=== PATIENT | male | born 1960 | race Caucasian/White ===

== ENCOUNTER → 2016-11-30 | Outpatient (CLI) | payer BC, OTHER ==
[~2016-11-30] MED LIST: ALTACE; AML5T; AMLO10TA2 PO; AMLO1TAB15; CLONIDINE; D50KC PO; DIPH1TAB PO; DIPH1TAB25 PO; FURO-124 PO; HUMALOG; HYDR-2997 PO; HYDR-757 PO; INSU100C SQ; INSU100I14 SQ; INSU100I5 SQ; KCL10CCR; LANTUS; LASIX; LORA10TA7 PO; LOSA100T28 PO; LOSA25TA15 PO; METO50TA2 PO; PGLT30T; SITA100T; bistolic
--- OUTSIDE RECORDS SUMMARY | 2016-11-30 11:24 | XMS REPORT | Continuity of Care Document ---
Author Author [facility] Organization [facility] Address Unknown Phone Unavailable Care Team Providers Care Aircraft Detail Draftsperson Name Role Phone Romie Baker PCP [phone] Source Comments Some departments are not documenting in the electronic medical record. If you do not see the information that you expected, contact Release of Information in the Health Information Management department at [phone] for further assistance in locating additional records.[facility] Active Allergies and Adverse Reactions Allergen Noted Date Severity Reactions Comments Augmentin 07/22/2016 Low UNKNOWN Current Medications Prescription Sig. Disp. Refills Start End Date Status Date amLODIPine (NORVASC) 10 Take 10 mg by mouth Active mg tablet daily. losartan(+) (COZAAR) 100 Take 100 mg by mouth Active mg tablet daily. diphenoxylate/atropine Take 1 Tab by mouth four Active (LOMOTIL) 2.5/0.025 mg times daily as needed for tablet Diarrhea. hydrochlorothiazide Take 50 mg by mouth every Active (HYDRODIURIL) 50 mg morning. tablet furosemide (LASIX) 40 mg Take 40 mg by mouth every Active tablet morning. insulin detemir(+) Inject under the skin. Active (LEVEMIR) 100 unit/mL soln metoprolol XL (TOPROL XL) Take 50 mg by mouth Active 50 mg extended release daily. tablet insulin aspart (NOVOLOG Inject 5 Units under the Active FLEXPEN) 100 unit/mL skin three times daily injection PEN with meals. Active Problems Not on file Social History Tobacco Use Types Packs/Day Years Used Date Never Assessed Plan of Care Health Maintenance Due Date Last Done Comments Hepatitis C Screening 1959 Physical (Comprehensive) 1966 Exam Pertussis Vaccine 1970 Tetanus Vaccine 1976 Colorectal Cancer 2009 Screening Influenza Vaccine 07/28/2016 Results from Last 3 Months Not on file
[2016-11-30 11:38] LABS: MEAN PLATELET VOLUME 11.2 FL (7.4-10.4); RED BLOOD COUNT 3.23 10^6/uL (4.35-5.85); RED CELL DISTRIBUTION WIDTH 12.8 % (10.0-14.5); WHITE BLOOD COUNT 7.6 10^3/uL (4.3-11.0)
[2016-11-30 11:56] LABS: CALCIUM 9.2 MG/DL (8.5-10.1); CREATININE SERUM 4.45 MG/DL (0.60-1.30); PHOSPHORUS 5.8 MG/DL (2.3-4.7); POTASSIUM 3.5 MMOL/L (3.6-5.0)
[2016-12-01 07:59] LABS: CALCIUM PARA THYROID HORMONE 9.2 mg/dL (8.5-10.5)
== END ==
LOC: LAB 11:18
PROVIDERS: ATTEND Internal Medicine Nephrology
DX: I12.9 Hypertensive chronic kidney disease with stage 1 through stage 4 chronic kidney disease, or unspecified chronic kidney disease (principal); N18.4 Chronic kidney disease, stage 4 (severe); E11.22 Type 2 diabetes mellitus with diabetic chronic kidney disease; E11.21 Type 2 diabetes mellitus with diabetic nephropathy; D64.9 Anemia, unspecified; N25.0 Renal osteodystrophy; R60.9 Edema, unspecified; N20.0 Calculus of kidney; E55.9 Vitamin D deficiency, unspecified
CPT/HCPCS: 36415; 80069; 82306; 83970; 85027

== ENCOUNTER 2016-12-22 11:33 | Emergency (ER) | payer BC ==
[~2016-12-22] VITALS: Ht 175.3 cm; Wt 99.8 kg
--- OUTSIDE RECORDS SUMMARY | 2016-12-22 11:39 | XMS REPORT | Continuity of Care Document ---
Author Author [facility] Organization [facility] Address Unknown Phone Unavailable Care Team Providers Care Loss Control Consultant Name Role Phone Romie Baker PCP [phone] Source Comments Some departments are not documenting in the electronic medical record. If you do not see the information that you expected, contact Release of Information in the Health Information Management department at [phone] for further assistance in locating additional records.[facility] Active Allergies and Adverse Reactions [...]
[2016-12-22 12:12] LABS: BASOPHILS % (AUTO) 1 % (0-10); EOSINOPHILS # (AUTO) 0.2 10^3/uL (0.0-0.3); EOSINOPHILS % (AUTO) 3 % (0-10); LYMPHOCYTES # (AUTO) 1.1 X 10^3 (1.0-4.0); LYMPHOCYTES % (AUTO) 17 % (12-44); MEAN CORPUSCULAR HEMOGLOBIN 31 PG (25-34); MEAN CORPUSCULAR HGB CONC 32 G/DL (32-36); MEAN CORPUSCULAR VOLUME 96 FL (80-99); MEAN PLATELET VOLUME 9.6 FL (7.4-10.4); MONOCYTES # (AUTO) 0.7 X 10^3 (0.0-1.0); MONOCYTES % (AUTO) 11 % (0-12); NEUTROPHILS # (AUTO) 4.6 X 10^3 (1.8-7.8); NEUTROPHILS % (AUTO) 68 % (42-75); PLATELET COUNT 133 10^3/uL (130-400); RED BLOOD COUNT 3.04 10^6/uL (4.35-5.85); RED CELL DISTRIBUTION WIDTH 14.3 % (10.0-14.5); WHITE BLOOD COUNT 6.7 10^3/uL (4.3-11.0)
[2016-12-22 12:21] LABS: INR 1.1 (0.8-1.4); PROTHROMBIN TIME PATIENT 13.4 SEC (12.2-14.7)
--- NOTE | 2016-12-22 12:26 | Diagnostic Imaging Report ---
Clinical indication: Episodes of confusion since last night, had an episode today for approximately 3-1/2 hours. Exam: Portable chest x-ray upright view. Comparisons: X-ray of the right ribs dated 12/25/2007. Findings: There is cardiomegaly with minimal pulmonary vascular congestion which has progressed. There is minimal left basilar atelectasis. Otherwise, the lungs are clear. There is no pleural effusion or pneumothorax. There is interval placement of vascular access catheter seen overlying the right chest with tip in the distal superior vena cava. The bones showed no significant abnormality, as visualized. Impression: 1: There is interval progression of cardiomegaly with minimal pulmonary vascular congestion. 2: Minimal left basilar atelectasis. 3. Interval placement of vascular access catheter overlying the right chest. Dictated by: Dictated on workstation # [id number]
[2016-12-22 12:29] LABS: ALBUMIN 3.8 G/DL (3.2-4.5); BILIRUBIN,TOTAL 0.8 MG/DL (0.1-1.0); CALCIUM 8.8 MG/DL (8.5-10.1); CREATININE SERUM 1.74 MG/DL (0.60-1.30); POTASSIUM 2.7 MMOL/L (3.6-5.0); TOTAL PROTEIN 7.1 G/DL (6.4-8.2)
--- NOTE | 2016-12-22 13:04 | Diagnostic Imaging Report ---
INDICATION: Altered mental status and recent left eye surgery. TECHNIQUE: Noncontrast brain CT is performed. FINDINGS: There are mild diffuse atrophic changes. There are no extra-axial fluid collections. No intracranial hemorrhage. No intracranial mass or mass effect. No midline shift. There are mild low-density changes in the deep white matter compatible with chronic ischemic change. There is no acute intracranial process. Calvarial windows show no bony abnormalities. There is air in the left globe presumably postsurgical in nature. There is some mucosal thickening of left maxillary sinus. IMPRESSION: Mild atrophy and chronic changes in deep white matter. No acute intracranial abnormality. Postoperative changes in left globe. Dictated by: Dictated on workstation # [id number]
--- NOTE | 2016-12-22 13:25 | ED Neurological Problem ---
General Chief Complaint: Neuro-Stroke Like Symptoms Stated Complaint: CONFUSION Nursing Triage Note: PT TO ROOM 4 STATES IN HAVING PERIODS OF CONFUSION SINCE LAST PM. PT CONFUSED AT TIMES. STATES WAS SCARED AT HOME NEEDED TO GET HELP. PT HAD DIALYSIS TODAY FOR APPROX 3.5HOURS, PT HAD RECENT EYE SURG FOR L EYE RETINAL BLEEDING. Nursing Sepsis Screen: No Definite Risk Source: patient Exam Limitations: no limitations History of Present Illness Time seen by provider: 13:23 Initial Comments To ER with reports of intermittent confusion. He states this began with unusual dreams during his sleep last night. States that he does not normally dream and these were very unusual for him. This morning he also felt a bit confused and didn't know where he was at at certain times but this was not constant. He went to dialysis which he receives on Monday and Monday and felt somewhat better afterwards. He then went to his daughter's house and became again confused and anxious and didn't know where he was at and requested that she call someone for help. He was then brought to the emergency room. At this time, he states he feels back to normal other than being generally weak. He denies any focal or unilateral weakness. agrees with this. He was treated on Monday of this week for a left retinal hemorrhage by an chief service dispatcher in [place]. Timing/Duration: 24 hours, waxing and waning Severity: moderate Allergies and Home Medications Allergies Coded Allergies: NKANo Known Allergies (Verified Allergy, Unknown, 12/28/05) Home Medications Amlodipine Besylate 10 Mg Tablet 10 MG PO DAILY (Reported) Diphenoxylate HCl/Atropine 1 Each Tablet 1 TAB PO QID PRN PRN DIARRHEA (Reported ) Ergocalciferol (Vitamin D2) 50,000 Unit Capsule 50,000 UNIT PO MONTHLY (Reported ) PATIENT JUST FINISHED ONCE WEEKLY DOSING FOR 4 WEEKS ON MONDAY OF THIS WEEK; NOW WILL BE TAKING ONCE MONTHLY FOR 6 MONTHS. Furosemide 40 Mg Tablet 40 MG PO BID (Reported) Hydrocodone/Acetaminophen 1 Each Tablet #30 1 EACH PO Q4H PRN PRN PAIN Prescribed by: PRECIOUS YOUNG on 08/11/16 1040 Insulin Aspart 300 Units/3 Ml Solution 15 UNITS SQ TIDAC (Reported) Insulin Determir 100 Unit/1 Ml Insuln.pen 15 UNITS SQ HS (Reported) Losartan Potassium 100 Mg Tablet 100 MG PO DAILY (Reported) Metoprolol Tartrate 50 Mg Tablet 50 MG PO BID (Reported) Constitutional: see HPI Eyes: See HPI Other (shield over left eye) Ears, Nose, Mouth, Throat: no symptoms reported Respiratory: no symptoms reported Cardiovascular: no symptoms reported Genitourinary: no symptoms reported Musculoskeletal: no symptoms reported Skin: no symptoms reported Psychiatric/Neurological: No Symptoms Reported Past Mszpowf-Pivvya-Ocijkr Hx Patient Social History Alcohol Use: Denies Use Recreational Drug Use: No Smoking Status: Never a Smoker Recent Foreign Travel: No Contact w/Someone Who Travel: No Recent Infectious Disease Expo: No Recent Hopitalizations: Yes (EYE SURG) Physical Abuse Screen: No Sexual Abuse: No Immunizations Up To Date Tetanus Booster (TDap): Less than 5yrs Date of Pneumonia Vaccine: March 27, 2016 Seasonal Allergies Seasonal Allergies: Yes Surgeries HX Surgeries: Yes (BACK--L5-S1, FINGER FX/REPAIR; EXPLORATORY LAPAROTOMY) Surgeries: Abdominal, Orthopedic Respiratory Hx Respiratory Disorders: No Cardiovascular Hx Cardiac Disorders: Yes Cardiac Disorders: Chronic Edema/Swelling, High Cholesterol, Hypertension Neurological Hx Neurological Disorders: No Reproductive System Hx Reproductive Disorders: No Genitourinary Hx Genitourinary Disorders: Yes (STAGE 4 RENAL FAILURE--NO DIALYSIS, X 3 KIDNEY STONES) Genitourinary Disorders: Kidney Stones, Renal Failure Gastrointestinal Hx Gastrointestinal Disorders: Yes Gastrointestinal Disorders: Crohns Disease Musculoskeletal Hx Musculoskeletal Disorders: Yes Musculoskeletal Disorders: Arthritis, Back Injury, Chronic Back Pain, Fractures Endocrine Hx Endocrine Disorders: Yes Endocrine Disorders: Diabetes, Insulin dep HEENT HX ENT Disorders: Yes (CATARACTS REMOVED) HEENT Disorders: Tinnitis Cancer Hx Cancer: Yes (BASAL CELL) Cancer: Skin Psychosocial Hx Psychiatric Problems: No Integumentary HX Skin/Integumentary Disorder: Yes (SKIN CANCER) Blood Transfusions Hx Blood Disorders: No Physical Exam Vital Signs Vital Sign - Last 12Hours 12/22/16 11:33 Temp 98.5 Pulse 67 Resp 41 B/P 164/74 Pulse Ox 84 O2 Delivery Room Air Capillary Refill : Less Than 3 Seconds General Appearance: WD/WN no apparent distress HEENT: PERRL/EOMI normal ENT inspection Neck: non-tender full range of motion Respiratory: no respiratory distress no accessory muscle use Cardiovascular: regular rate, rhythm other (he denies chest pain or shortness of breath) Gastrointestinal: normal bowel sounds non tender soft Neurologic/Psychiatric: alert normal mood/affect oriented x 3 other (Child Care Development Specialist are equal, moves both lower extremities. Vision cannot be tested at his left eye is poor to begin with and covered with a shield. Facial movement is symmetrical and speech is clear and appropriate) Crainal Nerves: normal hearing normal speech Skin: normal color warm/dry Progress/Results/Core Measures Results/Orders Lab Results Laboratory Tests Test 12/22/16 11:55 12/22/16 12:04 Range/Units Alanine Aminotransferase (ALT/SGPT) 29 0-55 U/L Albumin 3.8 3.2-4.5 G/DL Alkaline Phosphatase 129 40-136 U/L Anion Gap 8 5-14 MMOL/L Aspartate Amino Transf (AST/SGOT) 21 5-34 U/L BUN/Creatinine Ratio 7 Basophils # (Auto) 0.0 0.0-0.1 10^3/uL Basophils (%) (Auto) 1 0-10 % Blood Urea Nitrogen 12 7-18 MG/DL Calcium Level 8.8 8.5-10.1 MG/DL Carbon Dioxide Level 35 H 21-32 MMOL/L Chloride Level 95 L 98-107 MMOL/L Creatinine 1.74 H 0.60-1.30 MG/DL Eosinophils # (Auto) 0.2 0.0-0.3 10^3/uL Eosinophils (%) (Auto) 3 0-10 % Estimat Glomerular Filtration Rate 41 Glucose Level 137 H 70-105 MG/DL Hematocrit 29 L 40-54 % Hemoglobin 9.4 L 13.3-17.7 G/DL INR Comment 1.1 0.8-1.4 Lymphocytes # (Auto) 1.1 1.0-4.0 X 10^3 Lymphocytes (%) (Auto) 17 12-44 % Mean Corpuscular Hemoglobin 31 25-34 PG Mean Corpuscular Hemoglobin Concent 32 32-36 G/DL Mean Corpuscular Volume 96 80-99 FL Mean Platelet Volume 9.6 7.4-10.4 FL Monocytes # (Auto) 0.7 0.0-1.0 X 10^3 Monocytes (%) (Auto) 11 0-12 % Neutrophils # (Auto) 4.6 1.8-7.8 X 10^3 Neutrophils (%) (Auto) 68 42-75 % Platelet Count 133 130-400 10^3/uL Potassium Level 2.7 L 3.6-5.0 MMOL/L Prothrombin Time 13.4 12.2-14.7 SEC Red Blood Count 3.04 L 4.35-5.85 10^6/uL Red Cell Distribution Width 14.3 10.0-14.5 % Serum Alcohol < 10 <10 MG/DL Sodium Level 138 135-145 MMOL/L Total Bilirubin 0.8 0.1-1.0 MG/DL Total Protein 7.1 6.4-8.2 G/DL White Blood Count 6.7 4.3-11.0 10^3/uL Glucometer 157 H 70-110 MG/DL My Orders Orders-IRA BRUCE APRN Cbc With Automated Diff (12/22/16 11:57) Ct Head Wo (12/22/16 11:57) Comprehensive Metabolic Panel (12/22/16 11:57) Protime With Inr (12/22/16 11:57) Chest 1 View, Ap/Pa Only (12/22/16 11:57) Ua Culture If Indicated (12/22/16 11:57) Drug Screen Stat (Urine) (12/22/16 12:09) Alcohol (12/22/16 12:10) Potassium Chloride (Tablet) (Klor Con Ta (12/22/16 13:30) Medications Given in ED Current Medications Medications Dose Ordered Sig/Uday Route Start Time Stop Time Status Last Admin Dose Admin Potassium Chloride 40 meq ONCE ONCE PO 12/22/16 13:30 12/22/16 13:31 DC 12/22/16 14:08 40 MEQ Vital Signs/I&O Vital Sign - Last 12Hours 12/22/16 11:33 Temp 98.5 Pulse 67 Resp 41 B/P 164/74 Pulse Ox 84 O2 Delivery Room Air Blood Pressure Mean: 104 Departure Communication Progress Notes I discussed the case with Dr. Precious Young. She agrees to have the patient scheduled for follow-up appointment tomorrow at the clinic. Impression Impression: Primary Impression: General weakness Additional Impression: Symptomatic hypokalemia Disposition: 01 HOME, SELF-CARE Condition: Stable Departure-Patient Inst. Decision time for Depature: 14:23 Referrals: [facility] (PCP/Family) Primary Care Physician Patient Instructions: Hypokalemia (DC) Add. Discharge Instructions: 1. Return to ER for any concerns 2. Follow-up with his doctor next week 3. All discharge instructions reviewed with patient and/or family. Voiced understanding. IRA BRUCE APRN Dec 22, 2016 13:25
[2016-12-22] MEDS ORDERED: KCL 10 MEQ TAB (MICRO K) PO ONE (13:30)
[2016-12-22 14:27] VITALS: BP 145/74
== END 2016-12-22 14:33 | disposition home or self-care (01) ==
LOC: EDUNIT# 11:33 → ER 11:36
DX: R53.1 Weakness (principal); E87.6 Hypokalemia; E11.9 Type 2 diabetes mellitus without complications; I12.0 Hypertensive chronic kidney disease with stage 5 chronic kidney disease or end stage renal disease; N18.6 End stage renal disease; Z99.2 Dependence on renal dialysis; Z79.4 Long term (current) use of insulin; Z79.899 Other long term (current) drug therapy
CPT/HCPCS: 36415; 70450; 71010; 80053; 80320; 82962; 85025; 85610

== ENCOUNTER → 2017-05-01 | Outpatient (CLI) | payer BC, MEDICARE ==
[2017-05-01 09:49] LABS: CHOLESTEROL 201 MG/DL (< 200); DIRECT LDL 92 MG/DL (1-129); TRIGLYCERIDES 359 MG/DL (<150); VLDL CHOLESTEROL 72 MG/DL (5-40)
== END ==
LOC: LAB 09:16
PROVIDERS: ATTEND Internal Medicine Cardiovascular Disease
DX: Z01.818 Encounter for other preprocedural examination (principal); I12.0 Hypertensive chronic kidney disease with stage 5 chronic kidney disease or end stage renal disease; N18.6 End stage renal disease; E11.69 Type 2 diabetes mellitus with other specified complication; Z79.4 Long term (current) use of insulin; Z99.2 Dependence on renal dialysis
CPT/HCPCS: 36415; 80061

== ENCOUNTER 2017-08-24 08:24 | Day surgery (SDC) | payer BC, MEDICARE ==
[~2017-08-24] VITALS: Ht 175.3 cm; Wt 103.4 kg
[~2017-08-24 08:24] MED LIST changes: -ATOR40TA70 PO; -CALC667C10 PO; -INSU100I29 SQ; -METO-333 PO; -SERT25TA5 PO; -SODI325T PO
--- OUTSIDE RECORDS SUMMARY | 2017-08-24 08:28 | XMS REPORT ---
Author INGRID Christopher Organization [employer] Address Unknown Phone Unavailable Care Team Providers Care Manager Linux Name Role Phone INGRID CHOUDHARY CP Unavailable Allergies No Known Allergies Problems Problem Type Condition Code Onset Dates Condition Status Problem Edema 782.3 Active Problem Other and unspecified noninfectious gastroenteritis and colitis 558.9 Active Problem Diabetes mellitus without mention of complication, type II or unspecified type, not stated as uncontrolled 250.00 Active Assessment Renal insufficiency N28.9 Active Assessment Orthostatic hypotension I95.1 Active Problem Diabetes type 2, uncontrolled E11.65 Active Problem Diabetes E11.9 Active Problem Hypertension I10 Active Problem Need for prophylactic vaccination and inoculation against pertussis alone V03.6 Active Problem Diabetes with neurological manifestations, type II or unspecified type , not stated as uncontrolled 250.60 Active Problem HTN (hypertension) 401.9 Active Problem Renal failure N19 Active Medications Medication Code System Code Instructions Start Date End Date Status Dosage Blood Pressure Monitor [facility] [address] - DX: N28.9, I95.1 June 06, 2016 monitor BP as directed by nephrology Results No Known Results Summary Purpose [employer] Submission
--- OUTSIDE RECORDS SUMMARY | 2017-08-24 08:28 | XMS REPORT | Clinical Summary ---
Author Author [facility] Organization [facility] Address Unknown Phone Unavailable Care Team Providers Care Log Yard Derrick Operator Name Role Phone PCP Unavailable Source Comments Some departments are not documenting in the electronic medical record. If you do not see the information that you expected, contact Release of Information in the Health Information Management department at [phone] for further assistance in locating additional records.[facility] Allergies Active Allergy Reactions Severity Noted Date Comments Amoxicillin-Pot UNKNOWN Low 07/22/2016 Clavulanate Current Medications Prescription Sig. Disp. Refills Start [...] Types Packs/Day Years Used Date Never Assessed Sex Assigned at Date Recorded Not on file Last Filed Vital Signs Not on file Plan of Treatment Health Maintenance Due Date Last Done Comments HEPATITIS C SCREENING 1960 PHYSICAL (COMPREHENSIVE) 1966 EXAM PERTUSSIS VACCINE 1970 TETANUS VACCINE 1976 COLORECTAL CANCER 2009 SCREENING INFLUENZA VACCINE 08/27/2017 Results Not on filefrom Last 3 Months
--- OUTSIDE RECORDS SUMMARY | 2017-08-24 08:28 | XMS REPORT ---
Author Author AILEEN KNIGHT Organization [facility] Address [address] [place] [address] Care Team Providers Care Escort Patients Name Role Phone SUKUMAR KNIGHTICE Unavailable PROBLEMS Type Condition ICD9-CM Code RAX02-FG Code Onset Dates Condition Status SNOMED Code Problem Diabetes type 2, uncontrolled E11.65 Active 917341503 Problem Chronic kidney disease, stage 4 (severe) N18.4 Active 509399440 Problem Hypertension I10 Active 96457108 Problem 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, unspecified nursing home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 status E11.42 Active 506966534 Problem Encounter for dental examination Z01.20 Active 518111819 Problem Type 2 diabetes mellitus with diabetic chronic kidney disease E11.22 Active 56877110 Problem Type 2 diabetes mellitus with hyperglycemia E11.65 Active 285642702608857 Problem Constipation, unspecified constipation type K59.00 Active 13152339 Problem 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.4 Active 592604229 Problem Need for prophylactic vaccination and inoculation against pertussis alone V03.6 Active 17651705 Problem Edema 782.3 Active 40816879 Problem Diabetes with neurological manifestations, type II or unspecified type , not stated as uncontrolled 250.60 Active 553820093 Problem Renal failure N19 Active 97754593 Problem Other and unspecified noninfectious gastroenteritis and colitis 558.9 Active 85554926 Problem HTN (hypertension) 401.9 Active 25332186 Problem Diabetes mellitus without mention of complication, type II or unspecified type, not stated as uncontrolled 250.00 Active 854022202 Problem Diabetes E11.9 Active 04811725 ALLERGIES Substance Reaction Event Type Date Status Doxycycline Unknown Drug Allergy Dec, Active Clindamycin HCl hives Drug Allergy Dec, Active Amoxicillin extreme diarrhea Drug Allergy Dec, Active SOCIAL HISTORY Never Assessed PLAN OF CARE Activity Details Follow Up prn Reason: VITAL SIGNS Height 69 in 2017-01-06 Weight 217.8 lbs 2017-01-06 Temperature 97.6 degrees Fahrenheit 2017-01-06 Heart Rate 76 bpm 2017-01-06 Respiratory Rate 20 2017-01-06 BMI 32.16 kg/m2 2017-01-06 Blood pressure systolic 130 mmHg 2017-01-06 Blood pressure diastolic 88 mmHg 2017-01-06 MEDICATIONS Medication Instructions Dosage Frequency Start Date End Date Duration Status Cozaar 100 MG Orally Once a day 1 tablet 24h Oct, 30 Active Levemir Flexpen 100 unit/mL (3 mL) 15 Units by Subcutaneous route 1 time per day at bedtime Active Blood Pressure Monitor - monitor BP as directed by nephrology May, Active Lomotil 2.5-0.025 MG 1 tablet as needed 6h Dec, Active Amlodipine Besylate 10 mg Orally Once a day 1 tablet 24h Dec, 30 day(s) Active Metoprolol Tartrate 100 MG Orally Twice a day as directed 12h 30 Active Lasix 40 mg Orally twice a day 1 tablet 12h Active Hydrochlorothiazide 25 MG Orally Once a day 2 tablets 24h Active RESULTS No Results PROCEDURES No Known procedures IMMUNIZATIONS No Known Immunizations MEDICAL (GENERAL) HISTORY Type Description Date Medical History type II diabetes Medical History hyperlipidemia Medical History hypertension Medical History renal failure Surgical History l4/l5 surgery Surgical History left shoulder reconstruction Surgical History right rotator cuff x2 Surgical History exploratory laprascopy Surgical History orthopaedic surgery left ring finger; 5 pins placed Surgical History laser eye surgery x2 on right eye, x1 left eye (prepping for cataract removal) Surgical History Left eye cataract surgery 12/08/2015 Surgical History Right eye cataract surgery 02/02/16 Hospitalization History surgeries Hospitalization History left greater trochanter fracture 08/10/16
--- OUTSIDE RECORDS SUMMARY | 2017-08-24 08:28 | XMS REPORT ---
Author LAURY Michaels [facility] [employer] Address Unknown Phone Unavailable Care Team Providers Care Operations Tech Name Role Phone LAURY KILPATRICK Unavailable Allergies No Known Allergies Problems Problem Type Condition Code Onset Dates Condition Status Problem Diabetes mellitus without mention of complication, type II or unspecified type, not stated as uncontrolled 250.00 Active Problem Edema 782.3 Active Problem Diabetes type 2, uncontrolled E11.65 Active Problem Diabetes E11.9 Active Problem Hypertension I10 Active Problem Diabetes with neurological manifestations, type II or unspecified type , not stated as uncontrolled 250.60 Active Problem Other and unspecified noninfectious gastroenteritis and colitis 558.9 Active Problem HTN (hypertension) 401.9 Active Problem Need for prophylactic vaccination and inoculation against pertussis alone V03.6 Active Medications No Known Medications Results No Known Results Summary Purpose [employer] Submission
--- OUTSIDE RECORDS SUMMARY | 2017-08-24 08:28 | XMS REPORT ---
Author INGRID Christopher Organization [employer] Address Unknown Phone Unavailable Care Team Providers Care Rail Washer Name Role Phone INGRID CHOUDHARY CP Unavailable Allergies No Known Allergies Problems Problem Type Condition Code Onset Dates Condition Status Problem Need for prophylactic vaccination and inoculation against pertussis alone V03.6 Active Problem HTN (hypertension) 401.9 Active Problem Renal failure N19 Active Problem Type 2 diabetes mellitus with hyperglycemia E11.65 Active Problem Chronic kidney disease, stage 4 (severe) N18.4 Active Problem Type 2 diabetes mellitus with diabetic chronic kidney disease E11.22 Active Problem Diabetes type 2, uncontrolled E11.65 Active Problem Diabetes E11.9 Active Problem vermin exterminator current use of insulin Z79.4 Active Problem Hypertension I10 Active Problem Edema 782.3 Active Problem Diabetes mellitus without mention of complication, type II or unspecified type, not stated as uncontrolled 250.00 Active Problem Other and unspecified noninfectious gastroenteritis and colitis 558.9 Active Assessment Displaced fracture of greater trochanter of left femur, initial encounter for closed fracture S72.112A Active Problem Diabetes with neurological manifestations, type II or unspecified type , not stated as uncontrolled 250.60 Active Medications No Known Medications Results No Known Results Summary Purpose [employer] Submission
--- OUTSIDE RECORDS SUMMARY | 2017-08-24 08:28 | XMS REPORT ---
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 Z79.4 Active 833916887 Problem Chronic kidney disease, stage 4 (severe) N18.4 Active 214376371 Problem Hypertension I10 Active 88768108 Problem Type 2 diabetes mellitus with diabetic chronic kidney disease E11.22 Active 17898611 Problem Type 2 diabetes mellitus with hyperglycemia E11.65 Active 670697887853214 Problem Other and unspecified noninfectious gastroenteritis and colitis 558.9 Active 46442551 Problem Diabetes mellitus without mention of complication, type II or unspecified type, not stated as uncontrolled 250.00 Active 470270606 Problem Need for prophylactic vaccination and inoculation against pertussis alone V03.6 Active 33581973 Problem Diabetes with neurological manifestations, type II or unspecified type , not stated as uncontrolled 250.60 Active 837008459 Problem Edema 782.3 Active 53638404 Problem Renal failure N19 Active 21761129 ALLERGIES Substance Reaction Event Type Date Status Doxycycline Unknown Drug Allergy Nov, Active Clindamycin HCl hives Drug Allergy Nov, Active Amoxicillin extreme diarrhea Drug Allergy Nov, Active SOCIAL HISTORY No smoking Hx information available PLAN OF CARE Activity Details Follow Up 4 Weeks Reason:depression VITAL SIGNS Height 69 in 2016-12-01 Weight 233 lbs 2016-12-01 Heart Rate 54 bpm 2016-12-01 Respiratory Rate 16 2016-12-01 BMI 34.40 kg/m2 2016-12-01 Blood pressure systolic 140 mmHg 2016-12-01 Blood pressure diastolic 80 mmHg 2016-12-01 MEDICATIONS Medication Instructions Dosage Frequency Start Date End Date Duration Status Amlodipine Besylate 10 mg Orally Once a day 1 tablet 24h Dec, 30 day(s) Active Zoloft 25 MG Orally Once a day 1 tablet 24h Nov, 30 day(s) Active Levemir Flexpen 100 unit/mL (3 mL) 15 Units by Subcutaneous route 1 time per day at bedtime Active Cozaar 100 MG Orally Once a day 1 tablet 24h Oct, 30 Active Lasix 40 mg Orally twice a day 1 tablet 12h Active Metoprolol Tartrate 100 MG Orally Twice a day as directed 12h 30 Active Lomotil 2.5-0.025 MG 1 tablet as needed 6h Dec, Active Blood Pressure Monitor - monitor BP as directed by nephrology May, Active RESULTS No Results PROCEDURES Procedure Date Ordered Related Diagnosis Body Site Office Visit, Est Pt., Level 3 Dec 01, 2016 IMMUNIZATIONS No Known Immunizations
--- OUTSIDE RECORDS SUMMARY | 2017-08-24 08:28 | XMS REPORT ---
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 Active Problem Hypertension I10 Active Assessment Chronic kidney disease, stage 4 (severe) N18.4 Active Problem Edema 782.3 Active Problem Diabetes mellitus without mention of complication, type II or unspecified type, not stated as uncontrolled 250.00 Active Assessment Type 2 diabetes mellitus with diabetic chronic kidney disease E11.22 Active Problem Other and unspecified noninfectious gastroenteritis and colitis 558.9 Active Assessment Renal failure N19 Active Problem Diabetes with neurological manifestations, type II or unspecified type , not stated as uncontrolled 250.60 Active Medications Medication Code System Code Instructions Start Date End Date Status Dosage Blood Pressure Monitor [facility] [address] - DX: N28.9, I95.1 June 06, 2016 monitor BP as directed by nephrology Metoprolol Tartrate [facility] [address]-57 100 MG Orally Twice a day as directed Lasix [facility] [address]-90 40 mg Orally twice a day 1 tablet Cozaar [facility] [address]-85 100 MG Orally Once a day Nov 16, 2015 1 tablet Lomotil [facility] [address]-42 2.5-0.025 MG Four times a day Jan 22, 2015 1 tablet as needed Levemir Flexpen [facility] [address]-17 100 unit/mL (3 mL) PT NEEDS APPT FOR FURTHER REFILLS 15 Units by Subcutaneous route 1 time per day at bedtime Amlodipine Besylate [facility] [address]-34 10 mg Orally Once a day Jan 25, 2016 1 tablet Procedures Procedure Coding System Code Date Office Visit, Est Pt., Level 3 CPT-4 80212 Oct 24, 2016 Vital Signs Date/Time: Oct 24, 2016 Cardiac Monitoring Heart Rate 68 bpm Weight 243.8 lbs Height 69 in BMI 36.00 Index Blood Pressure Diastolic 90 mmHg Blood Pressure Systolic 148 mmHg Results No Known Results Summary Purpose eClinicalWorks Submission
--- OUTSIDE RECORDS SUMMARY | 2017-08-24 08:28 | XMS REPORT ---
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.4 Active 819951499 Problem Chronic kidney disease, stage 4 (severe) N18.4 Active 764999826 Problem Hypertension I10 Active 37210565 Problem Type 2 diabetes mellitus with diabetic chronic kidney disease E11.22 Active 40264229 Problem Type 2 diabetes mellitus with hyperglycemia E11.65 Active 011358545842043 Problem Other and unspecified noninfectious gastroenteritis and colitis 558.9 Active 51014839 Problem Diabetes mellitus without mention of complication, type II or unspecified type, not stated as uncontrolled 250.00 Active 927630359 Problem Need for prophylactic vaccination and inoculation against pertussis alone V03.6 Active 14358960 Problem Diabetes with neurological manifestations, type II or unspecified type , not stated as uncontrolled 250.60 Active 760816227 Problem Edema 782.3 Active 10808717 Problem Renal failure N19 Active 73635795 ALLERGIES Unknown Allergies SOCIAL HISTORY No smoking Hx information available PLAN OF CARE VITAL SIGNS MEDICATIONS Unknown Medications RESULTS No Results PROCEDURES No Known procedures IMMUNIZATIONS No Known Immunizations
--- OUTSIDE RECORDS SUMMARY | 2017-08-24 08:29 | XMS REPORT ---
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 E11.42 Active 660703627 Problem Constipation, unspecified constipation type K59.00 Active 78874254 Problem Type 2 diabetes mellitus with hyperglycemia E11.65 Active 446957640246519 Problem Chronic kidney disease, stage 4 (severe) N18.4 Active 718515410 Problem [facility] current use of insulin Z79.4 Active 192235800 Problem Type 2 diabetes mellitus with diabetic chronic kidney disease E11.22 Active 11231367 Problem Need for prophylactic vaccination and inoculation against pertussis alone V03.6 Active 77181359 Problem Diabetes mellitus without mention of complication, type II or unspecified type, not stated as uncontrolled 250.00 Active 526722393 Problem Diabetes with neurological manifestations, type II or unspecified type , not stated as uncontrolled 250.60 Active 443152530 Problem Edema 782.3 Active 66683047 Problem Renal failure N19 Active 71544029 Problem Other and unspecified noninfectious gastroenteritis and colitis 558.9 Active 48163864 Problem HTN (hypertension) 401.9 Active 81472290 ALLERGIES No Information SOCIAL HISTORY Never Assessed PLAN OF CARE VITAL SIGNS MEDICATIONS Medication Instructions Dosage Frequency Start Date End Date Duration Status Klor-Con 10 10 MEQ Orally Twice a day 1 tablet with food 12h 13 Dec, 2016 March, 30 day(s) Active RESULTS No Results PROCEDURES No Known [...]
--- OUTSIDE RECORDS SUMMARY | 2017-08-24 08:29 | XMS REPORT ---
Author INGRID Christopher [facility] eClinicalWorks Address Unknown Phone Unavailable Care Team Providers Care Dial Buffer Name Role Phone INGRID CHOUDHARY CP Unavailable Allergies, Adverse Reactions, Alerts Substance Reaction Event Type N.K.D.A. Info Not Available Non Drug Allergy Problems Problem Type Condition Code Onset Dates Condition Status Assessment Diabetes E11.9 Active Problem HTN (hypertension) 401.9 Active Problem Need for prophylactic vaccination and inoculation against pertussis alone V03.6 Active Problem Diabetes E11.9 Active Problem Diabetes mellitus without mention of complication, type II or unspecified type, not stated as uncontrolled 250.00 Active Problem Edema 782.3 Active Problem Diabetes with neurological manifestations, type II or unspecified type , not stated as uncontrolled 250.60 Active Problem Other and unspecified noninfectious gastroenteritis and colitis 558.9 Active Medications Medication Code System Code Instructions Start Date End Date Status Dosage Lipitor [facility] [address]-45 40 MG Once a day Jan 22, 2015 1 tablet NovoLog Flexpen [facility] [address]-61 100 UNIT/ML Subcutaneous 3 times a day with meals Jan 22, 2015 inject 25 units Potassium Chloride ER [facility] [address]-76 10 MEQ Orally Once a day June 15, 2015 Dec 12, 2015 1 capsule Bystolic [facility] [address]-45 20 MG Orally Once a day June 04, 2012 1 tablet Levemir Flexpen [facility] [address]-21 100 unit/mL (3 mL) PT NEEDS APPT FOR FURTHER REFILLS Jan 22, 2015 40 Units by Subcutaneous route 1 time per day at bedtime Hydrochlorothiazide [facility] [address]-91 25 MG Orally Once a day 1 tablet Lomotil [facility] [address]-29 2.5-0.025 MG Jan 22, 2015 2 tablet by Oral route 4 times per day PRN prn diarrhea, please make an appt [place] [facility] [address]-76 5-325 MG Orally every 6 hrs Nov 11, 2015 1 tablet as needed Furosemide [facility] [address]-09 20 MG Orally Once a day 1 tablet Procedures Procedure Coding System Code Date MICROALBUMIN, SEMIQUANT CPT-4 09369 Nov 11, 2015 ASSAY OF URINE CREATININE CPT-4 53341 Nov 11, 2015 GLYCATED HEMOGLOBIN TEST CPT-4 25696 Nov 11, 2015 Office Visit, Est Pt., Level 3 CPT-4 81412 Nov 11, 2015 MICROALBUMIN, QUANTITATIVE CPT-4 36786 Nov 11, 2015 Vital Signs Date/Time: Nov 11, 2015 Temperature 97.1 F Weight 247.4 lbs Height 69 in BMI 36.53 Index Blood Pressure Diastolic 112 mmHg Blood Pressure Systolic 150 mmHg Cardiac Monitoring Heart Rate 64 bpm Results Name Result Date Reference Range Unit Abnormality Flag A1C (IN HOUSE) ----A1C IN HOUSE >14 20151111 4.30 - 5.6 % ----Previous A1c 13.8 20151111 ----Lot # [id number] [id number] ----Exp date 20151111 MICROALBUMIN, URINE (IN HOUSE) ----CRE 100mg/dl 20151111 ----ALB 150mg/l 20151111 ----Control + 20151111 ----Control + 20151111 ----A:C (IN HOUSE) >300mg/g 20151111 ----Clarity clear 20151111 ----[place] 20151111 ----Lot # [id number] 20151111 ----Exp date 20151111 ----MICROALBUMIN High Abnormal 20151111 Summary Purpose eClinicalWorks Submission
--- OUTSIDE RECORDS SUMMARY | 2017-08-24 08:29 | XMS REPORT ---
Author LORI Cohen [facility] eClinicalWorks Address Unknown Phone Unavailable Care Team Providers Care Hospice Social Worker Name Role Phone LORI PEDRO CP Unavailable Allergies No Known Allergies Problems Problem Type Condition Code Onset Dates Condition Status Problem Edema 782.3 Active Problem Other and unspecified noninfectious gastroenteritis and colitis 558.9 Active Problem Diabetes mellitus without mention of complication, type II or unspecified type, not stated as uncontrolled 250.00 Active Assessment Left rotator cuff tear M75.102 Active Problem Diabetes type 2, uncontrolled E11.65 Active Problem Diabetes E11.9 Active Problem Hypertension I10 Active Problem Need for prophylactic vaccination and inoculation against pertussis alone V03.6 Active Problem Diabetes with neurological manifestations, type II or unspecified type , not stated as uncontrolled 250.60 Active Problem HTN (hypertension) 401.9 Active Problem Renal failure N19 Active Medications No Known Medications Procedures Procedure Coding System Code Date THERAPEUTIC EXERCISES CPT-4 12912 April 20, 2016 Results No Known Results Summary Purpose eClinicalWorks Submission
--- OUTSIDE RECORDS SUMMARY | 2017-08-24 08:29 | XMS REPORT ---
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 685691735 Problem Chronic kidney disease, stage 4 (severe) N18.4 Active 203703108 Problem Hypertension I10 Active 31793706 Problem Type 2 diabetes mellitus with diabetic chronic kidney disease E11.22 Active 89987671 Problem Type 2 diabetes mellitus with hyperglycemia E11.65 Active 921005280611914 Problem Other and unspecified noninfectious gastroenteritis and colitis 558.9 Active 13338190 Problem Diabetes mellitus without mention of complication, type II or unspecified type, not stated as uncontrolled 250.00 Active 140260400 Problem Need for prophylactic vaccination and inoculation against pertussis alone V03.6 Active 43781278 Problem Diabetes with neurological manifestations, type II or unspecified type , not stated as uncontrolled 250.60 Active 682667543 Problem Edema 782.3 Active 04333064 Problem Renal failure N19 Active 46235995 ALLERGIES Unknown Allergies SOCIAL HISTORY No smoking Hx information available PLAN OF CARE VITAL SIGNS MEDICATIONS Unknown Medications RESULTS No Results PROCEDURES No Known procedures IMMUNIZATIONS No Known Immunizations
--- OUTSIDE RECORDS SUMMARY | 2017-08-24 08:29 | XMS REPORT ---
Author LORI Cohen [facility] eClinicalWorks Address Unknown Phone Unavailable Care Team Providers Care Wood Scrap Handler Name Role Phone LORI PEDRO Unavailable Allergies No Known Allergies Problems Problem [...] Coding System Code Date THERAPEUTIC EXERCISES CPT-4 70263 March 23, 2016 PT EVALUATION CPT-4 01575 March 23, 2016 Results No Known Results Summary Purpose [employer] Submission
--- OUTSIDE RECORDS SUMMARY | 2017-08-24 08:29 | XMS REPORT ---
Author INGRID Christopher [facility] eClinicalWorks Address Unknown Phone Unavailable Care Team Providers Care Florist Manager Name Role Phone INGRID CHOUDHARY CP Unavailable Allergies, Adverse Reactions, Alerts Substance Reaction Event Type N.K.D.A. Info Not Available Non Drug Allergy Problems Problem Type Condition Code Onset Dates Condition Status Assessment Diabetes type 2, controlled E11.9 Active Problem Diabetes mellitus without mention [...] inoculation against pertussis alone V03.6 Active Medications Medication Code System Code Instructions Start Date End Date Status Dosage NovoLog Flexpen [facility] 43154341893 100 UNIT/ML INJECT 26 UNITS SUBCUTANEOUSLY THREE TIMES PER DAY DIRECTED Cozaar [facility] [address]-68 100 MG Orally Once a day Nov 16, 2015 1 tablet Metoprolol Tartrate [facility] [address]-91 50 mg Orally Twice a day February 08, 2016 [address] [facility] [address]-60 25 MG Orally Once a day 2 tablets Clindamycin HCl [facility] [address]-22 300 MG Orally every 8 hrs March 21, 2016 March 28, 2016 1 capsule Amlodipine Besylate [facility] [address]-85 10 mg Orally Once a day Jan 25, 2016 1 tablet Levemir Flexpen [facility] 93782963233 100 unit/mL (3 mL) PT NEEDS APPT FOR FURTHER REFILLS 40 Units by Subcutaneous route 1 time per day at bedtime Lomotil [facility] [address]-74 2.5-0.025 MG Four times a day Jan 22, 2015 1 tablet as needed Procedures Procedure Coding System Code Date Office Visit, Est Pt., Level 3 CPT-4 98131 March 28, 2016 Vital Signs Date/Time: March 28, 2016 Temperature 98.1 F Weight 247 lbs Height 69 in BMI 36.47 Index Blood Pressure Diastolic 86 mmHg Blood Pressure Systolic 146 mmHg Cardiac Monitoring Heart Rate 68 bpm Results No Known Results Summary Purpose eClinicalWorks Submission
--- OUTSIDE RECORDS SUMMARY | 2017-08-24 08:29 | XMS REPORT ---
Author INGRID Christopher [facility] eClinicalWorks Address Unknown Phone Unavailable Care Team Providers Care Cabinet Installer Name Role Phone INGRID CHOUDHARY CP Unavailable Allergies, Adverse Reactions, Alerts Substance Reaction Event Type N.K.D.A. Info Not Available Non Drug Allergy Problems Problem Type Condition Code Onset Dates Condition Status Assessment Renal insufficiency N28.9 Active Problem Edema 782.3 Active Assessment Diabetes type 2, uncontrolled E11.65 Active Assessment Localized edema R60.0 Active Problem Diabetes E11.9 Active Problem HTN (hypertension) 401.9 Active Problem Diabetes type 2, uncontrolled E11.65 Active Problem Other and unspecified noninfectious gastroenteritis and colitis 558.9 Active Problem Diabetes mellitus without mention of complication, type II or unspecified type, not stated as uncontrolled 250.00 Active Problem Need for prophylactic vaccination and inoculation against pertussis alone V03.6 Active Problem Diabetes with neurological manifestations, type II or unspecified type , not stated as uncontrolled 250.60 Active Medications Medication Code System Code Instructions Start Date End Date Status Dosage Levemir Flexpen [facility] 0 100 unit/mL (3 mL) PT NEEDS APPT FOR FURTHER REFILLS Jan 22, 2015 25 Units by Subcutaneous route 1 time per day at bedtime Furosemide [facility] 76511815257 20 MG Orally Once a day 1 tablet NovoLog Flexpen [facility] [address]-64 100 UNIT/ML Subcutaneous 3 times a day with meals Jan 22, 2015 abvitd94- 25 units Bystolic [facility] [address]-86 20 MG Orally Once a day June 04, 2012 1 tablet [place] [facility] [address]-07 5-325 MG Orally every 6 hrs Nov 11, 2015 1 tablet as needed Cozaar [facility] [address]-52 50 MG Orally Once a day Nov 16, 2015 1 tablet Lomotil [facility] [address]-16 2.5-0.025 MG Jan 22, 2015 2 tablet by Oral route 4 times per day PRN prn diarrhea, please make an appt Procedures Procedure Coding System Code Date COMPLETE CBC W/AUTO DIFF WBC CPT-4 86867 Dec 16, 2015 BASIC METABOLIC PANEL CPT-4 13438 Dec 16, 2015 Office Visit, Est Pt., Level 3 CPT-4 94550 Dec 16, 2015 VENIPUNCT, ROUTINE* CPT-4 79712 Dec 16, 2015 Vital Signs Date/Time: Dec 16, 2015 Temperature 98.8 F Weight 257.5 lbs Height 69 in BMI 38.02 Index Blood Pressure Diastolic 98 mmHg Blood Pressure Systolic 140 mmHg Cardiac Monitoring Heart Rate 68 bpm Results Name Result Date Reference Range Unit Abnormality Flag ROUTINE VENIPUNCTURE Summary Purpose eClinicalWorks Submission
--- OUTSIDE RECORDS SUMMARY | 2017-08-24 08:29 | XMS REPORT ---
Author Author INGRID CHOUDHARY [facility] Address [address] [place] [address] Care Team Providers Care Aircraft Landing Gear Inspector Name Role Phone FUNMI INGRID Unavailable PROBLEMS Type Condition ICD9-CM Code SEQ28-JS Code Onset Dates Condition Status SNOMED Code Problem Diabetes E11.9 Active 55638741 Problem Hypertension I10 Active 21527645 Problem Diabetes type 2, uncontrolled E11.65 Active 671342667 Problem 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, unspecified retirement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 status E11.42 Active 786625289 Problem Constipation, unspecified constipation type K59.00 Active 73963292 Problem Type 2 diabetes mellitus with hyperglycemia E11.65 Active 499141068450336 Problem Chronic kidney disease, stage 4 (severe) N18.4 Active 762030843 Problem [facility] current use of insulin Z79.4 Active 826691287 Problem Type 2 diabetes mellitus with diabetic chronic kidney disease E11.22 Active 62981860 Problem Need for prophylactic vaccination and inoculation against pertussis alone V03.6 Active 35523957 Problem Diabetes mellitus without mention of complication, type II or unspecified type, not stated as uncontrolled 250.00 Active 734783001 Problem Diabetes with neurological manifestations, type II or unspecified type , not stated as uncontrolled 250.60 Active 398440238 Problem Edema 782.3 Active 38392066 Problem Renal failure N19 Active 92036187 Problem Other and unspecified noninfectious gastroenteritis and colitis 558.9 Active 07014913 Problem HTN (hypertension) 401.9 Active 24910683 ALLERGIES No Information SOCIAL HISTORY Never Assessed PLAN OF CARE VITAL SIGNS MEDICATIONS Unknown [...]
--- OUTSIDE RECORDS SUMMARY | 2017-08-24 08:29 | XMS REPORT ---
Author INGRID Christopher Organization eClinicalWorks Address Unknown Phone Unavailable Care Team Providers Care Sponge Packer Name Role Phone INGRID CHOUDHARY CP Unavailable Allergies No Known Allergies Problems Problem Type Condition Code Onset Dates Condition Status Assessment Renal insufficiency N28.9 Active Problem Edema 782.3 Active Assessment Benign essential hypertension I10 Active Problem Diabetes E11.9 Active Problem HTN [...] Instructions Start Date End Date Status Dosage Lindazaar [facility] [address]-47 100 MG Orally Once a day Nov 16, 2015 1 tablet Results No Known Results Summary Purpose eClinicalWorks Submission
--- OUTSIDE RECORDS SUMMARY | 2017-08-24 08:29 | XMS REPORT ---
Author LAURY Michaels [facility] eClinicalWorks Address Unknown Phone Unavailable Care Team Providers Care Small Engine Mechanic Name Role Phone LAURY KILPATRICK Unavailable Allergies No Known Allergies Problems Problem Type Condition Code Onset Dates Condition Status Assessment Left rotator cuff tear M75.102 Active Problem Diabetes mellitus without mention of [...] alone V03.6 Active Medications No Known Medications Procedures Procedure Coding System Code Date X-RAY EXAM OF SHOULDER CPT-4 06615 March 03, 2016 Office Visit, Est Pt., Level 3 CPT-4 80857 March 03, 2016 Vital Signs Date/Time: March 03, 2016 Blood Pressure Diastolic 85 mmHg Blood Pressure Systolic 132 mmHg Height 69 in Results Name Result Date Reference Range Unit Abnormality Flag Xray : Shoulder, Left 2 view (IN HOUSE) Summary Purpose eClinicalWorks Submission
--- OUTSIDE RECORDS SUMMARY | 2017-08-24 08:29 | XMS REPORT ---
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 746773762 Problem Hypertension I10 Active 94260787 Problem Type 2 diabetes mellitus with hyperglycemia E11.65 Active 977203543445052 Problem Chronic kidney disease, stage 4 (severe) N18.4 Active 440538619 Problem Other and unspecified noninfectious gastroenteritis and colitis 558.9 Active 73064781 Problem Diabetes with neurological manifestations, type II or unspecified type , not stated as uncontrolled 250.60 Active 003550544 Problem Edema 782.3 Active 62224719 Problem Need for prophylactic vaccination and inoculation against pertussis alone V03.6 Active 49720083 Problem Diabetes mellitus without mention of complication, type II or unspecified type, not stated as uncontrolled 250.00 Active 545758954 Problem Renal failure N19 Active 71597792 ALLERGIES Substance Reaction Event Type Date Status Doxycycline Unknown Drug Allergy Oct, Active Clindamycin HCl hives Drug Allergy Oct, Active Amoxicillin Unknown Drug Allergy Oct, Active SOCIAL HISTORY No smoking Hx information available PLAN OF CARE VITAL SIGNS Height 69 in 2016-11-23 Weight 231 lbs 2016-11-23 Temperature 97.8 degrees Fahrenheit 2016-11-23 Heart Rate 58 bpm 2016-11-23 Respiratory Rate 16 2016-11-23 BMI 34.11 kg/m2 2016-11-23 Blood pressure systolic 116 mmHg 2016-11-23 Blood pressure diastolic 58 mmHg 2016-11-23 MEDICATIONS Medication Instructions Dosage Frequency Start Date End Date Duration Status Levemir Flexpen 100 unit/mL (3 mL) 15 Units by Subcutaneous route 1 time per day at bedtime Active Lomotil 2.5-0.025 MG 1 tablet as needed 6h Dec, Active Amoxicillin 500 MG Orally 3 times a day 1 capsule 8h Oct, Nov, 10 day(s) Active Metoprolol Tartrate 100 MG Orally Twice a day as directed 12h 30 Active Blood Pressure Monitor - monitor BP as directed by nephrology May, Active Amlodipine Besylate 10 mg Orally Once a day 1 tablet 24h Dec, 30 day(s) Active Cozaar 100 MG Orally Once a day 1 tablet 24h Oct, 30 Active Lasix 40 mg Orally twice a day 1 tablet 12h Active RESULTS No Results PROCEDURES Procedure Date Ordered Related Diagnosis Body Site Office Visit, Est Pt., Level 3 Nov 23, 2016 IMMUNIZATIONS No Known Immunizations
--- OUTSIDE RECORDS SUMMARY | 2017-08-24 08:29 | XMS REPORT ---
Author INGRID Christopher Organization [employer] Address Unknown Phone Unavailable Care Team Providers Care Beveling And Edging Machine Operator Name Role Phone INGRID CHOUDHARY CP Unavailable Allergies No Known Allergies Problems Problem Type Condition Code Onset Dates Condition Status Problem Need for prophylactic vaccination and inoculation against pertussis alone V03.6 Active Problem Diabetes with neurological manifestations, type II or unspecified type , not stated as uncontrolled 250.60 Active Problem HTN (hypertension) 401.9 Active Problem Edema 782.3 Active Problem Other and unspecified noninfectious gastroenteritis and colitis 558.9 Active Problem Diabetes mellitus without mention of complication, type II or unspecified type, not stated as uncontrolled 250.00 Active Medications Medication Code System Code Instructions Start Date End Date Status Dosage Levemir Flexpen [facility] [address]-52 100 unit/mL (3 mL) PT NEEDS APPT FOR FURTHER REFILLS Jan 22, 2015 40 Units by Subcutaneous route 1 time per day at bedtime Results No Known Results Summary Purpose [employer]ClinicalWorks Submission
--- OUTSIDE RECORDS SUMMARY | 2017-08-24 08:29 | XMS REPORT ---
Author LAURY Michaels [facility] [employer] Address Unknown Phone Unavailable Care Team Providers Care Costume Director Name Role Phone LAURY KILPATRICK Unavailable Allergies [...]
--- OUTSIDE RECORDS SUMMARY | 2017-08-24 08:30 | XMS REPORT ---
Author YAZ Mederos Organization [employer] Address Unknown Phone Unavailable Care Team Providers Care Market President Name Role Phone YAZ DACOSTA CP Unavailable Allergies, Adverse Reactions, Alerts Substance Reaction Event Type N.K.D.A. Info Not Available Non Drug Allergy Problems Problem Type Condition Code Onset Dates Condition Status Assessment Diabetes type 2, uncontrolled E11.65 Active Problem Diabetes mellitus without mention of [...] and inoculation against pertussis alone V03.6 Active Assessment Cellulitis L03.90 Active Assessment Edema 782.3 Active Assessment Hypertension I10 Active Medications Medication Code System Code Instructions Start Date End Date Status Dosage Clindamycin HCl [facility] [address]-24 300 MG Orally every 8 hrs March 21, 2016 March 28, 2016 1 capsule Lomotil [facility] [address]-96 2.5-0.025 MG Four times a day Jan 22, 2015 1 tablet as needed Levemir Flexpen [facility] 12464195779 100 unit/mL (3 mL) PT NEEDS APPT FOR FURTHER REFILLS 40 Units by Subcutaneous route 1 time per day at bedtime Cozaar [facility] [address]-02 100 MG Orally Once a day Nov 16, 2015 1 tablet Metoprolol Tartrate [facility] [address]-44 50 mg Orally Twice a day February 08, 2016 as directed Hydrochlorothiazide [facility] [address]-26 25 MG Orally Once a day 2 tablets NovoLog Flexpen [facility] 35793189969 100 UNIT/ML INJECT 26 UNITS SUBCUTANEOUSLY THREE TIMES PER DAY DIRECTED Amlodipine Besylate [facility] [address]-90 10 MG Orally Once a day Jan 25, 2016 1 tablet Procedures Procedure Coding System Code Date Office Visit, Est Pt., Level 3 CPT-4 32930 March 21, 2016 GLYCATED HEMOGLOBIN TEST CPT-4 95797 March 21, 2016 Vital Signs Date/Time: March 21, 2016 Temperature 97.5 F Weight 247.6 lbs Height 69 in BMI 36.56 Index Blood Pressure Diastolic 86 mmHg Blood Pressure Systolic 138 mmHg Cardiac Monitoring Heart Rate 64 bpm Results Name Result Date Reference Range Unit Abnormality Flag A1C (IN HOUSE) ----A1C IN HOUSE 7.6 [id number] 4.3 - 5.6 % ----Previous A1c >14 [id number] ----Lot [id number] ----Exp date [id number] Summary Purpose [employer]ClinicalWorks Submission
--- OUTSIDE RECORDS SUMMARY | 2017-08-24 08:30 | XMS REPORT ---
Author RICK Barber [facility] e[employer] Address Unknown Phone Unavailable Care Team Providers Care Office Support Associate Name Role Phone RICK DELA CRUZ Unavailable Allergies, Adverse Reactions, Alerts Substance Reaction Event Type N.K.D.A. Info Not Available Non Drug Allergy Problems Problem Type Condition Code Onset Dates Condition Status Assessment Benign essential hypertension I10 Active Problem Edema 782.3 Active Assessment Acute laryngopharyngitis J06.0 Active Assessment Strep pharyngitis J02.0 Active Problem Diabetes E11.9 Active Problem HTN [...] Date End Date Status Dosage Levemir Flexpen [facility] 19359208621 100 unit/mL (3 mL) PT NEEDS APPT FOR FURTHER REFILLS 40 Units by Subcutaneous route 1 time per day at bedtime Cozaar [facility] [address]-02 50 MG Orally Once a day Nov 16, 2015 1 tablet NovoLog Flexpen [facility] [address]-07 100 UNIT/ML Subcutaneous 3 times a day with meals Jan 22, 2015 [id number]- 25 units Lomotil [facility] [address]-70 2.5-0.025 MG Jan 22, 2015 2 tablet by Oral route 4 times per day PRN prn diarrhea, please make an appt Lisinopril [facility] [address]-58 20 MG Orally Once a day Dec 25, 2015 1 tablet Furosemide [facility] 95610805085 20 MG Orally Once a day 1 tablet Augmentin [facility] [address]-83 500-125 MG Orally every 12 hrs Dec 25, 2015 Jan 04, 2016 1 tablet Procedures Procedure Coding System Code Date MEASURE BLOOD OXYGEN LEVEL CPT-4 52447 Dec 25, 2015 STREP A ASSAY W/OPTIC CPT-4 27883 Dec 25, 2015 Office Visit, Est Pt., Level 3 CPT-4 99598 Dec 25, 2015 Vital Signs Date/Time: Dec 25, 2015 Temperature 97.6 F Weight 253.2 lbs Height 69 in Oximetry 98 % Blood Pressure Diastolic 112 mmHg Blood Pressure Systolic 156 mmHg Cardiac Monitoring Heart Rate 76 bpm BMI 37.39 Index Results Name Result Date Reference Range Unit Abnormality Flag STREP A (IN HOUSE) ----STREP A Positive [id number] ----Control + [id number] ----Lot # [id number] ----Exp date 06/19/201720151225 Summary Purpose eClinicalWorks Submission
--- OUTSIDE RECORDS SUMMARY | 2017-08-24 08:30 | XMS REPORT ---
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.4 Active 530578358 Problem Chronic kidney disease, stage 4 (severe) N18.4 Active 730545042 Problem Hypertension I10 Active 75840262 Problem Type 2 diabetes mellitus with diabetic chronic kidney disease E11.22 Active 25503860 Problem Type 2 diabetes mellitus with hyperglycemia E11.65 Active 168700695984594 Problem Other and unspecified noninfectious gastroenteritis and colitis 558.9 Active 86591563 Problem Diabetes mellitus without mention of complication, type II or unspecified type, not stated as uncontrolled 250.00 Active 176881723 Problem Need for prophylactic vaccination and inoculation against pertussis alone V03.6 Active 53352467 Problem Diabetes with neurological manifestations, type II or unspecified type , not stated as uncontrolled 250.60 Active 802543150 Problem Edema 782.3 Active 22824058 Problem Renal failure N19 Active 52522958 ALLERGIES Unknown Allergies SOCIAL HISTORY No smoking Hx information available PLAN OF CARE VITAL SIGNS MEDICATIONS Unknown Medications RESULTS No Results PROCEDURES No Known procedures IMMUNIZATIONS No Known Immunizations
--- OUTSIDE RECORDS SUMMARY | 2017-08-24 08:30 | XMS REPORT ---
Author Author INGRID CHOUDHARY [facility] Address [address] [place] [address] Care Team Providers Care Bariatric Program Coordinator Name Role Phone INGRID CHOUDHARY Unavailable PROBLEMS Type Condition ICD9-CM Code GKV24-VA Code Onset Dates Condition Status SNOMED Code Problem Diabetes mellitus without mention of complication, type II or unspecified type, not stated as uncontrolled 250.00 Active 146214948 Problem Diabetes with neurological manifestations, type II or unspecified type , not stated as uncontrolled 250.60 Active 235721294 Problem Other and unspecified noninfectious gastroenteritis and colitis 558.9 Active 46885234 Assessment Uncontrolled type 2 diabetes mellitus without complication, without long-term current use of insulin E11.65 Jul, Active 841665637 Assessment Hip fracture, left, closed, with routine healing, subsequent encounter S72.002D Jul, Active 304695904 Problem Edema 782.3 Active 01621462 Problem Hypertension I10 Active 18458390 Problem Diabetes type 2, uncontrolled E11.65 Active 700993381 Problem Renal failure N19 Active 99735055 Problem Need for prophylactic vaccination and inoculation against pertussis alone V03.6 Active Problem Diabetes E11.9 Active 20013942 Problem HTN (hypertension) 401.9 Active 02202772 ALLERGIES Substance Reaction Event Type Date Status Clindamycin HCl hives Drug Allergy Jul, Active SOCIAL HISTORY No smoking Hx information available PLAN OF CARE VITAL SIGNS Height 69 in 2016-08-22 Weight 230.6 lbs 2016-08-22 Heart Rate 60 bpm 2016-08-22 Respiratory Rate 18 2016-08-22 BMI 34.05 kg/m2 2016-08-22 Blood pressure systolic 126 mmHg 2016-08-22 Blood pressure diastolic 85 mmHg 2016-08-22 MEDICATIONS Medication Instructions Dosage Frequency Start Date End Date Duration Status Lasix 40 mg Orally twice a day 1 tablet 12h Active Metoprolol Tartrate 100 MG Orally Twice a day as directed 12h 30 Active Lomotil 2.5-0.025 MG 1 tablet as needed 6h 26 Dec, 2014 Active Blood Pressure Monitor - monitor BP as directed by nephrology May, Active Hydrocodone-Acetaminophen 5-325 MG Orally every 4 hrs 1 tablet as needed 4h Active NovoLog Flexpen 100 UNIT/ML INJECT 15 UNITS SUBCUTANEOUSLY THREE TIMES PER DAY DIRECTED Active Levemir Flexpen 100 unit/mL (3 mL) 15 Units by Subcutaneous route 1 time per day at bedtime Active Cozaar 100 MG Orally Once a day 1 tablet 24h Oct, 30 day(s) Active Amlodipine Besylate 10 mg Orally Once a day 1 tablet 24h Dec, 30 day(s) Active RESULTS No Results PROCEDURES Procedure Date Ordered Related Diagnosis Body Site Office Visit, Est Pt., Level 3 Aug 22, 2016 IMMUNIZATIONS No Known Immunizations
--- OUTSIDE RECORDS SUMMARY | 2017-08-24 08:30 | XMS REPORT ---
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.4 Active 370068884 Problem Chronic kidney disease, stage 4 (severe) N18.4 Active 888062402 Problem Hypertension I10 Active 36486457 Problem Type 2 diabetes mellitus with diabetic chronic kidney disease E11.22 Active 67256000 Problem Type 2 diabetes mellitus with hyperglycemia E11.65 Active 462333469460422 Problem Other and unspecified noninfectious gastroenteritis and colitis 558.9 Active 70170542 Problem Diabetes mellitus without mention of complication, type II or unspecified type, not stated as uncontrolled 250.00 Active 029485379 Problem Need for prophylactic vaccination and inoculation against pertussis alone V03.6 Active 74696164 Problem Diabetes with neurological manifestations, type II or unspecified type , not stated as uncontrolled 250.60 Active 493127733 Problem Edema 782.3 Active 21446281 Problem Renal failure N19 Active 25735311 ALLERGIES Unknown Allergies SOCIAL HISTORY No smoking Hx information available PLAN OF CARE VITAL SIGNS MEDICATIONS Unknown Medications RESULTS No Results PROCEDURES No Known procedures IMMUNIZATIONS No Known Immunizations
--- OUTSIDE RECORDS SUMMARY | 2017-08-24 08:30 | XMS REPORT ---
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
--- OUTSIDE RECORDS SUMMARY | 2017-08-24 08:30 | XMS REPORT ---
Author INGRID Christopher Organization [employer] Address Unknown Phone Unavailable Care Team Providers Care Car Filler Name Role Phone INGRID CHOUDHARY CP Unavailable Allergies No Known Allergies Problems Problem Type Condition Code Onset Dates Condition Status Problem Edema 782.3 Active Problem Other and unspecified noninfectious gastroenteritis and colitis 558.9 Active Problem Diabetes mellitus without mention of complication, type II or unspecified type, not stated as uncontrolled 250.00 Active Problem Diabetes type 2, uncontrolled E11.65 Active Problem Diabetes E11.9 Active Problem Hypertension I10 Active Problem Need for prophylactic vaccination and inoculation against pertussis alone V03.6 Active Problem Diabetes with neurological manifestations, type II or unspecified type , not stated as uncontrolled 250.60 Active Problem HTN (hypertension) 401.9 Active Problem Renal failure N19 Active Medications No Known Medications Results No Known Results Summary Purpose [employer]ClinicalWorks Submission
--- OUTSIDE RECORDS SUMMARY | 2017-08-24 08:30 | XMS REPORT ---
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 Active Assessment Chronic kidney disease, stage 4 (severe) N18.4 Active Problem Edema 782.3 Active Problem Diabetes mellitus without mention of complication, type II or unspecified type, not stated as uncontrolled 250.00 Active Assessment Diabetes E11.9 Active Problem Other and unspecified noninfectious gastroenteritis and colitis 558.9 Active Assessment Renal failure N19 Active Problem Diabetes with neurological manifestations, type II or unspecified type , not stated as uncontrolled 250.60 Active Medications Medication Code System Code Instructions Start Date End Date Status Dosage Cozaar [facility] [address]-13 100 MG Orally Once a day Nov 16, 2015 1 tablet Amlodipine Besylate [facility] [address]-94 10 mg Orally Once a day Jan 25, 2016 1 tablet NovoLog Flexpen [facility] [address]-09 100 UNIT/ML INJECT 15 UNITS SUBCUTANEOUSLY THREE TIMES PER DAY DIRECTED Blood Pressure Monitor [facility] [address] - DX: N28.9, I95.1 June 06, 2016 monitor BP as directed by nephrology Lasix [facility] [address]-59 40 mg Orally twice a day 1 tablet Metoprolol Tartrate [facility] [address]-50 100 MG Orally Twice a day as directed Lomotil [facility] [address]-71 2.5-0.025 MG Four times a day Jan 22, 2015 1 tablet as needed Levemir Flexpen [facility] [address]-90 100 unit/mL (3 mL) PT NEEDS APPT FOR FURTHER REFILLS 15 Units by Subcutaneous route 1 time per day at bedtime Procedures Procedure Coding System Code Date Office Visit, Est Pt., Level 3 CPT-4 57588 Sep 22, 2016 GLYCATED HEMOGLOBIN TEST CPT-4 99883 Sep 22, 2016 Vital Signs Date/Time: Sep 22, 2016 Cardiac Monitoring Heart Rate 64 bpm Weight 230 lbs Height 69 in BMI 33.96 Index Blood Pressure Diastolic 104 mmHg Blood Pressure Systolic 174 mmHg Results Name Result Date Reference Range Unit Abnormality Flag A1C (IN HOUSE) ----A1C IN HOUSE 6.8 [id number] 4.3 - 5.6 % ----Previous A1c 7.6 [id number] ----Lot [id number] ----Exp date [id number] Summary Purpose eClinicalWorks Submission
--- OUTSIDE RECORDS SUMMARY | 2017-08-24 08:30 | XMS REPORT ---
Author INGRID Christopher Organization [employer] Address Unknown Phone Unavailable Care Team Providers Care Knitting Supervisor Name Role Phone INGRID CHOUDHARY CP [...] Date End Date Status Dosage NovoLog Flexpen [facility] [address]-96 100 UNIT/ML Subcutaneous 3 times a day with meals Jan 22, 2015 inject 26 units Results No Known Results Summary Purpose eClinicalWorks Submission
--- OUTSIDE RECORDS SUMMARY | 2017-08-24 08:30 | XMS REPORT ---
Author INGRID Christopher Organization [employer] Address Unknown Phone Unavailable Care Team Providers Care Overedge Sewer Name Role Phone INGRID CHOUDHARY CP Unavailable Allergies No Known Allergies Problems Problem Type Condition Code Onset Dates Condition Status Problem HTN (hypertension) 401.9 Active Problem Need [...] Instructions Start Date End Date Status Dosage [facility] [address]-78 25 MG Orally Once a day Nov 16, 2015 1 tablet Results No Known Results Summary Purpose eClinicalWorks Submission
--- OUTSIDE RECORDS SUMMARY | 2017-08-24 08:30 | XMS REPORT ---
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 515749813 Problem Chronic kidney disease, stage 4 (severe) N18.4 Active 914969028 Problem Hypertension I10 Active 41252114 Problem Type 2 diabetes mellitus with diabetic chronic kidney disease E11.22 Active 83990862 Problem Type 2 diabetes mellitus with hyperglycemia E11.65 Active 180153337913916 Problem Other and unspecified noninfectious gastroenteritis and colitis 558.9 Active 84140974 Problem Diabetes mellitus without mention of complication, type II or unspecified type, not stated as uncontrolled 250.00 Active 428005539 Problem Need for prophylactic vaccination and inoculation against pertussis alone V03.6 Active 94025133 Problem Diabetes with neurological manifestations, type II or unspecified type , not stated as uncontrolled 250.60 Active 893421959 Problem Edema 782.3 Active 73871980 Problem Renal failure N19 Active 63108981 ALLERGIES Unknown Allergies SOCIAL HISTORY No smoking Hx information available PLAN OF CARE VITAL SIGNS MEDICATIONS Unknown Medications RESULTS Name Result Date Reference Range [facility] 2017-01-02 Glucose, Serum 134 65-99 BUN 38 6-24 Creatinine, Serum 3.69 0.76-1.27 eGFR If NonAfricn Am 17 >59 eGFR If Africn Am 20 >59 BUN/Creatinine Ratio 10 9-20 Sodium, Serum 144 134-144 Potassium, Serum 2.9 3.5-5.2 Chloride, Serum 93 96-106 Carbon Dioxide, Total 27 18-29 Calcium, Serum 9.2 8.7-10.2 PROCEDURES Procedure Date Ordered Related Diagnosis Body Site BASIC METABOLIC PANEL Jan 02, 2017 VENIPUNCT, ROUTINE* Jan 02, 2017 IMMUNIZATIONS No Known Immunizations
--- OUTSIDE RECORDS SUMMARY | 2017-08-24 08:30 | XMS REPORT ---
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.4 Active 883667145 Problem Chronic kidney disease, stage 4 (severe) N18.4 Active 377153138 Problem Hypertension I10 Active 56991365 Problem Type 2 diabetes mellitus with diabetic chronic kidney disease E11.22 Active 23756919 Problem Type 2 diabetes mellitus with hyperglycemia E11.65 Active 973306549327886 Problem Other and unspecified noninfectious gastroenteritis and colitis 558.9 Active 14675403 Problem Diabetes mellitus without mention of complication, type II or unspecified type, not stated as uncontrolled 250.00 Active 615402529 Problem Need for prophylactic vaccination and inoculation against pertussis alone V03.6 Active 21286994 Problem Diabetes with neurological manifestations, type II or unspecified type , not stated as uncontrolled 250.60 Active Problem Edema 782.3 Active 50851566 Problem Renal failure N19 Active 34317532 ALLERGIES Substance Reaction Event Type Date Status Doxycycline Unknown Drug Allergy Nov, Active Clindamycin HCl hives Drug Allergy Nov, Active Amoxicillin extreme diarrhea Drug Allergy Nov, Active SOCIAL HISTORY No smoking Hx information available PLAN OF CARE VITAL SIGNS Height 69 in 2016-12-23 Weight 223 lbs 2016-12-23 Heart Rate 66 bpm 2016-12-23 Respiratory Rate 16 2016-12-23 BMI 32.93 kg/m2 2016-12-23 Blood pressure systolic 110 mmHg 2016-12-23 Blood pressure diastolic 60 mmHg 2016-12-23 MEDICATIONS Unknown Medications RESULTS No Results PROCEDURES Procedure Date Ordered Related Diagnosis Body Site Office Visit, Est Pt., Level 3 Dec 23, 2016 IMMUNIZATIONS No Known Immunizations
--- OUTSIDE RECORDS SUMMARY | 2017-08-24 08:31 | XMS REPORT ---
Author Author INGRID CHOUDHARY [facility] Address [address] [place] [address] Care Team Providers Care Telephone Information Supervisor Name Role Phone FUNMI INGRID Unavailable PROBLEMS Type Condition ICD9-CM Code [id number] Code Onset Dates Condition Status SNOMED Code Problem Diabetes E11.9 Active 22774054 Problem Hypertension I10 Active 47721748 Problem Diabetes type 2, uncontrolled E11.65 Active 886191896 Problem 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, unspecified long-term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 status E11.42 Active 472498048 Problem Constipation, unspecified constipation type K59.00 Active 28868024 Problem Type 2 diabetes mellitus with hyperglycemia E11.65 Active 880766031811773 Problem Chronic kidney disease, stage 4 (severe) N18.4 Active 255108576 Problem 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 Z79.4 Active 335263190 Problem Type 2 diabetes mellitus with diabetic chronic kidney disease E11.22 Active 06124728 Problem Need for prophylactic vaccination and inoculation against pertussis alone V03.6 Active 89881226 Problem Diabetes mellitus without mention of complication, type II or unspecified type, not stated as uncontrolled 250.00 Active 811570406 Problem Diabetes with neurological manifestations, type II or unspecified type , not stated as uncontrolled 250.60 Active 643843838 Problem Edema 782.3 Active 04852330 Problem Renal failure N19 Active 63254671 Problem Other and unspecified noninfectious gastroenteritis and colitis 558.9 Active 08645630 Problem HTN (hypertension) 401.9 Active 63284509 ALLERGIES No Information SOCIAL HISTORY Never Assessed [...]
--- OUTSIDE RECORDS SUMMARY | 2017-08-24 08:31 | XMS REPORT ---
Author RAQUEL Severino Organization [employer] Address Unknown Phone Unavailable Care Team Providers Care Biometric Screener Name Role Phone RAQUEL BERMUDEZ CP Unavailable Allergies, Adverse Reactions, Alerts Substance Reaction Event Type Clindamycin HCl hives Drug Allergy Problems Problem Type Condition Code Onset Dates Condition Status Problem Edema 782.3 Active Problem Other and unspecified noninfectious gastroenteritis and colitis 558.9 Active Problem Diabetes mellitus without mention of complication, type II or unspecified type, not stated as uncontrolled 250.00 Active Assessment Bronchitis J40 Active Problem Diabetes type 2, uncontrolled E11.65 [...] Date End Date Status Dosage Levemir Flexpen [facility] [address]-81 100 unit/mL (3 mL) PT NEEDS APPT FOR FURTHER REFILLS 15 Units by Subcutaneous route 1 time per day at bedtime Cozaar [facility] [address]-11 100 MG Orally Once a day Nov 16, 2015 1 tablet Lasix [facility] [address]-84 40 mg Orally twice a day 1 tablet Metoprolol Tartrate [facility] [address]-77 100 MG Orally Twice a day as directed Lomotil [facility] [address]-18 2.5-0.025 MG Four times a day Jan 22, 2015 1 tablet as needed Amlodipine Besylate [facility] [address]-59 10 mg Orally Once a day Jan 25, 2016 1 tablet Blood Pressure Monitor [facility] [address] - DX: N28.9, I95.1 June 06, 2016 monitor BP as directed by nephrology NovoLog Flexpen [facility] [address]-73 100 UNIT/ML INJECT 15 UNITS SUBCUTANEOUSLY THREE TIMES PER DAY DIRECTED Doxycycline Monohydrate [facility] [address]-96 100 MG Orally every 12 hrs AugSep 23, 2016 1 tablet Procedures Procedure Coding System Code Date MEASURE BLOOD OXYGEN LEVEL CPT-4 37168 Sep 13, 2016 Office Visit, Est Pt., Level 3 CPT-4 68447 Sep 13, 2016 Vital Signs Date/Time: Sep 13, 2016 Cardiac Monitoring Heart Rate 52 bpm Weight 233.0 lbs Height 69 in BMI 34.40 Index Oximetry 100 % Blood Pressure Diastolic 84 mmHg Blood Pressure Systolic 160 mmHg Results No Known Results Summary Purpose [employer] Submission
--- OUTSIDE RECORDS SUMMARY | 2017-08-24 08:31 | XMS REPORT ---
Author INGRID Christopher Organization [employer] Address Unknown Phone Unavailable Care Team Providers Care Net Wpf Developer Name Role Phone INGRID CHOUDHARY CP [...] Instructions Start Date End Date Status Dosage Amoxicillin [facility] [address]-15 500 MG Orally 3 times a day Sep 15, 2016 Sep 25, 2016 1 capsule Results No Known Results Summary Purpose [employer] Submission
[2017-08-24 08:40] VITALS: BP 137/85
[2017-08-24] MEDS ORDERED: LACTATED RINGERS 1,000 ML IV PRN (09:15)
[2017-08-24] MEDS ORDERED: CALC667C10 PO (09:23)
[2017-08-24] MEDS ORDERED: SERT25TA5 PO (09:23)
[2017-08-24] MEDS ORDERED: SODI325T PO (09:23)
--- NOTE | 2017-08-24 09:42 | Progress Note-Pre Operative ---
Pre-Operative Progress Note H&P Reviewed The H&P was reviewed, patient examined and no changes noted. Date Seen by Provider: Aug 24, 2017 Time Seen by Provider: 09:42 Date H&P Reviewed: Aug 24, 2017 Time H&P Reviewed: 09:42 Pre-Operative Diagnosis: screening colonoscopy, renal failure REANNA QUINTANILLA DO Aug 24, 2017 09:42
[2017-08-24] MEDS ORDERED: inSUlin ASPART (NovoLOG) 1 UNIT/0.01 ML (CHARGE PER UNIT) SC NR (09:54)
[2017-08-24] MEDS ORDERED: MIDAZOLAM 2 MG/2 ML (VERSED) VIAL ONE (10:09)
[2017-08-24] MEDS ORDERED: proPOfol 200 MG/20 ML (DIPRIVAN) VIAL IV ONE (10:09)
--- NOTE | 2017-08-24 10:40 | Progress Note-Post Operative ---
Post-Operative Progess Note Surgeon (s)/Bobbin Inspector (s) Surgeon REANNA QUINTANILLA DO Bobbin Inspector: na Pre-Operative Diagnosis screening colonoscopy, renal failure Post-Operative Diagnosis normal colon Procedure & Operative Findings Date of Procedure 08/24/17 Procedure Performed/Findings colonoscopy Anesthesia Type per [facility] Estimated Blood Loss Estimated blood loss (mL): none Specimens/Packing Specimens Removed na REANNA QUINTANILLA DO Aug 24, 2017 10:40
--- NOTE | 2017-08-24 10:47 | Discharge Inst-Simple/Standard ---
Discharge Inst-Standard Patient Instructions/Follow Up Plan of Care/Instructions/FU: follow up as needed. repeat colonoscopy 10 years if no family history of colon cancer, if family history colon cancer 5 years. any problems before that be re-evaluated at that time. Activity as Tolerated: Yes Discharge Diet: Regular Diet REANNA QUINTANILLA DO Aug 24, 2017 10:47
[2017-08-24 11:00] VITALS: BP 120/71
[2017-08-24 11:25] VITALS: BP 132/74
[2017-08-24 11:30] VITALS: BP 132/74
--- NOTE | 2017-08-24 12:44 | OPERATIVE REPORT ---
DATE OF SERVICE: 08/24/2017 PREOPERATIVE DIAGNOSIS: Screening colonoscopy, renal failure. POSTOPERATIVE DIAGNOSIS: Normal colon. PROCEDURE: Colonoscopy. ANESTHESIA: Per MDA. ESTIMATED BLOOD LOSS: None. COMPLICATIONS: None. INDICATIONS: The patient is a 57-year-old male with renal failure, awaiting transplant. He is needing screening colonoscopy, understands risks and benefits of procedure and wished to proceed with procedure. Consent was signed and on the chart. DESCRIPTION OF PROCEDURE: The patient was taken to the endoscopy suite, placed in left lateral recumbent position. Timeout was performed. Digital rectal exam was performed and there were no palpable polyps, masses or ulcerations. Scope was inserted in the rectum and advanced all the way to the cecum with minimal difficulty. Prep was adequate. Scope was then slowly retracted. There were no polyps, mass or ulcerations within the cecum, ascending, transverse, descending and sigmoid colon. Once in the rectum, scope was also retroflexed noting no other pathology. Scope was then slowly returned to its normal position, slowly withdrawn until completely removed. The patient tolerated procedure well without any complications. RECOMMENDATIONS: The patient will need repeat colonoscopy in 10 years unless family history of colon cancer which would then be 5 years or if he personal history of polyps in 5 years. If he has any problems prior to that, he should be reevaluated at that time. Job ID: [id number] DocumentID: [id number] Dictated Date: 08/24/2017 10:49:43 Global Chief Creative Officer Date: 08/24/2017 12:43:37 Dictated By: REANNA QUINTANILLA DO
== END 2017-08-24 11:30 | disposition home or self-care (01) ==
LOC: ENDO 08:24
PROVIDERS: ATTEND Surgery
DX: Z12.11 Encounter for screening for malignant neoplasm of colon (principal); I12.0 Hypertensive chronic kidney disease with stage 5 chronic kidney disease or end stage renal disease; E11.22 Type 2 diabetes mellitus with diabetic chronic kidney disease; N18.6 End stage renal disease; Z99.2 Dependence on renal dialysis; E66.9 Obesity, unspecified; Z68.33 Body mass index [BMI] 33.0-33.9, adult

== ENCOUNTER → 2017-08-24 | Outpatient (CLI) | payer BC, MEDICARE ==
[~2017-08-24] MED LIST changes: +ATOR40TA70 PO; +CALC667C10 PO; -D50KC PO; +ERGO50006 PO; +INSU100I29 SQ; +METO-333 PO; +SERT25TA5 PO; +SODI325T PO
== END ==
LOC: PREOP 05:29
PROVIDERS: ATTEND Surgery
DX: Z01.818 Encounter for other preprocedural examination (principal); Z12.11 Encounter for screening for malignant neoplasm of colon

== ENCOUNTER 2017-10-18 13:25 | Outpatient (CLI) | payer BC, MEDICARE ==
[~2017-10-18] VITALS: Ht 175.3 cm; Wt 105.7 kg
[~2017-10-18 13:25] MED LIST changes: +CALC667C10 PO; +SERT25TA5 PO; +SODI325T PO
[2017-10-18 13:33] VITALS: BP 140/89
[2017-10-18] MEDS ORDERED: INSU100I29 SQ (13:41)
[2017-10-18] MEDS ORDERED: METO-333 PO (13:41)
[2017-10-18] MEDS ORDERED: ATOR40TA70 PO (14:13)
== END 2017-10-18 13:50 | disposition home or self-care (01) ==
LOC: PREOP 13:25
PROVIDERS: ATTEND Orthopaedic Surgery
DX: Z01.818 Encounter for other preprocedural examination (principal); M75.102 Unspecified rotator cuff tear or rupture of left shoulder, not specified as traumatic; S43.402A Unspecified sprain of left shoulder joint, initial encounter; X58.XXXA Exposure to other specified factors, initial encounter; Y99.8 Other external cause status
CPT/HCPCS: 87081

== ENCOUNTER 2017-10-25 11:10 | Day surgery (SDC) | payer BC, MEDICARE ==
--- NOTE | 2017-10-23 06:19 | HISTORY AND PHYSICAL ---
DATE OF SERVICE: ADMISSION HISTORY AND PHYSICAL DATE OF ADMISSION: 10/11/2017. LAST-FOUR SOCIAL SECURITY: 4681 REASON FOR ADMISSION: This will be for outpatient surgery on 10/11/2017 for left shoulder arthroscopy and possible rotator cuff repair. HISTORY OF PRESENT ILLNESS: The patient is a 57-year-old right hand dominant gentleman with progressively worsening left shoulder pain. He underwent a capsular reconstruction when he was in college in the late 1970s. He underwent an MRI a year ago, which revealed a near full thickness supraspinatus tear with significant labral pathology and a loose body. He reports progressive pain and activity limitations because of the shoulder. Due to functional impairment and failure to improve with conservative measures, the patient elected to proceed with surgical intervention. REVIEW OF SYSTEMS: No chest pain, no shortness of breath, no dysuria. PRIMARY CARE PROVIDER: Dr. Hwang at [facility]. MEDICATIONS: Cozaar, Levemir, Lomotil, calcium, potassium. ALLERGIES: CLINDAMYCIN, AMOXICILLIN, DOXYCYCLINE. SOCIAL HISTORY: The patient denies alcohol or tobacco use. PHYSICAL EXAMINATION: GENERAL: The patient is well developed, well nourished, in no acute distress. HEENT: Normocephalic, atraumatic. Pupils are equal, round, reactive to light. Oropharynx is clear. NECK: Supple, no lymphadenopathy. LUNGS: Clear to auscultation bilaterally. HEART: Regular rate and rhythm. ABDOMEN: Soft, nontender, nondistended. EXTREMITIES: The left shoulder demonstrates a positive Neer's and positive Jett sign. He is tender in his bicipital groove. He has pain with Sutherlin's maneuver. He has weakness with abduction and external rotation. IMPRESSION: Left shoulder SLAP tear and rotator cuff tear. PLAN: Left shoulder arthroscopy with biceps tenotomy, possible rotator cuff repair, possible loose body removal. The risks, benefits, options, ramifications and recovery were discussed at length with the patient. He understands and wishes to proceed. Job ID: [id number] DocumentID: [id number] Dictated Date: 10/02/2017 14:21:03 Cna Hha Date: 10/02/2017 15:30:41 Dictated By: HÉCTOR COY MD
[~2017-10-25] VITALS: Ht 175.3 cm; Wt 105.7 kg
[~2017-10-25 11:10] MED LIST changes: +ATOR40TA70 PO; +INSU100I29 SQ; +METO-333 PO
[2017-10-25 11:15] VITALS: BP 136/87
--- OUTSIDE RECORDS SUMMARY | 2017-10-25 11:16 | XMS REPORT | Clinical Summary ---
Author Author [facility] Organization [facility] Address Unknown Phone Unavailable Care Team Providers Care Inseminator Name Role Phone PCP Unavailable Source Comments Some departments are not documenting in the electronic medical record. If you do not see the information that you expected, contact Release of Information in the Health Information Management department at [phone] for further assistance in locating additional records.[facility] Allergies Active Allergy Reactions Severity Noted [...] 1976 COLORECTAL CANCER 2009 SCREENING INFLUENZA VACCINE 06/27/2017 Results Not on filefrom Last 3 Months
[2017-10-25] MEDS ORDERED: BUPIVACAINE 0.25% 30 ML (SENSORCAINE) VIAL ONE (11:23)
[2017-10-25] MEDS ORDERED: fentaNYL INJECTION 100 MCG/2 ML AMP ONE (11:24)
[2017-10-25] MEDS ORDERED: proPOfol 200 MG/20 ML (DIPRIVAN) VIAL IV ONE (11:24)
[2017-10-25] MEDS ORDERED: ROPIVACAINE 5MG/ML 30ML VIAL ONE (11:24)
[2017-10-25] MEDS ORDERED: LIDOCAINE PF 2% 5 ML (XYLOCAINE) VIAL ONE (11:24)
[2017-10-25] MEDS ORDERED: SEVOFLURANE (ULTANE) 15 ML INHAL SOLN ONE ×3 (11:24→12:23)
[2017-10-25] MEDS ORDERED: ONDANSETRON 4 MG/2 ML (SDV) Z0FRAN ONE (11:24)
[2017-10-25] MEDS ORDERED: MIDAZOLAM 2 MG/2 ML (VERSED) VIAL ONE (11:25)
[2017-10-25] MEDS ORDERED: oxyCODONE/APAP 5/325MG (PERCOCET 5) TABLET PO PRN (11:30)
[2017-10-25] MEDS ORDERED: LACTATED RINGERS 1,000 ML IV PRN (11:33)
[2017-10-25] MEDS ORDERED: ceFAZolin 1 GM/NS 50 ML IVPB IV ONE ×2 (11:45)
[2017-10-25] MEDS ORDERED: ATRACURIUM 50 MG/5 ML (TRACRIUM) IV ONE ×2 (12:40→14:13)
[2017-10-25] MEDS ORDERED: ROCURONIUM 50 MG/5 ML (ZEMURON) VIAL IV ONE (12:59)
[2017-10-25] MEDS ORDERED: NEOSTIGMINE (BLOXIVERZ ) 1 MG/1ML 10 ML VIAL ONE (13:21)
[2017-10-25] MEDS ORDERED: GLYCOPYRROLATE 0.2 MG/ML (ROBINUL) 2 ML VIAL ONE (13:21)
--- NOTE | 2017-10-25 13:33 | Progress Note-Pre Operative ---
Pre-Operative Progress Note H&P Reviewed The H&P was reviewed, patient examined and no changes noted. Date Seen by Provider: Oct 25, 2017 Time Seen by Provider: 13:00 Date H&P Reviewed: Oct 25, 2017 Time H&P Reviewed: 13:00 Pre-Operative Diagnosis: left shoulder SLAP and labral tears HÉCTOR COY MD Oct 25, 2017 13:33
--- NOTE | 2017-10-25 13:36 | Progress Note-Post Operative ---
Post-Operative Progess Note Surgeon (s)/Director Of Claims (s) Surgeon HÉCTOR COY MD Director Of Claims: Nick Khan Pre-Operative Diagnosis left shoulder SLAP and labral tears Post-Operative Diagnosis left shoulder SLAP and labral tears and chondromalacia of the glenoid Procedure & Operative Findings Date of Procedure 10/25/17 Procedure Performed/Findings left shoulder arthroscopic biceps tenotomy, labral debridement and chondroplasty of the glenoid Anesthesia Type GETA plus interscalene block Estimated Blood Loss Estimated blood loss (mL): minimal Specimens/Packing Specimens Removed none Packing: none HÉCTOR COY MD Oct 25, 2017 13:36
[2017-10-25] MEDS ORDERED: HYDROmorphone (DILAUDID) 2 MG/ML VIAL IVP PRN (13:45)
[2017-10-25] MEDS ORDERED: ONDANSETRON 4 MG/2 ML (SDV) Z0FRAN IVP PRN (13:45)
[2017-10-25 14:40] VITALS: BP 141/96
[2017-10-25 14:45] VITALS: BP 141/96
[2017-10-25 15:10] VITALS: BP 166/93
[2017-10-25 15:40] VITALS: BP 169/95
--- NOTE | 2017-10-25 23:16 | OPERATIVE REPORT ---
DATE OF SERVICE: 10/25/2017 PREOPERATIVE DIAGNOSES: 1. Left shoulder SLAP tear. 2. Left shoulder labral tear. POSTOPERATIVE DIAGNOSES: 1. Left shoulder SLAP tear. 2. Left shoulder labral tear. 3. Left shoulder chondromalacia of the glenoid. PROCEDURES: 1. Left shoulder arthroscopic biceps tenotomy. 2. Left shoulder arthroscopic labral debridement. 3. Left shoulder chondroplasty of the glenoid. SURGEON: Daniel Coy M.D. NETWORK OPERATIONS PROJECT MANAGER: TANVIR Wallace, who assisted throughout the procedure and closed the incisions. ANESTHESIA: General endotracheal plus interscalene nerve block by William Ordonez CRNA. ESTIMATED BLOOD LOSS: Minimal. DRAINS: None. COMPLICATIONS: None. POSTOPERATIVE PLAN: Progressive range of motion as symptoms allow. The patient was transported to the recovery room, awake and in stable condition. STATEMENT OF MEDICAL NECESSITY: The patient is a 57-year-old right hand dominant gentleman, who underwent an open stabilization procedure of his left shoulder when he was in college. He has had increasing left shoulder pain, popping and snapping and MRI revealed a type 2 SLAP tear as well as labral tearing and due to functional impairment and failure to improve with conservative measures, the patient elected to proceed with surgical intervention. Examination under anesthesia revealed forward elevation of 160 degrees, external rotation of 80 degrees and internal rotation of 70 degrees. Arthroscopic findings demonstrated a type 2 SLAP tear with degenerative tearing of the anterior and posterior labrum, but no capsule or labral detachment. The rotator cuff demonstrated undersurface fraying with no full-thickness tearing noted. The humeral head demonstrated diffuse grade II chondral loss with no unstable chondral flaps. The glenoid demonstrated grade III chondral flaps inferiorly in a 20 x 20 area and superiorly in a 10 x 10 area. DESCRIPTION OF PROCEDURE: After risks and benefits of procedure were discussed and questions were answered, informed consent was signed and placed on the chart. The operative site was confirmed in the preoperative holding area initialed by the surgeon. The patient was then transferred to the operating room and after adequate levels of regional and general endotracheal anesthetic were obtained, a timeout was called to confirm the operative site. Examination under anesthesia was performed with the above findings noted. The left shoulder and upper extremity were then prepped and draped in the usual sterile fashion. The shoulder joint was injected with 20 mL of fluid and a standard posterior portal was placed under direct visualization, anterior portal was created in the interval between his biceps, subscapularis and glenoid. The biceps anchor was released and the stump was debrided with the shaver. The unstable chondral flaps on the glenoid were debrided with a shaver back to a stable edge. The glenoid labrum was debrided anteriorly and posteriorly with the shaver back to a stable edge. The shoulder joint was copiously irrigated. The portal sites were closed with 4-0 nylon in a simple interrupted fashion. The incisions were infiltrated with plain Marcaine and a soft dressing was applied and a sling and the patient was transferred to the recovery room awake and stable condition. Job ID: [id number] DocumentID: [id number] Dictated Date: 10/25/2017 13:35:40 Process Control Engineer Date: 10/25/2017 23:15:37 Dictated By: DANIEL COY MD
== END 2017-10-25 16:05 | disposition home or self-care (01) ==
LOC: SDC 11:10
PROVIDERS: ATTEND Orthopaedic Surgery
DX: S43.432A Superior glenoid labrum lesion of left shoulder, initial encounter (principal); M94.212 Chondromalacia, left shoulder; Z88.1 Allergy status to other antibiotic agents; Z79.899 Other long term (current) drug therapy; E11.40 Type 2 diabetes mellitus with diabetic neuropathy, unspecified; E78.5 Hyperlipidemia, unspecified; I10 Essential (primary) hypertension; Z79.4 Long term (current) use of insulin; Z99.2 Dependence on renal dialysis
CPT/HCPCS: 82962

== ENCOUNTER 2017-12-05 14:28 | Outpatient (RCR) | payer BC, MEDICARE ==
[~2017-12-05 14:28] MED LIST changes: +METO50TA15 PO; -METO50TA2 PO
== END 2017-12-19 16:18 | disposition home or self-care (01) ==
PROVIDERS: ATTEND Orthopaedic Surgery
DX: M75.112 Incomplete rotator cuff tear or rupture of left shoulder, not specified as traumatic (principal)

== ENCOUNTER 2018-06-16 18:24 | Emergency (ER) | payer BC, MEDICARE ==
[~2018-06-16] VITALS: Ht 175.3 cm; Wt 103.6 kg
--- NOTE | 2018-06-16 19:21 | Diagnostic Imaging Report ---
INDICATION: Followup wrist injury. COMPARISON: None. EXAMINATION: Three views of the left wrist was obtained. FINDINGS: Impacted nondisplaced fracture of the distal radius. There is intra-articular involvement. There is a nondisplaced fracture of the ulnar styloid. IMPRESSION: Distal radial ulnar fractures. ' Dictated by: Dictated on workstation # [id number]
--- NOTE | 2018-06-16 19:23 | Diagnostic Imaging Report ---
INDICATION: Fall, left forearm pain COMPARISON: None FINDINGS: Two views of the left forearm demonstrate distal radial and ulnar fractures. The elbow is intact. The remainder of the radius and ulna are normal. IMPRESSION: Distal radial and ulnar fractures. Dictated by: Dictated on workstation # [id number]
--- NOTE | 2018-06-16 19:25 | Diagnostic Imaging Report ---
INDICATION: Left shoulder injury and pain. COMPARISON: None. FINDINGS: Compared to views left elbow demonstrate no fracture dislocation. There is no joint effusion. No foreign body. IMPRESSION: Negative left elbow. Dictated by: Dictated on workstation # [id number]
--- NOTE | 2018-06-16 19:35 | ED Upper Extremity ---
General Chief Complaint: Upper Extremity Stated Complaint: FALL/ L WRIST INJURY Nursing Triage Note: PT PRESENTS TO ER WITH COMPLAINT OF LEFT WRIST PAIN AFTER FALLING. PT STATES HE TRIPPED EARLIER TODAY AND LANDED ON LEFT WRIST. STATES IT FEELS HIS WRIST IS GETTING TIGHTER. PT HAS FISTULA IS LEFT ARM Nursing Sepsis Screen: No Definite Risk Source: patient, spouse Exam Limitations: other (PT IS SOMEWHAT LIMITED HISTORIAN/POOR MEMORY) History of Present Illness Date Seen by Provider: Jun 16, 2018 Time Seen by Provider: 18:52 Initial Comments PT ARRIVES VIA POV WITH C/O LEFT ARM INJURY STATES HE TRIPPED WHEN HIS TOE GOT CAUGHT ON A RUG AND FELL, LANDING ON HIS LEFT ARM--LANDED BETWEEN COUCH AND COFFEE TABLE OCCURRED AT HOME AROUND NOON TODAY DID NOT HIT HEAD AND NO LOSS OF CONSCIOUSNESS NO NECK OR BACK PAIN NO HIP OR LEG PAIN NO CHEST PAIN OR SHORTNESS OF BREATH C/O PAIN FROM LEFT ELBOW TO LEFT WRIST, ALONG WITH SWELLING NO PARESTHESIAS OR MOTOR DEFICITS PT HAS ESRD ON DIALYSIS [id number] PT HAS AN OLD, NON-FUNCTIONING AV FISTULA / DIALYSIS GRAFT ON LEFT FOREARM, AND A NEWER/FUNCTIONING AV FISTULA/DIALYSIS GRAFT ON LEFT UPPER ARM PT HAS HAD LEFT SHOULDER SURGERY IN THE PAST NO PRIOR INJURY TO LEFT ELBOW, FOREARM, WRIST OR HAND. . PCP: SAVI-ARAMIS, GANESH CHOUDHARY ORTHOPEDIC SURGEON: DR. COY Allergies and Home Medications Allergies Coded Allergies: NKANo Known Allergies (Verified Allergy, Unknown, 12/28/05) Home Medications Atorvastatin Calcium 40 Mg Tablet, 40 MG PO HS, (Reported) Calcium Acetate 667 Mg Capsule, 667 MG PO TID, (Reported) Diphenoxylate HCl/Atropine 1 Each Tablet, 1 TAB PO QID PRN for DIARRHEA, ( Reported) Hydrocodone Bit/Acetaminophen 1 Ea Tablet, 1 EA PO Q4H Prescribed by: KARIME JARRETT on 06/16/180 Insulin Aspart 300 Units/3 Ml Solution, 15 UNITS SQ TIDAC, (Reported) Insulin Detemir 100 Unit/1 Ml Insuln.pen, 40 UNIT SQ HS, (Reported) Losartan Potassium 100 Mg Tablet, 100 MG PO DAILY, (Reported) Metoprolol Tartrate 25 Mg Tablet, 25 MG PO BID, (Reported) Sodium Bicarbonate 325 Mg Tablet, 10 GR PO BID, (Reported) Patient Home Medication List Home Medication List Reviewed: Yes Constitutional: no symptoms reported EENTM: no symptoms reported Respiratory: no symptoms reported Cardiovascular: no symptoms reported Gastrointestinal: no symptoms reported Genitourinary: see HPI Musculoskeletal: see HPI, other (WALKS WITH CANE) Skin: no symptoms reported Psychiatric/Neurological: 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) Past Gvwsdzz-Lpidui-Taeyep Hx Patient Social History Alcohol Use: Denies Use Recreational Drug Use: No Smoking Status: Never a Smoker Recent Foreign Travel: No Contact w/Someone Who Travel: No Recent Infectious Disease Expo: No Recent Hopitalizations: No Immunizations Up To Date Tetanus Booster (TDap): Less than 5yrs PED Vaccines UTD: No Date of Pneumonia Vaccine: March 27, 2016 Date of Influenza Vaccine: Aug 28, 2017 Seasonal Allergies Seasonal Allergies: Yes Past Medical History Surgeries: Yes (BACK--L5-S1, FINGER FX/REPAIR; EXPLORATORY LAPAROTOMY, LEFT SHOULDER; LEFT FOREARM AND LEFT UPPER ARM AV FISTULA/DIALYSIS GRAFT) Abdominal, Dialysis, Orthopedic, Vascular Surgery Respiratory: No Currently Using CPAP: No Currently Using BIPAP: No Cardiac: Yes Chronic Edema/Swelling, High Cholesterol, Hypertension Neurological: No Reproductive Disorders: No Sexually Transmitted Disease: No HIV/AIDS: No Genitourinary: Yes Kidney Stones, Renal Failure Gastrointestinal: Yes Crohns Disease Musculoskeletal: Yes Arthritis, Back Injury, Chronic Back Pain, Fractures Endocrine: Yes Diabetes, Insulin dep HEENT: Yes Tinnitis Cancer: Yes (BASAL CELL) Skin Did You Recieve Any Treatments: Yes What Type of Treatment Did You: Surgical Intervention Psychosocial: No Integumentary: No Blood Disorders: No Physical Exam Vital Signs Capillary Refill : Less Than 3 Seconds Height, Weight, BMI Height: 5'9.00" Weight: 228lbs. 8.0oz. [id number]; 34.4 BMI Method:Stated General Appearance: WD/WN, no apparent distress Cardiovascular: regular rate, rhythm, no murmur Respiratory: normal breath sounds Back: normal inspection, no CVA tenderness, no vertebral tenderness Shoulder: normal inspection, non-tender Elbow/Forearm: Left, bone tenderness, limited ROM, pain, soft tissue tenderness , swelling Wrist: Yes bone tenderness, Yes limited ROM, Yes pain, Yes soft tissue tenderness, Yes swelling Hand: normal inspection, Left Neurologic/Tendon: normal sensation, normal motor functions, normal tendon functions, other (TO LEFT ARM/HAND--MOTOR/SENSORY/VASCULAR INTACT) Neurologic/Psychiatric: director of land II-XII nml as tested, no motor/sensory deficits, alert, normal mood/affect, oriented x 3 Skin: normal color, warm/dry Procedures/Interventions Splinting and Joint Reduction : Arm Sling: [place] Splint Application: Short Arm Progress/Results/Core Measures Results/Orders My Orders Vital Signs/I&O Blood Pressure Mean: 108 Diagnostic Imaging Comments XRAYS--COMMINUTED/IMPACTED FRACTURE OF LEFT DISTAL RADIUS WITH INTRA-ARTICULAR INVOLVEMENT, FX OF ULNAR STYLOID, PER RADIOLOGIST REPORT AT 1929 Reviewed: Reviewed by Me Departure Communication (Admissions) 1929--SPOKE WITH DR. COY, RECOMMENDS VOLAR SHORT ARM SPLINT, AND HE WILL SEE PT IN OFFICE NEXT WEEK. Impression Primary Impression: Closed fracture of left distal radius and ulna Disposition: HOME, SELF-CARE Condition: Stable Departure-Patient Inst. Referrals: INGRID CHOUDHARY (PCP) Primary Care Physician HÉCTOR COY MD Patient Instructions: How to Use a Shoulder Sling, SPLINT CARE, Wrist Fracture (DC) Add. Discharge Instructions: WEAR SPLINT AT ALL TIMES, USE SLING NEEDED FOR COMFORT ADJUST JUANA WRAP NEEDED FOR COMFORT WIGGLE FINGERS FREQUENTLY ICE TO AREA AT 20 MINUTE INTERVALS FOLLOW UP WITH DR. COY NEXT WEEK. CALL ON MONDAY FOR APPOINTMENT All discharge instructions reviewed with patient and/or family. Voiced understanding. Scripts Hydrocodone Bit/Acetaminophen (LORTAB 7.5 MG TABLET) 1 Ea Tablet 1 EA PO Q4H for Pain, #20 TAB Prov: KARIME JARRETT DO 06/16/18 KARIME JARRETT DO Jun 16, 2018 19:35
[2018-06-16] MEDS ORDERED: HYDR-34 PO (19:40)
--- OUTSIDE RECORDS SUMMARY | 2018-06-16 19:40 | XMS REPORT ---
Author Author INGRID CHOUDHARY Organization [facility] Address [address] [place] [address] Care Team Providers Care Physician Vice President Name Role Phone INGRID CHOUDHARY Unavailable PROBLEMS Type Condition ICD9-CM Code SWF33-YD Code Onset Dates Condition Status SNOMED Code Problem Diabetes type 2, uncontrolled E11.65 Active 069386993 Problem Chronic kidney disease, stage 4 (severe) N18.4 Active 591727502 Problem Hypertension I10 Active 32184892 Problem Controlled type 2 diabetes mellitus without complication, without long -term current use of insulin E11.9 Active 647881089 Problem 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, unspecified vermin exterminator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 status E11.42 Active 168171632 Problem Type 2 diabetes mellitus with diabetic chronic kidney disease E11.22 Active 50374354 Problem Type 2 diabetes mellitus with hyperglycemia E11.65 Active 493719652778487 Problem Constipation, unspecified constipation type K59.00 Active 30400923 Problem 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.4 Active 382363493 Problem Need for prophylactic vaccination and inoculation against pertussis alone V03.6 Active 22321755 Problem Edema 782.3 Active 200959163 Problem Diabetes with neurological manifestations, type II or unspecified type , not stated as uncontrolled 250.60 Active 838500455 Problem Renal failure N19 Active 24931523 Problem Other and unspecified noninfectious gastroenteritis and colitis 558.9 Active 21155883 Problem HTN (hypertension) 401.9 Active 50734616 Problem Diabetes mellitus without mention of complication, type II or unspecified type, not stated as uncontrolled 250.00 Active 446538942 Problem Diabetes E11.9 Active 50778193 ALLERGIES No Information ENCOUNTERS Encounter Location Date Diagnosis [facility] [address] [facility] [id number] [address] Jan, [facility] [address] [facility] [id number] [address] Nov, Controlled type 2 diabetes mellitus without complication, without long-term current use of insulin E11.9 [facility] [id number] [place] [address] [id number] Nov, [facility] [id number] [place] [address] 66436- 5311 Oct, [facility] [id number] [place] [address] 34454- 1343 Oct, [facility] [id number] [place] [address] 09791- 4778 Oct, [facility] [id number] [place] [address] 61929- 0162 Oct, [facility] [id number] [place] [address] 92019- 4459 Oct, [facility] [id number] [place] [address] 02847- 7761 Sep, [facility] [id number] [place] [address] 60088 -6628 Aug, Acute bronchitis, unspecified organism J20.9 [facility] [id number] [place] [address] 28302- 7568 Aug, [facility] [id number] [place] [address] 31724 -7788 Aug, Diarrhea of infectious origin A09 [facility] [id number] [place] [address] 23146- 0118 Aug, [facility] [id number] [place] [address] 21940- 7647 Jul, 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, unspecified snf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 status E11.42 [facility] [id number] [place] [address] [id number] Jul, Encounter for dental examination Z01.20 [facility] [id number] [place] [address] 82435- 7328 Jul, 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, unspecified vermin exterminator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 status E11.42 [facility] [id number] [place] [address] 725397 -0656 Jun, Acute frontal sinusitis J01.10 [facility] [id number] [place] [address] [id number] Jun, Dental examination Z01.20 [facility] [id number] [place] [address] 24542 2546 May, [facility] [id number] [place] [address] 53664- 5586 May, [facility] [id number] [place] [address] 94521 2546 May, Open wound of toe, initial encounter S91.109A [facility] [id number] [place] [address] [id number] Apr, Dental examination Z01.20 [facility] [id number] [place] [address] 31071- 4106 Apr, Diabetes E11.9 and Stage 4 chronic kidney disease N18.4 [facility] [id number] [place] [address] 703985- 6466 March, [facility] [id number] [place] [address] 401337- 1436 Feb, [facility] [id number] [place] [address] 38854- 2026 Feb, [facility] [id number] [place] [address] 153776- 0546 Feb, [facility] [id number] [place] [address] 186777- 8916 13 Dec, 2016 [facility] [address] [address] [address] Dec, Constipation, unspecified constipation type K59.00 [facility] [id number] [place] [address] 17731- 2722 Dec, [facility] [id number] [place] [address] 19036- 0806 Dec, [facility] [id number] [place] [address] 46319- 4027 Dec, Renal failure N19 and Hypokalemia E87.6 [facility] [id number] [place] [address] 53030- 8079 Nov, Renal failure N19 and Hypokalemia E87.6 [facility] [id number] [place] [address] 89912- 8830 Nov, Chronic kidney disease, stage 4 (severe) N18.4 [facility] [id number] [place] [address] 92150- 8466 Nov, Chronic kidney disease, stage 4 (severe) N18.4 [facility] [id number] [place] [address] 86714- 8217 Nov, [facility] [id number] [place] [address] 68222- 6791 Nov, [facility] [id number] [place] [address] 39859- 2561 Nov, Dysthymia F34.1 [facility] [id number] [place] [address] 69937- 0714 Nov, [facility] [id number] [place] [address] 78300 -9400 Oct, Bronchitis J40 [facility] [id number] [place] [address] 04844- 9814 Oct, Localized edema R60.0 [facility] [id number] [place] [address] 59727- 4950 Sep, Renal failure N19 ; Type 2 diabetes mellitus with diabetic chronic kidney disease E11.22 and Chronic kidney disease, stage 4 (severe) N18.4 [facility] [id number] [place] [address] 76302- 5900 Aug, Renal failure N19 ; Diabetes E11.9 ; Type 2 diabetes mellitus with diabetic chronic kidney disease E11.22 ; Type 2 diabetes mellitus with hyperglycemia E11.65 ; Chronic kidney disease, stage 4 (severe) N18.4 and retirement current use of insulin Z79.4 [facility] [id number] [place] [address] 96055- 9820 Aug, Bronchitis J40 [facility] [id number] [place] [address] 64211- 8169 Aug, [facility] [id number] [place] [address] 83792 -2257 Aug, Bronchitis J40 [facility] [id number] [place] [address] 32345- 8842 Aug, Displaced fracture of greater trochanter of left femur, initial encounter for closed fracture S72.112A [place] [id number] [place] [address] 11643- 4038 Jul, Hip fracture, left, closed, with routine healing, subsequent encounter S72.002D ; Renal failure N19 and Uncontrolled type 2 diabetes mellitus without complication, without long-term current use of insulin E11.65 [facility] [address] [place] [address] 45703- 9143 Jul, [facility] [id number] [place] [address] 75209- 1740 Jul, [facility] [id number] [place] [address] 94981- 5426 Jul, [facility] [id number] [place] [address] 27932- 6354 Jul, [facility] [id number] [place] [address] 43863- 9772 May, [facility] [id number] [place] [address] 41763- 9071 May, Orthostatic hypotension I95.1 and Renal insufficiency N28.9 [facility] [address] [place] [address] 07842- 8550 May, Renal failure N19 [facility] [id number] [place] [address] 81353- 2164 May, [facility] [id number] [place] [address] 66391- 5445 Apr, Renal failure N19 [place] [id number] [place] [address] 56257- 7099 Apr, [place] [id number] [place] [address] 51299- 6232 Apr, [facility] [id number] [place] [address] 65596 -4238 Apr, Orthostatic hypotension I95.1 and 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, unspecified vermin exterminator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 status E11.42 [place] [id number] [place] [address] 08320- 6168 March, Left rotator cuff tear M75.102 [facility] [id number] [place] [address] 27218 -9474 March, Allergic reaction to drug T78.40XA [facility] [address] [place] [address] 37092- 7327 March, Diabetes type 2, controlled E11.9 [facility] [id number] [place] [address] 79907- 5554 Feb, Left rotator cuff tear M75.102 [facility] [id number] [place] [address] 71075- 5235 Feb, Left rotator cuff tear M75.102 [facility] [id number] [place] [address] 33370 -7639 Feb, Diabetes type 2, uncontrolled E11.65 ; Hypertension I10 ; Edema 782.3 and Cellulitis L03.90 [facility] [id number] [place] [address] 16967- 3377 Feb, [facility] [id number] [place] [address] 68055- 2394 Feb, [facility] [address] 55478- 6659 Feb, Left rotator cuff tear M75.102 [facility] [id number] [place] [address] 36071- 0866 Feb, [facility] [id number] [place] [address] 57510- 1140 Feb, Diabetes type 2, uncontrolled E11.65 and Edema R60.9 [facility] [address] 97833- 6776 Jan, Hypertension, essential I10 [facility] [id number] [place] [address] 65585- 8865 Dec, Hypertension I10 [facility] [id number] [place] [address] 74953- 2965 Dec, [facility] [id number] [place] [address] 63239- 4585 Dec, Renal insufficiency N28.9 and Edema R60.9 [facility] [id number] [place] [address] 43655- 1178 Dec, [facility] [id number] [place] [address] 39677- 0741 Dec, [facility] [id number] [place] [address] 24020- 4590 Dec, [facility] [id number] [place] [address] 47941 -5642 Nov, Pedal edema R60.0 and Benign essential hypertension I10 [facility] [address] [address]- 0867 Nov, Benign essential hypertension I10 and Renal insufficiency N28.9 [facility] [address] [address] -8619 Nov, Acute laryngopharyngitis J06.0 ; Benign essential hypertension I10 and Strep pharyngitis J02.0 [facility] [address] [place] [address] 68847- 1158 Nov, Diabetes type 2, uncontrolled E11.65 ; Renal insufficiency N28.9 and Localized edema R60.0 [facility] [id number] [place] [address] 00601- 3637 Oct, [facility] [id number] [place] [address] 65718- 0409 Oct, Diabetes E11.9 [facility] [id number] [place] [address] 88561- 6453 Sep, [facility] [id number] [place] [address] 63922- 0171 May, [facility] [id number] [place] [address] 66291- 3642 May, Diabetes with neurological manifestations, type II or unspecified type, not stated as uncontrolled 250.60 [facility] [address] [address]- 0984 May, [facility] [address] [place] [address] 36848- 7087 May, [facility] [id number] [place] [address] 05999- 9421 May, Diabetes with neurological manifestations, type II or unspecified type, not stated as uncontrolled 250.60 and HTN (hypertension) 401.9 [facility] [id number] [place] [address] 44969- 1484 Apr, [facility] [place] [facility] [address] [id number] [place] [address]- 3361 Feb, [facility] [place] [facility] [address] [id number] [place] [address]- 0648 Feb, [facility] [place] [facility] [address] [id number] [place] [address]- 0340 Jan, [facility] [place] [facility] [address] [id number] [place] [address]- 1471 Jan, [facility] [place] [facility] [address] [id number] [place] [address]- 0706 Dec, [facility] [place] [facility] [address] [id number] [place] [address]- 8556 Dec, [facility] [place] [facility] [address] [id number] [place] [address]- 8385 Dec, [facility] [place] [facility] [address] [id number] [place] [address]- 9123 Nov, [facility] [place] [facility] [address] [id number] [place] [address]- 1160 Nov, [facility] [place] [facility] [address] [id number] [place] [address]- 1752 Sep, [facility] [place] [facility] [address] [id number] [place] [address]- 2625 Sep, [facility] [place] [facility] [address] [id number] [address]- 5122 Jul, [facility] [place] [facility] [address] [id number] [place] [address]- 3118 Jul, [facility] [place] [facility] [address] [id number] [place] [address]- 6791 16 Jul, 2014 [facility] [place] [facility] [address] [id number] [place] [address]- 4817 16 Jul, 2014 [facility] [place] [facility] [address] [id number] [place] [address]- 1186 Jun, [facility] [place] [facility] [address] [id number] [place] [address]- 5556 Jun, [facility] [place] [facility] [address] [id number] [place] [address]- 8674 May, [facility] [place] [facility] [address] [id number] [place] [address]- 1672 May, [facility] [place] [facility] [address] [id number] [place] [address]- 6139 May, [facility] [place] [facility] [address] [id number] [place] [address]- 8267 May, [facility] [place] [facility] [address] [id number] [place] [address]- 8065 Apr, [facility] [place] [facility] [address] [id number] [place] [address]- 8429 Apr, [facility] [place] [facility] [address] [id number] [place] [address]- 5788 Apr, [facility] [place] [facility] [address] [id number] [place] [address]- 0683 Apr, [facility] [place] [facility] [address] [id number] [place] [address]- 7566 March, [facility] [place] [facility] [address] [id number] [place] [address]- 5214 March, [facility] [place] [facility] [address] [id number] [place] [address]- 1432 Feb, [facility] [place] [facility] [address] [id number] [place] [address]- 6109 Feb, [facility] [place] [facility] [address] [id number] [place] [address]- 4295 Feb, [facility] [place] [facility] [address] [id number] [place] [address]- 9157 Feb, [facility] [address] [id number] [place] [address]- 6350 Jan, [facility] [place] [facility] [address] [id number] [place] [address]- 1066 Jan, [facility] [place] [facility] [address] [id number] [place] [address]- 3590 Nov, [facility] [place] [facility] [address] [id number] [place] [address]- 0882 Nov, [facility] [place] [facility] [address] [id number] [place] [address]- 1428 Oct, [facility] [place] [facility] [address] [id number] [place] 9622 Oct, [facility] [place] [facility] [address] [id number] [place] [address]- 4057 Oct, [facility] [place] [facility] [address] [id number] [place] 7603 Oct, [facility] [place] [facility] [address] [id number] [place] 6[address] Oct, [facility] [place] [facility] [address] [id number] [place] [address] Oct, [facility] [place] [facility] [address] [id number] [place] [address] Oct, [facility] [place] [facility] [address] [id number] [place] [address] Oct, [facility] [place] [facility] [address] [id number] [place] [address]19 Sep, [facility] [place] [facility] [address] [id number] [place] [address] Sep, [facility] [place] [facility] [address] [id number] [place] [address] Aug, [facility] [place] [facility] [address] [id number] [place] [address]- [address] 17 Aug, 2012 [facility] [place] [facility] [address] [id number] [place] [address]- 8195 17 Aug, 2012 [facility] [place] [facility] [address] [id number] [place] [address]- [address]99 17 Aug, 2012 [facility] [place] [facility] [address] [id number] [place] [address]- 1362 16 Aug, 2012 [facility] [place] [facility] [address] [id number] [place] [address]- 3330 11 Aug, 2012 [facility] [place] [facility] [address] [id number] [place] [address]- 5861 11 Aug, 2013 [facility] [place] [facility] [address] [id number] [place] [address]- 1355 10 Aug, 2013 [facility] [place] [facility] [address] [id number] [place] [address]- [address]87 Aug, [facility] [place] [facility] [address] [id number] [place] [address]- [address]881 Aug, [facility] [place] [facility] [address] [facility] [id number] [place] [address]- [address] Aug, [facility] [place] [facility] [address] [id number] [place] [address]- 5660 24 Jul, 2013 [facility] [place] [facility] [address] [id number] [place] [address]- 7397 Jun, [facility] [place] [facility] [address] [id number] [place] [address]- [address] Jun, [facility] [place] [facility] [address] [id number] [place] [address]- 1157 May, [facility] [place] [facility] [address] [id number] [place] [address]- 2599 May, [facility] [place] [facility] [address] [facility] [id number] [place] [address]- 3891 Apr, [facility] [place] [facility] [address] [id number] [place] [address] 6099 March, [facility] [address] [id number] [place] [address]- 42[address] Feb, [facility] [place] [facility] [address] [id number] [place] [address]- 3386 Jan, [facility] [place] [facility] [address] [id number] [place] [address]- [address]326 Dec, [facility] [place] [facility] [address] [id number] [place] [address]- [address]358 Dec, [facility] [place] [facility] [address] [id number] [place] [address]- [address]296 Dec, [facility] [address] [id number] [place] [address]- [address]60 Nov, [facility] [address] [id number] [place] [address]- 0991 Nov, [facility] [place] [facility] [address] [id number] [place] [address]- [address] Nov, [facility] [place] [facility] [address] [id number] [place] [address] Oct, [facility] [place] [facility] [address] [id number] [place] [address]- [address]444 Oct, [facility] [place] [facility] [address] [id number] [place] [address]- 5815 Oct, [facility] [place] [facility] [address] [id number] [place] [address]- 94[address] Oct, [facility] [place] [facility] [address] [id number] [place] [address]- [address] Sep, [facility] [place] [facility] [address] [id number] [place] [address]- [address] Sep, [facility] [place] [facility] [address] [id number] [place] [address]- [address]676 Sep, [facility] [place] [facility] [address] [id number] [place] [address] 254 Sep, [facility] [place] [facility] [address] [id number] [place] [address] Aug, [facility] [place] [facility] [address] [id number] [place] [address] Aug, [facility] [place] [facility] [address] [id number] [place] [address] Aug, [facility] [place] [facility] [address] [id number] [place] [address] Aug, [facility] [place] [facility] [address] [id number] [place] [address] Aug, [facility] [place] [facility] [address] [id number] [place] [address] Aug, [facility] [place] [facility] [address] [id number] [place] [address] Jul, [facility] [place] [facility] [address] [id number] [place] [address] Jun, [facility] [place] [facility] [address] [id number] [place] [address] Jun, [facility] [place] [facility] [address] [id number] [place] [address] Jun, [facility] [place] [facility] [address] [id number] [place] [address] May, [facility] [place] [facility] [address] [id number] [place] [address] May, [facility] [place] [facility] [address] [id number] [place] [address] March, [facility] [place] [facility] [address] [id number] [place] [address] March, [facility] [place] [facility] [address] [id number] [place] [address] March, [facility] [address] [id number] [place] [address] Feb, [facility] [place] [facility] [address] [id number] [place] [address] Feb, [facility] [address] [id number] [place] [address] Feb, [facility] [place] [facility] [address] [id number] [place] [address] Jan, [facility] [address] [id number] [place] [address] Jan, [facility] [place] [facility] [address] [id number] [place] [address] Dec, [facility] [place] [facility] [address] [id number] [place] [address] Dec, [facility] [address] [id number] [place] [address] Dec, [facility] [place] [facility] [address] [id number] [place] [address] Dec, [facility] [address] [id number] [place] [address] Dec, [facility] [place] [facility] [address] [facility] [id number] [place] [address] Dec, [facility] [place] [facility] [address] [id number] [place] [address] Dec, [facility] [place] [facility] [address] [id number] [place] [address] Nov, [facility] [place] [facility] [address] [id number] [place] [address] Nov, [facility] [place] [facility] [address] [id number] [place] [address] Nov, [facility] [address] [facility] [id number] [place] [address] Nov, [facility] [address] [facility] [id number] [place] [address] Nov, [facility] [address] [id number] [address] Nov, [facility] [address] [facility] [id number] [place] [address] Oct, [facility] [address] [facility] [id number] [place] [address] Oct, [facility] [id number] [address] Oct, [facility] [id number] [address] Oct, [facility] [id number] [address] Oct, [facility] [id number] [address] Oct, [facility] [id number] [address] Oct, [facility] [address] [id number] [address] Oct, [facility] [address] [id number] [address] Aug, [facility] [address] [id number] [address] Jan, [facility] [id number] [address] Jan, IMMUNIZATIONS No Known Immunizations SOCIAL HISTORY Never Assessed REASON FOR VISIT PLAN OF CARE VITAL SIGNS MEDICATIONS Medication Instructions Dosage Frequency Start Date End Date Duration Status Viberzi 100 mg Orally Twice a day 1 tablet with food 12h 20 Aug, 2017 Active RESULTS No Results PROCEDURES No Known procedures INSTRUCTIONS MEDICATIONS ADMINISTERED No Known Medications MEDICAL (GENERAL) HISTORY Type Description Date Medical [...] Surgical History Right eye cataract surgery 02/02/16 Surgical History Left forearm fistula 08/2017 Hospitalization History surgeries Hospitalization History left greater trochanter fracture 08/10/16 Hospitalization History fistula 08/2017
--- OUTSIDE RECORDS SUMMARY | 2018-06-16 19:40 | XMS REPORT | Clinical Summary ---
Author Author [facility] Organization [facility] Address Unknown Phone Unavailable Care Team Providers Care Admitted Attorneys Name Role Phone Radha Gómez MA Unavailable Unavailable Dayanara Pacheco MA Unavailable Unavailable Issa Ellison RN 2 Unavailable Andrew Morales Unavailable Unavailable Romie Baker APRN PCP Lucas Boone MD Unavailable Source Comments Some departments are not documenting in the electronic medical record. If you do not see the information that you expected, contact Release of Information in the Health Information Management department at [phone] for further assistance in locating additional records.[facility] Allergies Active Allergy Reactions Severity Noted Date [...] PHYSICAL (COMPREHENSIVE) 1966 EXAM PERTUSSIS VACCINE 1970 HIV SCREENING 1974 TETANUS VACCINE 1976 COLORECTAL CANCER 2009 SCREENING SHINGLES RECOMBINANT 2009 VACCINE (1 of 2) INFLUENZA VACCINE 08/27/2018 Results Not on filefrom Last 3 Months
--- OUTSIDE RECORDS SUMMARY | 2018-06-16 19:41 | XMS REPORT ---
Author Author INGRID CHOUDHARY Organization [facility] Address [address] [place] [address] Care Team Providers Care Ballet Master/Mistress Name Role Phone INGRID CHOUDHARY Unavailable PROBLEMS Type Condition ICD9-CM Code WXL86-CH Code Onset Dates Condition Status SNOMED Code Problem Diabetes type 2, uncontrolled E11.65 Active 061251325 Problem Chronic kidney disease, stage 4 (severe) N18.4 Active 534206106 Problem Hypertension I10 Active 21589101 Problem Controlled type 2 diabetes mellitus without complication, without long -term current use of insulin E11.9 Active 585950201 Problem 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, 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 technician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 E11.42 Active 282142287 Problem Type 2 diabetes mellitus with diabetic chronic kidney disease E11.22 Active 08938787 Problem Type 2 diabetes mellitus with hyperglycemia E11.65 Active 913802352427657 Problem Constipation, unspecified constipation type K59.00 Active 57252197 Problem oysterman current use of insulin Z79.4 Active 287217616 Problem Need for prophylactic vaccination and inoculation against pertussis alone V03.6 Active 66882533 Problem Edema 782.3 Active 914841620 Problem Diabetes with neurological manifestations, type II or unspecified type , not stated as uncontrolled 250.60 Active 302199640 Problem Renal failure N19 Active 06580674 Problem Other and unspecified noninfectious gastroenteritis and colitis 558.9 Active 18571054 Problem HTN (hypertension) 401.9 Active 27080090 Problem Diabetes mellitus without mention of complication, type II or unspecified type, not stated as uncontrolled 250.00 Active 970159367 Problem Diabetes E11.9 Active 08554277 ALLERGIES Substance Reaction Event Type Date Status Doxycycline Unknown Drug Allergy Aug, Active Clindamycin HCl hives Drug Allergy Aug, Active Amoxicillin extreme diarrhea Drug Allergy Aug, Active ENCOUNTERS Encounter Location Date Diagnosis [facility] [address] [facility] [id number] [address] Jan, [facility] [address] [address] Nov, Controlled type 2 diabetes mellitus without complication, without long-term current use of insulin E11.9 [facility] [address] [id number] Nov, [facility] [id number] [place] [address] 03015- 3885 Oct, [facility] [id number] [place] [address] 13006- 8095 Oct, [facility] [id number] [place] [address] 789094- 5758 Oct, [facility] [id number] [place] [address] 072186- 6196 Oct, [facility] [id number] [place] [address] 488789- 9582 Oct, [facility] [id number] [place] [address] 279297- 2023 Sep, [facility] [id number] [place] [address] 89183 -5597 Aug, Acute bronchitis, unspecified organism J20.9 [facility] [address] [place] [address] 07487- 9394 Aug, [facility] [id number] [place] [address] 51570 -2909 Aug, Diarrhea of infectious origin A09 [facility] [address] [address] 20[address] Aug, [facility] [id number] [place] [address] 336256- 4076 Jul, 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, unspecified fdc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 status E11.42 [facility] [address] [id number] Jul, Encounter for dental examination Z01.20 [facility] [address] [address] Jul, 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, 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 technician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 status E11.42 [facility] [address] [address] Jun, Acute frontal sinusitis J01.10 [facility] [id number] [place] [address] [id number] Jun, Dental examination Z01.20 [facility] [id number] [place] [address] 98465 2546 May, [facility] [id number] [place] [address] 53481 2546 May, [facility] [id number] [place] [address] 68016- 6976 May, Open wound of toe, initial encounter S91.109A [facility] [id number] [place] [address] [id number] Apr, Dental examination Z01.20 [facility] [id number] [place] [address] 02368- 2736 Apr, Diabetes E11.9 and Stage 4 chronic kidney disease N18.4 [facility] [address] [place] [address] 23672- 4366 March, [facility] [id number] [place] [address] [id number]- 2146 Feb, [facility] [id number] [place] [address] 11875- 0726 Feb, [facility] [id number] [place] [address] 87737- 9146 Feb, [facility] [address] [address] 3616 Dec, [facility] [id number] [place] [address] 24375 -6696 10 Dec, 2016 Constipation, unspecified constipation type K59.00 [facility] [address] 99714- 9464 10 Dec, 2016 [facility] [address] 02492- 4191 Dec, [facility] [address] 55770- 1057 Dec, Renal failure N19 and Hypokalemia E87.6 [place] [address] 02316- 4550 Nov, Renal failure N19 and Hypokalemia E87.6 [facility] [address] 27805- 6306 Nov, Chronic kidney disease, stage 4 (severe) N18.4 [facility] [id number] [place] [address] 93351- 3793 Nov, Chronic kidney disease, stage 4 (severe) N18.4 [facility] [address] 46795- 7791 Nov, [facility] [id number] [place] [address] 70429- 7817 Nov, [facility] [id number] [place] [address] 95076- 9786 Nov, Dysthymia F34.1 [facility] [id number] [place] [address] 97192- 6580 Nov, [facility] [id number] [place] [address] 18028 -0877 Oct, Bronchitis J40 [facility] [id number] [place] [address] 17977- 7089 Oct, Localized edema R60.0 [facility] [address] [address] 0460 Sep, Renal failure N19 ; Type 2 diabetes mellitus with diabetic chronic kidney disease E11.22 and Chronic kidney disease, stage 4 (severe) N18.4 [facility] [address] [address] 2886 Aug, Renal failure N19 ; Diabetes E11.9 ; Type 2 diabetes mellitus with diabetic chronic kidney disease E11.22 ; Type 2 diabetes mellitus with hyperglycemia E11.65 ; Chronic kidney disease, stage 4 (severe) N18.4 and oysterman current use of insulin Z79.4 [place] [id number] [place] [address] 20092- 2921 Aug, Bronchitis J40 [facility] [id number] [place] [address] 73463- 1919 Aug, [facility] [id number] [place] [address] 01076 -1882 Aug, Bronchitis J40 [facility] [id number] [place] [address] 81378- 4098 05 Aug, 2016 Displaced fracture of greater trochanter of left femur, initial encounter for closed fracture S72.112A [place] [address] [place] [address] 71428- 3118 26 Jul, 2016 Hip fracture, left, closed, with routine healing, subsequent encounter S72.002D ; Renal failure N19 and Uncontrolled type 2 diabetes mellitus without complication, without long-term current use of insulin E11.65 [place] [address] [address] 6720 Jul, [place] [id number] [place] [address] 34314- 9864 16 Jul, 2016 [place] [id number] [place] [address] 69320- 8710 14 Jul, 2016 [place] [id number] [place] [address] 82922- 1798 Jul, [facility] [address] [address]- 9882 May, [facility] [id number] [place] [address] 77408- 4502 May, Orthostatic hypotension I95.1 and Renal insufficiency N28.9 [facility] [id number] [place] [address] 36695- 1110 May, Renal failure N19 [facility] [id number] [place] [address] 00410- 7668 May, [facility] [id number] [place] [address] 74349- 0422 Apr, Renal failure N19 [facility] [id number] [place] [address] 02264- 5578 Apr, [facility] [id number] [place] [address] 18370- 9255 Apr, [facility] [id number] [place] [address] 20514 -0785 Apr, Orthostatic hypotension I95.1 and 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, unspecified fdc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 status E11.42 [place] [address] [place] [address] 12288- 9294 March, Left rotator cuff tear M75.102 [facility] [id number] [place] [address] 67268 -6094 March, Allergic reaction to drug T78.40XA [facility] [id number] [place] [address] 55620- 6241 March, Diabetes type 2, controlled E11.9 [facility] [address] [place] [address] 82033- 2957 Feb, Left rotator cuff tear M75.102 [facility] [id number] [place] [address] 19906- 1743 Feb, Left rotator cuff tear M75.102 [facility] [id number] [place] [address] 15029 -7768 Feb, Diabetes type 2, uncontrolled E11.65 ; Hypertension I10 ; Edema 782.3 and Cellulitis L03.90 [facility] [id number] [place] [address] 36099- 2787 Feb, [facility] [address] 77633- 2325 Feb, [facility] [address] 93887- 8748 Feb, Left rotator cuff tear M75.102 [facility] [address] 63728- 5604 Feb, [facility] [address] 02980- 7590 Feb, Diabetes type 2, uncontrolled E11.65 and Edema R60.9 [facility] [address] 11801- 4936 Jan, Hypertension, essential I10 [facility] [address] 09310- 7865 Dec, Hypertension I10 [facility] [id number] [place] [address] 99227- 8955 Dec, [facility] [id number] [place] [address] 38484- 6990 Dec, Renal insufficiency N28.9 and Edema R60.9 [facility] [address] 75477- 8213 Dec, [facility] [address] 52001- 7504 Dec, [facility] [address] 96506- 3613 Dec, [facility] [address] [address]7249 Nov, Pedal edema R60.0 and Benign essential hypertension I10 [facility] [id number] [place] [address] 81345- 9573 Nov, Benign essential hypertension I10 and Renal insufficiency N28.9 [facility] [id number] [place] [address] 82992 -4085 Nov, Acute laryngopharyngitis J06.0 ; Benign essential hypertension I10 and Strep pharyngitis J02.0 [facility] [id number] [place] [address] 64242- 7306 Nov, Diabetes type 2, uncontrolled E11.65 ; Renal insufficiency N28.9 and Localized edema R60.0 [facility] [id number] [place] [address] 61836- 3419 Oct, [facility] [id number] [place] [address] 84242- 0338 Oct, Diabetes E11.9 [facility] [id number] [place] [address] 05233- 1429 Sep, [facility] [id number] [place] [address] 74482- 8823 May, [facility] [id number] [place] [address] 17059- 1726 May, Diabetes with neurological manifestations, type II or unspecified type, not stated as uncontrolled 250.60 [facility] [id number] [place] [address] 31364- 4890 May, [facility] [id number] [place] [address] 93248- 3341 May, [facility] [id number] [place] [address] 98432- 8960 May, Diabetes with neurological manifestations, type II or unspecified type, not stated as uncontrolled 250.60 and HTN (hypertension) 401.9 [facility] [address] [facility] [id number] [place] [address]- 8382 Apr, [facility] [address] [facility] [id number] [address]- 8175 Feb, [facility] [address] [facility] [id number] [place] [address]- 1141 Feb, [facility] [address] [facility] [id number] [address]- 6948 Jan, [facility] [address] [facility] [id number] [place] [address]- 1412 Jan, [facility] [address] [facility] [id number] [address]- 1508 Dec, [facility] [address] [address]- 5940 Dec, [facility] [address] [place] [address]- 7913 Dec, [facility] [address] [address]- 7523 Nov, [facility] [address] [place] [address]- 1686 Nov, [facility] [address] [address]- 6613 Sep, [facility] [address] [facility] [id number] [place] [address]- 4782 Sep, [facility] [address] [id number] [address]- 0041 Jul, [facility] [address] [facility] [id number] [place] [address]- 3563 Jul, [facility] [address] [id number] [address]- 1930 Jul, [facility] [place] [facility] [address] [id number] [place] [address]- 3711 Jul, [facility] [place] [facility] [address] [id number] [place] [address]- 6606 Jun, [facility] [place] [facility] [address] [id number] [place] [address]- 3895 Jun, [facility] [place] [facility] [address] [id number] [place] [address]- 9661 May, [facility] [place] [facility] [address] [id number] [place] [address]- 0085 May, [facility] [place] [facility] [address] [id number] [place] [address]- 5220 May, [facility] [place] [facility] [address] [id number] [place] [address]- 2427 May, [facility] [place] [facility] [address] [id number] [place] [address]- 3659 Apr, [facility] [place] [facility] [address] [id number] [place] [address]- 3809 Apr, [facility] [place] [facility] [address] [id number] [place] [address]- 3048 Apr, [facility] [place] [facility] [address] [id number] [place] 3330 Apr, [facility] [place] [facility] [address] [id number] [place] [address]- 3273 March, [facility] [place] [facility] [address] [id number] [place] [address]- 6551 March, [facility] [place] [facility] [address] [id number] [place] [address]- 1473 Feb, [facility] [place] [facility] [address] [id number] [place] [address]- 7176 Feb, [facility] [place] [facility] [address] [id number] [place] [address]- 3149 16 Feb, 2014 [facility] [place] [facility] [address] [id number] [place] [address]- 4652 16 Feb, 2014 [facility] [place] [facility] [address] [id number] [place] [address]- 7896 Jan, [facility] [place] [facility] [address] [id number] [place] [address]- 0595 Jan, [facility] [place] [facility] [address] [id number] [place] [address]- 0883 Nov, [facility] [place] [facility] [address] [id number] [place] [address]- 0866 Nov, [facility] [place] [facility] [address] [id number] [place] [address]- 4265 Oct, [facility] [place] [facility] [address] [id number] [place] [address]- 0462 Oct, [facility] [place] [facility] [address] [id number] [place] [address]- 4845 Oct, [facility] [place] [facility] [address] [id number] [place] [address]- 1560 Oct, [facility] [place] [facility] [address] [id number] [place] [address]- 8146 Oct, [facility] [place] [facility] [address] [id number] [place] [address]- 4328 Oct, [facility] [place] [facility] [address] [id number] [address]- 9048 Oct, [facility] [place] [facility] [address] [id number] [place] [address]- 5540 Oct, [facility] [place] [facility] [address] [id number] [place] [address]- 8718 Sep, [facility] [place] [facility] [address] [id number] [place] [address]- 2546 Sep, [facility] [place] [facility] [address] [id number] [place] [address]- 9791 17 Aug, 2012 [facility] [place] [facility] [address] [id number] [place] [address]- 7539 17 Aug, 2012 [facility] [place] [facility] [address] [id number] [place] [address]- 7801 17 Aug, 2012 [facility] [place] [facility] [address] [id number] [place] [address]- 4407 17 Aug, 2012 [facility] [place] [facility] [address] [id number] [place] [address]- 1121 16 Aug, 2012 [facility] [place] [facility] [address] [id number] [place] [address]- 9931 Aug, 2012 [facility] [place] [facility] [address] [id number] [place] [address]- 5227 11 Aug, 2012 [facility] [place] [facility] [address] [id number] [place] [address]- 5128 10 Aug, 2012 [facility] [place] [facility] [address] [id number] [place] [address]- 1466 Aug, [facility] [place] [facility] [address] [id number] [place] [address]- 4336 Aug, [facility] [place] [facility] [address] [id number] [place] [address]- 3610 08 Aug, 2013 [facility] [place] [facility] [address] [id number] [place] [address] 24 Jul, 2013 [facility] [place] [facility] [address] [id number] [place] [address] Jun, [facility] [place] [facility] [address] [id number] [place] [address] Jun, [facility] [place] [facility] [address] [id number] [place] [address] May, [facility] [place] [facility] [address] [id number] [place] [address] May, [facility] [place] [facility] [address] [id number] [place] [address] Apr, [facility] [address] [id number] [place] [address] March, [facility] [place] [facility] [address] [id number] [place] [address] Feb, [facility] [place] [facility] [address] [id number] [place] [address] Jan, [facility] [address] [id number] [place] [address] Dec, [facility] [place] [facility] [address] [id number] [place] [address] Dec, [facility] [address] [id number] [place] [address] Dec, [facility] [address] [id number] [place] [address] Nov, [facility] [address] [id number] [place] [address] Nov, [facility] [address] [id number] [place] [address] Nov, [facility] [address] [id number] [place] [address] Oct, [facility] [place] [facility] [address] [id number] [address] Oct, [facility] [place] [facility] [address] [id number] [place] [address] Oct, [facility] [place] [facility] [address] [id number] [place] [address] Oct, [facility] [place] [facility] [address] [id number] [place] [address] Sep, [facility] [place] [facility] [address] [id number] [place] [address] Sep, [facility] [place] [facility] [address] [id number] [place] [address] Sep, [facility] [place] [facility] [address] [id number] [place] [address] Sep, [facility] [place] [facility] [address] [id number] [place] [address] Aug, [facility] [place] [facility] [address] [id number] [place] [address] Aug, [facility] [place] [facility] [address] [id number] [place] [address] Aug, [facility] [place] [facility] [address] [id number] [place] [address] Aug, [facility] [place] [facility] [address] [facility] [id number] [place] [address] Aug, [facility] [place] [facility] [address] [id number] [place] [address] Aug, [facility] [place] [facility] [address] [facility] [id number] [place] [address] Jul, [facility] [place] [facility] [address] [facility] [id number] [place] [address] Jun, [facility] [place] [facility] [address] [id number] [place] [address] Jun, [facility] [place] [facility] [address] [id number] [place] [address] Jun, [facility] [place] [facility] [address] [id number] [place] [address] May, [facility] [place] [facility] [address] [facility] [id number] [place] [address] May, [facility] [place] [facility] [address] [facility] [id number] [place] [address] March, [facility] [place] [facility] [address] [id number] [place] [address] March, [facility] [place] [facility] [address] [id number] [place] [address] March, [facility] [place] [facility] [address] [id number] [place] [address] Feb, [facility] [place] [facility] [address] [id number] [place] [address] Feb, [facility] [place] [facility] [address] [id number] [place] [address] Feb, [facility] [place] [facility] [address] [id number] [place] [address] Jan, [facility] [place] [facility] [address] [facility] [id number] [place] [address] Jan, [facility] [place] [facility] [address] [id number] [place] [address] Dec, [facility] [place] [facility] [address] [id number] [place] [address] Dec, [facility] [place] [facility] [address] [id number] [place] [address] Dec, [facility] [place] [facility] [address] [id number] [place] [address] Dec, [facility] [place] [facility] [address] [id number] [address] Dec, [facility] [place] [facility] [address] [facility] [id number] [place] [address] Dec, [facility] [place] [facility] [address] [id number] [place] [address] Dec, [facility] [place] [facility] [address] [facility] [id number] [place] [address] Nov, [facility] [place] [facility] [id number] [address] Nov, [facility] [address] [facility] [id number] [place] [address] Nov, [facility] [address] [facility] [id number] [place] [address] Nov, [facility] [address] [facility] [id number] [place] [address] Nov, [facility] [address] [facility] [id number] [place] [address] Nov, [facility] [address] [facility] [id number] [place] [address] Oct, [facility] [address] [facility] [id number] [place] [address] Oct, [facility] [id number] [address] Oct, [facility] [address] [facility] [id number] [place] [address] Oct, [facility] [address] [facility] [id number] [place] [address] Oct, [facility] [address] [facility] [id number] [place] [address] Oct, [facility] [address] [facility] [id number] [place] [address] Oct, [facility] [address] [facility] [id number] [place] [address] Oct, [facility] [address] [facility] [id number] [place] [address] Aug, [facility] [address] [facility] [id number] [place] [address] Jan, [facility] [address] [facility] [id number] [place] [address] Jan, IMMUNIZATIONS No Known Immunizations SOCIAL HISTORY Never Assessed REASON FOR VISIT nausea/di[facility] SIGNS Height 69 in 2017-09-13 Weight 229.28 lbs 2017-09-13 Temperature 97.5 degrees Fahrenheit 2017-09-13 Heart Rate 76 bpm 2017-09-13 Respiratory Rate 24 2017-09-13 BMI 33.86 kg/m2 2017-09-13 Blood pressure systolic 112 mmHg 2017-09-13 Blood pressure diastolic 70 mmHg 2017-09-13 MEDICATIONS Medication Instructions Dosage Frequency Start Date End Date Duration Status Acidophilus 100 mg Orally 2 times a day 1 capsule 12h Aug, Active Lomotil 2.5-0.025 MG Orally Four times a day 1 tablet as needed 6h Aug, Active Sodium Bicarbonate 10 mg Orally 2 times a day 1 tablet 12h Active Metoprolol Tartrate 25 MG Orally Twice a day 1 tablet with food 12h Aug 30 day(s) Active Blood Pressure Monitor - monitor BP as directed by nephrology May, Active Klor-Con 10 10 MEQ Orally Twice a day 1 tablet with food 12h Active Atorvastatin Calcium 40 mg Orally Once a day 1 tablet 24h May, 30 day(s) Active Lomotil 2.5-0.025 MG 1 tablet as needed 6h Dec, Active Calcium Acetate (Phos Binder) 667 MG Orally Three times a day 2 tablets with meals 8h Active NovoLog Flexpen 100 UNIT/ML Subcutaneous 3 times a day 25 units 8h Aug, Active Levemir Flexpen 100 unit/mL (3 mL) subcutaneously at bedtime 40 units daily Active RESULTS No Results PROCEDURES No Known [...]
--- OUTSIDE RECORDS SUMMARY | 2018-06-16 19:41 | XMS REPORT ---
Author Author INGRID CHOUDHARY Organization [facility] Address [address] [place] [address] Care Team Providers Care Derivatives Trader Name Role Phone INGRID CHOUDHARY Unavailable PROBLEMS Type Condition ICD9-CM Code ORQ34-MV Code Onset Dates Condition Status SNOMED Code Problem Diabetes type 2, uncontrolled E11.65 Active 748510577 Problem Chronic kidney disease, stage 4 (severe) N18.4 Active 233924218 Problem Hypertension I10 Active 25520388 Problem Controlled type 2 diabetes mellitus without complication, without long -term current use of insulin E11.9 Active 887918157 Problem 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, 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 Active 591180325 Problem Type 2 diabetes mellitus with diabetic chronic kidney disease E11.22 Active 35918901 Problem Type 2 diabetes mellitus with hyperglycemia E11.65 Active 378390151966241 Problem Constipation, unspecified constipation type K59.00 Active 81175197 Problem 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 Active 272704589 Problem Need for prophylactic vaccination and inoculation against pertussis alone V03.6 Active 85782999 Problem Edema 782.3 Active 394629540 Problem Diabetes with neurological manifestations, type II or unspecified type , not stated as uncontrolled 250.60 Active 339033537 Problem Renal failure N19 Active 66996362 Problem Other and unspecified noninfectious gastroenteritis and colitis 558.9 Active 18110067 Problem HTN (hypertension) 401.9 Active 94005532 Problem Diabetes mellitus without mention of complication, type II or unspecified type, not stated as uncontrolled 250.00 Active 032538725 Problem Diabetes E11.9 Active 70248844 ALLERGIES No Information ENCOUNTERS Encounter Location Date Diagnosis [facility] [address] [facility] [id number], [place] [address] Jan, [facility] [address] [facility] [id number], [place] [address] Nov, Controlled type 2 diabetes mellitus without complication, without long-term current use of insulin E11.9 [facility] [facility] [id number] [place] [address] [id number] Nov, [facility] [id number] [place] [address] 85023- 5952 Oct, [facility] [place] [id number] [place] [address] 98294- 3325 Oct, [facility] [id number] [place] [address] 75351- 3245 Oct, [facility] [id number] [place] [address] 50629- 7855 Oct, [facility] [id number] [place] [address] 88543- 5677 Oct, [facility] [place] [id number] [place] [address] 74769- 9526 Sep, [facility] [id number] [place] [address] 64788 -4179 Aug, Acute bronchitis, unspecified organism J20.9 [facility] [place] [id number] [place] [address] 04724- 4422 Aug, [facility] [id number] [place] [address] 78634 -9004 Aug, Diarrhea of infectious origin A09 [facility] [place] [id number] [place] [address] 55882- 2816 Aug, [facility] [id number] [place] [address] 65976- 2226 Jul, 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, unspecified fdc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 status E11.42 [facility] [facility] [id number] [place] [address] [id number] Jul, Encounter for dental examination Z01.20 [facility] [place] [id number] [place] [address] 49766- 3848 Jul, 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, 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 [facility] [id number] [place] [address] [id number] -2536 Jun, Acute frontal sinusitis J01.10 [facility] [facility] [id number] [place] [address] [id number] Jun, Dental examination Z01.20 [facility] [id number] [place] [address] 28787 2546 May, [facility] [id number] [place] [address] 66236- 1866 May, [facility] [id number] [place] [address] 26847 2546 May, Open wound of toe, initial encounter S91.109A [facility] [facility] [id number] [place] [address] [id number] Apr, Dental examination Z01.20 [facility] [place] [id number] [place] [address] 74765- 0356 Apr, Diabetes E11.9 and Stage 4 chronic kidney disease N18.4 [facility] [id number] [place] [address] 641806- 4156 March, [facility] [id number] [place] [address] 875997- 3736 Feb, [facility] [place] [id number] [place] [address] 09469- 2646 Feb, [facility] [id number] [place] [address] 315838- 6556 Feb, [facility] [id number] [place] [address] 471947- 0386 13 Dec, 2016 [facility] [address] [address] Dec, Constipation, unspecified constipation type K59.00 [facility] [place] [id number] [place] [address] 00753- 5183 Dec, [facility] [id number] [place] [address] 67105- 5226 Dec, [facility] [id number] [place] [address] 00472- 5176 Dec, Renal failure N19 and Hypokalemia E87.6 [facility] [id number] [place] [address] 08250- 9674 Nov, Renal failure N19 and Hypokalemia E87.6 [facility] [id number] [place] [address] 68537- 8073 Nov, Chronic kidney disease, stage 4 (severe) N18.4 [facility] [id number] [place] [address] 11033- 8814 Nov, Chronic kidney disease, stage 4 (severe) N18.4 [facility] [id number] [place] [address] 04376- 6333 Nov, [facility] [id number] [place] [address] 62102- 4358 Nov, [facility] [id number] [place] [address] 69977- 5234 Nov, Dysthymia F34.1 [facility] [place] [id number] [place] [address] 64629- 8703 Nov, [facility] [id number] [place] [address] 90918 -1044 Oct, Bronchitis J40 [facility] [place] [id number] [place] [address] 32310- 1754 Oct, Localized edema R60.0 [facility] [place] [id number] [place] [address] 51086- 1816 Sep, Renal failure N19 ; Type 2 diabetes mellitus with diabetic chronic kidney disease E11.22 and Chronic kidney disease, stage 4 (severe) N18.4 [facility] [id number] [place] [address] 98016- 6167 Aug, Renal failure N19 ; Diabetes E11.9 ; Type 2 diabetes mellitus with diabetic chronic kidney disease E11.22 ; Type 2 diabetes mellitus with hyperglycemia E11.65 ; Chronic kidney disease, stage 4 (severe) N18.4 and 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 [id number] [place] [address] 78539 -3277 Aug, Bronchitis J40 [facility] [id number] [place] [address] 63523- 8011 Aug, Displaced fracture of greater trochanter of left femur, initial encounter for closed fracture S72.112A [place] [id number] [place] [address] 18092- 9796 Jul, Hip fracture, left, closed, with routine healing, subsequent encounter S72.002D ; Renal failure N19 and Uncontrolled type 2 diabetes mellitus without complication, without long-term current use of insulin E11.65 [facility] [id number] [place] [address] 55299- 1142 Jul, [facility] [id number] [place] [address] 02952- 0265 Jul, [facility] [id number] [place] [address] 03017- 9814 Jul, [facility] [id number] [place] [address] 96784- 0323 Jul, [facility] [id number] [place] [address] 19090- 1757 May, [facility] [id number] [place] [address] 84400- 5702 May, Orthostatic hypotension I95.1 and Renal insufficiency N28.9 [facility] [id number] [place] [address] 71267- 4935 May, Renal failure N19 [facility] [place] [id number] [place] [address] 65173- 0827 May, [facility] [id number] [place] [address] 26821- 5554 Apr, Renal failure N19 [place] [id number] [place] [address] 84662- 8878 Apr, [place] [id number] [place] [address] 30956- 0736 Apr, 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 [place] [id number] [place] [address] 29570- 4216 March, Left rotator cuff tear M75.102 [facility] [id number] [place] [address] 62638 -8275 March, Allergic reaction to drug T78.40XA [facility] [place] [address] [place] [address] 40383- 0454 March, Diabetes type 2, controlled E11.9 [facility] [place] [id number] [place] [address] 85975- 5973 Feb, Left rotator cuff tear M75.102 [facility] [place] [id number] [place] [address] 35734- 0657 Feb, Left rotator cuff tear M75.102 [facility] [id number] [place] [address] 20569 -3547 Feb, Diabetes type 2, uncontrolled E11.65 ; Hypertension I10 ; Edema 782.3 and Cellulitis L03.90 [facility] [place] [id number] [place] [address] 27023- 4216 Feb, [facility] [id number] [place] [address] 56936- 7725 Feb, [facility] [place] [address] 84688- 7371 Feb, Left rotator cuff tear M75.102 [facility] [id number] [place] [address] 42722- 6183 Feb, [facility] [id number] [place] [address] 83430- 8637 Feb, Diabetes type 2, uncontrolled E11.65 and Edema R60.9 [facility] [place] [address] 31413- 1493 Jan, Hypertension, essential I10 [facility] [place] [id number] [place] [address] 98045- 6707 Dec, Hypertension I10 [facility] [place] [id number] [place] [address] 62244- 7607 Dec, [facility] [id number] [place] [address] 57041- 9410 Dec, Renal insufficiency N28.9 and Edema R60.9 [facility] [place] [id number] [place] [address] 71611- 5380 Dec, [facility] [place] [id number] [place] [address] 36000- 1914 Dec, [facility] [place] [id number] [place] [address] 27359- 1653 Dec, [facility] [id number] [place] [address] 44515 -1022 Nov, Pedal edema R60.0 and Benign essential hypertension I10 [facility] [place] [address] [address]- 7043 Nov, Benign essential hypertension I10 and Renal insufficiency N28.9 [facility] [address], [place] [address] -2664 Nov, Acute laryngopharyngitis J06.0 ; Benign essential hypertension I10 and Strep pharyngitis J02.0 [facility] [place] [address] [place] [address] 23715- 6326 Nov, Diabetes type 2, uncontrolled E11.65 ; Renal insufficiency N28.9 and Localized edema R60.0 [facility] [place] [id number] [place] [address] 69344- 7202 Oct, [facility] [place] [id number] [place] [address] 57149- 5250 Oct, Diabetes E11.9 [facility] [place] [id number] [place] [address] 75867- 3800 Sep, [facility] [place] [id number] [place] [address] 53390- 8520 May, [facility] [place] [id number] [place] [address] 32962- 7005 May, Diabetes with neurological manifestations, type II or unspecified type, not stated as uncontrolled 250.60 [facility] [place] [address] [address]- 4618 May, [facility] [place] [address] [place] [address] 03426- 3094 May, [facility] [place] [id number] [place] [address] 20452- 1346 May, Diabetes with neurological manifestations, type II or unspecified type, not stated as uncontrolled 250.60 and HTN (hypertension) 401.9 [facility] [place] [id number] [place] [address] 57356- 6452 Apr, [facility] [place] [facility] [address] [id number] [place] [address]- 3458 Feb, [facility] [place] [facility] [address] [id number] [place] [address]- 1162 Feb, [facility] [place] [facility] [address] [id number] [place] [address]- 5306 Jan, [facility] [place] [facility] [address] [id number] [place] [address]- 1966 Jan, [facility] [place] [facility] [address] [id number] [place] [address]- 9086 Dec, [facility] [place] [facility] [address] [id number] [place] [address]- 8693 Dec, [facility] [place] [facility] [address] [id number] [place] [address]- 3987 Dec, [facility] [place] [facility] [address] [id number] [place] [address]- 4475 Nov, [facility] [place] [facility] [address] [id number] [place] [address]- 2501 Nov, [facility] [place] [facility] [address] [id number] [place] [address]- 4009 Sep, [facility] [place] [facility] [address] [id number] [place] [address]- 8270 Sep, [facility] [place] [facility] [address] [id number], [place] [address]- 0484 Jul, [facility] [place] [facility] [address] [id number] [place] [address]- 1070 Jul, [facility] [place] [facility] [address] [id number] [place] [address]- 5489 16 Jul, 2014 [facility] [place] [facility] [address] [id number] [place] [address]- 8536 16 Jul, 2014 [facility] [place] [facility] [address] [id number] [place] [address]- 1758 Jun, [facility] [place] [facility] [address] [id number] [place] [address]- 8068 Jun, [facility] [place] [facility] [address] [id number] [place] [address]- 7858 May, [facility] [place] [facility] [address] [id number] [place] [address]- 4148 May, [facility] [place] [facility] [address] [id number] [place] [address]- 7264 May, [facility] [place] [facility] [address] [id number] [place] [address]- 2036 May, [facility] [place] [facility] [address] [id number] [place] [address]- 0855 Apr, [facility] [place] [facility] [address] [id number] [place] [address]- 0615 Apr, [facility] [place] [facility] [address] [id number] [place] [address]- 2524 Apr, [facility] [place] [facility] [address] [id number] [place] [address]- 2947 Apr, [facility] [place] [facility] [address] [id number] [place] [address]- 5696 March, [facility] [place] [facility] [address] [id number] [place] [address]- 0411 March, [facility] [place] [facility] [address] [id number] [place] [address]- 9025 Feb, [facility] [place] [facility] [address] [id number] [place] [address]- 4851 Feb, [facility] [place] [facility] [address] [id number] [place] [address]- 2656 Feb, [facility] [place] [facility] [address] [id number] [place] [address]- 6909 Feb, [facility] [address] [id number] [place] [address] Jan, [facility] [place] [facility] [address] [id number] [place] [address] Jan, [facility] [place] [facility] [address] [id number] [place] [address] Nov, [facility] [place] [facility] [address] [id number] [place] [address] Nov, [facility] [place] [facility] [address] [id number] [place] [address] Oct, [facility] [place] [facility] [address] [id number] [place] [address] Oct, [facility] [place] [facility] [address] [id number] [place] [address] Oct, [facility] [place] [facility] [address] [id number] [place] [address] Oct, [facility] [place] [facility] [address] [id number] [place] [address] Oct, [facility] [place] [facility] [address] [id number] [address] [address] Oct, [facility] [place] [facility] [address] [id number], [place] [address] Oct, [facility] [place] [facility] [address] [id number], [place] [address] Oct, [facility] [place] [facility] [address] [id number] [place] [address] Sep, [facility] [place] [facility] [address] [id number] [place] [address] Sep, [facility] [place] [facility] [address] [id number], [place] [address] Aug, [facility] [place] [facility] [address] [id number], [place] [address] 17 Aug, 2012 [facility] [place] [facility] [address] [id number] [place] [address] 17 Aug, 2012 [facility] [place] [facility] [address] [id number] [place] [address]- [address] 17 Aug, 2012 [facility] [place] [facility] [address] [id number] [place] [address] 16 Aug, 2012 [facility] [place] [facility] [address] [id number] [place] [address] 11 Aug, 2012 [facility] [place] [facility] [address] [id number] [place] [address] 11 Aug, 2013 [facility] [place] [facility] [address] [id number] [place] [address] 10 Aug, 2013 [facility] [place] [facility] [address] [id number] [place] [address] Aug, [facility] [place] [facility] [address] [id number] [place] [address] Aug, [facility] [place] [facility] [address] [facility] [id number] [place] [address] Aug, [facility] [place] [facility] [address] [id number] [place] [address] 24 Jul, 2013 [facility] [place] [facility] [address] [id number] [place] [address] Jun, [facility] [place] [facility] [address] [id number], [place] [address] Jun, [facility] [place] [facility] [address] [id number] [place] [address] May, [facility] [place] [facility] [address] [id number] [place] [address] May, [facility] [place] [facility] [address] [facility] [id number] [place] [address] Apr, [facility] [place] [facility] [address] [id number] [place] [address] March, [facility] [address] [id number] [place] [address] Feb, [facility] [place] [facility] [address] [id number] [place] [address] Jan, [facility] [place] [facility] [address] [id number] [place] [address] Dec, [facility] [place] [facility] [address] [id number] [place] [address] Dec, [facility] [place] [facility] [address] [id number] [place] [address] Dec, [facility] [address] [id number] [place] [address] Nov, [facility] [address] [id number] [place] [address] Nov, [facility] [place] [facility] [address] [id number] [place] [address] Nov, [facility] [place] [facility] [address] [id number] [place] [address] Oct, [facility] [place] [facility] [address] [id number] [place] [address] Oct, [facility] [place] [facility] [address] [id number] [place] [address] Oct, [facility] [place] [facility] [address] [id number] [place] [address] Oct, [facility] [place] [facility] [address] [id number] [place] [address] Sep, [facility] [place] [facility] [address] [id number] [place] [address] Sep, [facility] [place] [facility] [address] [id number] [place] [address] Sep, [facility] [place] [facility] [address] [id number] [place] [address] Sep, [facility] [place] [facility] [address] [id number] [place] [address] Aug, [facility] [place] [facility] [address] [id number] [place] [address] Aug, [facility] [place] [facility] [address] [id number] [place] [address] Aug, [facility] [place] [facility] [address] [id number] [place] [address] Aug, [facility] [place] [facility] [address] [id number] [place] [address] Aug, [facility] [place] [facility] [address] [id number] [place] [address] Aug, [facility] [place] [facility] [address] [id number] [place] [address] Jul, [facility] [place] [facility] [address] [id number] [place] [address] Jun, [facility] [place] [facility] [address] [id number] [place] [address] Jun, [facility] [place] [facility] [address] [id number] [place] [address] Jun, [facility] [place] [facility] [address] [id number] [place] [address] May, [facility] [place] [facility] [address] [id number] [place] [address] May, [facility] [place] [facility] [address] [id number] [place] [address] March, [facility] [place] [facility] [address] [id number] [place] [address] March, [facility] [place] [facility] [address] [id number] [place] [address] March, [facility] [address] [id number] [place] [address] Feb, [facility] [place] [facility] [address] [id number] [place] [address] Feb, [facility] [address] [id number] [place] [address] Feb, [facility] [place] [facility] [address] [id number] [place] [address] Jan, [facility] [address] [id number] [place] [address] Jan, [facility] [place] [facility] [address] [id number] [place] [address] Dec, [facility] [place] [facility] [address] [id number] [place] [address] Dec, [facility] [address] [id number] [place] [address] Dec, [facility] [place] [facility] [address] [id number] [place] [address] Dec, [facility] [address] [id number] [place] [address] Dec, [facility] [place] [facility] [address] [facility] [id number] [place] [address] Dec, [facility] [place] [facility] [address] [id number] [place] [address] Dec, [facility] [place] [facility] [address] [id number] [place] [address] Nov, [facility] [place] [facility] [address] [id number] [place] [address] Nov, [facility] [place] [facility] [address] [id number] [place] [address] Nov, [facility] [place] [address] [id number] [address] Nov, [facility] [place] [id number], [place] [address] Nov, [facility] [place] [address] [id number], [place] [address] Nov, [facility] [place] [id number], [place] [address] Oct, [facility] [place] [id number] [address] Oct, [facility] [place] [id number] [address] Oct, [facility] [place] [id number], [place] [address] Oct, [facility] [place] [id number], [place] [address] Oct, [facility] [place] [id number], [place] [address] Oct, [facility] [place] [id number] [address] Oct, [facility] [place] [address] [id number], [place] [address] Oct, [facility] [place] [address] [id number], [place] [address] Aug, [facility] [place] [address] [id number] [address] Jan, [facility] [place] [id number], [place] [address] Jan, IMMUNIZATIONS No Known Immunizations SOCIAL HISTORY Never Assessed REASON FOR VISIT Triage PLAN OF CARE VITAL SIGNS MEDICATIONS Unknown [...]
--- OUTSIDE RECORDS SUMMARY | 2018-06-16 19:42 | XMS REPORT ---
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 Name Role Phone INGRID CHOUDHARY Unavailable PROBLEMS Type Condition ICD9-CM Code TZL54-TE Code Onset Dates Condition Status SNOMED Code Problem Diabetes type 2, uncontrolled E11.65 Active 037631726 Problem Chronic kidney disease, stage 4 (severe) N18.4 Active 436725218 Problem Hypertension I10 Active 72446844 Problem Controlled type 2 diabetes mellitus without complication, without long -term current use of insulin E11.9 Active 356579527 Problem 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, unspecified terminal carman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 status E11.42 Active 089728268 Problem Type 2 diabetes mellitus with diabetic chronic kidney disease E11.22 Active 78073873 Problem Type 2 diabetes mellitus with hyperglycemia E11.65 Active [id number] Problem Constipation, unspecified constipation type K59.00 Active 12343625 Problem terminal carman current use of insulin Z79.4 Active 514224297 Problem Need for prophylactic vaccination and inoculation against pertussis alone V03.6 Active 87656219 Problem Edema 782.3 Active 350918441 Problem Diabetes with neurological manifestations, type II or unspecified type , not stated as uncontrolled 250.60 Active 167391318 Problem Renal failure N19 Active 72472750 Problem Other and unspecified noninfectious gastroenteritis and colitis 558.9 Active 41504572 Problem HTN (hypertension) 401.9 Active 56268390 Problem Diabetes mellitus without mention of complication, type II or unspecified type, not stated as uncontrolled 250.00 Active 322858456 Problem Diabetes E11.9 Active 15172706 ALLERGIES No Information ENCOUNTERS Encounter Location Date Diagnosis [facility] [address] [facility] [id number], [place] [address] Jan, [facility] [address] [facility] [id number], [place] [address] Nov, Controlled type 2 diabetes mellitus without complication, without long-term current use of insulin E11.9 [facility] [address] [place] [address] [id number] Nov, [facility] [id number] [place] [address] 53717- 1749 Oct, [facility] [id number] [place] [address] 96178- 6531 Oct, [facility] [id number] [place] [address] 73013- 1626 Oct, [facility] [id number] [place] [address] 07307- 5241 Oct, [facility] [id number] [place] [address] 59261- 4881 Oct, [facility] [id number] [place] [address] 63445- 5738 Sep, [facility] [id number] [place] [address] 13471 -5855 Aug, Acute bronchitis, unspecified organism J20.9 [facility] [id number] [place] [address] 66693- 7085 Aug, [facility] [id number] [place] [address] 03350 -9287 Aug, Diarrhea of infectious origin A09 [facility] [id number] [place] [address] 64313- 8868 Aug, [facility] [id number] [place] [address] 40103- 0656 Jul, 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, unspecified care home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 status E11.42 [facility] [id number] [place] [address] [id number] Jul, Encounter for dental examination Z01.20 [facility] [id number] [place] [address] 78975- 5521 Jul, 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, unspecified terminal carman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 status E11.42 [facility] [id number] [place] [address] 344917 -2216 Jun, Acute frontal sinusitis J01.10 [facility] [id number] [place] [address] [id number] Jun, Dental examination Z01.20 [facility] [id number] [place] [address] 98275 2546 May, [facility] [id number] [place] [address] 30699- 5676 May, [facility] [id number] [place] [address] 11520 2546 May, Open wound of toe, initial encounter S91.109A [facility] [id number] [place] [address] [id number] Apr, Dental examination Z01.20 [facility] [id number] [place] [address] 80875- 4986 Apr, Diabetes E11.9 and Stage 4 chronic kidney disease N18.4 [facility] [id number] [place] [address] 521103- 5406 March, [facility] [id number] [place] [address] 374103- 5416 Feb, [facility] [id number] [place] [address] 12531- 8566 Feb, [facility] [id number] [place] [address] 344533- 1346 Feb, [facility] [id number] [place] [address] 178729- 5876 13 Dec, 2016 [facility] [address] [address] -1406 Dec, Constipation, unspecified constipation type K59.00 [facility] [id number] [place] [address] 56675- 0884 Dec, [facility] [id number] [place] [address] 15586- 9856 Dec, [facility] [id number] [place] [address] 51876- 7591 Dec, Renal failure N19 and Hypokalemia E87.6 [facility] [id number] [place] [address] 53236- 9500 Nov, Renal failure N19 and Hypokalemia E87.6 [facility] [id number] [place] [address] 12430- 3728 Nov, Chronic kidney disease, stage 4 (severe) N18.4 [facility] [id number] [place] [address] 24280- 4493 Nov, Chronic kidney disease, stage 4 (severe) N18.4 [facility] [id number] [place] [address] 10550- 8386 Nov, [facility] [id number] [place] [address] 39908- 8498 Nov, [facility] [id number] [place] [address] 87191- 4019 Nov, Dysthymia F34.1 [facility] [id number] [place] [address] 50881- 2593 Nov, [facility] [id number] [place] [address] 31674 -4426 Oct, Bronchitis J40 [facility] [id number] [place] [address] 99365- 0063 Oct, Localized edema R60.0 [facility] [id number] [place] [address] 63365- 9251 Sep, Renal failure N19 ; Type 2 diabetes mellitus with diabetic chronic kidney disease E11.22 and Chronic kidney disease, stage 4 (severe) N18.4 [facility] [address] [place] [address] 82499- 0974 Aug, Renal failure N19 ; Diabetes E11.9 ; Type 2 diabetes mellitus with diabetic chronic kidney disease E11.22 ; Type 2 diabetes mellitus with hyperglycemia E11.65 ; Chronic kidney disease, stage 4 (severe) N18.4 and nursing home current use of insulin Z79.4 [facility] [id number] [place] [address] 19925- 4973 Aug, Bronchitis J40 [facility] [id number] [place] [address] 54849- 0188 Aug, [facility] [id number] [place] [address] 16077 -3303 Aug, Bronchitis J40 [facility] [id number] [place] [address] 64768- 8170 Aug, Displaced fracture of greater trochanter of left femur, initial encounter for closed fracture S72.112A [place] [id number] [place] [address] 15812- 0655 Jul, Hip fracture, left, closed, with routine healing, subsequent encounter S72.002D ; Renal failure N19 and Uncontrolled type 2 diabetes mellitus without complication, without long-term current use of insulin E11.65 [facility] [address] [place] [address] 16347- 3341 Jul, [facility] [id number] [place] [address] 36648- 7415 Jul, [facility] [id number] [place] [address] 21648- 1461 Jul, [facility] [id number] [place] [address] 51221- 9912 Jul, [facility] [id number] [place] [address] 54775- 3974 May, [facility] [address] [place] [address] 83457- 4321 May, Orthostatic hypotension I95.1 and Renal insufficiency N28.9 [facility] [address] [place] [address] 55694- 6778 May, Renal failure N19 [facility] [id number] [place] [address] 41283- 0123 May, [facility] [id number] [place] [address] 48502- 3071 Apr, Renal failure N19 [place] [id number] [place] [address] 01712- 0339 Apr, [place] [id number] [place] [address] 37174- 2141 Apr, [facility] [id number] [place] [address] 09933 -6642 Apr, Orthostatic hypotension I95.1 and 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, unspecified terminal carman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 status E11.42 [place] [id number] [place] [address] 56445- 8839 March, Left rotator cuff tear M75.102 [facility] [id number] [place] [address] 35855 -0593 March, Allergic reaction to drug T78.40XA [facility] [address] [place] [address] 22075- 0792 March, Diabetes type 2, controlled E11.9 [facility] [id number] [place] [address] 72483- 2275 Feb, Left rotator cuff tear M75.102 [facility] [id number] [place] [address] 14369- 2130 Feb, Left rotator cuff tear M75.102 [facility] [id number] [place] [address] 72032 -7893 Feb, Diabetes type 2, uncontrolled E11.65 ; Hypertension I10 ; Edema 782.3 and Cellulitis L03.90 [facility] [id number] [place] [address] 34316- 0166 Feb, [facility] [id number] [place] [address] 98098- 4786 Feb, [facility] [address] 14617- 6355 Feb, Left rotator cuff tear M75.102 [facility] [id number] [place] [address] 10519- 6258 Feb, [facility] [id number] [place] [address] 70952- 9221 Feb, Diabetes type 2, uncontrolled E11.65 and Edema R60.9 [facility] [address] 43124- 7852 Jan, Hypertension, essential I10 [facility] [id number] [place] [address] 33797- 1841 Dec, Hypertension I10 [facility] [id number] [place] [address] 66823- 9880 Dec, [facility] [id number] [place] [address] 59025- 3008 Dec, Renal insufficiency N28.9 and Edema R60.9 [facility] [id number] [place] [address] 42524- 4204 Dec, [facility] [id number] [place] [address] 81443- 3216 Dec, [facility] [id number] [place] [address] 52187- 0434 Dec, [facility] [id number] [place] [address] 64919 -1975 Nov, Pedal edema R60.0 and Benign essential hypertension I10 [facility] [address] [address]- 1006 Nov, Benign essential hypertension I10 and Renal insufficiency N28.9 [facility] [address] [address] -6897 Nov, Acute laryngopharyngitis J06.0 ; Benign essential hypertension I10 and Strep pharyngitis J02.0 [facility] [address] [place] [address] 16748- 2546 Nov, Diabetes type 2, uncontrolled E11.65 ; Renal insufficiency N28.9 and Localized edema R60.0 [facility] [id number] [place] [address] 92545- 0058 Oct, [facility] [id number] [place] [address] 30070- 3323 Oct, Diabetes E11.9 [facility] [id number] [place] [address] 79151- 6398 Sep, [facility] [id number] [place] [address] 56957- 8305 May, [facility] [id number] [place] [address] 04163- 7937 May, Diabetes with neurological manifestations, type II or unspecified type, not stated as uncontrolled 250.60 [facility] [address] [address]- 0495 May, [facility] [address] [place] [address] 68200- 1379 May, [facility] [id number] [place] [address] 65927- 6296 May, Diabetes with neurological manifestations, type II or unspecified type, not stated as uncontrolled 250.60 and HTN (hypertension) 401.9 [facility] [id number] [place] [address] 39907- 0773 Apr, [facility] [place] [facility] [address] [id number] [place] [address]- 9969 Feb, [facility] [place] [facility] [address] [id number] [place] [address]- 5806 Feb, [facility] [place] [facility] [address] [id number] [place] [address]- 1488 Jan, [facility] [place] [facility] [address] [id number] [place] [address]- 6323 Jan, [facility] [place] [facility] [address] [id number] [place] [address]- 4722 Dec, [facility] [place] [facility] [address] [id number] [place] [address]- 9315 Dec, [facility] [place] [facility] [address] [id number] [place] [address]- 1709 Dec, [facility] [place] [facility] [address] [id number] [place] [address]- 5314 Nov, [facility] [place] [facility] [address] [id number] [place] [address]- 5864 Nov, [facility] [place] [facility] [address] [id number] [place] [address]- 9366 Sep, [facility] [place] [facility] [address] [id number] [place] [address]- 5693 Sep, [facility] [place] [facility] [address] [id number], [place] [address]- 6971 Jul, [facility] [place] [facility] [address] [id number] [place] [address]- 9159 Jul, [facility] [place] [facility] [address] [id number] [place] [address]- 5633 16 Jul, 2014 [facility] [place] [facility] [address] [id number] [place] [address]- 6725 16 Jul, 2014 [facility] [place] [facility] [address] [id number] [place] [address]- 6814 Jun, [facility] [place] [facility] [address] [id number] [place] [address]- 6578 Jun, [facility] [place] [facility] [address] [id number] [place] [address]- 0412 May, [facility] [place] [facility] [address] [id number] [place] [address]- 7009 May, [facility] [place] [facility] [address] [id number] [place] [address]- 2607 May, [facility] [place] [facility] [address] [id number] [place] [address]- 9350 May, [facility] [place] [facility] [address] [id number] [place] [address]- 3397 Apr, [facility] [place] [facility] [address] [id number] [place] [address]- 1920 Apr, [facility] [place] [facility] [address] [id number] [place] [address]- 7326 Apr, [facility] [place] [facility] [address] [id number] [place] [address]- 3645 Apr, [facility] [place] [facility] [address] [id number] [place] [address]- 1270 March, [facility] [place] [facility] [address] [id number] [place] [address]- 3711 March, [facility] [place] [facility] [address] [id number] [place] [address]- 5346 Feb, [facility] [place] [facility] [address] [id number] [place] [address]- 9277 Feb, [facility] [place] [facility] [address] [id number] [place] [address]- 9594 Feb, [facility] [place] [facility] [address] [id number] [place] [address]- 9383 Feb, [facility] [address] [id number] [place] [address]- 9290 Jan, [facility] [place] [facility] [address] [id number] [place] [address]- 8996 Jan, [facility] [place] [facility] [address] [id number] [place] [address]- 1506 Nov, [facility] [place] [facility] [address] [id number] [place] [address]- 4908 Nov, [facility] [place] [facility] [address] [id number] [place] [address]- 9968 Oct, [facility] [place] [facility] [address] [id number] [place] 8219 Oct, [facility] [place] [facility] [address] [id number] [place] [address]- 9640 Oct, [facility] [place] [facility] [address] [id number] [place] 9715 Oct, [facility] [place] [facility] [address] [id number] [place] 0623 Oct, [facility] [place] [facility] [address] [id number]- 9470 Oct, [facility] [place] [facility] [address] [id number], [place] [address]- 8574 Oct, [facility] [place] [facility] [address] [id number], [place] [address]- 3592 Oct, [facility] [place] [facility] [address] [id number] [place] [address]- 9723 Sep, [facility] [place] [facility] [address] [id number] [place] [address]- 2926 Sep, [facility] [place] [facility] [address] [id number], [place] [address]- 6966 Aug, [facility] [place] [facility] [address] [id number], [place] [address]- 9910 17 Aug, 2012 [facility] [place] [facility] [address] [id number] [place] [address]- 3183 17 Aug, 2012 [facility] [place] [facility] [address] [id number] [place] [address]- 5897 17 Aug, 2012 [facility] [place] [facility] [address] [id number] [place] [address]- 0450 16 Aug, 2012 [facility] [place] [facility] [address] [id number] [place] [address]- 4665 11 Aug, 2012 [facility] [place] [facility] [address] [id number] [place] [address]- 2432 11 Aug, 2013 [facility] [place] [facility] [address] [id number] [place] [address]- 5618 10 Aug, 2013 [facility] [place] [facility] [address] [id number] [place] [address]- 2774 Aug, [facility] [place] [facility] [address] [id number] [place] [address]- 7442 Aug, [facility] [place] [facility] [address] [facility] [id number] [place] [address]- 8794 Aug, [facility] [place] [facility] [address] [id number] [place] [address]- 5270 24 Jul, 2013 [facility] [place] [facility] [address] [id number] [place] [address]- 2896 Jun, [facility] [place] [facility] [address] [id number], [place] [address]- 4051 Jun, [facility] [place] [facility] [address] [id number] [place] [address]- 7413 May, [facility] [place] [facility] [address] [id number] [place] [address]- 4191 May, [facility] [place] [facility] [address] [facility] [id number] [place] [address]- 8375 Apr, [facility] [place] [facility] [address] [id number] [place] [address]- 6322 March, [facility] [address] [id number] [place] [address]- 7031 Feb, [facility] [place] [facility] [address] [id number] [place] [address]- 9986 Jan, [facility] [place] [facility] [address] [id number] [place] [address]- 2596 Dec, [facility] [place] [facility] [address] [id number] [place] [address]- 5667 Dec, [facility] [place] [facility] [address] [id number] [place] [address]- 1156 Dec, [facility] [address] [id number] [place] [address]- 0382 Nov, [facility] [address] [id number] [place] [address]- 1740 Nov, [facility] [place] [facility] [address] [id number] [place] [address]- 4109 Nov, [facility] [place] [facility] [address] [id number] [place] [address] Oct, [facility] [place] [facility] [address] [id number] [place] [address] Oct, [facility] [place] [facility] [address] [id number] [place] [address] Oct, [facility] [place] [facility] [address] [id number] [place] [address] Oct, [facility] [place] [facility] [address] [id number] [place] [address] Sep, [facility] [place] [facility] [address] [id number] [place] [address] Sep, [facility] [place] [facility] [address] [id number] [place] [address] Sep, [facility] [place] [facility] [address] [id number] [place] [address] Sep, [facility] [place] [facility] [address] [id number] [place] [address] Aug, [facility] [place] [facility] [address] [id number] [place] [address] Aug, [facility] [place] [facility] [address] [id number] [place] [address] Aug, [facility] [place] [facility] [address] [id number] [place] [address] Aug, [facility] [place] [facility] [address] [id number] [place] [address] Aug, [facility] [place] [facility] [address] [id number] [place] [address] Aug, [facility] [place] [facility] [address] [id number] [place] [address] Jul, [facility] [place] [facility] [address] [id number] [place] [address] Jun, [facility] [place] [facility] [address] [id number] [place] [address] Jun, [facility] [place] [facility] [address] [id number] [place] [address] Jun, [facility] [place] [facility] [address] [id number] [place] [address] May, [facility] [place] [facility] [address] [id number] [place] [address] May, [facility] [place] [facility] [address] [id number] [place] [address] March, [facility] [place] [facility] [address] [id number] [place] [address] March, [facility] [place] [facility] [address] [id number] [place] [address] March, [facility] [address] [id number] [place] [address] Feb, [facility] [place] [facility] [address] [id number] [place] [address] Feb, [facility] [address] [id number] [place] [address] Feb, [facility] [place] [facility] [address] [id number] [place] [address] Jan, [facility] [address] [id number] [place] [address] Jan, [facility] [place] [facility] [address] [id number] [place] [address] Dec, [facility] [place] [facility] [address] [id number] [place] [address] Dec, [facility] [address] [id number] [place] [address] Dec, [facility] [place] [facility] [address] [id number] [place] [address] Dec, [facility] [address] [id number] [place] [address] Dec, [facility] [place] [facility] [address] [facility] [id number] [place] [address] Dec, [facility] [place] [facility] [address] [id number] [place] [address] Dec, [facility] [place] [facility] [address] [id number] [place] [address] Nov, [facility] [place] [facility] [address] [id number] [place] [address] Nov, [facility] [place] [facility] [address] [id number] [place] [address] Nov, [facility] [address] [id number] [address] Nov, [facility] [id number] [address] Nov, [facility] [address] [id number] [address] Nov, [facility] [id number], [place] [address] Oct, [facility] [id number], [place] [address] Oct, [facility] [id number], [place] [address] Oct, [facility] [id number], [place] [address] Oct, [facility] [id number], [place] [address] Oct, [facility] [id number], [place] [address] Oct, [facility] [id number], [place] [address] Oct, [facility] [address] [id number] [address] Oct, [facility] [address] [id number] [address] Aug, [facility] [address] [id number] [address] Jan, [facility] [id number], [place] [address] Jan, IMMUNIZATIONS No Known Immunizations SOCIAL HISTORY Never Assessed REASON FOR VISIT PLAN OF CARE VITAL SIGNS MEDICATIONS Medication Instructions Dosage Frequency Start Date End Date Duration Status Atorvastatin Calcium 40 mg Orally Once a day 1 tablet 24h May, 30 day(s) Active RESULTS No Results PROCEDURES [...]
--- OUTSIDE RECORDS SUMMARY | 2018-06-16 19:42 | XMS REPORT ---
Author Author INGRID CHOUDHARY Organization [facility] [place] Address [address] [place] [address] Care Team Providers Care Commercial Lines Underwriter Name Role Phone INGRID CHOUDHARY Unavailable PROBLEMS Type Condition ICD9-CM Code RTH95-TB Code Onset Dates Condition Status SNOMED Code Problem Diabetes type 2, uncontrolled E11.65 Active 109019070 Problem Chronic kidney disease, stage 4 (severe) N18.4 Active 826222505 Problem Hypertension I10 Active 83846931 Problem Controlled type 2 diabetes mellitus without complication, without long -term current use of insulin E11.9 Active 626386801 Problem 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, 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.42 Active 285031264 Problem Type 2 diabetes mellitus with diabetic chronic kidney disease E11.22 Active 24740494 Problem Type 2 diabetes mellitus with hyperglycemia E11.65 Active 019734978246232 Problem Constipation, unspecified constipation type K59.00 Active 84065269 Problem 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 Active 788144322 Problem Need for prophylactic vaccination and inoculation against pertussis alone V03.6 Active 73921086 Problem Edema 782.3 Active 383669071 Problem Diabetes with neurological manifestations, type II or unspecified type , not stated as uncontrolled 250.60 Active 418830935 Problem Renal failure N19 Active 50133937 Problem Other and unspecified noninfectious gastroenteritis and colitis 558.9 Active 51283447 Problem HTN (hypertension) 401.9 Active 05595762 Problem Diabetes mellitus without mention of complication, type II or unspecified type, not stated as uncontrolled 250.00 Active 971689775 Problem Diabetes E11.9 Active 08500411 ALLERGIES Substance Reaction Event Type Date Status Doxycycline Unknown Drug Allergy Apr, Active Clindamycin HCl hives Drug Allergy Apr, Active Amoxicillin extreme diarrhea Drug Allergy Apr, Active ENCOUNTERS Encounter Location Date Diagnosis [facility] [place] [address] [facility] [id number] [address] Nov, Controlled type 2 diabetes mellitus without complication, without long-term current use of insulin E11.9 [facility] [id number] [place] [address] [id number] Nov, [facility] [place] [id number] [place] [address] 44128- 0275 Oct, [facility] [place] [id number] [place] [address] 26353- 9511 Oct, [facility] [place] [id number] [place] [address] 83928- 7083 Oct, [facility] [place] [id number] [place] [address] 53922- 0927 Oct, [facility] [place] [id number] [place] [address] 72700- 9644 Oct, [facility] [place] [id number] [place] [address] 70513- 9417 Sep, [facility] [id number] [place] [address] 16139 -7905 Aug, Acute bronchitis, unspecified organism J20.9 [facility] [place] [id number] [place] [address] 31562- 3104 Aug, [facility] [id number] [place] [address] 63682 -9865 Aug, Diarrhea of infectious origin A09 [facility] [place] [id number] [place] [address] 40991- 0573 Aug, [facility] [place] [id number] [place] [address] 01178- 4810 Jul, 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, unspecified care home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 status E11.42 [facility] [address] [place] [address] [id number] Jul, Encounter for dental examination Z01.20 [facility] [place] [id number] [place] [address] 72589- 5386 Jul, 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, unspecified care home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 status E11.42 [facility] [id number] [place] [address] 18497 -6826 Jun, Acute frontal sinusitis J01.10 [facility] [address] [place] [address] [id number] Jun, Dental examination Z01.20 [facility] [place] [id number] [place] [address] 09616 2546 May, [facility] [place] [id number] [place] [address] 35675- 5646 May, [facility] [place] [id number] [place] [address] 47160 2546 May, Open wound of toe, initial encounter S91.109A [facility] [id number] [place] [address] [id number] Apr, Dental examination Z01.20 [facility] [place] [id number] [place] [address] 07704- 9046 Apr, Diabetes E11.9 and Stage 4 chronic kidney disease N18.4 [facility] [place] [id number] [place] [address] 90362- 8226 March, [facility] [place] [address] [place] [address] 51473- 2156 Feb, [facility] [place] [id number] [place] [address] 19447- 3836 Feb, [facility] [place] [id number] [place] [address] 22021- 7486 Feb, [facility] [place] [id number] [place] [address] 874741- 5846 13 Dec, 2016 [facility] [address] [place] [address] 289647 -6956 Dec, Constipation, unspecified constipation type K59.00 [facility] [place] [id number] [place] [address] 11730- 6906 Dec, [facility] [place] [id number] [place] [address] 11139- 9676 Dec, [facility] [place] [id number] [place] [address] 77518- 9802 Dec, Renal failure N19 and Hypokalemia E87.6 [facility] [place] [id number] [place] [address] 27958- 1172 Nov, Renal failure N19 and Hypokalemia E87.6 [facility] [place] [id number] [place] [address] 94583- 9032 Nov, Chronic kidney disease, stage 4 (severe) N18.4 [facility] [place] [id number] [place] [address] 22917- 3324 Nov, Chronic kidney disease, stage 4 (severe) N18.4 [facility] [place] [id number] [place] [address] 03591- 9334 Nov, [facility] [place] [id number] [place] [address] 37771- 8291 Nov, [facility] [place] [id number] [place] [address] 47511- 4292 Nov, Dysthymia F34.1 [facility] [place] [id number] [place] [address] 06298- 1409 Nov, [facility] [id number] [place] [address] 05032 -0425 Oct, Bronchitis J40 [facility] [place] [id number] [place] [address] 81046- 5100 Oct, Localized edema R60.0 [facility] [place] [id number] [place] [address] 40520- 2391 Sep, Renal failure N19 ; Type 2 diabetes mellitus with diabetic chronic kidney disease E11.22 and Chronic kidney disease, stage 4 (severe) N18.4 [facility] [place] [id number] [place] [address] 53109- 2152 Aug, Renal failure N19 ; Diabetes E11.9 ; Type 2 diabetes mellitus with diabetic chronic kidney disease E11.22 ; Type 2 diabetes mellitus with hyperglycemia E11.65 ; Chronic kidney disease, stage 4 (severe) N18.4 and FDC current use of insulin Z79.4 [facility] [place] [id number] [place] [address] 08303- 6168 Aug, Bronchitis J40 [facility] [place] [address] 33491- 0875 Aug, [facility] [id number] [place] [address] 85715 -1757 Aug, Bronchitis J40 [facility] [place] [id number] [place] [address] 31621- 6536 Aug, Displaced fracture of greater trochanter of left femur, initial encounter for closed fracture S72.[address] [place] [id number] [place] [address] 36515- 6554 Jul, Hip fracture, left, closed, with routine healing, subsequent encounter S72.002D ; Renal failure N19 and Uncontrolled type 2 diabetes mellitus without complication, without long-term current use of insulin E11.65 [facility] [place] [id number] [place] [address] 98132- 3313 Jul, [facility] [place] [id number] [place] [address] 33203- 4260 Jul, [facility] [place] [id number] [place] [address] 73760- 6791 Jul, [facility] [place] [id number] [place] [address] 40554- 9372 Jul, [facility] [place] [id number] [place] [address] 35194- 7452 May, [facility] [place] [address] [place] [address] 31984- 3176 May, Orthostatic hypotension I95.1 and Renal insufficiency N28.9 [facility] [place] [address] [address] 7433 May, Renal failure N19 [facility] [place] [id number] [place] [address] 31538- 4548 May, [facility] [place] [id number] [place] [address] 44678- 5770 Apr, Renal failure N19 [facility] [place] [id number] [place] [address] 39222- 6092 Apr, [facility] [place] [id number] [place] [address] 40359- 8157 Apr, [facility] [id number] [place] [address] 01157 -1877 Apr, Orthostatic hypotension I95.1 and 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, unspecified care home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 status E11.42 [facility] [place] [id number] [place] [address] 90025- 7364 March, Left rotator cuff tear M75.102 [facility] [id number] [place] [address] 58221 -9939 March, Allergic reaction to drug T78.40XA [facility] [place] [id number] [place] [address] 77512- 1319 March, Diabetes type 2, controlled E11.9 [facility] [place] [id number] [place] [address] 75036- 9533 Feb, Left rotator cuff tear M75.102 [facility] [place] [address] [place] [address] 57018- 2905 Feb, Left rotator cuff tear M75.102 [facility] [id number] [place] [address] 06776 -9157 Feb, Diabetes type 2, uncontrolled E11.65 ; Hypertension I10 ; Edema 782.3 and Cellulitis L03.90 [facility] [place] [id number] [place] [address] 42336- 7955 Feb, [facility] [place] [address] 87657- 2966 Feb, [facility] [place] [address] 08153- 2771 Feb, Left rotator cuff tear M75.102 [facility] [place] [address] 64609- 5096 Feb, [facility] [place] [id number] [place] [address] 10436- 8784 Feb, Diabetes type 2, uncontrolled E11.65 and Edema R60.9 [facility] [place] [address] 58154- 6761 Jan, Hypertension, essential I10 [facility] [place] [id number] [place] [address] 31357- 7623 Dec, Hypertension I10 [facility] [place] [address] 76707- 7569 Dec, [facility] [place] [id number] [place] [address] 33515- 5545 Dec, Renal insufficiency N28.9 and Edema R60.9 [facility] [place] [id number] [place] [address] 74348- 2635 Dec, [facility] [place] [address] 70331- 2460 Dec, [facility] [place] [id number] [place] [address] 84255- 8454 Dec, [facility] [id number] [place] [address] 77000 -7856 Nov, Pedal edema R60.0 and Benign essential hypertension I10 [facility] [place] [id number] [place] [address] 95446- 0715 Nov, Benign essential hypertension I10 and Renal insufficiency N28.9 [facility] [address] [place] [address] 55469 -8706 Nov, Acute laryngopharyngitis J06.0 ; Benign essential hypertension I10 and Strep pharyngitis J02.0 [facility] [place] [id number] [place] [address] 34393- 4587 Nov, Diabetes type 2, uncontrolled E11.65 ; Renal insufficiency N28.9 and Localized edema R60.0 [facility] [place] [id number] [place] [address] 02189- 9701 Oct, [facility] [place] [id number] [place] [address] 12838- 5467 Oct, Diabetes E11.9 [facility] [place] [id number] [place] [address] 38790- 6906 Sep, [facility] [place] [id number] [place] [address] 58944- 8469 May, [facility] [place] [id number] [place] [address] 17372- 5396 May, Diabetes with neurological manifestations, type II or unspecified type, not stated as uncontrolled 250.60 [facility] [place] [address] [place] [address] 13876- 8066 May, [facility] [place] [id number] [place] [address] 83230- 9962 May, [facility] [place] [id number] [place] [address] 63117- 0491 May, Diabetes with neurological manifestations, type II or unspecified type, not stated as uncontrolled 250.60 and HTN (hypertension) 401.9 [facility] [place] [id number] [place] [address] 02893- 3252 Apr, [facility] [place] [facility] [address] [id number] [place] [address]- 7452 Feb, [facility] [place] [facility] [address] [id number] [place] [address]- 1948 Feb, [facility] [place] [facility] [address] [id number] [place] [address]- 1311 Jan, [facility] [place] [facility] [address] [id number] [place] [address]- 9164 Jan, [facility] [place] [facility] [address] [id number] [place] [address]- 2774 Dec, [facility] [place] [facility] [address] [facility] [id number] [place] [address]- 1665 Dec, [facility] [place] [facility] [address] [facility] [id number] [place] [address]- 3667 Dec, [facility] [place] [facility] [address] [id number] [place] [address]- 4413 Nov, [facility] [place] [facility] [address] [id number] [place] [address]- 0138 Nov, [facility] [place] [facility] [address] [facility] [id number] [place] [address]- 0134 Sep, [facility] [place] [facility] [address] [id number] [place] [address]- 1368 Sep, [facility] [place] [facility] [address] [id number] [address]- 9393 Jul, [facility] [place] [facility] [address] [id number] [place] [address]- 0078 Jul, [facility] [place] [facility] [address] [facility] [id number] [place] [address]- 6072 16 Jul, 2014 [facility] [place] [facility] [address] [id number] [place] [address]- 8297 16 Jul, 2014 [facility] [place] [facility] [address] [id number] [place] [address]- 5577 Jun, [facility] [place] [facility] [address] [id number] [place] [address]002 Jun, [facility] [place] [facility] [address] [id number] [place] [address]- 8851 May, [facility] [place] [facility] [address] [id number] [place] [address]- 7318 May, [facility] [place] [facility] [address] [id number] [place] [address]- 2572 May, [facility] [place] [facility] [address] [id number] [place] [address]- 9557 May, [facility] [place] [facility] [address] [id number] [place] [address]- 5391 Apr, [facility] [place] [facility] [address] [id number] [place] [address]- 8571 Apr, [facility] [place] [facility] [address] [id number] [place] [address]- 3336 Apr, [facility] [place] [facility] [address] [id number] [place] [address]- 3333 Apr, [facility] [place] [facility] [address] [id number] [place] [address]- 4122 March, [facility] [place] [facility] [address] [id number] [place] [address]- 0028 March, [facility] [place] [facility] [address] [id number] [place] [address]- 6524 Feb, [facility] [place] [facility] [address] [id number] [place] [address]- 7144 Feb, [facility] [place] [facility] [address] [id number] [place] [address]- 3105 Feb, [facility] [place] [facility] [address] [id number] [place] [address]- 0534 Feb, [facility] [address] [id number] [place] [address]- 4786 Jan, [facility] [place] [facility] [address] [id number] [place] [address] Jan, [facility] [place] [facility] [address] [id number] [place] [address] Nov, [facility] [place] [facility] [address] [id number] [place] [address] Nov, [facility] [place] [facility] [address] [id number] [place] [address] Oct, [facility] [place] [facility] [address] [id number] [place] [address] Oct, [facility] [place] [facility] [address] [id number] [place] [address] Oct, [facility] [place] [facility] [address] [id number] [place] [address] Oct, [facility] [place] [facility] [address] [id number] [place] [address] Oct, [facility] [place] [facility] [address] [id number] [place] [address] Oct, [facility] [place] [facility] [address] [id number], [place] [address] Oct, [facility] [place] [facility] [address] [id number], [place] [address] Oct, [facility] [place] [facility] [address] [id number] [place] [address] Sep, [facility] [place] [facility] [address] [id number] [place] [address] Sep, [facility] [place] [facility] [address] [id number] [place] [address] Aug, [facility] [place] [facility] [address] [id number] [place] [address] 17 Aug, 2012 [facility] [place] [facility] [address] [id number] [place] [address] 17 Aug, 2012 [facility] [place] [facility] [address] [id number] [place] [address] 17 Aug, 2012 [facility] [place] [facility] [address] [id number] [place] [address] 16 Aug, 2012 [facility] [place] [facility] [address] [id number] [place] [address] 11 Aug, 2012 [facility] [place] [facility] [address] [id number] [place] [address] 11 Aug, 2012 [facility] [place] [facility] [address] [id number] [place] [address] 10 Aug, 2012 [facility] [place] [facility] [address] [id number] [place] [address] 09 Aug, 2012 [facility] [place] [facility] [address] [id number] [place] [address]- [address] 09 Aug, 2013 [facility] [place] [facility] [address] [id number] [place] [address] Aug, [facility] [place] [facility] [address] [id number] [place] [address] 24 Jul, 2013 [facility] [place] [facility] [address] [id number] [place] [address] Jun, [facility] [place] [facility] [address] [id number] [place] [address] Jun, [facility] [place] [facility] [address] [id number] [place] [address] May, [facility] [place] [facility] [address] [id number] [place] [address] May, [facility] [place] [facility] [address] [id number] [place] [address] Apr, [facility] [place] [facility] [address] [id number] [place] [address] March, [facility] [address] [id number] [place] [address] Feb, [facility] [place] [facility] [address] [id number] [place] [address] Jan, [facility] [place] [facility] [address] [id number] [place] [address] Dec, [facility] [address] [id number] [place] [address] Dec, [facility] [address] [id number] [place] [address] Dec, [facility] [address] [id number] [place] [address] Nov, [facility] [address] [id number] [place] [address] Nov, [facility] [address] [id number] [place] [address] Nov, [facility] [address] [id number] [place] [address] Oct, [facility] [address] [id number] [place] [address] Oct, [facility] [place] [facility] [address] [id number], [place] [address] Oct, [facility] [place] [facility] [address] [id number] [place] [address] Oct, [facility] [place] [facility] [address] [id number] [place] [address] Sep, [facility] [place] [facility] [address] [id number], [place] [address] Sep, [facility] [place] [facility] [address] [id number][place] [address] Sep, [facility] [place] [facility] [address] [id number] [place] [address] Sep, [facility] [place] [facility] [address] [id number] [place] [address] Aug, [facility] [place] [facility] [address] [id number] [place] [address] Aug, [facility] [place] [facility] [address] [id number] [place] [address] Aug, [facility] [place] [facility] [address] [id number] [place] [address] Aug, [facility] [place] [facility] [address] [id number] [place] [address] Aug, [facility] [place] [facility] [address] [facility] [id number] [place] [address] Aug, [facility] [place] [facility] [address] [id number] [place] [address] Jul, [facility] [place] [facility] [address] [id number] [place] [address] Jun, [facility] [place] [facility] [address] [facility] [id number] [place] [address] Jun, [facility] [place] [facility] [address] [id number] [place] [address] Jun, [facility] [place] [facility] [address] [id number] [place] [address] May, [facility] [place] [facility] [address] [id number] [place] [address] May, [facility] [place] [facility] [address] [facility] [id number] [place] [address] March, [facility] [place] [facility] [address] [facility] [id number] [place] [address] March, [facility] [place] [facility] [address] [id number] [place] [address] March, [facility] [place] [facility] [address] [id number] [place] [address] Feb, [facility] [place] [facility] [address] [id number] [place] [address] Feb, [facility] [place] [facility] [address] [id number] [place] [address] Feb, [facility] [place] [facility] [address] [id number] [place] [address] Jan, [facility] [place] [facility] [address] [id number] [place] [address] Jan, [facility] [place] [facility] [address] [facility] [id number] [place] [address] Dec, [facility] [place] [facility] [address] [id number] [place] [address] Dec, [facility] [place] [facility] [address] [id number] [place] [address] Dec, [facility] [place] [facility] [address] [id number] [address] Dec, [facility] [place] [facility] [address] [id number] [address] Dec, [facility] [place] [facility] [address] [id number] [place] [address] Dec, [facility] [place] [facility] [address] [id number] [place] [address] Dec, [facility] [place] [facility] [address] [id number] [place] [address] Nov, [facility] [place] [facility] [address] [id number] [place] [address] Nov, [facility] [place] [facility] [address] [id number], [place] [address] Nov, [facility] [place] [address] [address] Nov, [facility] [place] [address], [place] [address] Nov, [facility] [place] [address], [place] [address] Nov, [facility] [place] [address] [address] Oct, [facility] [place] [address] Oct, [facility] [place] [address] [address] Oct, [facility] [place] [address] Oct, [facility] [place] [address], [place] [address] Oct, [facility] [place] [address] [address] Oct, [facility] [place] [id number] [address] [address] Oct, [facility] [place] [address] [id number] [address] Oct, [facility] [place] [address] [id number] [address] Aug, [facility] [place] [id number] [address] Jan, [facility] [place] [id number], [place] [address] Jan, IMMUNIZATIONS No Known Immunizations SOCIAL HISTORY Never Assessed REASON FOR VISIT blood pressure F/U, and med refills- Soo BLAIR PLAN OF CARE VITAL SIGNS Height 69 in 2017-05-01 Weight 232.0 lbs 2017-05-01 Temperature 97.8 degrees Fahrenheit 2017-05-01 Heart Rate 61 bpm 2017-05-01 Respiratory Rate 18 2017-05-01 BMI 34.26 kg/m2 2017-05-01 Blood pressure systolic 152 mmHg 2017-05-01 Blood pressure diastolic 84 mmHg 2017-05-01 MEDICATIONS Medication Instructions Dosage Frequency Start Date End Date Duration Status Blood Pressure Monitor - monitor BP as directed by nephrology May, Active Lomotil 2.5-0.025 MG 1 tablet as needed 6h Dec, Active Klor-Con 10 10 MEQ Orally Twice a day 1 tablet with food 12h Active Levemir Flexpen 100 unit/mL (3 mL) subcutaneously at bedtime 40 units daily 30 days Active Cozaar 100 mg Orally Once a day 1 tablet 24h Oct, 30 days Active Calcium Acetate (Phos Binder) 667 MG Orally Three times a day 2 tablets with meals 8h Active Sodium Bicarbonate 10 mg Orally 2 times a day 1 tablet 12h Active RESULTS No Results PROCEDURES Procedure Date Ordered Result Body Site GLYCATED HEMOGLOBIN TEST May 01, 2017 [facility] VISIT ESTABLISHED PATIENT May 01, 2017 INSTRUCTIONS MEDICATIONS ADMINISTERED No Known Medications MEDICAL [...]
--- OUTSIDE RECORDS SUMMARY | 2018-06-16 19:43 | XMS REPORT ---
Author Author SAMUEL INGRID [facility] Address [address] [place] [address] Care Team Providers Care Chronic Manager Name Role Phone INGRID CHOUDHARY Unavailable PROBLEMS Type Condition ICD9-CM Code ZZP61-EO Code Onset Dates Condition Status SNOMED Code Problem Diabetes type 2, uncontrolled E11.65 Active 463618285 Problem Chronic kidney disease, stage 4 (severe) N18.4 Active 092465107 Problem Hypertension I10 Active 34135186 Problem Controlled type 2 diabetes mellitus without complication, without long -term current use of insulin E11.9 Active 070213935 Problem 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, unspecified roasterman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 status E11.42 Active 903613992 Problem Type 2 diabetes mellitus with diabetic chronic kidney disease E11.22 Active 26084664 Problem Type 2 diabetes mellitus with hyperglycemia E11.65 Active [id number] Problem Constipation, unspecified constipation type K59.00 Active 23073609 Problem 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.4 Active 371790966 Problem Need for prophylactic vaccination and inoculation against pertussis alone V03.6 Active 19855413 Problem Edema 782.3 Active 853051981 Problem Diabetes with neurological manifestations, type II or unspecified type , not stated as uncontrolled 250.60 Active 567856951 Problem Renal failure N19 Active 67366909 Problem Other and unspecified noninfectious gastroenteritis and colitis 558.9 Active 27698146 Problem HTN (hypertension) 401.9 Active 21523990 Problem Diabetes mellitus without mention of complication, type II or unspecified type, not stated as uncontrolled 250.00 Active 653115103 Problem Diabetes E11.9 Active 53503147 ALLERGIES No Information ENCOUNTERS Encounter Location Date Diagnosis [facility] [address] [facility] [id number] [address] Nov, Controlled type 2 diabetes mellitus without complication, without long-term current use of insulin E11.9 [facility] [address] [id number] Nov, [facility] [id number] [place] [address] 68325- 0343 Oct, [facility] [id number] [place] [address] 93714- 0521 Oct, [facility] [id number] [place] [address] 08160- 6333 Oct, [facility] [id number] [place] [address] 67463- 4327 Oct, [facility] [id number] [place] [address] 05852- 7202 Oct, [facility] [id number] [place] [address] 08726- 0172 Sep, [facility] [id number] [place] [address] 38913 -5631 Aug, Acute bronchitis, unspecified organism J20.9 [facility] [id number] [place] [address] 54178- 8179 Aug, [facility] [id number] [place] [address] 95798 -7237 Aug, Diarrhea of infectious origin A09 [facility] [id number] [place] [address] 43937- 8832 Aug, [facility] [id number] [place] [address] 66216- 0410 Jul, 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, unspecified correction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 status E11.42 [facility] [id number] [place] [address] [id number] Jul, Encounter for dental examination Z01.20 [facility] [address] [address] Jul, 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, unspecified correction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 status E11.42 [facility] [address] [address] Jun, Acute frontal sinusitis J01.10 [facility] [id number] [place] [address] [id number] Jun, Dental examination Z01.20 [facility] [id number] [place] [address] 66440- 1156 May, [facility] [id number] [place] [address] 13315- 5546 May, [facility] [id number] [place] [address] 399457- 7247 May, Open wound of toe, initial encounter S91.109A [facility] [id number] [place] [address] [id number] Apr, Dental examination Z01.20 [facility] [id number] [place] [address] 88937- 5036 Apr, Diabetes E11.9 and Stage 4 chronic kidney disease N18.4 [facility] [id number] [place] [address] 71535- 3536 March, [facility] [id number] [place] [address] 36543- 0779 Feb, [facility] [id number] [place] [address] 48441- 9786 Feb, [facility] [id number] [place] [address] 42933- 7106 Feb, [facility] [id number] [place] [address] 01119- 2286 13 Dec, 2016 [facility] [id number] [place] [address] 53264 -3762 10 Dec, 2016 Constipation, unspecified constipation type K59.00 [facility] [id number] [place] [address] 31857- 2881 Dec, [facility] [address] [place] [address] 30928- 6839 Dec, [facility] [id number] [place] [address] 11954- 1071 06 Dec, 2016 Renal failure N19 and Hypokalemia E87.6 [facility] [id number] [place] [address] 09536- 9006 Nov, Renal failure N19 and Hypokalemia E87.6 [facility] [id number] [place] [address] 82986- 5744 Nov, Chronic kidney disease, stage 4 (severe) N18.4 [facility] [id number] [place] [address] 23836- 9115 Nov, Chronic kidney disease, stage 4 (severe) N18.4 [facility] [id number] [place] [address] 53874- 2199 Nov, [facility] [id number] [place] [address] 73619- 6556 Nov, [facility] [id number] [place] [address] 52890- 5561 Nov, Dysthymia F34.1 [facility] [id number] [place] [address] 02945- 9912 Nov, [facility] [id number] [place] [address] 16850 -3712 Oct, Bronchitis J40 [facility] [id number] [place] [address] 03262- 0954 Oct, Localized edema R60.0 [facility] [id number] [place] [address] 91810- 7324 Sep, Renal failure N19 ; Type 2 diabetes mellitus with diabetic chronic kidney disease E11.22 and Chronic kidney disease, stage 4 (severe) N18.4 [facility] [address] [id number] [address] 488[address] Aug, Renal failure N19 ; Diabetes E11.9 ; Type 2 diabetes mellitus with diabetic chronic kidney disease E11.22 ; Type 2 diabetes mellitus with hyperglycemia E11.65 ; Chronic kidney disease, stage 4 (severe) N18.4 and 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.4 [facility] [address] [place] [address] 75450- 7186 Aug, Bronchitis J40 [facility] [id number] [place] [address] 06835- 9037 Aug, [facility] [id number] [place] [address] 62554 -3435 Aug, Bronchitis J40 [facility] [id number] [place] [address] 56022- 8007 Aug, Displaced fracture of greater trochanter of left femur, initial encounter for closed fracture S72.112A [facility] [id number] [place] [address] 69679- 8720 26 Jul, 2016 Hip fracture, left, closed, with routine healing, subsequent encounter S72.002D ; Renal failure N19 and Uncontrolled type 2 diabetes mellitus without complication, without long-term current use of insulin E11.65 [facility] [address] [address] 8697 Jul, [facility] [address] [address]- 8589 Jul, [facility] [address] [place] [address] 92108- 6134 14 Jul, 2016 [facility] [id number] [place] [address] 08789- 4794 Jul, [facility] [address] [address]- 9470 May, [facility] [id number] [place] [address] 22130- 1315 May, Orthostatic hypotension I95.1 and Renal insufficiency N28.9 [facility] [address] [address] 6241 May, Renal failure N19 [facility] [address] [place] [address] 83182- 4367 May, [facility] [id number] [place] [address] 36466- 7113 Apr, Renal failure N19 [facility] [id number] [place] [address] 21283- 6938 Apr, [facility] [id number] [place] [address] 43114- 9860 Apr, [facility] [id number] [place] [address] 12727 -0768 Apr, Orthostatic hypotension I95.1 and 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, unspecified correction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 status E11.42 [facility] [id number] [place] [address] 05389- 0663 March, Left rotator cuff tear M75.102 [facility] [id number] [place] [address] 29246 -8265 March, Allergic reaction to drug T78.40XA [facility] [id number] [place] [address] 21311- 4882 March, Diabetes type 2, controlled E11.9 [facility] [address] [place] [address] 71206- 4824 Feb, Left rotator cuff tear M75.102 [facility] [id number] [place] [address] 53728- 9496 Feb, Left rotator cuff tear M75.102 [facility] [address] [place] [address] 78828 -9641 Feb, Diabetes type 2, uncontrolled E11.65 ; Hypertension I10 ; Edema 782.3 and Cellulitis L03.90 [facility] [id number] [place] [address] 79772- 2287 Feb, [facility] [address] 13192- 3104 Feb, [facility] [id number] [place] [address] 78352- 7472 Feb, Left rotator cuff tear M75.102 [facility] [address] 14365- 3480 07 Feb, 2016 [facility] [address] 75422- 3089 Feb, Diabetes type 2, uncontrolled E11.65 and Edema R60.9 [facility] [address] 96064- 4008 14 Jan, 2016 Hypertension, essential I10 [facility] [address] 49914- 2805 Dec, Hypertension I10 [facility] [address] 84627- 9844 Dec, [facility] [id number] [place] [address] 50851- 5818 Dec, Renal insufficiency N28.9 and Edema R60.9 [facility] [address] 41918- 5020 Dec, [facility] [id number] [place] [address] 32932- 3163 Dec, [facility] [address] 06962- 2999 Dec, [facility] [id number] [place] [address] 91235 -3501 Nov, Pedal edema R60.0 and Benign essential hypertension I10 [facility] [address] 05301- 2982 Nov, Benign essential hypertension I10 and Renal insufficiency N28.9 [facility] [id number] [place] [address] 45243 -2754 Nov, Acute laryngopharyngitis J06.0 ; Benign essential hypertension I10 and Strep pharyngitis J02.0 [facility] [id number] [place] [address] 89392- 8167 Nov, Diabetes type 2, uncontrolled E11.65 ; Renal insufficiency N28.9 and Localized edema R60.0 [facility] [id number] [place] [address] 65585- 5397 Oct, [facility] [id number] [place] [address] 49764- 5243 Oct, Diabetes E11.9 [facility] [id number] [place] [address] 11044- 9158 Sep, [facility] [id number] [place] [address] 42214- 5872 May, [facility] [id number] [place] [address] 12675- 3941 May, Diabetes with neurological manifestations, type II or unspecified type, not stated as uncontrolled 250.60 [facility] [address] [place] [address] 63341- 4502 May, [facility] [id number] [place] [address] 22649- 8092 May, [facility] [address] [place] [address] 93947- 2562 May, Diabetes with neurological manifestations, type II or unspecified type, not stated as uncontrolled 250.60 and HTN (hypertension) 401.9 [facility] [address] [place] [address] 20062- 4082 Apr, [facility] [id number] [place] [address] 60257- 2219 14 Feb, 2015 [facility] [place] [facility] [address] [id number] [place] [address]- 7503 Feb, [facility] [place] [facility] [address] [id number] [place] [address]- 7975 Jan, [facility] [place] [facility] [address] [id number] [place] [address]- 9685 Jan, [facility] [place] [facility] [address] [id number] [place] [address]- 9471 Dec, [facility] [place] [facility] [address] [id number] [place] [address]- 4044 Dec, [facility] [place] [facility] [address] [id number] [place] [address]- 5287 Dec, [facility] [place] [facility] [address] [id number] [place] [address]- 4017 Nov, [facility] [place] [facility] [address] [id number] [place] [address]- 0596 Nov, [facility] [place] [facility] [address] [id number] [place] [address]- 4371 Sep, [facility] [place] [facility] [address] [id number] [place] [address]- 8066 Sep, [facility] [place] [facility] [address] [id number] [place] [address]- 8376 Jul, [facility] [place] [facility] [address] [id number] [place] [address]- 8755 Jul, [facility] [place] [facility] [address] [id number] [place] [address]- 5714 16 Jul, 2014 [facility] [place] [facility] [address] [id number] [place] [address]- 2112 Jul, [facility] [place] [facility] [address] [id number] [place] [address]- 2471 Jun, [facility] [place] [facility] [address] [id number] [place] [address]- 7718 Jun, [facility] [place] [facility] [address] [id number] [place] [address]- 7382 May, [facility] [place] [facility] [address] [id number] [place] [address]- 0247 May, [facility] [place] [facility] [address] [id number] [place] [address]- 2727 May, [facility] [place] [facility] [address] [id number] [place] [address]- 1922 May, [facility] [place] [facility] [address] [id number] [place] [address]- 4750 Apr, [facility] [place] [facility] [address] [id number] [place] [address]- 6229 Apr, [facility] [place] [facility] [address] [id number] [place] [address]- 9554 Apr, [facility] [place] [facility] [address] [id number] [place] [address]- 9455 Apr, [facility] [place] [facility] [address] [id number] [place] [address]- 8780 March, [facility] [place] [facility] [address] [id number] [place] [address]- 2350 March, [facility] [place] [facility] [address] [id number] [place] [address]- 5805 Feb, [facility] [place] [facility] [address] [id number] [place] [address]- 3151 Feb, [facility] [place] [facility] [address] [id number] [place] [address]- 2484 Feb, [facility] [place] [facility] [address] [id number] [place] [address]- 3938 Feb, [facility] [place] [facility] [address] [id number] [place] [address]- 3829 Jan, [facility] [place] [facility] [address] [id number] [place] [address]- 1052 Jan, [facility] [place] [facility] [address] [id number] [place] [address]- 1631 Nov, [facility] [place] [facility] [address] [id number] [place] [address]- 9676 Nov, [facility] [place] [facility] [address] [id number] [place] [address]- 6895 Oct, [facility] [place] [facility] [address] [id number] [place] [address]- 3376 Oct, [facility] [place] [facility] [address] [id number] [place] [address]- 8779 Oct, [facility] [place] [facility] [address] [id number] [place] [address]- 8454 Oct, [facility] [place] [facility] [address] [id number] [place] [address]- 0736 Oct, [facility] [place] [facility] [address] [id number] [place] [address]- 9607 Oct, [facility] [place] [facility] [address] [id number], [place] [address]- 7074 Oct, [facility] [place] [facility] [address] [id number], [place] [address]- 5356 Oct, [facility] [place] [facility] [address] [id number], [place] [address]- 2099 Sep, [facility] [place] [facility] [address] [id number] [place] [address]- 3208 Sep, [facility] [place] [facility] [address] [id number], [place] [address]- 1356 Aug, [facility] [place] [facility] [address] [id number], [place] [address]- 9296 Aug, [facility] [place] [facility] [address] [id number], [place] [address]- 3262 Aug, [facility] [place] [facility] [address] [id number] [place] [address]- 3169 17 Aug, 2013 [facility] [place] [facility] [address] [id number] [place] [address]- 2892 16 Aug, 2013 [facility] [place] [facility] [address] [id number] [place] [address]- 0487 Aug, [facility] [place] [facility] [address] [id number] [place] [address]- 8943 Aug, [facility] [place] [facility] [address] [id number] [place] [address]- 1765 Aug, [facility] [place] [facility] [address] [id number] [place] [address]- 8649 Aug, [facility] [place] [facility] [address] [id number] [place] [address]- 5860 Aug, [facility] [place] [facility] [address] [id number] [place] [address]- 7004 Aug, [facility] [place] [facility] [address] [id number] [place] [address]- 0282 Jul, [facility] [place] [facility] [address] [id number] [place] [address]- 2824 Jun, [facility] [place] [facility] [address] [id number] [place] [address]- 2214 Jun, [facility] [place] [facility] [address] [id number], [place] [address]- 6564 May, [facility] [place] [facility] [address] [id number] [place] [address]- 8768 May, [facility] [place] [facility] [address] [facility] [id number] [place] [address]- 9032 Apr, [facility] [place] [facility] [address] [facility] [id number] [place] [address]- 2100 March, [facility] [place] [facility] [address] [id number] [place] [address]- 0047 Feb, [facility] [address] [id number] [place] [address]- 8629 Jan, [facility] [place] [facility] [address] [id number] [place] [address]- 9126 Dec, [facility] [place] [facility] [address] [id number] [place] [address]- 1136 Dec, [facility] [place] [facility] [address] [id number] [place] [address]- 2661 Dec, [facility] [place] [facility] [address] [id number] [place] [address]- 3671 Nov, [facility] [address] [id number] [place] [address]- 1200 Nov, [facility] [address] [id number] [place] [address]- 8559 Nov, [facility] [address] [id number] [place] [address]- 9624 Oct, [facility] [address] [id number] [place] [address] Oct, [facility] [place] [facility] [address] [id number] [place] [address] Oct, [facility] [place] [facility] [address] [id number] [place] [address] Oct, [facility] [place] [facility] [address] [id number] [place] [address] Sep, [facility] [place] [facility] [address] [id number] [place] [address] Sep, [facility] [place] [facility] [address] [id number] [place] [address] Sep, [facility] [place] [facility] [address] [id number] [place] [address] Sep, [facility] [place] [facility] [address] [id number] [place] [address] Aug, [facility] [place] [facility] [address] [id number] [place] [address] Aug, [facility] [place] [facility] [address] [id number] [place] [address] Aug, [facility] [place] [facility] [address] [id number] [place] [address] Aug, [facility] [place] [facility] [address] [id number] [place] [address] Aug, [facility] [place] [facility] [address] [id number] [place] [address] Aug, [facility] [place] [facility] [address] [id number] [place] [address] Jul, [facility] [place] [facility] [address] [id number] [place] [address] Jun, [facility] [place] [facility] [address] [id number] [place] [address] Jun, [facility] [place] [facility] [address] [id number] [place] [address] Jun, [facility] [place] [facility] [address] [id number] [place] [address] May, [facility] [place] [facility] [address] [id number] [place] [address] May, [facility] [place] [facility] [address] [id number] [place] [address] March, [facility] [place] [facility] [address] [id number] [place] [address] March, [facility] [place] [facility] [address] [id number] [place] [address] March, [facility] [place] [facility] [address] [id number] [place] [address] Feb, [facility] [place] [facility] [address] [id number] [place] [address] Feb, [facility] [place] [facility] [address] [id number] [place] [address] Feb, [facility] [place] [facility] [address] [id number] [place] [address] Jan, [facility] [place] [facility] [address] [id number] [place] [address] Jan, [facility] [place] [facility] [address] [id number] [place] [address] Dec, [facility] [place] [facility] [address] [id number] [place] [address] Dec, [facility] [place] [facility] [address] [id number] [place] [address] Dec, [facility] [place] [facility] [address] [id number] [place] [address] Dec, [facility] [place] [facility] [address] [facility] [id number] [place] [address] Dec, [facility] [place] [facility] [address] [facility] [id number] [place] [address] Dec, [facility] [place] [facility] [address] [facility] [facility] [id number] [place] [address] Dec, [facility] [place] [facility] [address] [id number] [place] [address] Nov, [facility] [place] [facility] [address] [id number] [place] [address] Nov, [facility] [place] [facility] [address] [id number] [place] [address] Nov, [facility] [place] [facility] [address] [id number] [place] [address] Nov, [facility] [address] [id number] [address] Nov, [facility] [id number] [address] Nov, [facility] [address] [id number] [address] Oct, [facility] [address] [facility] [id number] [address] Oct, [facility] [address] [facility] [id number], [place] [address] Oct, [facility] [id number] [address] Oct, [facility] [id number] [address] Oct, [facility] [id number] [address] Oct, [facility] [id number] [address] Oct, [facility] [id number] [address] Oct, [facility] [address] [id number] [address] Aug, [facility] [address] [id number] [address] Jan, [facility] [address] [id number], [place] [address] Jan, IMMUNIZATIONS No Known Immunizations SOCIAL HISTORY Never Assessed REASON FOR VISIT Claim dispute note PLAN OF CARE VITAL SIGNS MEDICATIONS No Known Medications RESULTS No Results PROCEDURES No Known [...]
--- OUTSIDE RECORDS SUMMARY | 2018-06-16 19:44 | XMS REPORT ---
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 Accountant Name Role Phone PAULY POSADA Unavailable Unavailable PROBLEMS Type Condition ICD9-CM Code VWY60-DA Code Onset Dates Condition Status SNOMED Code Problem Diabetes type 2, uncontrolled E11.65 Active 340351293 Problem Chronic kidney disease, stage 4 (severe) N18.4 Active 965576182 Problem Hypertension I10 Active 17788503 Problem Controlled type 2 diabetes mellitus without complication, without long -term current use of insulin E11.9 Active 692703275 Problem 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, 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 E11.42 Active 054239153 Problem Type 2 diabetes mellitus with diabetic chronic kidney disease E11.22 Active 42069195 Problem Type 2 diabetes mellitus with hyperglycemia E11.65 Active [id number] Problem Constipation, unspecified constipation type K59.00 Active 72242598 Problem 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.4 Active 952963477 Problem Need for prophylactic vaccination and inoculation against pertussis alone V03.6 Active 12673739 Problem Edema 782.3 Active 454295284 Problem Diabetes with neurological manifestations, type II or unspecified type , not stated as uncontrolled 250.60 Active 605119609 Problem Renal failure N19 Active 46415140 Problem Other and unspecified noninfectious gastroenteritis and colitis 558.9 Active 30382922 Problem HTN (hypertension) 401.9 Active 43837440 Problem Diabetes mellitus without mention of complication, type II or unspecified type, not stated as uncontrolled 250.00 Active 678400019 Problem Diabetes E11.9 Active 18840055 ALLERGIES Substance Reaction Event Type Date Status Doxycycline Unknown Drug Allergy Apr, Active Clindamycin HCl hives Drug Allergy Apr, Active Amoxicillin extreme diarrhea Drug Allergy Apr, Active ENCOUNTERS Encounter Location Date Diagnosis [facility] [address] [facility] [id number], [place] [address] Jan, [facility] [id number] [place] [address] 36115- 0446 Nov, Controlled type 2 diabetes mellitus without complication, without long-term current use of insulin E11.9 [facility] [id number] [place] [address] [id number] Nov, [facility] [id number] [place] [address] 90588- 9626 Oct, [facility] [id number] [place] [address] 08953- 0297 Oct, [facility] [id number] [place] [address] 84485- 9787 Oct, [facility] [id number] [place] [address] 42175- 1299 Oct, [facility] [id number] [place] [address] 06872- 0211 Oct, [facility] [id number] [place] [address] 29402- 1216 Sep, [facility] [id number] [place] [address] 52301 -1646 Aug, Acute bronchitis, unspecified organism J20.9 [facility] [id number] [place] [address] 13314- 3632 Aug, [facility] [id number] [place] [address] 46788 -6196 Aug, Diarrhea of infectious origin A09 [facility] [id number] [place] [address] 94806- 7791 Aug, [facility] [id number] [place] [address] 95269- 7518 Jul, 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, 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 E11.42 [facility] [id number] [place] [address] [id number] Jul, Encounter for dental examination Z01.20 [facility] [address] [id number] Jul, 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, 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 E11.42 [facility] [address] [address] Jun, Acute frontal sinusitis J01.10 [facility] [address] [id number] Jun, Dental examination Z01.20 [facility] [id number] [place] [address] 55068- 0566 May, [facility] [id number] [place] [address] 40712- 6516 May, [facility] [address] [id number] [address] May, Open wound of toe, initial encounter S91.109A [facility] [address] [id number] Apr, Dental examination Z01.20 [facility] [address] [id number], [place] [address] 8096 Apr, Diabetes E11.9 and Stage 4 chronic kidney disease N18.4 [facility] [address], [place] [address] 8686 March, [facility] [address], [place] [address] 2926 Feb, [facility] [address], [place] [address] 0408 Feb, [facility] [address] 1366 Feb, [facility] [address], [place] [address]- 9612 Dec, [facility] [address] 17048 -7187 10 Dec, 2016 Constipation, unspecified constipation type K59.00 [facility] [address] 30863- 4097 10 Dec, 2016 [facility] [address] 34092- 5882 Dec, [facility] [address] 49179- 5508 Dec, Renal failure N19 and Hypokalemia E87.6 [facility] [address] 85994- 9172 Nov, Renal failure N19 and Hypokalemia E87.6 [facility] [address] 73646- 5991 Nov, Chronic kidney disease, stage 4 (severe) N18.4 [facility] [address] 21404- 8147 Nov, Chronic kidney disease, stage 4 (severe) N18.4 [facility] [address] 35897- 0323 Nov, [facility] [address] 29706- 9176 Nov, [facility] [address] 18296- 4696 Nov, Dysthymia F34.1 [facility] [address] 43263- 4485 Nov, [facility] [address] 03547 -5654 Oct, Bronchitis J40 [facility] [address] 82776- 1398 Oct, Localized edema R60.0 [facility] [address] [place] [address]- 2836 Sep, Renal failure N19 ; Type 2 diabetes mellitus with diabetic chronic kidney disease E11.22 and Chronic kidney disease, stage 4 (severe) N18.4 [facility] [id number] [place] [address] 36832- 9574 Aug, Renal failure N19 ; Diabetes E11.9 ; Type 2 diabetes mellitus with diabetic chronic kidney disease E11.22 ; Type 2 diabetes mellitus with hyperglycemia E11.65 ; Chronic kidney disease, stage 4 (severe) N18.4 and prison current use of insulin Z79.4 [facility] [id number] [place] [address] 95691- 5861 Aug, Bronchitis J40 [facility] [id number] [place] [address] 60911- 9483 Aug, [facility] [id number] [place] [address] 14453 -2691 Aug, Bronchitis J40 [facility] [id number] [place] [address] 97083- 6992 Aug, Displaced fracture of greater trochanter of left femur, initial encounter for closed fracture S72.112A [place] [id number] [place] [address] 77088- 4219 Jul, Hip fracture, left, closed, with routine healing, subsequent encounter S72.002D ; Renal failure N19 and Uncontrolled type 2 diabetes mellitus without complication, without long-term current use of insulin E11.65 [facility] [address] [place] [address] 68566- 9689 Jul, [place] [id number] [place] [address] 61111- 0858 16 Jul, 2016 [place] [id number] [place] [address] 80893- 4387 14 Jul, 2016 [facility] [id number] [place] [address] 19246- 5696 Jul, [place] [address], [place] [address]- 6910 May, [facility] [id number] [place] [address] 64654- 5325 May, Orthostatic hypotension I95.1 and Renal insufficiency N28.9 [facility] [address], [place] [address]- 7915 May, Renal failure N19 [facility] [id number] [place] [address] 80579- 9768 May, [facility] [id number] [place] [address] 56311- 6978 Apr, Renal failure N19 [facility] [id number] [place] [address] 69816- 1013 Apr, [facility] [id number] [place] [address] 82660- 9727 Apr, [facility] [address] [place] [address] 11192 -7834 Apr, Orthostatic hypotension I95.1 and 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, 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 E11.42 [facility] [address] [place] [address] 62273- 7639 March, Left rotator cuff tear M75.102 [facility] [id number] [place] [address] 13121 -8430 March, Allergic reaction to drug T78.40XA [facility] [address] [place] [address] 09049- 0837 March, Diabetes type 2, controlled E11.9 [facility] [address] [place] [address] 94075- 7487 Feb, Left rotator cuff tear M75.102 [facility] [address] [place] [address] 65363- 5814 Feb, Left rotator cuff tear M75.102 [facility] [id number] [place] [address] 12317 -5076 Feb, Diabetes type 2, uncontrolled E11.65 ; Hypertension I10 ; Edema 782.3 and Cellulitis L03.90 [facility] [id number] [place] [address] 15048- 5548 Feb, [facility] [address] 06469- 7057 Feb, [facility] [address] 91093- 0894 Feb, Left rotator cuff tear M75.102 [facility] [address] 82691- 2054 Feb, [facility] [id number] [place] [address] 82605- 9760 Feb, Diabetes type 2, uncontrolled E11.65 and Edema R60.9 [facility] [address] 41091- 9988 Jan, Hypertension, essential I10 [facility] [address] 61880- 2218 Dec, Hypertension I10 [facility] [address] 89804- 5630 Dec, [facility] [address] 68074- 4305 Dec, Renal insufficiency N28.9 and Edema R60.9 [facility] [address] 41344- 7670 Dec, [facility] [address] 26699- 9250 Dec, [facility] [id number] [place] [address] 63275- 1913 Dec, [facility] [address], [place] [address] -9891 Nov, Pedal edema R60.0 and Benign essential hypertension I10 [facility] [id number] [place] [address] 87741- 4375 Nov, Benign essential hypertension I10 and Renal insufficiency N28.9 [facility] [id number] [place] [address] 94948 -9373 Nov, Acute laryngopharyngitis J06.0 ; Benign essential hypertension I10 and Strep pharyngitis J02.0 [facility] [id number] [place] [address] 74346- 0214 Nov, Diabetes type 2, uncontrolled E11.65 ; Renal insufficiency N28.9 and Localized edema R60.0 [facility] [id number] [place] [address] 74465- 1980 Oct, [facility] [id number] [place] [address] 66322- 1924 Oct, Diabetes E11.9 [facility] [id number] [place] [address] 61056- 9382 Sep, [facility] [id number] [place] [address] 67275- 0043 May, [facility] [address] [place] [address] 08571- 6767 May, Diabetes with neurological manifestations, type II or unspecified type, not stated as uncontrolled 250.60 [facility] [address] [place] [address] 27906- 7023 May, [facility] [id number] [place] [address] 06313- 3081 May, [facility] [address] [place] [address] 17664- 8684 May, Diabetes with neurological manifestations, type II or unspecified type, not stated as uncontrolled 250.60 and HTN (hypertension) 401.9 [facility] [place] [facility] [address] [id number] [place] [address]- 3153 16 Apr, 2015 [facility] [place] [facility] [address] [id number] [place] [address]- 8050 14 Feb, 2015 [facility] [place] [facility] [address] [id number] [place] [address]- 0888 Feb, [facility] [place] [facility] [address] [id number] [place] [address]- 7991 Jan, [facility] [place] [facility] [address] [id number] [place] [address]- 7778 Jan, [facility] [place] [facility] [address] [id number] [place] [address]- 1947 Dec, [facility] [place] [facility] [address] [facility] [id number] [place] [address]- 6374 Dec, [facility] [place] [facility] [address] [id number] [place] [address]- 4768 Dec, [facility] [place] [facility] [address] [id number] [place] [address]- 8727 Nov, [facility] [place] [facility] [address] [facility] [id number] [place] [address]- 1029 Nov, [facility] [place] [facility] [address] [id number] [place] [address]- 7002 Sep, [facility] [place] [facility] [address] [id number], [place] [address]- 3396 Sep, [facility] [place] [facility] [address] [id number] [place] [address]- 6196 Jul, [facility] [place] [facility] [address] [id number] [place] [address]- 4887 Jul, [facility] [place] [facility] [address] [facility] [id number] [place] [address]- 1486 16 Jul, 2014 [facility] [place] [facility] [address] [id number] [place] [address]- 8588 Jul, [facility] [place] [facility] [address] [id number] [place] [address]- 8545 Jun, [facility] [place] [facility] [address] [id number] [place] [address]- 7902 Jun, [facility] [place] [facility] [address] [id number] [place] 0313 May, [facility] [place] [facility] [address] [id number] [place] [address]- 0773 May, [facility] [place] [facility] [address] [id number] [place] 4513 May, [facility] [place] [facility] [address] [id number] [place] [address]- 1215 May, [facility] [place] [facility] [address] [id number] [place] [address]- 5311 Apr, [facility] [place] [facility] [address] [id number] [place] [address]- 9612 Apr, [facility] [place] [facility] [address] [id number] [place] [address]- 2862 Apr, [facility] [place] [facility] [address] [id number] [place] [address]- 9127 Apr, [facility] [place] [facility] [address] [id number] [place] [address]- 5063 March, [facility] [place] [facility] [address] [id number] [place] [address]- 9012 March, [facility] [place] [facility] [address] [id number] [place] [address]- 3005 Feb, [facility] [place] [facility] [address] [id number] [place] [address]- 1573 Feb, [facility] [place] [facility] [address] [id number] [place] [address]- 5699 Feb, [facility] [place] [facility] [address] [id number] [place] [address] 2542 Feb, [facility] [address] [id number] [place] [address]- 5083 Jan, [facility] [address] [id number] [place] [address]- 8056 Jan, [facility] [address] [id number] [place] [address]- 7815 Nov, [facility] [address] [id number] [place] [address]- 2752 Nov, [facility] [address] [id number] [place] [address]- 8328 Oct, [facility] [address] [id number] [place] [address]- 9278 Oct, [facility] [address] [id number] [place] [address]- 6338 Oct, [facility] [address] [id number] [place] [address]- 4735 Oct, [facility] [address] [id number] [place] [address]- 5587 Oct, [facility] [address] [id number] [place] [address]- 5570 Oct, [facility] [place] [facility] [address] [id number] [place] [address]- 8256 Oct, [facility] [place] [facility] [address] [id number] [place] [address]- 8574 Oct, [facility] [place] [facility] [address] [id number] [place] [address]- 0776 Sep, [facility] [place] [facility] [address] [id number] [place] [address]- 0085 Sep, [facility] [place] [facility] [address] [id number] [place] [address]- 4017 Aug, 2012 [facility] [place] [facility] [address] [id number] [place] [address]- 3646 Aug, 2012 [facility] [place] [facility] [address] [id number] [place] [address]- 2263 Aug, 2012 [facility] [place] [facility] [address] [id number] [place] [address]- 6242 Aug, 2012 [facility] [place] [facility] [address] [id number] [place] [address]- 5505 16 Aug, 2012 [facility] [place] [facility] [address] [id number] [place] [address]- 6463 Aug, 2012 [facility] [place] [facility] [address] [id number] [place] [address]- 1659 Aug, [facility] [place] [facility] [address] [id number] [place] [address]- 3640 Aug, [facility] [place] [facility] [address] [id number] [place] [address]- 2821 Aug, [facility] [place] [facility] [address] [id number] [place] [address]- 8731 Aug, [facility] [place] [facility] [address] [id number] [place] [address]- 0076 Aug, [facility] [place] [facility] [address] [id number] [place] [address]- 6610 Jul, [facility] [place] [facility] [address] [id number] [place] [address] 2549 Jun, [facility] [place] [facility] [address] [id number] [place] [address] 2549 Jun, [facility] [place] [facility] [address] [id number] [place] [address] 2541 May, [facility] [place] [facility] [address] [id number] [place] [address]- 254 May, [facility] [place] [facility] [address] [id number] [place] [address]- 1246 Apr, [facility] [address] [id number] [place] [address]- 2076 March, [facility] [place] [facility] [address] [id number] [place] [address]- 2546 Feb, [facility] [address] [id number] [place] [address]- 9596 Jan, [facility] [place] [facility] [address] [id number] [place] [address]- 3446 Dec, [facility] [address] [id number] [place] [address]- 0456 Dec, [facility] [address] [id number] [place] [address]- 9986 Dec, [facility] [address] [id number] [place] [address]- 9940 Nov, [facility] [address] [id number] [place] [address]- 6629 Nov, [facility] [address] [id number] [place] [address]- 1246 Nov, [facility] [address] [id number] [place] [address]- 0046 Oct, [facility] [address] [id number] [place] [address]- 9276 Oct, [facility] [address] [id number] [place] [address]- 1716 Oct, [facility] [place] [facility] [address] [id number] [place] [address]- 0896 Oct, [facility] [place] [facility] [address] [id number] [place] [address]- 2546 Sep, [facility] [place] [facility] [address] [id number] [place] [address] 8744 Sep, [facility] [place] [facility] [address] [id number] [place] [address]- 2722 Sep, [facility] [place] [facility] [address] [id number] [place] [address]- 1666 Sep, [facility] [place] [facility] [address] [id number] [place] [address] Aug, [facility] [place] [facility] [address] [id number] [place] [address] Aug, [facility] [place] [facility] [address] [id number] [place] [address] Aug, [facility] [place] [facility] [address] [id number] [place] [address] Aug, [facility] [place] [facility] [address] [id number] [place] [address] Aug, [facility] [place] [facility] [address] [id number] [place] [address] Aug, [facility] [place] [facility] [address] [id number] [place] [address] Jul, [facility] [place] [facility] [address] [id number] [place] [address] Jun, [facility] [place] [facility] [address] [id number] [place] [address] Jun, [facility] [place] [facility] [address] [id number], [place] [address] Jun, [facility] [place] [facility] [address] [id number] [place] [address] May, [facility] [place] [facility] [address] [id number], [place] [address] May, [facility] [place] [facility] [address] [id number] [place] [address] March, [facility] [place] [facility] [address] [id number] [place] [address] March, [facility] [address] [id number] [place] [address] March, [facility] [place] [facility] [address] [id number] [place] [address] Feb, [facility] [place] [facility] [address] [id number] [place] [address] Feb, [facility] [place] [facility] [address] [id number] [place] [address] Feb, [facility] [place] [facility] [address] [id number] [place] [address] Jan, [facility] [place] [facility] [address] [id number] [place] [address] Jan, [facility] [place] [facility] [address] [id number] [place] [address] Dec, [facility] [place] [facility] [address] [id number] [place] [address] Dec, [facility] [place] [facility] [address] [id number] [place] [address] Dec, [facility] [place] [facility] [address] [facility] [id number] [place] [address] Dec, [facility] [place] [facility] [address] [id number] [place] [address]- [address] Dec, [facility] [place] [facility] [address] [id number] [place] [address] Dec, [facility] [place] [facility] [address] [id number] [place] [address] Dec, [facility] [place] [facility] [address] [id number] [place] [address] Nov, [facility] [place] [facility] [address] [id number] [place] [address] Nov, [facility] [address] [facility] [id number], [place] [address] Nov, [facility] [address] [facility] [id number] [place] [address] Nov, [facility] [address] [facility] [id number], [place] [address] Nov, [facility] [address] [facility] [id number], [place] [address] Nov, [facility] [address] [facility] [id number] [place] [address] Oct, [facility] [address] [facility] [id number], [place] [address] Oct, [facility] [address] [facility] [id number], [place] [address] Oct, [facility] [address] [facility] [id number], [place] [address] Oct, [facility] [address] [facility] [id number], [place] [address] Oct, [facility] [address] [facility] [id number], [place] [address] Oct, [facility] [address] [facility] [id number][place] [address] Oct, [facility] [address] [facility] [id number], [place] [address] Oct, [facility] [address] [facility] [id number], [place] [address] Aug, [facility] [address] [facility] [id number][place] [address] Jan, [facility] [address] [facility] [id number][place] [address] Jan, IMMUNIZATIONS No Known Immunizations SOCIAL HISTORY Never Assessed REASON FOR VISIT PROPHY/SHAHRIAR PLAN OF CARE VITAL SIGNS Blood pressure systolic 167 mmHg 2017-05-08 Blood pressure diastolic 92 mmHg 2017-05-08 MEDICATIONS Medication Instructions Dosage Frequency Start Date End Date Duration Status Cozaar 100 mg Orally Once a day 1 tablet 24h Oct, 30 days Active Blood Pressure Monitor - monitor BP as directed by nephrology May, Active Lomotil 2.5-0.025 MG 1 tablet as needed 6h Dec, Active Levemir Flexpen 100 unit/mL (3 mL) subcutaneously at bedtime 40 units daily 30 days Active Sodium Bicarbonate 10 mg Orally 2 times a day 1 tablet 12h Active Calcium Acetate (Phos Binder) 667 MG Orally Three times a day 2 tablets with meals 8h Active Klor-Con 10 10 MEQ Orally Twice a day 1 tablet with food 12h Active RESULTS No Results PROCEDURES Procedure Date Ordered Result Body Site Billing Notes on claim May 08, 2017 INSTRUCTIONS MEDICATIONS ADMINISTERED No Known Medications [...]
[2018-06-16] MEDS ORDERED: RX-HYDROCODONE/APAP 5/325 MG #4 TAB PK PO PRN (19:45)
--- OUTSIDE RECORDS SUMMARY | 2018-06-16 19:45 | XMS REPORT ---
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 Name Role Phone INGRID CHOUDHARY Unavailable PROBLEMS Type Condition ICD9-CM Code UED00-ZO Code Onset Dates Condition Status SNOMED Code Problem Diabetes type 2, uncontrolled E11.65 Active 473156464 Problem Chronic kidney disease, stage 4 (severe) N18.4 Active 037957223 Problem Hypertension I10 Active 92898463 Problem Controlled type 2 diabetes mellitus without complication, without long -term current use of insulin E11.9 Active 699660896 Problem 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, 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 Active 548842135 Problem Type 2 diabetes mellitus with diabetic chronic kidney disease E11.22 Active 09397857 Problem Type 2 diabetes mellitus with hyperglycemia E11.65 Active 364839681011490 Problem Constipation, unspecified constipation type K59.00 Active 56977837 Problem intermediate frame tender current use of insulin Z79.4 Active 787833414 Problem Need for prophylactic vaccination and inoculation against pertussis alone V03.6 Active 76170877 Problem Edema 782.3 Active 406496788 Problem Diabetes with neurological manifestations, type II or unspecified type , not stated as uncontrolled 250.60 Active 448730384 Problem Renal failure N19 Active 84032725 Problem Other and unspecified noninfectious gastroenteritis and colitis 558.9 Active 53612083 Problem HTN (hypertension) 401.9 Active 43531953 Problem Diabetes mellitus without mention of complication, type II or unspecified type, not stated as uncontrolled 250.00 Active 414970741 Problem Diabetes E11.9 Active 90247713 ALLERGIES No Information ENCOUNTERS Encounter Location Date Diagnosis [facility] [address] [facility] [id number], [place] [address] Jan, [facility] [address] [facility] [id number], [place] [address] Nov, Controlled type 2 diabetes mellitus without complication, without long-term current use of insulin E11.9 [facility] [address] [place] [address] [id number] Nov, [facility] [id number] [place] [address] 18436- 8138 Oct, [facility] [id number] [place] [address] 23078- 8573 Oct, [facility] [id number] [place] [address] 29851- 1773 Oct, [facility] [id number] [place] [address] 36435- 6804 Oct, [facility] [id number] [place] [address] 53411- 0963 Oct, [facility] [id number] [place] [address] 77720- 7427 Sep, [facility] [id number] [place] [address] 81471 -1420 Aug, Acute bronchitis, unspecified organism J20.9 [facility] [id number] [place] [address] 12705- 2998 Aug, [facility] [id number] [place] [address] 25342 -9953 Aug, Diarrhea of infectious origin A09 [facility] [id number] [place] [address] 65048- 2261 Aug, [facility] [id number] [place] [address] 70245- 6103 Jul, 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, unspecified mcfp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 status E11.42 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 [id number] [place] [address] [id number] Jun, Dental examination Z01.20 [facility] [id number] [place] [address] 34245 2546 May, [facility] [id number] [place] [address] 35533- 4316 May, [facility] [id number] [place] [address] 87812 2546 May, Open wound of toe, initial encounter S91.109A [facility] [id number] [place] [address] [id number] Apr, Dental examination Z01.20 [facility] [id number] [place] [address] 32360- 1956 Apr, Diabetes E11.9 and Stage 4 chronic kidney disease N18.4 [facility] [id number] [place] [address] 354409- 1396 March, [facility] [id number] [place] [address] 599390- 1476 Feb, [facility] [id number] [place] [address] 97361- 7036 Feb, [facility] [address] [place] [address] 668927- 6536 Feb, [facility] [id number] [place] [address] 569082- 5306 13 Dec, 2016 [facility] [address] [address]236 Dec, Constipation, unspecified constipation type K59.00 [facility] [id number] [place] [address] 27627- 6441 Dec, [facility] [id number] [place] [address] 05751- 5766 Dec, [facility] [id number] [place] [address] 65947- 4173 Dec, Renal failure N19 and Hypokalemia E87.6 [facility] [id number] [place] [address] 96165- 0379 Nov, Renal failure N19 and Hypokalemia E87.6 [facility] [id number] [place] [address] 88446- 7890 Nov, Chronic kidney disease, stage 4 (severe) N18.4 [facility] [id number] [place] [address] 73125- 4499 Nov, Chronic kidney disease, stage 4 (severe) N18.4 [facility] [id number] [place] [address] 90085- 6087 Nov, [facility] [id number] [place] [address] 47933- 6008 Nov, [facility] [id number] [place] [address] 11136- 5379 Nov, Dysthymia F34.1 [facility] [id number] [place] [address] 24778- 2381 Nov, [facility] [address] [place] [address] 81925 -5619 Oct, Bronchitis J40 [facility] [id number] [place] [address] 67615- 0985 Oct, Localized edema R60.0 [facility] [id number] [place] [address] 20206- 6020 Sep, Renal failure N19 ; Type 2 diabetes mellitus with diabetic chronic kidney disease E11.22 and Chronic kidney disease, stage 4 (severe) N18.4 [facility] [address] [place] [address] 91162- 2768 Aug, Renal failure N19 ; Diabetes E11.9 ; Type 2 diabetes mellitus with diabetic chronic kidney disease E11.22 ; Type 2 diabetes mellitus with hyperglycemia E11.65 ; Chronic kidney disease, stage 4 (severe) N18.4 and skilled nursing current use of insulin Z79.4 [facility] [id number] [place] [address] 17936- 7533 Aug, Bronchitis J40 [facility] [id number] [place] [address] 06834- 7069 Aug, [facility] [id number] [place] [address] 59577 -1715 Aug, Bronchitis J40 [facility] [id number] [place] [address] 64949- 3197 Aug, Displaced fracture of greater trochanter of left femur, initial encounter for closed fracture S72.112A [facility] [id number] [place] [address] 20853- 6053 Jul, Hip fracture, left, closed, with routine healing, subsequent encounter S72.002D ; Renal failure N19 and Uncontrolled type 2 diabetes mellitus without complication, without long-term current use of insulin E11.65 [facility] [address] [place] [address] 16199- 4320 Jul, [facility] [id number] [place] [address] 03200- 4411 Jul, [facility] [id number] [place] [address] 03900- 2293 Jul, [facility] [id number] [place] [address] 00716- 3236 Jul, [facility] [id number] [place] [address] 70276- 8637 May, [facility] [address] [place] [address] 03441- 0422 May, Orthostatic hypotension I95.1 and Renal insufficiency N28.9 [facility] [address] [place] [address] 54610- 4441 May, Renal failure N19 [facility] [id number] [place] [address] 91195- 5508 May, [facility] [id number] [place] [address] 68973- 8307 Apr, Renal failure N19 [facility] [id number] [place] [address] 62202- 5008 Apr, [facility] [id number] [place] [address] 05472- 4438 Apr, [facility] [id number] [place] [address] 64514 -5709 Apr, Orthostatic hypotension I95.1 and 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, 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 E11.42 [facility] [id number] [place] [address] 15942- 6941 March, Left rotator cuff tear M75.102 [facility] [id number] [place] [address] 60001 -2690 March, Allergic reaction to drug T78.40XA [facility] [address] [place] [address] 92331- 8250 March, Diabetes type 2, controlled E11.9 [facility] [id number] [place] [address] 59025- 8204 Feb, Left rotator cuff tear M75.102 [facility] [id number] [place] [address] 73690- 4505 Feb, Left rotator cuff tear M75.102 [facility] [id number] [place] [address] 85959 -0703 Feb, Diabetes type 2, uncontrolled E11.65 ; Hypertension I10 ; Edema 782.3 and Cellulitis L03.90 [facility] [id number] [place] [address] 31460- 8843 Feb, [facility] [id number] [place] [address] 66765- 4542 Feb, [facility] [address] 99796- 3966 Feb, Left rotator cuff tear M75.102 [facility] [id number] [place] [address] 03915- 4751 Feb, [facility] [id number] [place] [address] 06397- 0774 Feb, Diabetes type 2, uncontrolled E11.65 and Edema R60.9 [facility] [address] 04990- 4035 Jan, Hypertension, essential I10 [facility] [id number] [place] [address] 31305- 3623 Dec, Hypertension I10 [facility] [id number] [place] [address] 54528- 4927 Dec, [facility] [id number] [place] [address] 99655- 3343 Dec, Renal insufficiency N28.9 and Edema R60.9 [facility] [id number] [place] [address] 72970- 4530 Dec, [facility] [id number] [place] [address] 07204- 1574 Dec, [facility] [id number] [place] [address] 49632- 1020 Dec, [facility] [id number] [place] [address] 77457 -6104 Nov, Pedal edema R60.0 and Benign essential hypertension I10 [facility] [address], [place] [address]- 5923 Nov, Benign essential hypertension I10 and Renal insufficiency N28.9 [facility] [address], [place] [address] -6707 Nov, Acute laryngopharyngitis J06.0 ; Benign essential hypertension I10 and Strep pharyngitis J02.0 [facility] [address] [place] [address] 83068- 8938 Nov, Diabetes type 2, uncontrolled E11.65 ; Renal insufficiency N28.9 and Localized edema R60.0 [facility] [id number] [place] [address] 72931- 5173 Oct, [facility] [id number] [place] [address] 98182- 1037 Oct, Diabetes E11.9 [facility] [id number] [place] [address] 17576- 8128 Sep, [facility] [id number] [place] [address] 41062- 6985 May, [facility] [id number] [place] [address] 26544- 5808 May, Diabetes with neurological manifestations, type II or unspecified type, not stated as uncontrolled 250.60 [facility] [address] [address]- 6057 May, [facility] [address] [place] [address] 42334- 6385 May, [facility] [id number] [place] [address] 08505- 6009 May, Diabetes with neurological manifestations, type II or unspecified type, not stated as uncontrolled 250.60 and HTN (hypertension) 401.9 [facility] [id number] [place] [address] 10438- 9124 Apr, [facility] [place] [facility] [address] [id number] [place] [address]- 5652 Feb, [facility] [place] [facility] [address] [id number] [place] [address]- 3475 Feb, [facility] [place] [facility] [address] [id number] [place] [address]- 5511 Jan, [facility] [place] [facility] [address] [id number] [place] [address]- 9214 Jan, [facility] [place] [facility] [address] [id number] [place] [address]- 4452 Dec, [facility] [place] [facility] [address] [id number] [place] [address]- 4777 Dec, [facility] [place] [facility] [address] [id number] [place] [address]- 3253 Dec, [facility] [place] [facility] [address] [id number] [place] [address]- 6509 Nov, [facility] [place] [facility] [address] [id number] [place] [address]- 5258 Nov, [facility] [place] [facility] [address] [id number] [place] [address]- 9454 Sep, [facility] [place] [facility] [address] [id number] [place] [address]- 6772 Sep, [facility] [place] [facility] [address] [id number], [place] [address]- 6786 Jul, [facility] [place] [facility] [address] [id number] [place] [address]- 6621 Jul, [facility] [place] [facility] [address] [id number] [place] [address]- 4883 16 Jul, 2014 [facility] [place] [facility] [address] [id number] [place] [address]- 5261 16 Jul, 2014 [facility] [place] [facility] [address] [id number] [place] [address]- 4595 Jun, [facility] [place] [facility] [address] [id number] [place] [address]- 1102 Jun, [facility] [place] [facility] [address] [id number] [place] [address]- 0533 May, [facility] [place] [facility] [address] [id number] [place] [address]- 6231 May, [facility] [place] [facility] [address] [id number] [place] [address]- 7214 May, [facility] [place] [facility] [address] [id number] [place] [address]- 8551 May, [facility] [place] [facility] [address] [id number] [place] [address]- 9615 Apr, [facility] [place] [facility] [address] [id number] [place] [address]- 1107 Apr, [facility] [place] [facility] [address] [id number] [place] [address]- 1014 Apr, [facility] [place] [facility] [address] [id number] [place] [address]- 2404 Apr, [facility] [place] [facility] [address] [id number] [place] [address]- 3964 March, [facility] [place] [facility] [address] [id number] [place] [address]- 9431 March, [facility] [place] [facility] [address] [id number] [place] [address]- 1266 Feb, [facility] [place] [facility] [address] [id number] [place] [address]- 7623 Feb, [facility] [place] [facility] [address] [id number] [place] [address]- 8665 Feb, [facility] [place] [facility] [address] [id number] [place] [address]- 6422 Feb, [facility] [address] [id number] [place] [address]- 8286 Jan, [facility] [place] [facility] [address] [id number] [place] [address]- 1616 Jan, [facility] [place] [facility] [address] [id number] [place] [address]- 6007 Nov, [facility] [place] [facility] [address] [id number] [place] [address]- 5965 Nov, [facility] [place] [facility] [address] [id number] [place] [address]- 9136 Oct, [facility] [place] [facility] [address] [id number] [place] 2467 Oct, [facility] [place] [facility] [address] [id number] [place] [address]- 3255 Oct, [facility] [place] [facility] [address] [id number] [place] 0250 Oct, [facility] [place] [facility] [address] [id number] [place] 0784 Oct, [facility] [place] [facility] [address] [id number] 7222 Oct, [facility] [place] [facility] [address] [id number], [place] [address]- 1607 Oct, [facility] [place] [facility] [address] [id number], [place] [address]- 2071 Oct, [facility] [place] [facility] [address] [id number] [place] [address]- 7337 Sep, [facility] [place] [facility] [address] [id number] [place] [address]- 2616 Sep, [facility] [place] [facility] [address] [id number], [place] [address]- 5696 Aug, [facility] [place] [facility] [address] [id number], [place] [address]- 8725 17 Aug, 2012 [facility] [place] [facility] [address] [id number] [place] [address]- 4135 17 Aug, 2012 [facility] [place] [facility] [address] [id number] [place] [address]- 2560 17 Aug, 2012 [facility] [place] [facility] [address] [id number] [place] [address]- 3078 16 Aug, 2012 [facility] [place] [facility] [address] [id number] [place] [address]- 7499 11 Aug, 2012 [facility] [place] [facility] [address] [id number] [place] [address]- 8674 11 Aug, 2013 [facility] [place] [facility] [address] [id number] [place] [address]- 6217 10 Aug, 2013 [facility] [place] [facility] [address] [id number] [place] [address]- 1080 Aug, [facility] [place] [facility] [address] [id number] [place] [address]- 6914 Aug, [facility] [place] [facility] [address] [facility] [id number] [place] [address]- 0655 Aug, [facility] [place] [facility] [address] [id number] [place] [address]- 1196 24 Jul, 2013 [facility] [place] [facility] [address] [id number] [place] [address]- 9127 Jun, [facility] [place] [facility] [address] [id number], [place] [address]- 5936 Jun, [facility] [place] [facility] [address] [id number] [place] [address]- 4485 May, [facility] [place] [facility] [address] [id number] [place] [address]- 4625 May, [facility] [place] [facility] [address] [facility] [id number] [place] [address] Apr, [facility] [place] [facility] [address] [id number] [place] [address] March, [facility] [address] [id number] [place] [address] Feb, [facility] [place] [facility] [address] [id number] [place] [address] Jan, [facility] [place] [facility] [address] [id number] [place] [address] Dec, [facility] [place] [facility] [address] [id number] [place] [address] Dec, [facility] [place] [facility] [address] [id number] [place] [address] Dec, [facility] [address] [id number] [place] [address] Nov, [facility] [address] [id number] [place] [address] Nov, [facility] [place] [facility] [address] [id number] [place] [address] Nov, [facility] [place] [facility] [address] [id number] [place] [address] Oct, [facility] [place] [facility] [address] [id number] [place] [address] Oct, [facility] [place] [facility] [address] [id number] [place] [address] Oct, [facility] [place] [facility] [address] [id number] [place] [address] Oct, [facility] [place] [facility] [address] [id number] [place] [address] Sep, [facility] [place] [facility] [address] [id number] [place] [address] Sep, [facility] [place] [facility] [address] [id number] [place] [address] Sep, [facility] [place] [facility] [address] [id number] [place] [address] Sep, [facility] [place] [facility] [address] [id number] [place] [address] Aug, [facility] [place] [facility] [address] [id number] [place] [address] Aug, [facility] [place] [facility] [address] [id number] [place] [address] Aug, [facility] [place] [facility] [address] [id number] [place] [address] Aug, [facility] [place] [facility] [address] [id number] [place] [address] Aug, [facility] [place] [facility] [address] [id number] [place] [address] Aug, [facility] [place] [facility] [address] [id number] [place] [address] Jul, [facility] [place] [facility] [address] [id number] [place] [address] Jun, [facility] [place] [facility] [address] [id number] [place] [address] Jun, [facility] [place] [facility] [address] [id number] [place] [address] Jun, [facility] [place] [facility] [address] [id number] [place] [address] May, [facility] [place] [facility] [address] [id number] [place] [address] May, [facility] [place] [facility] [address] [id number] [place] [address] March, [facility] [place] [facility] [address] [id number] [place] [address] March, [facility] [place] [facility] [address] [id number] [place] [address] March, [facility] [address] [id number] [place] [address] Feb, [facility] [place] [facility] [address] [id number] [place] [address] Feb, [facility] [address] [id number] [place] [address] Feb, [facility] [place] [facility] [address] [id number] [place] [address] Jan, [facility] [address] [id number] [place] [address] Jan, [facility] [place] [facility] [address] [id number] [place] [address] Dec, [facility] [place] [facility] [address] [id number] [place] [address] Dec, [facility] [address] [id number] [place] [address] Dec, [facility] [place] [facility] [address] [id number] [place] [address] Dec, [facility] [address] [id number] [place] [address] Dec, [facility] [place] [facility] [address] [facility] [id number] [place] [address] Dec, [facility] [place] [facility] [address] [id number] [place] [address] Dec, [facility] [place] [facility] [address] [id number] [place] [address] Nov, [facility] [place] [facility] [address] [id number] [place] [address] Nov, [facility] [place] [facility] [address] [id number] [place] [address] Nov, [facility] [address] [id number] [address] Nov, [facility] [id number], [place] [address] Nov, [facility] [id number], [place] [address] Nov, [facility] [id number], [place] [address] Oct, [facility] [id number] [address] [address] Oct, [facility] [id number] [address] [address] Oct, [facility] [id number] [address] [address] Oct, [facility] [id number], [place] [address] Oct, [facility] [id number], [place] [address] Oct, [facility] [id number], [place] [address] Oct, [facility] [address] [id number], [place] [address] Oct, [facility] [address] [id number], [place] [address] Aug, [facility] [id number] [address] Jan, [facility] [id number] [address] [address] Jan, IMMUNIZATIONS No Known Immunizations SOCIAL HISTORY Never Assessed REASON FOR VISIT Eye Exam PLAN OF CARE VITAL SIGNS MEDICATIONS Unknown [...]
--- OUTSIDE RECORDS SUMMARY | 2018-06-16 19:46 | XMS REPORT ---
Author Author INGRID CHOUDHARY Organization [facility] Address [address] [place] [address] Care Team Providers Care Dental Intern Name Role Phone INGRID CHOUDHARY Unavailable PROBLEMS Type Condition ICD9-CM Code HZS21-EF Code Onset Dates Condition Status SNOMED Code Problem Diabetes type 2, uncontrolled E11.65 Active 296805731 Problem Chronic kidney disease, stage 4 (severe) N18.4 Active 481607784 Problem Hypertension I10 Active 45940566 Problem Controlled type 2 diabetes mellitus without complication, without long -term current use of insulin E11.9 Active 163647011 Problem 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, unspecified assistant terminal manager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 E11.42 Active 894139809 Problem Type 2 diabetes mellitus with diabetic chronic kidney disease E11.22 Active 32598131 Problem Type 2 diabetes mellitus with hyperglycemia E11.65 Active 346038378056081 Problem Constipation, unspecified constipation type K59.00 Active 22849867 Problem exterminator current use of insulin Z79.4 Active 774399310 Problem Need for prophylactic vaccination and inoculation against pertussis alone V03.6 Active 06498009 Problem Edema 782.3 Active 709297999 Problem Diabetes with neurological manifestations, type II or unspecified type , not stated as uncontrolled 250.60 Active 399163573 Problem Renal failure N19 Active 49473179 Problem Other and unspecified noninfectious gastroenteritis and colitis 558.9 Active 20369937 Problem HTN (hypertension) 401.9 Active 41644252 Problem Diabetes mellitus without mention of complication, type II or unspecified type, not stated as uncontrolled 250.00 Active 711486831 Problem Diabetes E11.9 Active 45150095 ALLERGIES No Information ENCOUNTERS Encounter Location Date Diagnosis [facility] [address] [facility] [id number], [place] [address] Jan, [facility] [address] [facility] [id number], [place] [address] Nov, Controlled type 2 diabetes mellitus without complication, without long-term current use of insulin E11.9 [facility] [id number] [place] [address] [id number] Nov, [facility] [id number] [place] [address] 16024- 1294 Oct, [facility] [id number] [place] [address] 91300- 1849 Oct, [facility] [id number] [place] [address] 72151- 2283 Oct, [facility] [id number] [place] [address] 34683- 6948 Oct, [facility] [id number] [place] [address] 79835- 0533 Oct, [facility] [id number] [place] [address] 47682- 8054 Sep, [facility] [id number] [place] [address] 88885 -5369 Aug, Acute bronchitis, unspecified organism J20.9 [facility] [id number] [place] [address] 30945- 9372 Aug, [facility] [id number] [place] [address] 85009 -0589 Aug, Diarrhea of infectious origin A09 [facility] [id number] [place] [address] 55186- 4182 Aug, [facility] [id number] [place] [address] 13588- 0470 Jul, 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, unspecified longterm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 status E11.42 [facility] [id number] [place] [address] [id number] Jul, Encounter for dental examination Z01.20 [facility] [id number] [place] [address] 30795- 3084 Jul, 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, unspecified assistant terminal manager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 status E11.42 [facility] [id number] [place] [address] 815225 -1246 Jun, Acute frontal sinusitis J01.10 [facility] [id number] [place] [address] [id number] Jun, Dental examination Z01.20 [facility] [id number] [place] [address] 21620 2546 May, [facility] [id number] [place] [address] 80361- 9976 May, [facility] [id number] [place] [address] 96092 2546 May, Open wound of toe, initial encounter S91.109A [facility] [id number] [place] [address] [id number] Apr, Dental examination Z01.20 [facility] [id number] [place] [address] 07919- 3596 Apr, Diabetes E11.9 and Stage 4 chronic kidney disease N18.4 [facility] [id number] [place] [address] 481008- 2416 March, [facility] [id number] [place] [address] 651983- 2706 Feb, [facility] [id number] [place] [address] 80660- 5956 Feb, [facility] [id number] [place] [address] 725080- 1866 Feb, [facility] [id number] [place] [address] 412884- 7596 13 Dec, 2016 [facility] [address] -0406 Dec, Constipation, unspecified constipation type K59.00 [facility] [id number] [place] [address] 71400- 1473 Dec, [facility] [id number] [place] [address] 90023- 6436 Dec, [facility] [id number] [place] [address] 21936- 6177 Dec, Renal failure N19 and Hypokalemia E87.6 [facility] [id number] [place] [address] 32366- 8022 Nov, Renal failure N19 and Hypokalemia E87.6 [facility] [id number] [place] [address] 60773- 2646 Nov, Chronic kidney disease, stage 4 (severe) N18.4 [facility] [id number] [place] [address] 59988- 1640 Nov, Chronic kidney disease, stage 4 (severe) N18.4 [facility] [id number] [place] [address] 16653- 1284 Nov, [facility] [id number] [place] [address] 20678- 0366 Nov, [facility] [id number] [place] [address] 43650- 1509 Nov, Dysthymia F34.1 [facility] [id number] [place] [address] 94484- 3267 Nov, [facility] [id number] [place] [address] 26403 -2408 Oct, Bronchitis J40 [facility] [id number] [place] [address] 33750- 8741 Oct, Localized edema R60.0 [facility] [id number] [place] [address] 70053- 1731 Sep, Renal failure N19 ; Type 2 diabetes mellitus with diabetic chronic kidney disease E11.22 and Chronic kidney disease, stage 4 (severe) N18.4 [facility] [address] [place] [address] 04117- 6544 Aug, Renal failure N19 ; Diabetes E11.9 ; Type 2 diabetes mellitus with diabetic chronic kidney disease E11.22 ; Type 2 diabetes mellitus with hyperglycemia E11.65 ; Chronic kidney disease, stage 4 (severe) N18.4 and FPC current use of insulin Z79.4 [facility] [id number] [place] [address] 05421- 1322 Aug, Bronchitis J40 [facility] [id number] [place] [address] 18805- 6367 Aug, [facility] [id number] [place] [address] 50719 -8591 Aug, Bronchitis J40 [facility] [id number] [place] [address] 28233- 0307 Aug, Displaced fracture of greater trochanter of left femur, initial encounter for closed fracture S72.112A [facility] [id number] [place] [address] 07612- 2940 Jul, Hip fracture, left, closed, with routine healing, subsequent encounter S72.002D ; Renal failure N19 and Uncontrolled type 2 diabetes mellitus without complication, without long-term current use of insulin E11.65 [facility] [address] [place] [address] 09350- 4844 Jul, [facility] [id number] [place] [address] 69120- 4429 Jul, [facility] [id number] [place] [address] 63108- 0113 Jul, [facility] [id number] [place] [address] 72933- 9345 Jul, [facility] [id number] [place] [address] 42169- 4008 May, [facility] [address] [place] [address] 64533- 2979 May, Orthostatic hypotension I95.1 and Renal insufficiency N28.9 [facility] [address] [place] [address] 97757- 5392 May, Renal failure N19 [facility] [id number] [place] [address] 69977- 6529 May, [facility] [id number] [place] [address] 65980- 2076 Apr, Renal failure N19 [place] [id number] [place] [address] 87692- 4435 Apr, [facility] [id number] [place] [address] 01913- 3646 Apr, [facility] [id number] [place] [address] 75583 -9913 Apr, Orthostatic hypotension I95.1 and 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, unspecified assistant terminal manager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 status E11.42 [facility] [id number] [place] [address] 80751- 0624 March, Left rotator cuff tear M75.102 [facility] [id number] [place] [address] 75966 -7073 March, Allergic reaction to drug T78.40XA [facility] [address] [place] [address] 81704- 4505 March, Diabetes type 2, controlled E11.9 [facility] [id number] [place] [address] 84179- 4296 Feb, Left rotator cuff tear M75.102 [facility] [id number] [place] [address] 36473- 2342 Feb, Left rotator cuff tear M75.102 [facility] [id number] [place] [address] 20948 -8932 Feb, Diabetes type 2, uncontrolled E11.65 ; Hypertension I10 ; Edema 782.3 and Cellulitis L03.90 [facility] [id number] [place] [address] 92888- 4149 Feb, [facility] [id number] [place] [address] 69324- 3753 Feb, [facility] [address] 13569- 5221 Feb, Left rotator cuff tear M75.102 [facility] [id number] [place] [address] 98114- 3786 Feb, [facility] [id number] [place] [address] 60209- 4061 Feb, Diabetes type 2, uncontrolled E11.65 and Edema R60.9 [facility] [address] 25124- 6869 Jan, Hypertension, essential I10 [facility] [id number] [place] [address] 86536- 2332 Dec, Hypertension I10 [facility] [id number] [place] [address] 28178- 6310 Dec, [facility] [id number] [place] [address] 47733- 1326 Dec, Renal insufficiency N28.9 and Edema R60.9 [facility] [id number] [place] [address] 42927- 8921 Dec, [facility] [id number] [place] [address] 93107- 8218 Dec, [facility] [id number] [place] [address] 67359- 7815 Dec, [facility] [id number] [place] [address] 92383 -6652 Nov, Pedal edema R60.0 and Benign essential hypertension I10 [facility] [address] [address]- 4927 Nov, Benign essential hypertension I10 and Renal insufficiency N28.9 [facility] [address], [place] [address] -7297 Nov, Acute laryngopharyngitis J06.0 ; Benign essential hypertension I10 and Strep pharyngitis J02.0 [facility] [address] [place] [address] 08409- 1539 Nov, Diabetes type 2, uncontrolled E11.65 ; Renal insufficiency N28.9 and Localized edema R60.0 [facility] [id number] [place] [address] 26815- 8329 Oct, [facility] [id number] [place] [address] 24882- 2624 Oct, Diabetes E11.9 [facility] [id number] [place] [address] 09413- 9026 Sep, [facility] [id number] [place] [address] 88313- 6679 May, [facility] [id number] [place] [address] 69854- 9298 May, Diabetes with neurological manifestations, type II or unspecified type, not stated as uncontrolled 250.60 [facility] [address] [address]- 4065 May, [facility] [address] [place] [address] 34904- 6000 May, [facility] [id number] [place] [address] 24793- 1612 May, Diabetes with neurological manifestations, type II or unspecified type, not stated as uncontrolled 250.60 and HTN (hypertension) 401.9 [facility] [id number] [place] [address] 03763- 3945 Apr, [facility] [place] [facility] [address] [id number] [place] [address]- 3834 Feb, [facility] [place] [facility] [address] [id number] [place] [address]- 4129 Feb, [facility] [place] [facility] [address] [id number] [place] [address]- 8268 Jan, [facility] [place] [facility] [address] [id number] [place] [address]- 4987 Jan, [facility] [place] [facility] [address] [id number] [place] [address]- 7973 Dec, [facility] [place] [facility] [address] [id number] [place] [address]- 3614 Dec, [facility] [place] [facility] [address] [id number] [place] [address]- 2762 Dec, [facility] [place] [facility] [address] [id number] [place] [address]- 6236 Nov, [facility] [place] [facility] [address] [id number] [place] [address]- 0574 Nov, [facility] [place] [facility] [address] [id number] [place] [address]- 2784 Sep, [facility] [place] [facility] [address] [id number] [place] [address]- 4331 Sep, [facility] [place] [facility] [address] [id number], [place] [address]- 0929 Jul, [facility] [place] [facility] [address] [id number] [place] [address]- 7163 Jul, [facility] [place] [facility] [address] [id number] [place] [address]- 0761 16 Jul, 2014 [facility] [place] [facility] [address] [id number] [place] [address]- 3347 16 Jul, 2014 [facility] [place] [facility] [address] [id number] [place] [address]- 9039 Jun, [facility] [place] [facility] [address] [id number] [place] [address]- 3269 Jun, [facility] [place] [facility] [address] [id number] [place] [address]- 4023 May, [facility] [place] [facility] [address] [id number] [place] [address]- 4014 May, [facility] [place] [facility] [address] [id number] [place] [address]- 9718 May, [facility] [place] [facility] [address] [id number] [place] [address]- 0622 May, [facility] [place] [facility] [address] [id number] [place] [address]- 5847 Apr, [facility] [place] [facility] [address] [id number] [place] [address]- 4098 Apr, [facility] [place] [facility] [address] [id number] [place] [address]- 0268 Apr, [facility] [place] [facility] [address] [id number] [place] [address]- 9584 Apr, [facility] [place] [facility] [address] [id number] [place] [address]- 1833 March, [facility] [place] [facility] [address] [id number] [place] [address]- 1307 March, [facility] [place] [facility] [address] [id number] [place] [address]- 5152 Feb, [facility] [place] [facility] [address] [id number] [place] [address]- 3354 Feb, [facility] [place] [facility] [address] [id number] [place] [address]- 4382 Feb, [facility] [place] [facility] [address] [id number] [place] [address]- 9429 Feb, [facility] [address] [id number] [place] [address]- 6700 Jan, [facility] [place] [facility] [address] [id number] [place] [address]- 6456 Jan, [facility] [place] [facility] [address] [id number] [place] [address]- 2406 Nov, [facility] [place] [facility] [address] [id number] [place] [address]- 8883 Nov, [facility] [place] [facility] [address] [id number] [place] [address]- 1252 Oct, [facility] [place] [facility] [address] [id number] [place] 4307 Oct, [facility] [place] [facility] [address] [id number] [place] [address]- 9479 Oct, [facility] [place] [facility] [address] [id number] [place] 9569 Oct, [facility] [place] [facility] [address] [id number] [place] 1086 Oct, [facility] [place] [facility] [address] [id number] 8183 Oct, [facility] [place] [facility] [address] [id number], [place] [address]- 4596 Oct, [facility] [place] [facility] [address] [id number], [place] [address]- 3499 Oct, [facility] [place] [facility] [address] [id number] [place] [address]- 1638 Sep, [facility] [place] [facility] [address] [id number] [place] [address]- 6276 Sep, [facility] [place] [facility] [address] [id number], [place] [address]- 2796 Aug, [facility] [place] [facility] [address] [id number], [place] [address]- 0786 17 Aug, 2012 [facility] [place] [facility] [address] [id number] [place] [address]- 8998 17 Aug, 2012 [facility] [place] [facility] [address] [id number] [place] [address]- 6147 17 Aug, 2012 [facility] [place] [facility] [address] [id number] [place] [address]- 5184 16 Aug, 2012 [facility] [place] [facility] [address] [id number] [place] [address]- 9517 11 Aug, 2012 [facility] [place] [facility] [address] [id number] [place] [address]- 2254 11 Aug, 2013 [facility] [place] [facility] [address] [id number] [place] [address]- 2912 10 Aug, 2013 [facility] [place] [facility] [address] [id number] [place] [address]- 9880 Aug, [facility] [place] [facility] [address] [id number] [place] [address]- 4319 Aug, [facility] [place] [facility] [address] [facility] [id number] [place] [address]- 4622 Aug, [facility] [place] [facility] [address] [id number] [place] [address]- 7927 24 Jul, 2013 [facility] [place] [facility] [address] [id number] [place] [address]- 9123 Jun, [facility] [place] [facility] [address] [id number], [place] [address]- 7304 Jun, [facility] [place] [facility] [address] [id number] [place] [address]- 3900 May, [facility] [place] [facility] [address] [id number] [place] [address]- 1596 May, [facility] [place] [facility] [address] [facility] [id number] [place] [address]- 0782 Apr, [facility] [place] [facility] [address] [id number] [place] [address]- 3840 March, [facility] [address] [id number] [place] [address] Feb, [facility] [place] [facility] [address] [id number] [place] [address] Jan, [facility] [place] [facility] [address] [id number] [place] [address] Dec, [facility] [place] [facility] [address] [id number] [place] [address] Dec, [facility] [place] [facility] [address] [id number] [place] [address] Dec, [facility] [address] [id number] [place] [address] Nov, [facility] [address] [id number] [place] [address] Nov, [facility] [place] [facility] [address] [id number] [place] [address] Nov, [facility] [place] [facility] [address] [id number] [place] [address] Oct, [facility] [place] [facility] [address] [id number] [place] [address] Oct, [facility] [place] [facility] [address] [id number] [place] [address] Oct, [facility] [place] [facility] [address] [id number] [place] [address] Oct, [facility] [place] [facility] [address] [id number] [place] [address] Sep, [facility] [place] [facility] [address] [id number] [place] [address] Sep, [facility] [place] [facility] [address] [id number] [place] [address] Sep, [facility] [place] [facility] [address] [id number] [place] [address] Sep, [facility] [place] [facility] [address] [id number] [place] [address] Aug, [facility] [place] [facility] [address] [id number] [place] [address] Aug, [facility] [place] [facility] [address] [id number] [place] [address] Aug, [facility] [place] [facility] [address] [id number] [place] [address] Aug, [facility] [place] [facility] [address] [id number] [place] [address] Aug, [facility] [place] [facility] [address] [id number] [place] [address] Aug, [facility] [place] [facility] [address] [id number] [place] [address] Jul, [facility] [place] [facility] [address] [id number] [place] [address] Jun, [facility] [place] [facility] [address] [id number] [place] [address] Jun, [facility] [place] [facility] [address] [id number] [place] [address] Jun, [facility] [place] [facility] [address] [id number] [place] [address] May, [facility] [place] [facility] [address] [id number] [place] [address] May, [facility] [place] [facility] [address] [id number] [place] [address] March, [facility] [place] [facility] [address] [id number] [place] [address] March, [facility] [place] [facility] [address] [id number] [place] [address] March, [facility] [address] [id number] [place] [address] Feb, [facility] [place] [facility] [address] [id number] [place] [address] Feb, [facility] [address] [id number] [place] [address] Feb, [facility] [place] [facility] [address] [id number] [place] [address] Jan, [facility] [address] [id number] [place] [address] Jan, [facility] [place] [facility] [address] [id number] [place] [address] Dec, [facility] [place] [facility] [address] [id number] [place] [address] Dec, [facility] [address] [id number] [place] [address] Dec, [facility] [place] [facility] [address] [id number] [place] [address] Dec, [facility] [address] [id number] [place] [address] Dec, [facility] [place] [facility] [address] [facility] [id number] [place] [address] Dec, [facility] [place] [facility] [address] [id number] [place] [address] Dec, [facility] [place] [facility] [address] [id number] [place] [address] Nov, [facility] [place] [facility] [address] [id number] [place] [address] Nov, [facility] [place] [facility] [address] [id number] [place] [address] Nov, [facility] [id number] [address] Nov, [facility] [id number], [place] [address] Nov, [facility] [id number], [place] [address] Nov, [facility] [id number], [place] [address] Oct, [facility] [id number] [address] Oct, [facility] [id number] [address] Oct, [facility] [id number] [address] Oct, [facility] [id number], [place] [address] Oct, [facility] [id number], [place] [address] Oct, [facility] [id number], [place] [address] Oct, [facility] [id number], [place] [address] Oct, [facility] [id number], [place] [address] Aug, [facility] [id number] [address] Jan, [facility] [id number] [address] Jan, IMMUNIZATIONS No Known Immunizations SOCIAL HISTORY Never Assessed REASON FOR VISIT eye exam PLAN OF CARE VITAL SIGNS MEDICATIONS Unknown [...]
--- OUTSIDE RECORDS SUMMARY | 2018-06-16 19:46 | XMS REPORT ---
Author Author INGRID CHOUDHARY Organization [facility] Address [address] [place] [address] Care Team Providers Care Branch Service Associate Name Role Phone INGRID CHOUDHARY Unavailable PROBLEMS Type Condition ICD9-CM Code QIP39-KN Code Onset Dates Condition Status SNOMED Code Problem Diabetes type 2, uncontrolled E11.65 Active 120668576 Problem Chronic kidney disease, stage 4 (severe) N18.4 Active 829315239 Problem Hypertension I10 Active 33980324 Problem Controlled type 2 diabetes mellitus without complication, without long -term current use of insulin E11.9 Active 310349157 Problem 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, 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.42 Active 230148020 Problem Type 2 diabetes mellitus with diabetic chronic kidney disease E11.22 Active 81812192 Problem Type 2 diabetes mellitus with hyperglycemia E11.65 Active 285076451177017 Problem Constipation, unspecified constipation type K59.00 Active 30042013 Problem 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 Active 786435502 Problem Need for prophylactic vaccination and inoculation against pertussis alone V03.6 Active 12187094 Problem Edema 782.3 Active 761708001 Problem Diabetes with neurological manifestations, type II or unspecified type , not stated as uncontrolled 250.60 Active 090384953 Problem Renal failure N19 Active 59172115 Problem Other and unspecified noninfectious gastroenteritis and colitis 558.9 Active 88645612 Problem HTN (hypertension) 401.9 Active 57820968 Problem Diabetes mellitus without mention of complication, type II or unspecified type, not stated as uncontrolled 250.00 Active 669366231 Problem Diabetes E11.9 Active 35727493 ALLERGIES Substance Reaction Event Type Date Status Doxycycline Unknown Drug Allergy Jul, Active Clindamycin HCl hives Drug Allergy Jul, Active Amoxicillin extreme diarrhea Drug Allergy Jul, Active ENCOUNTERS Encounter Location Date Diagnosis [facility] [address] [facility] [id number] [address] Jan, [facility] [address] [address] Nov, Controlled type 2 diabetes mellitus without complication, without long-term current use of insulin E11.9 [facility] [address] [id number] Nov, [facility] [id number] [place] [address] 11879- 1443 Oct, [facility] [id number] [place] [address] 87132- 6151 Oct, [facility] [id number] [place] [address] 446991- 0005 Oct, [facility] [id number] [place] [address] [id number]- 4636 Oct, [facility] [id number] [place] [address] 628085- 1607 Oct, [facility] [id number] [place] [address] 806389- 5569 Sep, [facility] [id number] [place] [address] 25979 -9036 Aug, Acute bronchitis, unspecified organism J20.9 [facility] [id number] [place] [address] 06702- 6377 Aug, [facility] [id number] [place] [address] 47708 -9467 Aug, Diarrhea of infectious origin A09 [facility] [address] [address] 2[address] Aug, [facility] [id number] [place] [address] 676508- 0486 Jul, 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, unspecified intermediate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 status E11.42 [facility] [address] [id number] Jul, Encounter for dental examination Z01.20 [facility] [address] [address] Jul, 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, 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 E11.42 [facility] [address] [address] Jun, Acute frontal sinusitis J01.10 [facility] [id number] [place] [address] [id number] Jun, Dental examination Z01.20 [facility] [id number] [place] [address] 96655 2546 May, [facility] [id number] [place] [address] 86744 2546 May, [facility] [id number] [place] [address] 42565- 9006 May, Open wound of toe, initial encounter S91.109A [facility] [id number] [place] [address] [id number] Apr, Dental examination Z01.20 [facility] [id number] [place] [address] 99382- 1076 Apr, Diabetes E11.9 and Stage 4 chronic kidney disease N18.4 [facility] [id number] [place] [address] 33776- 1046 March, [facility] [id number] [place] [address] [id number] 6856 Feb, [facility] [id number] [place] [address] 57478- 3886 Feb, [facility] [id number] [place] [address] 72843- 4706 Feb, [facility] [address] [address] 4636 Dec, [facility] [id number] [place] [address] 22309 -1598 10 Dec, 2016 Constipation, unspecified constipation type K59.00 [facility] [address] 23005- 6677 10 Dec, 2016 [facility] [address] 16643- 0344 Dec, [facility] [address] 93540- 8839 Dec, Renal failure N19 and Hypokalemia E87.6 [place] [address] 82718- 1811 Nov, Renal failure N19 and Hypokalemia E87.6 [facility] [address] 90177- 8145 Nov, Chronic kidney disease, stage 4 (severe) N18.4 [facility] [id number] [place] [address] 70343- 9240 Nov, Chronic kidney disease, stage 4 (severe) N18.4 [facility] [address] 10574- 1067 Nov, [facility] [id number] [place] [address] 36093- 3287 Nov, [facility] [id number] [place] [address] 14991- 6214 Nov, Dysthymia F34.1 [facility] [id number] [place] [address] 53493- 5268 Nov, [facility] [id number] [place] [address] 51150 -6334 Oct, Bronchitis J40 [facility] [id number] [place] [address] 72989- 4310 Oct, Localized edema R60.0 [facility] [address] [address] 2705 Sep, Renal failure N19 ; Type 2 diabetes mellitus with diabetic chronic kidney disease E11.22 and Chronic kidney disease, stage 4 (severe) N18.4 [facility] [address] [address] 4712 Aug, Renal failure N19 ; Diabetes E11.9 ; Type 2 diabetes mellitus with diabetic chronic kidney disease E11.22 ; Type 2 diabetes mellitus with hyperglycemia E11.65 ; Chronic kidney disease, stage 4 (severe) N18.4 and 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 [place] [id number] [place] [address] 84401- 8553 Aug, Bronchitis J40 [facility] [id number] [place] [address] 35813- 9868 Aug, [facility] [id number] [place] [address] 00740 -0332 Aug, Bronchitis J40 [facility] [id number] [place] [address] 66063- 2401 05 Aug, 2016 Displaced fracture of greater trochanter of left femur, initial encounter for closed fracture S72.112A [place] [address] [place] [address] 57561- 1670 26 Jul, 2016 Hip fracture, left, closed, with routine healing, subsequent encounter S72.002D ; Renal failure N19 and Uncontrolled type 2 diabetes mellitus without complication, without long-term current use of insulin E11.65 [place] [address] [address] 98[address] Jul, [place] [id number] [place] [address] 63349- 7755 16 Jul, 2016 [place] [address] [place] [address] 41730- 0959 14 Jul, 2016 [place] [id number] [place] [address] 36094- 1361 Jul, [facility] [address] [address]- 9278 May, [facility] [id number] [place] [address] 05033- 7683 May, Orthostatic hypotension I95.1 and Renal insufficiency N28.9 [facility] [id number] [place] [address] 63630- 3249 May, Renal failure N19 [facility] [id number] [place] [address] 66760- 9534 May, [facility] [id number] [place] [address] 19033- 1350 Apr, Renal failure N19 [facility] [id number] [place] [address] 25444- 9206 Apr, [facility] [id number] [place] [address] 91993- 2951 Apr, [facility] [id number] [place] [address] 72633 -1836 Apr, Orthostatic hypotension I95.1 and 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, unspecified intermediate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 status E11.42 [place] [address] [place] [address] 84128- 2978 March, Left rotator cuff tear M75.102 [facility] [id number] [place] [address] 47615 -2370 March, Allergic reaction to drug T78.40XA [facility] [id number] [place] [address] 75761- 2093 March, Diabetes type 2, controlled E11.9 [facility] [address] [place] [address] 71998- 5313 Feb, Left rotator cuff tear M75.102 [facility] [id number] [place] [address] 27439- 7998 Feb, Left rotator cuff tear M75.102 [facility] [id number] [place] [address] 70695 -4077 Feb, Diabetes type 2, uncontrolled E11.65 ; Hypertension I10 ; Edema 782.3 and Cellulitis L03.90 [facility] [id number] [place] [address] 41263- 0519 Feb, [facility] [address] 04378- 0552 Feb, [facility] [address] 82603- 5055 Feb, Left rotator cuff tear M75.102 [facility] [address] 65676- 0355 Feb, [facility] [address] 45225- 7553 Feb, Diabetes type 2, uncontrolled E11.65 and Edema R60.9 [facility] [address] 47526- 0204 Jan, Hypertension, essential I10 [facility] [address] 15384- 5013 Dec, Hypertension I10 [facility] [id number] [place] [address] 64042- 6928 Dec, [facility] [id number] [place] [address] 21623- 7649 Dec, Renal insufficiency N28.9 and Edema R60.9 [facility] [address] 24559- 0983 Dec, [facility] [address] 02923- 3324 Dec, [facility] [address] 55150- 1082 Dec, [facility] [address] [address] Nov, Pedal edema R60.0 and Benign essential hypertension I10 [facility] [id number] [place] [address] 84040- 7680 Nov, Benign essential hypertension I10 and Renal insufficiency N28.9 [facility] [id number] [place] [address] 17525 -1508 Nov, Acute laryngopharyngitis J06.0 ; Benign essential hypertension I10 and Strep pharyngitis J02.0 [facility] [id number] [place] [address] 08489- 3630 Nov, Diabetes type 2, uncontrolled E11.65 ; Renal insufficiency N28.9 and Localized edema R60.0 [facility] [id number] [place] [address] 83269- 9104 Oct, [facility] [id number] [place] [address] 24198- 1979 Oct, Diabetes E11.9 [facility] [id number] [place] [address] 17044- 5933 Sep, [facility] [id number] [place] [address] 75143- 0421 May, [facility] [id number] [place] [address] 51387- 4739 May, Diabetes with neurological manifestations, type II or unspecified type, not stated as uncontrolled 250.60 [facility] [id number] [place] [address] 00307- 1696 May, [facility] [id number] [place] [address] 09743- 6598 May, [facility] [id number] [place] [address] 55274- 2985 May, Diabetes with neurological manifestations, type II or unspecified type, not stated as uncontrolled 250.60 and HTN (hypertension) 401.9 [facility] [address] [facility] [id number] [place] [address]- 7384 Apr, [facility] [address] [facility] [id number] [address]- 9607 Feb, [facility] [address] [facility] [id number] [place] [address]- 5934 Feb, [facility] [address] [facility] [id number] [address]- 0264 Jan, [facility] [address] [facility] [id number] [place] [address]- 6290 Jan, [facility] [address] [facility] [id number] [address]- 7801 Dec, [facility] [address] [address]- 6026 Dec, [facility] [address] [place] [address]- 8414 Dec, [facility] [address] [address]- 8674 Nov, [facility] [address] [place] [address]- 9415 Nov, [facility] [address] [address]- 8768 Sep, [facility] [address] [facility] [id number] [address]- 0787 Sep, [facility] [id number] [address]- 2669 Jul, [facility] [address] [facility] [id number] [place] [address]- 9435 Jul, [facility] [id number] [address]- 3384 Jul, [facility] [place] [facility] [address] [id number] [place] [address]- 5769 Jul, [facility] [place] [facility] [address] [id number] [place] [address]- 2659 Jun, [facility] [place] [facility] [address] [id number] [place] [address]- 8208 Jun, [facility] [place] [facility] [address] [id number] [place] [address]- 8820 May, [facility] [place] [facility] [address] [id number] [place] [address]- 1530 May, [facility] [place] [facility] [address] [id number] [place] [address]- 4880 May, [facility] [place] [facility] [address] [id number] [place] [address]- 9739 May, [facility] [place] [facility] [address] [id number] [place] [address]- 0432 Apr, [facility] [place] [facility] [address] [id number] [place] [address]- 2846 Apr, [facility] [place] [facility] [address] [id number] [place] [address]- 8113 Apr, [facility] [place] [facility] [address] [id number] [place] 4482 Apr, [facility] [place] [facility] [address] [id number] [place] [address]- 1730 March, [facility] [place] [facility] [address] [id number] [place] [address]- 2518 March, [facility] [place] [facility] [address] [id number] [place] [address]- 8768 Feb, [facility] [place] [facility] [address] [id number] [place] [address]- 0983 Feb, [facility] [place] [facility] [address] [id number] [place] [address]- 0890 16 Feb, 2014 [facility] [place] [facility] [address] [id number] [place] [address]- 1533 16 Feb, 2014 [facility] [place] [facility] [address] [id number] [place] [address]- 6420 Jan, [facility] [place] [facility] [address] [id number] [place] [address]- 6852 Jan, [facility] [place] [facility] [address] [id number] [place] [address]- 4747 Nov, [facility] [place] [facility] [address] [id number] [place] [address]- 9845 Nov, [facility] [place] [facility] [address] [id number] [place] [address]- 4093 Oct, [facility] [place] [facility] [address] [id number] [place] [address]- 8708 Oct, [facility] [place] [facility] [address] [id number] [place] [address]- 4248 Oct, [facility] [place] [facility] [address] [id number] [place] [address]- 4216 Oct, [facility] [place] [facility] [address] [id number] [place] [address]- 2680 Oct, [facility] [place] [facility] [address] [id number] [place] [address]- 1376 Oct, [facility] [place] [facility] [address] [id number] [address]- 9993 Oct, [facility] [place] [facility] [address] [id number] [place] [address]- 1509 Oct, [facility] [place] [facility] [address] [id number] [place] [address]- 9497 Sep, [facility] [place] [facility] [address] [id number] [place] [address]- 2546 Sep, [facility] [place] [facility] [address] [id number] [place] [address]- 8975 17 Aug, 2012 [facility] [place] [facility] [address] [id number] [place] [address]- 8068 17 Aug, 2012 [facility] [place] [facility] [address] [id number] [place] [address]- 1280 17 Aug, 2012 [facility] [place] [facility] [address] [id number] [place] [address]- 3344 17 Aug, 2012 [facility] [place] [facility] [address] [id number] [place] [address]- 4257 16 Aug, 2012 [facility] [place] [facility] [address] [id number] [place] [address]- 8013 Aug, 2012 [facility] [place] [facility] [address] [id number] [place] [address]- 3534 11 Aug, 2012 [facility] [place] [facility] [address] [id number] [place] [address]- 3399 10 Aug, 2012 [facility] [place] [facility] [address] [id number] [place] [address]- 0646 Aug, [facility] [place] [facility] [address] [id number] [place] [address]- 6714 Aug, [facility] [place] [facility] [address] [id number] [place] [address]- 2336 08 Aug, 2013 [facility] [place] [facility] [address] [id number] [place] [address]- 7879 24 Jul, 2013 [facility] [place] [facility] [address] [id number] [place] [address]- 2542 Jun, [facility] [place] [facility] [address] [id number] [place] [address]- 2743 Jun, [facility] [place] [facility] [address] [id number] [place] [address]- 2542 May, [facility] [place] [facility] [address] [id number] [place] [address]- 5954 May, [facility] [place] [facility] [address] [id number] [place] [address]- 0638 Apr, [facility] [address] [id number] [place] [address]- 1507 March, [facility] [place] [facility] [address] [id number] [place] [address]- 2599 Feb, [facility] [place] [facility] [address] [id number] [place] [address]- 3558 Jan, [facility] [address] [id number] [place] [address]- 5799 Dec, [facility] [place] [facility] [address] [id number] [place] [address]- 5726 Dec, [facility] [address] [id number] [place] [address]- 7197 Dec, [facility] [address] [id number] [place] [address]- 5686 Nov, [facility] [address] [id number] [place] [address]- 9214 Nov, [facility] [address] [id number] [place] [address]- 5183 Nov, [facility] [address] [id number] [place] [address]- 9095 Oct, [facility] [place] [facility] [address] [id number] [address]- 5377 Oct, [facility] [place] [facility] [address] [id number] [place] [address]- 0648 Oct, [facility] [place] [facility] [address] [id number] [place] [address]- 6202 Oct, [facility] [place] [facility] [address] [id number] [place] [address]- 1661 Sep, [facility] [place] [facility] [address] [id number] [place] [address]- 8286 Sep, [facility] [place] [facility] [address] [id number] [place] [address]- 6567 Sep, [facility] [place] [facility] [address] [id number] [place] [address]- 1316 Sep, [facility] [place] [facility] [address] [id number] [place] [address] Aug, [facility] [place] [facility] [address] [id number] [place] [address] Aug, [facility] [place] [facility] [address] [id number] [place] [address] Aug, [facility] [place] [facility] [address] [id number] [place] [address] Aug, [facility] [place] [facility] [address] [facility] [id number] [place] [address] Aug, [facility] [place] [facility] [address] [id number] [place] [address] Aug, [facility] [place] [facility] [address] [facility] [id number] [place] [address] Jul, [facility] [place] [facility] [address] [facility] [id number] [place] [address] Jun, [facility] [place] [facility] [address] [id number] [place] [address] Jun, [facility] [place] [facility] [address] [id number] [place] [address] Jun, [facility] [place] [facility] [address] [id number] [place] [address] May, [facility] [place] [facility] [address] [facility] [id number] [place] [address] May, [facility] [place] [facility] [address] [facility] [id number] [place] [address] March, [facility] [place] [facility] [address] [id number] [place] [address] March, [facility] [place] [facility] [address] [id number] [place] [address] March, [facility] [place] [facility] [address] [id number] [place] [address] Feb, [facility] [place] [facility] [address] [id number] [place] [address] Feb, [facility] [place] [facility] [address] [id number] [place] [address] Feb, [facility] [place] [facility] [address] [id number] [place] [address] Jan, [facility] [place] [facility] [address] [facility] [id number] [place] [address] Jan, [facility] [place] [facility] [address] [id number] [place] [address] Dec, [facility] [place] [facility] [address] [id number] [place] [address] Dec, [facility] [place] [facility] [id number] [place] [address] Dec, [facility] [place] [facility] [address] [id number] [place] [address] Dec, [facility] [place] [facility] [address] [id number] [address] Dec, [facility] [place] [facility] [address] [facility] [id number] [place] [address] Dec, [facility] [place] [facility] [address] [id number] [place] [address] Dec, [facility] [place] [facility] [address] [facility] [id number] [place] [address] Nov, [facility] [facility] [id number] [address] Nov, [facility] [address] [facility] [id number] [address] Nov, [facility] [address] [facility] [id number] [address] Nov, [facility] [address] [facility] [id number] [address] Nov, [facility] [address] [facility] [id number] [address] Nov, [facility] [address] [facility] [id number] [place] [address] Oct, [facility] [address] [facility] [id number] [address] Oct, [facility] [id number] [address] Oct, [facility] [address] [facility] [id number] [address] Oct, [facility] [address] [facility] [id number] [address] Oct, [facility] [address] [facility] [id number] [address] Oct, [facility] [address] [facility] [id number] [address] Oct, [facility] [address] [facility] [id number] [address] Oct, [facility] [address] [facility] [id number] [address] Aug, [facility] [address] [facility] [id number] [address] Jan, [facility] [address] [facility] [id number] [place] [address] Jan, IMMUNIZATIONS No Known Immunizations SOCIAL HISTORY Never Assessed REASON FOR VISIT medication refill PLAN OF CARE VITAL SIGNS MEDICATIONS Medication Instructions Dosage Frequency Start Date End Date Duration Status Levemir Flexpen 100 unit/mL (3 mL) subcutaneously at bedtime 40 units daily 30 days Active RESULTS No Results PROCEDURES No Known [...]
--- OUTSIDE RECORDS SUMMARY | 2018-06-16 19:48 | XMS REPORT ---
Author Author INGRID CHOUDHARY Organization [facility] Address [address] [place] [address] Care Team Providers Care Drug Counselor Name Role Phone INGRID CHOUDHARY Unavailable PROBLEMS Type Condition ICD9-CM Code VYB40-GS Code Onset Dates Condition Status SNOMED Code Problem Diabetes type 2, uncontrolled E11.65 Active 446602861 Problem Chronic kidney disease, stage 4 (severe) N18.4 Active 347271640 Problem Hypertension I10 Active 91017894 Problem Controlled type 2 diabetes mellitus without complication, without long -term current use of insulin E11.9 Active 390355082 Problem 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, 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 Active 879679856 Problem Type 2 diabetes mellitus with diabetic chronic kidney disease E11.22 Active 23273338 Problem Type 2 diabetes mellitus with hyperglycemia E11.65 Active [id number] Problem Constipation, unspecified constipation type K59.00 Active 22602521 Problem long term current use of insulin Z79.4 Active 932193591 Problem Need for prophylactic vaccination and inoculation against pertussis alone V03.6 Active 10479040 Problem Edema 782.3 Active 979590155 Problem Diabetes with neurological manifestations, type II or unspecified type , not stated as uncontrolled 250.60 Active 546066927 Problem Renal failure N19 Active 06113682 Problem Other and unspecified noninfectious gastroenteritis and colitis 558.9 Active 47846500 Problem HTN (hypertension) 401.9 Active 16036156 Problem Diabetes mellitus without mention of complication, type II or unspecified type, not stated as uncontrolled 250.00 Active 006200181 Problem Diabetes E11.9 Active 44768100 ALLERGIES No Information ENCOUNTERS Encounter Location Date Diagnosis [facility] [address] [facility] [id number] [address] Jan, [facility] [address] [facility] [id number], [place] [address] Nov, Controlled type 2 diabetes mellitus without complication, without long-term current use of insulin E11.9 [facility] [id number] [place] [address] [id number] Nov, [facility] [id number] [place] [address] 14743- 3813 Oct, [facility] [id number] [place] [address] 91161- 3303 Oct, [facility] [id number] [place] [address] 38000- 0530 Oct, [facility] [id number] [place] [address] 15552- 6525 Oct, [facility] [id number] [place] [address] 49904- 6226 Oct, [facility] [id number] [place] [address] 24611- 4315 Sep, [facility] [id number] [place] [address] 40891 -1601 Aug, Acute bronchitis, unspecified organism J20.9 [facility] [id number] [place] [address] 73824- 0258 Aug, [facility] [id number] [place] [address] 33869 -9694 Aug, Diarrhea of infectious origin A09 [facility] [id number] [place] [address] 23318- 0024 Aug, [facility] [id number] [place] [address] 10937- 2292 Jul, 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, unspecified alf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 status E11.42 [facility] [id number] [place] [address] [id number] Jul, Encounter for dental examination Z01.20 [facility] [id number] [place] [address] 78776- 8859 Jul, 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, 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 [facility] [id number] [place] [address] 236230 -5696 Jun, Acute frontal sinusitis J01.10 [facility] [id number] [place] [address] [id number] Jun, Dental examination Z01.20 [facility] [id number] [place] [address] 98587 2546 May, [facility] [id number] [place] [address] 40383- 8156 May, [facility] [id number] [place] [address] 30882 2546 May, Open wound of toe, initial encounter S91.109A [facility] [id number] [place] [address] [id number] Apr, Dental examination Z01.20 [facility] [id number] [place] [address] 45520- 4496 Apr, Diabetes E11.9 and Stage 4 chronic kidney disease N18.4 [facility] [id number] [place] [address] 617082- 9096 March, [facility] [id number] [place] [address] 008294- 8816 Feb, [facility] [id number] [place] [address] 70611- 0996 Feb, [facility] [id number] [place] [address] 349861- 5316 Feb, [facility] [id number] [place] [address] 687773- 7326 13 Dec, 2016 [facility] [address] [address] Dec, Constipation, unspecified constipation type K59.00 [facility] [id number] [place] [address] 70809- 6437 Dec, [facility] [id number] [place] [address] 61158- 8676 Dec, [facility] [id number] [place] [address] 92318- 7041 Dec, Renal failure N19 and Hypokalemia E87.6 [facility] [id number] [place] [address] 03536- 7158 Nov, Renal failure N19 and Hypokalemia E87.6 [facility] [id number] [place] [address] 73753- 0692 Nov, Chronic kidney disease, stage 4 (severe) N18.4 [facility] [id number] [place] [address] 08512- 7694 Nov, Chronic kidney disease, stage 4 (severe) N18.4 [facility] [id number] [place] [address] 63339- 3370 Nov, [facility] [id number] [place] [address] 15629- 2661 Nov, [facility] [id number] [place] [address] 93018- 1578 Nov, Dysthymia F34.1 [facility] [id number] [place] [address] 19377- 0560 Nov, [facility] [address] [place] [address] 53209 -3485 Oct, Bronchitis J40 [facility] [id number] [place] [address] 59698- 9689 Oct, Localized edema R60.0 [facility] [id number] [place] [address] 38303- 6901 Sep, Renal failure N19 ; Type 2 diabetes mellitus with diabetic chronic kidney disease E11.22 and Chronic kidney disease, stage 4 (severe) N18.4 [facility] [address] [place] [address] 73701- 3330 Aug, Renal failure N19 ; Diabetes E11.9 ; Type 2 diabetes mellitus with diabetic chronic kidney disease E11.22 ; Type 2 diabetes mellitus with hyperglycemia E11.65 ; Chronic kidney disease, stage 4 (severe) N18.4 and 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 Z79.4 [facility] [id number] [place] [address] 15966- 3309 Aug, Bronchitis J40 [facility] [id number] [place] [address] 04892- 5215 Aug, [facility] [id number] [place] [address] 05761 -0941 Aug, Bronchitis J40 [facility] [id number] [place] [address] 05390- 5967 Aug, Displaced fracture of greater trochanter of left femur, initial encounter for closed fracture S72.112A [place] [id number] [place] [address] 63356- 5565 Jul, Hip fracture, left, closed, with routine healing, subsequent encounter S72.002D ; Renal failure N19 and Uncontrolled type 2 diabetes mellitus without complication, without long-term current use of insulin E11.65 [facility] [address] [place] [address] 23792- 2146 Jul, [facility] [id number] [place] [address] 42325- 0259 Jul, [facility] [id number] [place] [address] 71913- 2710 Jul, [facility] [id number] [place] [address] 68699- 7706 Jul, [facility] [id number] [place] [address] 72060- 6331 May, [facility] [address] [place] [address] 07461- 0323 May, Orthostatic hypotension I95.1 and Renal insufficiency N28.9 [facility] [address] [place] [address] 27369- 7014 May, Renal failure N19 [facility] [id number] [place] [address] 71685- 5276 May, [facility] [id number] [place] [address] 70504- 5097 Apr, Renal failure N19 [place] [id number] [place] [address] 37790- 7174 Apr, [place] [id number] [place] [address] 75898- 8647 Apr, [facility] [id number] [place] [address] 15326 -1723 Apr, Orthostatic hypotension I95.1 and 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, 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 [place] [id number] [place] [address] 03110- 7188 March, Left rotator cuff tear M75.102 [facility] [id number] [place] [address] 57508 -7607 March, Allergic reaction to drug T78.40XA [facility] [address] [place] [address] 98389- 4514 March, Diabetes type 2, controlled E11.9 [facility] [id number] [place] [address] 87496- 3612 Feb, Left rotator cuff tear M75.102 [facility] [id number] [place] [address] 53301- 5999 Feb, Left rotator cuff tear M75.102 [facility] [id number] [place] [address] 78704 -9762 Feb, Diabetes type 2, uncontrolled E11.65 ; Hypertension I10 ; Edema 782.3 and Cellulitis L03.90 [facility] [id number] [place] [address] 50119- 3274 Feb, [facility] [id number] [place] [address] 87797- 9043 Feb, [facility] [address] 92361- 6362 Feb, Left rotator cuff tear M75.102 [facility] [id number] [place] [address] 81182- 5925 Feb, [facility] [id number] [place] [address] 30163- 3786 Feb, Diabetes type 2, uncontrolled E11.65 and Edema R60.9 [facility] [address] 63230- 4217 Jan, Hypertension, essential I10 [facility] [id number] [place] [address] 56656- 1793 Dec, Hypertension I10 [facility] [id number] [place] [address] 47548- 0412 Dec, [facility] [id number] [place] [address] 08208- 4743 Dec, Renal insufficiency N28.9 and Edema R60.9 [facility] [id number] [place] [address] 57449- 0296 Dec, [facility] [id number] [place] [address] 03763- 2727 Dec, [facility] [id number] [place] [address] 49784- 9983 Dec, [facility] [id number] [place] [address] 96775 -9386 Nov, Pedal edema R60.0 and Benign essential hypertension I10 [facility] [address] [address]- 6399 Nov, Benign essential hypertension I10 and Renal insufficiency N28.9 [facility] [address] [address] -1151 Nov, Acute laryngopharyngitis J06.0 ; Benign essential hypertension I10 and Strep pharyngitis J02.0 [facility] [address] [place] [address] 64523- 4150 Nov, Diabetes type 2, uncontrolled E11.65 ; Renal insufficiency N28.9 and Localized edema R60.0 [facility] [id number] [place] [address] 41325- 7039 Oct, [facility] [id number] [place] [address] 65318- 2680 Oct, Diabetes E11.9 [facility] [id number] [place] [address] 40380- 0591 Sep, [facility] [id number] [place] [address] 31970- 2165 May, [facility] [id number] [place] [address] 47977- 2049 May, Diabetes with neurological manifestations, type II or unspecified type, not stated as uncontrolled 250.60 [facility] [address] [address]- 2784 May, [facility] [address] [place] [address] 93812- 4416 May, [facility] [id number] [place] [address] 35326- 8956 May, Diabetes with neurological manifestations, type II or unspecified type, not stated as uncontrolled 250.60 and HTN (hypertension) 401.9 [facility] [id number] [place] [address] 00551- 4664 Apr, [facility] [place] [facility] [address] [id number] [place] [address]- 2297 Feb, [facility] [place] [facility] [address] [id number] [place] [address]- 8104 Feb, [facility] [place] [facility] [address] [id number] [place] [address]- 5586 Jan, [facility] [place] [facility] [address] [id number] [place] [address]- 0951 Jan, [facility] [place] [facility] [address] [id number] [place] [address]- 2386 Dec, [facility] [place] [facility] [address] [id number] [place] [address]- 1656 Dec, [facility] [place] [facility] [address] [id number] [place] [address]- 3288 Dec, [facility] [place] [facility] [address] [id number] [place] [address]- 5907 Nov, [facility] [place] [facility] [address] [id number] [place] [address]- 0000 Nov, [facility] [place] [facility] [address] [id number] [place] [address]- 2633 Sep, [facility] [place] [facility] [address] [id number] [place] [address]- 7501 Sep, [facility] [place] [facility] [address] [id number], [place] [address]- 8073 Jul, [facility] [place] [facility] [address] [id number] [place] [address]- 5220 Jul, [facility] [place] [facility] [address] [id number] [place] [address]- 6035 16 Jul, 2014 [facility] [place] [facility] [address] [id number] [place] [address]- 5985 16 Jul, 2014 [facility] [place] [facility] [address] [id number] [place] [address]- 7393 Jun, [facility] [place] [facility] [address] [id number] [place] [address]- 7660 Jun, [facility] [place] [facility] [address] [id number] [place] [address]- 8349 May, [facility] [place] [facility] [address] [id number] [place] [address]- 9595 May, [facility] [place] [facility] [address] [id number] [place] [address]- 9649 May, [facility] [place] [facility] [address] [id number] [place] [address]- 2385 May, [facility] [place] [facility] [address] [id number] [place] [address]- 0314 Apr, [facility] [place] [facility] [address] [id number] [place] [address]- 5935 Apr, [facility] [place] [facility] [address] [id number] [place] [address]- 5781 Apr, [facility] [place] [facility] [address] [id number] [place] [address]- 0981 Apr, [facility] [place] [facility] [address] [id number] [place] [address]- 6947 March, [facility] [place] [facility] [address] [id number] [place] [address]- 6270 March, [facility] [place] [facility] [address] [id number] [place] [address]- 1619 Feb, [facility] [place] [facility] [address] [id number] [place] [address]- 1239 Feb, [facility] [place] [facility] [address] [id number] [place] [address]- 6455 Feb, [facility] [place] [facility] [address] [id number] [place] [address]- 8751 Feb, [facility] [address] [id number] [place] [address]- 3155 Jan, [facility] [place] [facility] [address] [id number] [place] [address]- 8566 Jan, [facility] [place] [facility] [address] [id number] [place] [address]- 6192 Nov, [facility] [place] [facility] [address] [id number] [place] [address]- 9617 Nov, [facility] [place] [facility] [address] [id number] [place] [address]- 4824 Oct, [facility] [place] [facility] [address] [id number] [place] 7861 Oct, [facility] [place] [facility] [address] [id number] [place] [address]- 7433 Oct, [facility] [place] [facility] [address] [id number] [place] 9721 Oct, [facility] [place] [facility] [address] [id number] [place] 7826 Oct, [facility] [place] [facility] [address] [id number] 0810 Oct, [facility] [place] [facility] [address] [id number], [place] [address]- 1283 Oct, [facility] [place] [facility] [address] [id number], [place] [address]- 8111 Oct, [facility] [place] [facility] [address] [id number] [place] [address]- 7426 Sep, [facility] [place] [facility] [address] [id number] [place] [address]- 9996 Sep, [facility] [place] [facility] [address] [id number], [place] [address]- 7496 Aug, [facility] [place] [facility] [address] [id number], [place] [address]- 1589 17 Aug, 2012 [facility] [place] [facility] [address] [id number] [place] [address]- 6778 17 Aug, 2012 [facility] [place] [facility] [address] [id number] [place] [address]- 7006 17 Aug, 2012 [facility] [place] [facility] [address] [id number] [place] [address]- 0689 16 Aug, 2012 [facility] [place] [facility] [address] [id number] [place] [address]- 2883 11 Aug, 2012 [facility] [place] [facility] [address] [id number] [place] [address]- 3151 11 Aug, 2013 [facility] [place] [facility] [address] [id number] [place] [address]- 7229 10 Aug, 2013 [facility] [place] [facility] [address] [id number] [place] [address]- 1413 Aug, [facility] [place] [facility] [address] [id number] [place] [address]- 8987 Aug, [facility] [place] [facility] [address] [facility] [id number] [place] [address]- 8327 Aug, [facility] [place] [facility] [address] [id number] [place] [address]- 2167 24 Jul, 2013 [facility] [place] [facility] [address] [id number] [place] [address]- 8548 Jun, [facility] [place] [facility] [address] [id number], [place] [address]- 9598 Jun, [facility] [place] [facility] [address] [id number] [place] [address]- 1073 May, [facility] [place] [facility] [address] [id number] [place] [address]- 0716 May, [facility] [place] [facility] [address] [facility] [id number] [place] [address]- 5573 Apr, [facility] [place] [facility] [address] [id number] [place] [address]- 2968 March, [facility] [address] [id number] [place] [address] Feb, [facility] [place] [facility] [address] [id number] [place] [address] Jan, [facility] [place] [facility] [address] [id number] [place] [address] Dec, [facility] [place] [facility] [address] [id number] [place] [address] Dec, [facility] [place] [facility] [address] [id number] [place] [address] Dec, [facility] [address] [id number] [place] [address] Nov, [facility] [address] [id number] [place] [address] Nov, [facility] [place] [facility] [address] [id number] [place] [address] Nov, [facility] [place] [facility] [address] [id number] [place] [address] Oct, [facility] [place] [facility] [address] [id number] [place] [address] Oct, [facility] [place] [facility] [address] [id number] [place] [address] Oct, [facility] [place] [facility] [address] [id number] [place] [address] Oct, [facility] [place] [facility] [address] [id number] [place] [address] Sep, [facility] [place] [facility] [address] [id number] [place] [address] Sep, [facility] [place] [facility] [address] [id number] [place] [address] Sep, [facility] [place] [facility] [address] [id number] [place] [address] Sep, [facility] [place] [facility] [address] [id number] [place] [address] Aug, [facility] [place] [facility] [address] [id number] [place] [address] Aug, [facility] [place] [facility] [address] [id number] [place] [address] Aug, [facility] [place] [facility] [address] [id number] [place] [address] Aug, [facility] [place] [facility] [address] [id number] [place] [address] Aug, [facility] [place] [facility] [address] [id number] [place] [address] Aug, [facility] [place] [facility] [address] [id number] [place] [address] Jul, [facility] [place] [facility] [address] [id number] [place] [address] Jun, [facility] [place] [facility] [address] [id number] [place] [address] Jun, [facility] [place] [facility] [address] [id number] [place] [address] Jun, [facility] [place] [facility] [address] [id number] [place] [address] May, [facility] [place] [facility] [address] [id number] [place] [address] May, [facility] [place] [facility] [address] [id number] [place] [address] March, [facility] [place] [facility] [address] [id number] [place] [address] March, [facility] [place] [facility] [address] [id number] [place] [address] March, [facility] [address] [id number] [place] [address] Feb, [facility] [place] [facility] [address] [id number] [place] [address] Feb, [facility] [address] [id number] [place] [address] Feb, [facility] [place] [facility] [address] [id number] [place] [address] Jan, [facility] [address] [id number] [place] [address] Jan, [facility] [place] [facility] [address] [id number] [place] [address] Dec, [facility] [place] [facility] [address] [id number] [place] [address] Dec, [facility] [address] [id number] [place] [address] Dec, [facility] [place] [facility] [id number] [place] [address] Dec, [facility] [address] [id number] [place] [address] Dec, [facility] [place] [facility] [address] [facility] [place] [id number] [place] [address] Dec, [facility] [place] [facility] [address] [id number] [place] [address] Dec, [facility] [place] [facility] [address] [id number] [place] [address] Nov, [facility] [place] [facility] [address] [id number] [place] [address] Nov, [facility] [place] [facility] [address] [id number] [place] [address] Nov, [facility] [id number] [address] Nov, [facility] [id number] [address] Nov, [facility] [id number] [address] Nov, [facility] [id number] [address] Oct, [facility] [id number] [address] Oct, [facility] [id number] [place] [address] Oct, [facility] [id number] [place] [address] Oct, [facility] [id number] [address] Oct, [facility] [id number] [place] [address] Oct, [facility] [id number] [place] [address] Oct, [facility] [id number] [place] [address] Oct, [facility] [id number] [place] [address] Aug, [facility] [id number] [address] Jan, [facility] [id number] [address] Jan, IMMUNIZATIONS No Known Immunizations SOCIAL HISTORY Never Assessed REASON FOR VISIT Phone call 06/12/2017 PLAN OF CARE VITAL SIGNS MEDICATIONS Unknown [...]
--- OUTSIDE RECORDS SUMMARY | 2018-06-16 19:49 | XMS REPORT ---
Author Author INGRID CHOUDHARY Organization [facility] Address [address] [place] [address] Care Team Providers Care Head Rose Grower Name Role Phone INGRID CHOUDHARY Unavailable PROBLEMS Type Condition ICD9-CM Code LAR04-HH Code Onset Dates Condition Status SNOMED Code Problem Diabetes type 2, uncontrolled E11.65 Active 879071041 Problem Chronic kidney disease, stage 4 (severe) N18.4 Active 639082516 Problem Hypertension I10 Active 66603043 Problem Controlled type 2 diabetes mellitus without complication, without long -term current use of insulin E11.9 Active 712347022 Problem 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, unspecified superintendent terminal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 status E11.42 Active 247777940 Problem Type 2 diabetes mellitus with diabetic chronic kidney disease E11.22 Active 98752137 Problem Type 2 diabetes mellitus with hyperglycemia E11.65 Active 324802640951105 Problem Constipation, unspecified constipation type K59.00 Active 88165778 Problem superintendent terminal current use of insulin Z79.4 Active 912634803 Problem Need for prophylactic vaccination and inoculation against pertussis alone V03.6 Active 39331526 Problem Edema 782.3 Active 639173510 Problem Diabetes with neurological manifestations, type II or unspecified type , not stated as uncontrolled 250.60 Active 331350768 Problem Renal failure N19 Active 98397537 Problem Other and unspecified noninfectious gastroenteritis and colitis 558.9 Active 31331280 Problem HTN (hypertension) 401.9 Active 31599290 Problem Diabetes mellitus without mention of complication, type II or unspecified type, not stated as uncontrolled 250.00 Active 098416123 Problem Diabetes E11.9 Active 71632273 ALLERGIES No Information ENCOUNTERS Encounter Location Date Diagnosis [facility] [address] [facility] [id number] [address] Jan, [facility] [address] [facility] [id number] [address] Nov, Controlled type 2 diabetes mellitus without complication, without long-term current use of insulin E11.9 [facility] [id number] [place] [address] [id number] Nov, [facility] [id number] [place] [address] 17697- 8118 Oct, [facility] [id number] [place] [address] 91179- 8840 Oct, [facility] [id number] [place] [address] 42339- 4353 Oct, [facility] [id number] [place] [address] 59361- 8676 Oct, [facility] [id number] [place] [address] 86312- 4809 Oct, [facility] [id number] [place] [address] 91209- 9943 Sep, [facility] [id number] [place] [address] 54556 -4144 Aug, Acute bronchitis, unspecified organism J20.9 [facility] [id number] [place] [address] 37068- 6277 Aug, [facility] [id number] [place] [address] 40299 -8101 Aug, Diarrhea of infectious origin A09 [facility] [id number] [place] [address] 93412- 6921 Aug, [facility] [id number] [place] [address] 47564- 9472 Jul, 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, unspecified half-way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 status E11.42 [facility] [id number] [place] [address] [phone] Jul, Encounter for dental examination Z01.20 [facility] [id number] [place] [address] 53058- 6959 Jul, 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, unspecified superintendent terminal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 status E11.42 [facility] [id number] [place] [address] [id number] -2556 Jun, Acute frontal sinusitis J01.10 [facility] [id number] [place] [address] [id number] Jun, Dental examination Z01.20 [facility] [id number] [place] [address] 87372 2546 May, [facility] [id number] [place] [address] 52255- 5276 May, [facility] [id number] [place] [address] 94477 2546 May, Open wound of toe, initial encounter S91.109A [facility] [id number] [place] [address] [id number] Apr, Dental examination Z01.20 [facility] [id number] [place] [address] 01432- 3266 Apr, Diabetes E11.9 and Stage 4 chronic kidney disease N18.4 [facility] [id number] [place] [address] 435819- 0686 March, [facility] [id number] [place] [address] 105483- 5266 Feb, [facility] [id number] [place] [address] 20477- 2696 Feb, [facility] [id number] [place] [address] 086188- 6466 Feb, [facility] [id number] [place] [address] 261946- 7056 13 Dec, 2016 [facility] [address] Dec, Constipation, unspecified constipation type K59.00 [facility] [id number] [place] [address] 61948- 6469 Dec, [facility] [id number] [place] [address] 03498- 1786 Dec, [facility] [id number] [place] [address] 40593- 4519 Dec, Renal failure N19 and Hypokalemia E87.6 [facility] [id number] [place] [address] 01224- 6243 Nov, Renal failure N19 and Hypokalemia E87.6 [facility] [id number] [place] [address] 30825- 8841 Nov, Chronic kidney disease, stage 4 (severe) N18.4 [facility] [id number] [place] [address] 81180- 2870 Nov, Chronic kidney disease, stage 4 (severe) N18.4 [facility] [id number] [place] [address] 26188- 3611 Nov, [facility] [id number] [place] [address] 72433- 5553 Nov, [facility] [id number] [place] [address] 97756- 8859 Nov, Dysthymia F34.1 [facility] [id number] [place] [address] 88198- 8575 Nov, [facility] [id number] [place] [address] 35635 -1526 Oct, Bronchitis J40 [facility] [id number] [place] [address] 17742- 3007 Oct, Localized edema R60.0 [facility] [id number] [place] [address] 24080- 5473 Sep, Renal failure N19 ; Type 2 diabetes mellitus with diabetic chronic kidney disease E11.22 and Chronic kidney disease, stage 4 (severe) N18.4 [facility] [id number] [place] [address] 02357- 3532 Aug, Renal failure N19 ; Diabetes E11.9 ; Type 2 diabetes mellitus with diabetic chronic kidney disease E11.22 ; Type 2 diabetes mellitus with hyperglycemia E11.65 ; Chronic kidney disease, stage 4 (severe) N18.4 and correction current use of insulin Z79.4 [facility] [id number] [place] [address] 96928- 0249 Aug, Bronchitis J40 [facility] [id number] [place] [address] 75452- 1310 Aug, [facility] [id number] [place] [address] 89340 -7197 Aug, Bronchitis J40 [facility] [id number] [place] [address] 07436- 5484 Aug, Displaced fracture of greater trochanter of left femur, initial encounter for closed fracture S72.112A [facility] [id number] [place] [address] 03375- 0620 Jul, Hip fracture, left, closed, with routine healing, subsequent encounter S72.002D ; Renal failure N19 and Uncontrolled type 2 diabetes mellitus without complication, without long-term current use of insulin E11.65 [facility] [address] [place] [address] 00626- 7193 Jul, [facility] [id number] [place] [address] 38721- 8956 Jul, [facility] [id number] [place] [address] 72879- 7504 Jul, [facility] [id number] [place] [address] 97839- 0169 Jul, [facility] [id number] [place] [address] 40664- 4810 May, [facility] [id number] [place] [address] 44770- 3538 May, Orthostatic hypotension I95.1 and Renal insufficiency N28.9 [facility] [id number] [place] [address] 32733- 3002 May, Renal failure N19 [facility] [id number] [place] [address] 99035- 7742 May, [facility] [id number] [place] [address] 91547- 8849 Apr, Renal failure N19 [place] [facility] [id number] [place] [address] 21459- 1911 Apr, [facility] [id number] [place] [address] 70245- 6082 Apr, [facility] [id number] [place] [address] 31647 -3050 Apr, Orthostatic hypotension I95.1 and 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, unspecified superintendent terminal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 status E11.42 [facility] [id number] [place] [address] 70964- 5290 March, Left rotator cuff tear M75.102 [facility] [id number] [place] [address] 06653 -8839 March, Allergic reaction to drug T78.40XA [facility] [address] [place] [address] 54387- 0618 March, Diabetes type 2, controlled E11.9 [facility] [id number] [place] [address] 10426- 0747 Feb, Left rotator cuff tear M75.102 [facility] [id number] [place] [address] 09292- 2903 Feb, Left rotator cuff tear M75.102 [facility] [id number] [place] [address] 25587 -9571 Feb, Diabetes type 2, uncontrolled E11.65 ; Hypertension I10 ; Edema 782.3 and Cellulitis L03.90 [facility] [id number] [place] [address] 77617- 2914 Feb, [facility] [id number] [place] [address] 16649- 0857 Feb, [facility] [address] 42727- 2088 Feb, Left rotator cuff tear M75.102 [facility] [id number] [place] [address] 97722- 6339 Feb, [facility] [id number] [place] [address] 56505- 7366 Feb, Diabetes type 2, uncontrolled E11.65 and Edema R60.9 [facility] [address] 57814- 4656 Jan, Hypertension, essential I10 [facility] [id number] [place] [address] 15520- 9583 Dec, Hypertension I10 [facility] [id number] [place] [address] 03375- 5873 Dec, [facility] [id number] [place] [address] 80873- 9485 Dec, Renal insufficiency N28.9 and Edema R60.9 [facility] [id number] [place] [address] 15287- 9894 Dec, [facility] [id number] [place] [address] 69356- 7642 Dec, [facility] [id number] [place] [address] 06398- 2074 Dec, [facility] [id number] [place] [address] 00900 -0117 Nov, Pedal edema R60.0 and Benign essential hypertension I10 [facility] [address] [address]- 5008 Nov, Benign essential hypertension I10 and Renal insufficiency N28.9 [facility] [address] [address] -5683 Nov, Acute laryngopharyngitis J06.0 ; Benign essential hypertension I10 and Strep pharyngitis J02.0 [facility] [address] [place] [address] 53764- 8517 Nov, Diabetes type 2, uncontrolled E11.65 ; Renal insufficiency N28.9 and Localized edema R60.0 [facility] [id number] [place] [address] 87098- 2777 Oct, [facility] [id number] [place] [address] 56722- 5084 Oct, Diabetes E11.9 [facility] [id number] [place] [address] 78512- 5957 Sep, [facility] [id number] [place] [address] 51013- 0953 May, [facility] [id number] [place] [address] 04652- 8931 May, Diabetes with neurological manifestations, type II or unspecified type, not stated as uncontrolled 250.60 [facility] [address] [address]- 4695 May, [facility] [address] [place] [address] 80138- 2304 May, [facility] [id number] [place] [address] 63580- 7380 May, Diabetes with neurological manifestations, type II or unspecified type, not stated as uncontrolled 250.60 and HTN (hypertension) 401.9 [facility] [id number] [place] [address] 25009- 9228 Apr, [facility] [place] [facility] [address] [id number] [place] [address]- 9584 Feb, [facility] [place] [facility] [address] [id number] [place] [address]- 1455 Feb, [facility] [place] [facility] [address] [id number] [place] [address]- 4989 Jan, [facility] [place] [facility] [address] [id number] [place] [address]- 3325 Jan, [facility] [place] [facility] [address] [id number] [place] [address]- 5043 Dec, [facility] [place] [facility] [address] [id number] [place] [address]- 6609 Dec, [facility] [place] [facility] [address] [id number] [place] [address]- 6010 Dec, [facility] [place] [facility] [address] [id number] [place] [address]- 0487 Nov, [facility] [place] [facility] [address] [id number] [place] [address]- 9703 Nov, [facility] [place] [facility] [address] [id number] [place] [address]- 9097 Sep, [facility] [place] [facility] [address] [id number] [place] [address]- 6577 Sep, [facility] [place] [facility] [address] [id number] [address]- 5721 Jul, [facility] [place] [facility] [address] [id number] [place] [address]- 3278 Jul, [facility] [place] [facility] [address] [id number] [place] [address]- 8188 16 Jul, 2014 [facility] [place] [facility] [address] [id number] [place] [address]- 1705 16 Jul, 2014 [facility] [place] [facility] [address] [id number] [place] [address]- 8104 Jun, [facility] [place] [facility] [address] [id number] [place] [address]- 0545 Jun, [facility] [place] [facility] [address] [id number] [place] [address]- 0718 May, [facility] [place] [facility] [address] [id number] [place] [address]- 6662 May, [facility] [place] [facility] [address] [id number] [place] [address]- 2439 May, [facility] [place] [facility] [address] [id number] [place] [address]- 0948 May, [facility] [place] [facility] [address] [id number] [place] [address]- 5208 Apr, [facility] [place] [facility] [address] [id number] [place] [address]- 9330 Apr, [facility] [place] [facility] [address] [id number] [place] [address]- 6912 Apr, [facility] [place] [facility] [address] [id number] [place] [address]- 9902 Apr, [facility] [place] [facility] [address] [id number] [place] [address]- 2988 March, [facility] [place] [facility] [address] [id number] [place] [address]- 7823 March, [facility] [place] [facility] [address] [id number] [place] [address]- 1980 Feb, [facility] [place] [facility] [address] [id number] [place] [address]- 7412 Feb, [facility] [place] [facility] [address] [id number] [place] [address]- 3495 Feb, [facility] [place] [facility] [address] [id number] [place] [address]- 1042 Feb, [facility] [place] [facility] [address] [id number] [place] [address]- 9383 Jan, [facility] [place] [facility] [address] [id number] [place] [address]- 8886 Jan, [facility] [place] [facility] [address] [id number] [place] [address]- 1644 Nov, [facility] [place] [facility] [address] [id number] [place] [address]- 3970 Nov, [facility] [place] [facility] [address] [id number] [place] [address]- 6828 Oct, [facility] [place] [facility] [address] [id number] [place] 0850 Oct, [facility] [place] [facility] [address] [id number] [place] [address]- 1168 Oct, [facility] [place] [facility] [address] [id number] [place] 3410 Oct, [facility] [place] [facility] [address] [id number] [place] 3883 Oct, [facility] [place] [facility] [address] [id number] 6369 Oct, [facility] [place] [facility] [address] [id number] [place] [address]- 4106 Oct, [facility] [place] [facility] [address] [id number] [place] [address]- 8832 Oct, [facility] [place] [facility] [address] [id number] [place] [address]- 8913 Sep, [facility] [place] [facility] [address] [id number] [place] [address]- 3256 Sep, [facility] [place] [facility] [address] [id number] [address]- 7066 Aug, [facility] [place] [facility] [address] [id number] [place] [address]- 6106 17 Aug, 2012 [facility] [place] [facility] [address] [id number] [place] [address]- 4375 17 Aug, 2012 [facility] [place] [facility] [address] [id number] [place] [address]- 9196 17 Aug, 2012 [facility] [place] [facility] [address] [id number] [place] [address]- 6230 16 Aug, 2012 [facility] [place] [facility] [address] [id number] [place] [address]- 5579 11 Aug, 2012 [facility] [place] [facility] [address] [id number] [place] [address]- 5210 11 Aug, 2013 [facility] [place] [facility] [address] [id number] [place] [address]- 7436 10 Aug, 2013 [facility] [place] [facility] [address] [id number] [place] [address]- 7187 Aug, [facility] [place] [facility] [address] [id number] [place] [address]- 8654 Aug, [facility] [place] [facility] [address] [facility] [id number] [place] [address]- 2018 Aug, [facility] [place] [facility] [address] [id number] [place] [address]- 5900 24 Jul, 2013 [facility] [place] [facility] [address] [id number] [place] [address]- 6968 Jun, [facility] [place] [facility] [address] [id number] [place] [address]- 8725 Jun, [facility] [place] [facility] [address] [id number] [place] [address]- 0832 May, [facility] [place] [facility] [address] [id number] [place] [address]- 6773 May, [facility] [place] [facility] [address] [facility] [id number] [place] [address]- 9424 Apr, [facility] [place] [facility] [address] [id number] [place] [address]- 1763 March, [facility] [place] [facility] [address] [id number] [place] [address]- 4690 Feb, [facility] [place] [facility] [address] [id number] [place] [address]- 2686 Jan, [facility] [place] [facility] [address] [id number] [place] [address]- 8446 Dec, [facility] [place] [facility] [address] [id number] [place] [address]- 2071 Dec, [facility] [place] [facility] [address] [id number] [place] [address]- 8186 Dec, [facility] [place] [facility] [address] [id number] [place] [address]- 5401 Nov, [facility] [place] [facility] [address] [id number] [place] [address]- 2527 Nov, [facility] [place] [facility] [address] [id number] [place] [address]- 0992 Nov, [facility] [place] [facility] [address] [id number] [place] [address] Oct, [facility] [place] [facility] [address] [id number] [place] [address] Oct, [facility] [place] [facility] [address] [id number] [place] [address] Oct, [facility] [place] [facility] [address] [id number] [place] [address] Oct, [facility] [place] [facility] [address] [id number] [place] [address] Sep, [facility] [place] [facility] [address] [id number] [place] [address] Sep, [facility] [place] [facility] [address] [id number] [place] [address] Sep, [facility] [place] [facility] [address] [id number] [place] [address] Sep, [facility] [place] [facility] [address] [id number] [place] [address] Aug, [facility] [place] [facility] [address] [id number] [place] [address] Aug, [facility] [place] [facility] [address] [id number] [place] [address] Aug, [facility] [place] [facility] [address] [id number] [place] [address] Aug, [facility] [place] [facility] [address] [id number] [place] [address] Aug, [facility] [place] [facility] [address] [id number] [place] [address] Aug, [facility] [place] [facility] [address] [id number] [place] [address] Jul, [facility] [place] [facility] [address] [id number] [place] [address] Jun, [facility] [place] [facility] [address] [id number] [place] [address] Jun, [facility] [place] [facility] [address] [id number] [place] [address] Jun, [facility] [place] [facility] [address] [id number] [place] [address] May, [facility] [place] [facility] [address] [id number] [place] [address] May, [facility] [place] [facility] [address] [id number] [place] [address] March, [facility] [place] [facility] [address] [id number] [place] [address] March, [facility] [place] [facility] [address] [id number] [place] [address] March, [facility] [address] [id number] [place] [address] Feb, [facility] [place] [facility] [address] [id number] [place] [address] Feb, [facility] [place] [facility] [address] [id number] [place] [address] Feb, [facility] [place] [facility] [address] [id number] [place] [address] Jan, [facility] [place] [facility] [address] [id number] [place] [address] Jan, [facility] [place] [facility] [address] [id number] [place] [address] Dec, [facility] [place] [facility] [address] [id number] [place] [address] Dec, [facility] [address] [id number] [place] [address] Dec, [facility] [place] [facility] [address] [id number] [address] Dec, [facility] [address] [id number] [place] [address] Dec, [facility] [facility] [place] [facility] [address] [facility] [id number] [place] [address] Dec, [facility] [place] [facility] [address] [id number] [place] [address] Dec, [facility] [place] [facility] [address] [id number] [place] [address] Nov, [facility] [place] [facility] [address] [id number] [place] [address] Nov, [facility] [place] [facility] [address] [id number] [place] [address] Nov, [facility] [id number] [address] Nov, [facility] [id number] [address] Nov, [facility] [id number] [address] Nov, [facility] [id number] [address] Oct, [facility] [id number] [address] Oct, [facility] [id number] [address] Oct, [facility] [id number] [address] Oct, [facility] [id number] [address] Oct, [facility] [id number] [address] Oct, [facility] [id number] [address] Oct, [facility] [id number] [address] Oct, [facility] [address] [id number] [address] Aug, [facility] [id number] [address] Jan, [facility] [id number] [address] Jan, IMMUNIZATIONS No Known Immunizations SOCIAL HISTORY Never Assessed REASON FOR VISIT requesting a call back PLAN OF CARE VITAL SIGNS MEDICATIONS Unknown [...]
--- OUTSIDE RECORDS SUMMARY | 2018-06-16 19:49 | XMS REPORT ---
Author Author INGRID CHOUDHARY Organization [facility] Address [address] [place] [address] Care Team Providers Care Central Office Equipment Engineer Name Role Phone INGRID CHOUDHARY Unavailable PROBLEMS Type Condition ICD9-CM Code [id number] Code Onset Dates Condition Status SNOMED Code Problem Diabetes type 2, uncontrolled E11.65 Active 725538607 Problem Chronic kidney disease, stage 4 (severe) N18.4 Active 166895568 Problem Hypertension I10 Active 86386487 Problem Controlled type 2 diabetes mellitus without complication, without long -term current use of insulin E11.9 Active 097102571 Problem 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, unspecified terminologist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 status E11.42 Active 482785548 Problem Type 2 diabetes mellitus with diabetic chronic kidney disease E11.22 Active 73354421 Problem Type 2 diabetes mellitus with hyperglycemia E11.65 Active 083891444198853 Problem Constipation, unspecified constipation type K59.00 Active 23442975 Problem 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.4 Active 798978359 Problem Need for prophylactic vaccination and inoculation against pertussis alone V03.6 Active 34419857 Problem Edema 782.3 Active 045963680 Problem Diabetes with neurological manifestations, type II or unspecified type , not stated as uncontrolled 250.60 Active 693398166 Problem Renal failure N19 Active 04649194 Problem Other and unspecified noninfectious gastroenteritis and colitis 558.9 Active 83713041 Problem HTN (hypertension) 401.9 Active 84296180 Problem Diabetes mellitus without mention of complication, type II or unspecified type, not stated as uncontrolled 250.00 Active 337824359 Problem Diabetes E11.9 Active 41301688 ALLERGIES No Information ENCOUNTERS Encounter Location Date Diagnosis [facility] [address] [facility] [id number], [place] [address] Jan, [facility] [address] [facility] [id number], [place] [address] Nov, Controlled type 2 diabetes mellitus without complication, without long-term current use of insulin E11.9 [facility] [id number] [place] [address] [id number] Nov, [facility] [id number] [place] [address] 41969- 5378 Oct, [facility] [id number] [place] [address] 41304- 8774 Oct, [facility] [id number] [place] [address] 97129- 4387 Oct, [facility] [id number] [place] [address] 92041- 6292 Oct, [facility] [id number] [place] [address] 56429- 5821 Oct, [facility] [id number] [place] [address] 19384- 0871 Sep, [facility] [id number] [place] [address] 64321 -9046 Aug, Acute bronchitis, unspecified organism J20.9 [facility] [id number] [place] [address] 61752- 4477 Aug, [facility] [id number] [place] [address] 30455 -3600 Aug, Diarrhea of infectious origin A09 [facility] [id number] [place] [address] 26469- 3592 Aug, [facility] [id number] [place] [address] 87954- 0285 Jul, 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, unspecified group home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 status E11.42 [facility] [id number] [place] [address] [id number] Jul, Encounter for dental examination Z01.20 [facility] [id number] [place] [address] 26629- 0557 Jul, 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, unspecified terminologist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 status E11.42 [facility] [id number] [place] [address] 699425 -7926 Jun, Acute frontal sinusitis J01.10 [facility] [id number] [place] [address] [id number] Jun, Dental examination Z01.20 [facility] [id number] [place] [address] 52868 2546 May, [facility] [id number] [place] [address] 37069- 2686 May, [facility] [id number] [place] [address] 06228 2546 May, Open wound of toe, initial encounter S91.109A [facility] [id number] [place] [address] [id number] Apr, Dental examination Z01.20 [facility] [id number] [place] [address] 89171- 9046 Apr, Diabetes E11.9 and Stage 4 chronic kidney disease N18.4 [facility] [id number] [place] [address] 177118- 1596 March, [facility] [id number] [place] [address] 409786- 2716 Feb, [facility] [id number] [place] [address] 03038- 5036 Feb, [facility] [id number] [place] [address] 237041- 6346 Feb, [facility] [id number] [place] [address] 920741- 6876 13 Dec, 2016 [facility] [address] [address] -[address] Dec, Constipation, unspecified constipation type K59.00 [facility] [id number] [place] [address] 68075- 7423 Dec, [facility] [id number] [place] [address] 59241- 4736 Dec, [facility] [id number] [place] [address] 20235- 6018 Dec, Renal failure N19 and Hypokalemia E87.6 [facility] [id number] [place] [address] 31521- 1496 Nov, Renal failure N19 and Hypokalemia E87.6 [facility] [id number] [place] [address] 59915- 1727 Nov, Chronic kidney disease, stage 4 (severe) N18.4 [facility] [id number] [place] [address] 43844- 0519 Nov, Chronic kidney disease, stage 4 (severe) N18.4 [facility] [id number] [place] [address] 96911- 9369 Nov, [facility] [id number] [place] [address] 61205- 4051 Nov, [facility] [id number] [place] [address] 85078- 5644 Nov, Dysthymia F34.1 [facility] [id number] [place] [address] 23209- 2267 Nov, [facility] [id number] [place] [address] 43208 -0539 Oct, Bronchitis J40 [facility] [id number] [place] [address] 81744- 5931 Oct, Localized edema R60.0 [facility] [id number] [place] [address] 99152- 4815 Sep, Renal failure N19 ; Type 2 diabetes mellitus with diabetic chronic kidney disease E11.22 and Chronic kidney disease, stage 4 (severe) N18.4 [facility] [address] [place] [address] 75494- 6737 Aug, Renal failure N19 ; Diabetes E11.9 ; Type 2 diabetes mellitus with diabetic chronic kidney disease E11.22 ; Type 2 diabetes mellitus with hyperglycemia E11.65 ; Chronic kidney disease, stage 4 (severe) N18.4 and nursing home current use of insulin Z79.4 [facility] [id number] [place] [address] 53390- 0715 Aug, Bronchitis J40 [facility] [id number] [place] [address] 32997- 7813 Aug, [facility] [id number] [place] [address] 63099 -0848 Aug, Bronchitis J40 [facility] [id number] [place] [address] 37851- 4916 Aug, Displaced fracture of greater trochanter of left femur, initial encounter for closed fracture S72.112A [facility] [id number] [place] [address] 51416- 7500 Jul, Hip fracture, left, closed, with routine healing, subsequent encounter S72.002D ; Renal failure N19 and Uncontrolled type 2 diabetes mellitus without complication, without long-term current use of insulin E11.65 [facility] [address] [place] [address] 88254- 4922 Jul, [facility] [id number] [place] [address] 22667- 9968 Jul, [facility] [id number] [place] [address] 57730- 2177 Jul, [facility] [id number] [place] [address] 36353- 9208 Jul, [facility] [id number] [place] [address] 11979- 4070 May, [facility] [address] [place] [address] 73347- 0261 May, Orthostatic hypotension I95.1 and Renal insufficiency N28.9 [facility] [address] [place] [address] 55330- 3993 May, Renal failure N19 [facility] [id number] [place] [address] 51412- 5276 May, [facility] [id number] [place] [address] 63098- 9596 Apr, Renal failure N19 [place] [facility] [id number] [place] [address] 24806- 0445 Apr, [facility] [id number] [place] [address] 79913- 0140 Apr, [facility] [id number] [place] [address] 32228 -5955 Apr, Orthostatic hypotension I95.1 and 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, unspecified terminologist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 status E11.42 [facility] [id number] [place] [address] 48003- 9819 March, Left rotator cuff tear M75.102 [facility] [id number] [place] [address] 28665 -9206 March, Allergic reaction to drug T78.40XA [facility] [address] [place] [address] 71643- 8224 March, Diabetes type 2, controlled E11.9 [facility] [id number] [place] [address] 39392- 3943 Feb, Left rotator cuff tear M75.102 [facility] [id number] [place] [address] 58410- 0788 Feb, Left rotator cuff tear M75.102 [facility] [id number] [place] [address] 52982 -8572 Feb, Diabetes type 2, uncontrolled E11.65 ; Hypertension I10 ; Edema 782.3 and Cellulitis L03.90 [facility] [id number] [place] [address] 08750- 1793 Feb, [facility] [id number] [place] [address] 89763- 9213 Feb, [facility] [address] 35394- 8272 Feb, Left rotator cuff tear M75.102 [facility] [id number] [place] [address] 13018- 9955 Feb, [facility] [id number] [place] [address] 33911- 3196 Feb, Diabetes type 2, uncontrolled E11.65 and Edema R60.9 [facility] [address] 34298- 4710 Jan, Hypertension, essential I10 [facility] [id number] [place] [address] 01139- 8101 Dec, Hypertension I10 [facility] [id number] [place] [address] 25014- 5698 Dec, [facility] [id number] [place] [address] 86176- 6130 Dec, Renal insufficiency N28.9 and Edema R60.9 [facility] [id number] [place] [address] 80079- 7074 Dec, [facility] [id number] [place] [address] 55701- 1210 Dec, [facility] [id number] [place] [address] 84553- 2822 Dec, [facility] [id number] [place] [address] 78083 -9192 Nov, Pedal edema R60.0 and Benign essential hypertension I10 [facility] [address], [place] [address]- 3623 Nov, Benign essential hypertension I10 and Renal insufficiency N28.9 [facility] [address], [place] [address] -7937 Nov, Acute laryngopharyngitis J06.0 ; Benign essential hypertension I10 and Strep pharyngitis J02.0 [facility] [address] [place] [address] 49967- 5198 Nov, Diabetes type 2, uncontrolled E11.65 ; Renal insufficiency N28.9 and Localized edema R60.0 [facility] [id number] [place] [address] 84279- 6450 Oct, [facility] [id number] [place] [address] 84987- 9197 Oct, Diabetes E11.9 [facility] [id number] [place] [address] 92915- 0357 Sep, [facility] [id number] [place] [address] 44147- 1030 May, [facility] [id number] [place] [address] 75119- 0968 May, Diabetes with neurological manifestations, type II or unspecified type, not stated as uncontrolled 250.60 [facility] [address], [place] [address]- 0534 May, [facility] [address] [place] [address] 95159- 3505 May, [facility] [id number] [place] [address] 62350- 2570 May, Diabetes with neurological manifestations, type II or unspecified type, not stated as uncontrolled 250.60 and HTN (hypertension) 401.9 [facility] [id number] [place] [address] 79243- 7303 Apr, [facility] [place] [facility] [address] [id number] [place] [address]- 7442 Feb, [facility] [place] [facility] [address] [id number] [place] [address]- 8407 Feb, [facility] [place] [facility] [address] [id number] [place] [address]- 7183 Jan, [facility] [place] [facility] [address] [id number] [place] [address]- 3194 Jan, [facility] [place] [facility] [address] [id number] [place] [address]- 8105 Dec, [facility] [place] [facility] [address] [id number] [place] [address]- 9407 Dec, [facility] [place] [facility] [address] [id number] [place] [address]- 5179 Dec, [facility] [place] [facility] [address] [id number] [place] [address]- 0577 Nov, [facility] [place] [facility] [address] [id number] [place] [address]- 6207 Nov, [facility] [place] [facility] [address] [id number] [place] [address]- 3722 Sep, [facility] [place] [facility] [address] [id number] [place] [address]- 9537 Sep, [facility] [place] [facility] [address] [id number], [place] [address]- 6132 Jul, [facility] [place] [facility] [address] [id number] [place] [address]- 5309 Jul, [facility] [place] [facility] [address] [id number] [place] [address]- 4481 16 Jul, 2014 [facility] [place] [facility] [address] [id number] [place] [address]- 5458 16 Jul, 2014 [facility] [place] [facility] [address] [id number] [place] [address]- 1538 Jun, [facility] [place] [facility] [address] [id number] [place] [address]- 5375 Jun, [facility] [place] [facility] [address] [id number] [place] [address]- 5583 May, [facility] [place] [facility] [address] [id number] [place] [address]- 8443 May, [facility] [place] [facility] [address] [id number] [place] [address]- 5328 May, [facility] [place] [facility] [address] [id number] [place] [address]- 8346 May, [facility] [place] [facility] [address] [id number] [place] [address]- 9209 Apr, [facility] [place] [facility] [address] [id number] [place] [address]- 2453 Apr, [facility] [place] [facility] [address] [id number] [place] [address]- 7308 Apr, [facility] [place] [facility] [address] [id number] [place] [address]- 0206 Apr, [facility] [place] [facility] [address] [id number] [place] [address]- 6266 March, [facility] [place] [facility] [address] [id number] [place] [address]- 0128 March, [facility] [place] [facility] [address] [id number] [place] [address]- 1465 Feb, [facility] [place] [facility] [address] [id number] [place] [address]- 4936 Feb, [facility] [place] [facility] [address] [id number] [place] [address]- 0736 Feb, [facility] [place] [facility] [address] [id number] [place] [address]- 1130 Feb, [facility] [address] [id number] [place] [address]- 9273 Jan, [facility] [place] [facility] [address] [id number] [place] [address]- 8516 Jan, [facility] [place] [facility] [address] [id number] [place] [address]- 8700 Nov, [facility] [place] [facility] [address] [id number] [place] [address]- 4710 Nov, [facility] [place] [facility] [address] [id number] [place] [address]- 7194 Oct, [facility] [place] [facility] [address] [id number] [place] 2364 Oct, [facility] [place] [facility] [address] [id number] [place] [address]- 7377 Oct, [facility] [place] [facility] [address] [id number] [place] 5595 Oct, [facility] [place] [facility] [address] [id number] [place] 6179 Oct, [facility] [place] [facility] [address] [id number] 7067 Oct, [facility] [place] [facility] [address] [id number], [place] [address]- 4923 Oct, [facility] [place] [facility] [address] [id number], [place] [address]- 8125 Oct, [facility] [place] [facility] [address] [id number] [place] [address]- 5746 Sep, [facility] [place] [facility] [address] [id number] [place] [address]- 7796 Sep, [facility] [place] [facility] [address] [id number], [place] [address]- 8206 Aug, [facility] [place] [facility] [address] [id number], [place] [address]- 9242 17 Aug, 2012 [facility] [place] [facility] [address] [id number] [place] [address]- 0014 17 Aug, 2012 [facility] [place] [facility] [address] [id number] [place] [address]- 4980 17 Aug, 2012 [facility] [place] [facility] [address] [id number] [place] [address]- 7539 16 Aug, 2012 [facility] [place] [facility] [address] [id number] [place] [address]- 4198 11 Aug, 2012 [facility] [place] [facility] [address] [id number] [place] [address]- 2552 11 Aug, 2013 [facility] [place] [facility] [address] [id number] [place] [address]- 4840 10 Aug, 2013 [facility] [place] [facility] [address] [id number] [place] [address]- 2203 Aug, [facility] [place] [facility] [address] [id number] [place] [address]- 2477 Aug, [facility] [place] [facility] [address] [facility] [id number] [place] [address]- 9769 Aug, [facility] [place] [facility] [address] [id number] [place] [address]- 1366 24 Jul, 2013 [facility] [place] [facility] [address] [id number] [place] [address]- 8481 Jun, [facility] [place] [facility] [address] [id number], [place] [address]- 3562 Jun, [facility] [place] [facility] [address] [id number] [place] [address] May, [facility] [place] [facility] [address] [id number] [place] [address] May, [facility] [place] [facility] [address] [facility] [id number] [place] [address] Apr, [facility] [place] [facility] [address] [id number] [place] [address] March, [facility] [address] [id number] [place] [address] Feb, [facility] [place] [facility] [address] [id number] [place] [address] Jan, [facility] [place] [facility] [address] [id number] [place] [address] Dec, [facility] [place] [facility] [address] [id number] [place] [address] Dec, [facility] [place] [facility] [address] [id number] [place] [address] Dec, [facility] [address] [id number] [place] [address] Nov, [facility] [address] [id number] [place] [address] Nov, [facility] [place] [facility] [address] [id number] [place] [address] Nov, [facility] [place] [facility] [address] [id number] [place] [address] Oct, [facility] [place] [facility] [address] [id number] [place] [address] Oct, [facility] [place] [facility] [address] [id number] [place] [address] Oct, [facility] [place] [facility] [address] [id number] [place] [address] Oct, [facility] [place] [facility] [address] [id number] [place] [address] Sep, [facility] [place] [facility] [address] [id number] [place] [address] Sep, [facility] [place] [facility] [address] [id number] [place] [address]- [address] Sep, [facility] [place] [facility] [address] [id number] [place] [address] Sep, [facility] [place] [facility] [address] [id number] [place] [address]- [address] Aug, [facility] [place] [facility] [address] [id number] [place] [address] Aug, [facility] [place] [facility] [address] [id number] [place] [address]- [address] Aug, [facility] [place] [facility] [address] [id number] [place] [address]- [address] Aug, [facility] [place] [facility] [address] [id number] [place] [address] Aug, [facility] [place] [facility] [address] [id number] [place] [address]- [address] Aug, [facility] [place] [facility] [address] [id number] [place] [address]- [address] Jul, [facility] [place] [facility] [address] [id number] [place] [address]- [address] Jun, [facility] [place] [facility] [address] [id number] [place] [address]- [address] Jun, [facility] [place] [facility] [address] [id number] [place] [address]- [address] Jun, [facility] [place] [facility] [address] [id number] [place] [address] May, [facility] [place] [facility] [address] [id number] [place] [address] May, [facility] [place] [facility] [address] [id number] [place] [address] March, [facility] [place] [facility] [address] [id number] [place] [address]- [address] March, [facility] [place] [facility] [address] [id number] [place] [address] March, [facility] [address] [id number] [place] [address] Feb, [facility] [place] [facility] [address] [id number] [place] [address] Feb, [facility] [address] [id number] [place] [address] Feb, [facility] [place] [facility] [address] [id number] [place] [address] Jan, [facility] [address] [id number] [place] [address]- [address] Jan, [facility] [place] [facility] [address] [id number] [place] [address] Dec, [facility] [place] [facility] [address] [id number] [place] [address]- [address] Dec, [facility] [address] [id number] [place] [address] Dec, [facility] [place] [facility] [address] [id number] [place] [address] Dec, [facility] [address] [id number] [place] [address] Dec, [facility] [place] [facility] [address] [facility] [id number] [place] [address] Dec, [facility] [place] [facility] [address] [id number] [place] [address] Dec, [facility] [place] [facility] [address] [id number] [place] [address] Nov, [facility] [place] [facility] [address] [id number] [place] [address] Nov, [facility] [place] [facility] [address] [id number] [place] [address] Nov, [facility] [address] [id number] [address] Nov, [facility] [address] [facility] [id number], [place] [address] Nov, [facility] [id number] [address] Nov, [facility] [id number], [place] [address] Oct, [facility] [address] [facility] [id number], [place] [address] Oct, [facility] [id number], [place] [address] Oct, [facility] [id number], [place] [address] Oct, [facility] [id number], [place] [address] Oct, [facility] [id number] [address] Oct, [facility] [id number] [address] Oct, [facility] [id number], [place] [address] Oct, [facility] [address] [id number] [id number] Aug, [facility] [id number], [place] [address] Jan, [facility] [id number], [place] [address] Jan, IMMUNIZATIONS No Known Immunizations SOCIAL HISTORY Never Assessed REASON FOR VISIT Medication question PLAN OF CARE VITAL SIGNS MEDICATIONS Medication Instructions Dosage Frequency Start Date End Date Duration Status Glucocard Expression Monitor w/Device DX- E11.9 3 times a day test 3 times per day 8h Oct, Active Glucocard Expression Test - DX- E11.9 3 times a day test 3 times per day 8h Oct, Active RESULTS No Results PROCEDURES No Known [...]
--- OUTSIDE RECORDS SUMMARY | 2018-06-16 19:50 | XMS REPORT ---
Author Author INGRID CHOUDHARY Organization [facility] Address [address] [place] [address] Care Team Providers Care Guest History Clerk Name Role Phone INGRID CHOUDHARY Unavailable PROBLEMS Type Condition ICD9-CM Code PUM22-DA Code Onset Dates Condition Status SNOMED Code Problem Diabetes type 2, uncontrolled E11.65 Active 061772137 Problem Chronic kidney disease, stage 4 (severe) N18.4 Active 787580252 Problem Hypertension I10 Active 30973218 Problem Controlled type 2 diabetes mellitus without complication, without long -term current use of insulin E11.9 Active 916107778 Problem 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, unspecified intermediate card tender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 status E11.42 Active 899972839 Problem Type 2 diabetes mellitus with diabetic chronic kidney disease E11.22 Active 17054815 Problem Type 2 diabetes mellitus with hyperglycemia E11.65 Active 708110184296221 Problem Constipation, unspecified constipation type K59.00 Active 30858369 Problem 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.4 Active 289440396 Problem Need for prophylactic vaccination and inoculation against pertussis alone V03.6 Active 95511580 Problem Edema 782.3 Active 779116728 Problem Diabetes with neurological manifestations, type II or unspecified type , not stated as uncontrolled 250.60 Active 964649432 Problem Renal failure N19 Active 03302366 Problem Other and unspecified noninfectious gastroenteritis and colitis 558.9 Active 66177410 Problem HTN (hypertension) 401.9 Active 04329510 Problem Diabetes mellitus without mention of complication, type II or unspecified type, not stated as uncontrolled 250.00 Active 988562674 Problem Diabetes E11.9 Active 40137867 ALLERGIES No Information ENCOUNTERS Encounter Location Date Diagnosis [facility] [address] [facility] [id number], [place] [address] Jan, [facility] [address] [facility] [id number], [place] [address] Nov, Controlled type 2 diabetes mellitus without complication, without long-term current use of insulin E11.9 [facility] [id number] [place] [address] [id number] Nov, [facility] [id number] [place] [address] 80734- 7403 Oct, [facility] [id number] [place] [address] 32685- 7367 Oct, [facility] [id number] [place] [address] 04868- 9784 Oct, [facility] [id number] [place] [address] 85976- 5902 Oct, [facility] [id number] [place] [address] 67828- 0768 Oct, [facility] [id number] [place] [address] 22087- 5219 Sep, [facility] [id number] [place] [address] 91045 -8543 Aug, Acute bronchitis, unspecified organism J20.9 [facility] [id number] [place] [address] 25748- 1285 Aug, [facility] [id number] [place] [address] 91734 -4511 Aug, Diarrhea of infectious origin A09 [facility] [id number] [place] [address] 15287- 9170 Aug, [facility] [id number] [place] [address] 48404- 7112 Jul, 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, unspecified penitentiary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 status E11.42 [facility] [id number] [place] [address] [id number] Jul, Encounter for dental examination Z01.20 [facility] [id number] [place] [address] 05168- 7521 Jul, 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, unspecified intermediate card tender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 status E11.42 [facility] [id number] [place] [address] 920394 -8686 Jun, Acute frontal sinusitis J01.10 [facility] [id number] [place] [address] [id number] Jun, Dental examination Z01.20 [facility] [id number] [place] [address] 87976 2546 May, [facility] [id number] [place] [address] 37999- 6716 May, [facility] [id number] [place] [address] 10160 2546 May, Open wound of toe, initial encounter S91.109A [facility] [id number] [place] [address] [id number] Apr, Dental examination Z01.20 [facility] [id number] [place] [address] 40063- 3686 Apr, Diabetes E11.9 and Stage 4 chronic kidney disease N18.4 [facility] [id number] [place] [address] 180716- 2476 March, [facility] [id number] [place] [address] 987048- 5566 Feb, [facility] [id number] [place] [address] 35400- 5296 Feb, [facility] [id number] [place] [address] 162974- 2996 Feb, [facility] [id number] [place] [address] 707522- 7176 13 Dec, 2016 [facility] [address] [address] -[address] Dec, Constipation, unspecified constipation type K59.00 [facility] [id number] [place] [address] 55590- 8895 Dec, [facility] [id number] [place] [address] 97237- 3096 Dec, [facility] [id number] [place] [address] 50610- 8558 Dec, Renal failure N19 and Hypokalemia E87.6 [facility] [id number] [place] [address] 73251- 4240 Nov, Renal failure N19 and Hypokalemia E87.6 [facility] [id number] [place] [address] 72563- 0764 Nov, Chronic kidney disease, stage 4 (severe) N18.4 [facility] [id number] [place] [address] 92808- 7965 Nov, Chronic kidney disease, stage 4 (severe) N18.4 [facility] [id number] [place] [address] 76741- 5143 Nov, [facility] [id number] [place] [address] 55034- 7142 Nov, [facility] [id number] [place] [address] 51290- 8697 Nov, Dysthymia F34.1 [facility] [id number] [place] [address] 96441- 2774 Nov, [facility] [id number] [place] [address] 62609 -8221 Oct, Bronchitis J40 [facility] [id number] [place] [address] 64088- 9269 Oct, Localized edema R60.0 [facility] [id number] [place] [address] 83452- 6254 Sep, Renal failure N19 ; Type 2 diabetes mellitus with diabetic chronic kidney disease E11.22 and Chronic kidney disease, stage 4 (severe) N18.4 [facility] [address] [place] [address] 90123- 3691 Aug, Renal failure N19 ; Diabetes E11.9 ; Type 2 diabetes mellitus with diabetic chronic kidney disease E11.22 ; Type 2 diabetes mellitus with hyperglycemia E11.65 ; Chronic kidney disease, stage 4 (severe) N18.4 and skilled nursing current use of insulin Z79.4 [facility] [id number] [place] [address] 88908- 7904 Aug, Bronchitis J40 [facility] [id number] [place] [address] 87757- 7735 Aug, [facility] [id number] [place] [address] 31952 -9245 Aug, Bronchitis J40 [facility] [id number] [place] [address] 88429- 9402 Aug, Displaced fracture of greater trochanter of left femur, initial encounter for closed fracture S72.112A [facility] [id number] [place] [address] 90398- 5748 Jul, Hip fracture, left, closed, with routine healing, subsequent encounter S72.002D ; Renal failure N19 and Uncontrolled type 2 diabetes mellitus without complication, without long-term current use of insulin E11.65 [facility] [address] [place] [address] 84827- 9200 Jul, [facility] [id number] [place] [address] 13136- 0692 Jul, [facility] [id number] [place] [address] 49086- 2699 Jul, [facility] [id number] [place] [address] 50562- 6164 Jul, [facility] [id number] [place] [address] 81452- 8079 May, [facility] [address] [place] [address] 31036- 2552 May, Orthostatic hypotension I95.1 and Renal insufficiency N28.9 [facility] [address] [place] [address] 18983- 6422 May, Renal failure N19 [facility] [id number] [place] [address] 26389- 0865 May, [facility] [id number] [place] [address] 88169- 2571 Apr, Renal failure N19 [facility] [id number] [place] [address] 10922- 0036 Apr, [facility] [id number] [place] [address] 63313- 6512 Apr, [facility] [id number] [place] [address] 08578 -1788 Apr, Orthostatic hypotension I95.1 and 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, unspecified intermediate card tender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 status E11.42 [facility] [id number] [place] [address] 35188- 4230 March, Left rotator cuff tear M75.102 [facility] [id number] [place] [address] 79740 -6770 March, Allergic reaction to drug T78.40XA [facility] [address] [place] [address] 31435- 1214 March, Diabetes type 2, controlled E11.9 [facility] [id number] [place] [address] 48837- 6503 Feb, Left rotator cuff tear M75.102 [facility] [id number] [place] [address] 56680- 7802 Feb, Left rotator cuff tear M75.102 [facility] [id number] [place] [address] 91669 -8324 Feb, Diabetes type 2, uncontrolled E11.65 ; Hypertension I10 ; Edema 782.3 and Cellulitis L03.90 [facility] [id number] [place] [address] 48991- 8116 Feb, [facility] [id number] [place] [address] 65149- 2211 Feb, [facility] [address] 35391- 8434 Feb, Left rotator cuff tear M75.102 [facility] [id number] [place] [address] 43181- 3700 Feb, [facility] [id number] [place] [address] 37628- 8727 Feb, Diabetes type 2, uncontrolled E11.65 and Edema R60.9 [facility] [address] 48585- 9599 Jan, Hypertension, essential I10 [facility] [id number] [place] [address] 37812- 0703 Dec, Hypertension I10 [facility] [id number] [place] [address] 67558- 1365 Dec, [facility] [id number] [place] [address] 51347- 0906 Dec, Renal insufficiency N28.9 and Edema R60.9 [facility] [id number] [place] [address] 34072- 7395 Dec, [facility] [id number] [place] [address] 34333- 6645 Dec, [facility] [id number] [place] [address] 15382- 7977 Dec, [facility] [id number] [place] [address] 54160 -2068 Nov, Pedal edema R60.0 and Benign essential hypertension I10 [facility] [address], [place] [address]- 8758 Nov, Benign essential hypertension I10 and Renal insufficiency N28.9 [facility] [address], [place] [address] -3271 Nov, Acute laryngopharyngitis J06.0 ; Benign essential hypertension I10 and Strep pharyngitis J02.0 [facility] [address] [place] [address] 23639- 9631 Nov, Diabetes type 2, uncontrolled E11.65 ; Renal insufficiency N28.9 and Localized edema R60.0 [facility] [id number] [place] [address] 93911- 6654 Oct, [facility] [id number] [place] [address] 98138- 5018 Oct, Diabetes E11.9 [facility] [id number] [place] [address] 72505- 2309 Sep, [facility] [id number] [place] [address] 48379- 3322 May, [facility] [id number] [place] [address] 41505- 6272 May, Diabetes with neurological manifestations, type II or unspecified type, not stated as uncontrolled 250.60 [facility] [address] [address]- 0108 May, [facility] [address] [place] [address] 83358- 2910 May, [facility] [id number] [place] [address] 88662- 9993 May, Diabetes with neurological manifestations, type II or unspecified type, not stated as uncontrolled 250.60 and HTN (hypertension) 401.9 [facility] [id number] [place] [address] 34188- 2344 Apr, [facility] [place] [facility] [address] [id number] [place] [address]- 3187 Feb, [facility] [place] [facility] [address] [id number] [place] [address]- 8714 Feb, [facility] [place] [facility] [address] [id number] [place] [address]- 3679 Jan, [facility] [place] [facility] [address] [id number] [place] [address]- 2756 Jan, [facility] [place] [facility] [address] [id number] [place] [address]- 1920 Dec, [facility] [place] [facility] [address] [id number] [place] [address]- 2685 Dec, [facility] [place] [facility] [address] [id number] [place] [address]- 9925 Dec, [facility] [place] [facility] [address] [id number] [place] [address]- 4656 Nov, [facility] [place] [facility] [address] [id number] [place] [address]- 0790 Nov, [facility] [place] [facility] [address] [id number] [place] [address]- 0466 Sep, [facility] [place] [facility] [address] [id number] [place] [address]- 5622 Sep, [facility] [place] [facility] [address] [id number], [place] [address]- 3508 Jul, [facility] [place] [facility] [address] [id number] [place] [address]- 9665 Jul, [facility] [place] [facility] [address] [id number] [place] [address]- 0528 16 Jul, 2014 [facility] [place] [facility] [address] [id number] [place] [address]- 1814 16 Jul, 2014 [facility] [place] [facility] [address] [id number] [place] [address]- 4702 Jun, [facility] [place] [facility] [address] [id number] [place] [address]- 4493 Jun, [facility] [place] [facility] [address] [id number] [place] [address]- 9595 May, [facility] [place] [facility] [address] [id number] [place] [address]- 8841 May, [facility] [place] [facility] [address] [id number] [place] [address]- 2559 May, [facility] [place] [facility] [address] [id number] [place] [address]- 8809 May, [facility] [place] [facility] [address] [id number] [place] [address]- 1435 Apr, [facility] [place] [facility] [address] [id number] [place] [address]- 6615 Apr, [facility] [place] [facility] [address] [id number] [place] [address]- 9478 Apr, [facility] [place] [facility] [address] [id number] [place] [address]- 1250 Apr, [facility] [place] [facility] [address] [id number] [place] [address]- 7934 March, [facility] [place] [facility] [address] [id number] [place] [address]- 4101 March, [facility] [place] [facility] [address] [id number] [place] [address]- 5691 Feb, [facility] [place] [facility] [address] [id number] [place] [address]- 4574 Feb, [facility] [place] [facility] [address] [id number] [place] [address]- 9962 Feb, [facility] [place] [facility] [address] [id number] [place] [address]- 5669 Feb, [facility] [address] [id number] [place] [address]- 1767 Jan, [facility] [place] [facility] [address] [id number] [place] [address]- 7946 Jan, [facility] [place] [facility] [address] [id number] [place] [address]- 2586 Nov, [facility] [place] [facility] [address] [id number] [place] [address]- 0064 Nov, [facility] [place] [facility] [address] [id number] [place] [address]- 3463 Oct, [facility] [place] [facility] [address] [id number] [place] 9722 Oct, [facility] [place] [facility] [address] [id number] [place] [address]- 1240 Oct, [facility] [place] [facility] [address] [id number] [place] 5879 Oct, [facility] [place] [facility] [address] [id number] [place] 9614 Oct, [facility] [place] [facility] [address] [id number] 1572 Oct, [facility] [place] [facility] [address] [id number], [place] [address]- 2261 Oct, [facility] [place] [facility] [address] [id number], [place] [address]- 5182 Oct, [facility] [place] [facility] [address] [id number] [place] [address]- 6946 Sep, [facility] [place] [facility] [address] [id number] [place] [address]- 6776 Sep, [facility] [place] [facility] [address] [id number], [place] [address]- 9956 Aug, [facility] [place] [facility] [address] [id number], [place] [address]- 4631 17 Aug, 2012 [facility] [place] [facility] [address] [id number] [place] [address]- 7089 17 Aug, 2012 [facility] [place] [facility] [address] [id number] [place] [address]- 0638 17 Aug, 2012 [facility] [place] [facility] [address] [id number] [place] [address]- 6940 16 Aug, 2012 [facility] [place] [facility] [address] [id number] [place] [address]- 0127 11 Aug, 2012 [facility] [place] [facility] [address] [id number] [place] [address]- 8511 11 Aug, 2013 [facility] [place] [facility] [address] [id number] [place] [address]- 4795 10 Aug, 2013 [facility] [place] [facility] [address] [id number] [place] [address]- 4525 Aug, [facility] [place] [facility] [address] [id number] [place] [address]- 4015 Aug, [facility] [place] [facility] [address] [facility] [id number] [place] [address]- 3489 Aug, [facility] [place] [facility] [address] [id number] [place] [address]- 4829 24 Jul, 2013 [facility] [place] [facility] [address] [id number] [place] [address]- 6653 Jun, [facility] [place] [facility] [address] [id number], [place] [address]- 3036 Jun, [facility] [place] [facility] [address] [id number] [place] [address]- 6391 May, [facility] [place] [facility] [address] [id number] [place] [address]- 1315 May, [facility] [place] [facility] [address] [facility] [id number] [place] [address]- 7669 Apr, [facility] [place] [facility] [address] [id number] [place] [address]- 7184 March, [facility] [address] [id number] [place] [address]- 5115 Feb, [facility] [place] [facility] [address] [id number] [place] [address]- 2696 Jan, [facility] [place] [facility] [address] [id number] [place] [address]- 9776 Dec, [facility] [place] [facility] [address] [id number] [place] [address] Dec, [facility] [place] [facility] [address] [id number] [place] [address] Dec, [facility] [address] [id number] [place] [address] Nov, [facility] [address] [id number] [place] [address] Nov, [facility] [place] [facility] [address] [id number] [place] [address] Nov, [facility] [place] [facility] [address] [id number] [place] [address] Oct, [facility] [place] [facility] [address] [id number] [place] [address] Oct, [facility] [place] [facility] [address] [id number] [place] [address] Oct, [facility] [place] [facility] [address] [id number] [place] [address] Oct, [facility] [place] [facility] [address] [id number] [place] [address] Sep, [facility] [place] [facility] [address] [id number] [place] [address] Sep, [facility] [place] [facility] [address] [id number] [place] [address] Sep, [facility] [place] [facility] [address] [id number] [place] [address] Sep, [facility] [place] [facility] [address] [id number] [place] [address] Aug, [facility] [place] [facility] [address] [id number] [place] [address] Aug, [facility] [place] [facility] [address] [id number] [place] [address] Aug, [facility] [place] [facility] [address] [id number] [place] [address] Aug, [facility] [place] [facility] [address] [id number] [place] [address] Aug, [facility] [place] [facility] [address] [id number] [place] [address] Aug, [facility] [place] [facility] [address] [id number] [place] [address] Jul, [facility] [place] [facility] [address] [id number] [place] [address] Jun, [facility] [place] [facility] [address] [id number] [place] [address] Jun, [facility] [place] [facility] [address] [id number] [place] [address] Jun, [facility] [place] [facility] [address] [id number] [place] [address] May, [facility] [place] [facility] [address] [id number] [place] [address] May, [facility] [place] [facility] [address] [id number] [place] [address] March, [facility] [place] [facility] [address] [id number] [place] [address] March, [facility] [place] [facility] [address] [id number] [place] [address] March, [facility] [address] [id number] [place] [address] Feb, [facility] [place] [facility] [address] [id number] [place] [address] Feb, [facility] [address] [id number] [place] [address] Feb, [facility] [place] [facility] [address] [id number] [place] [address] Jan, [facility] [address] [id number] [place] [address] Jan, [facility] [place] [facility] [address] [id number] [place] [address] Dec, [facility] [place] [facility] [address] [id number] [place] [address] Dec, [facility] [address] [id number] [place] [address] Dec, [facility] [place] [facility] [address] [id number] [address] Dec, [facility] [address] [id number] [place] [address] Dec, [facility] [place] [facility] [address] [facility] [id number] [place] [address] Dec, [facility] [place] [facility] [address] [id number] [place] [address] Dec, [facility] [place] [facility] [address] [id number] [place] [address] Nov, [facility] [place] [facility] [address] [id number] [place] [address] Nov, [facility] [place] [facility] [address] [id number] [place] [address] Nov, [facility] [id number] [address] Nov, [facility] [id number], [place] [address] Nov, [facility] [id number], [place] [address] Nov, [facility] [id number], [place] [address] Oct, [facility] [id number] [address] Oct, [facility] [id number] [place] [address] Oct, [facility] [id number] [address] Oct, [facility] [id number], [place] [address] Oct, [facility] [id number], [place] [address] Oct, [facility] [id number] [address] Oct, [facility] [id number], [place] [address] Oct, [facility] [id number], [place] [address] Aug, [facility] [id number] [address] Jan, [facility] [id number] [address] Jan, IMMUNIZATIONS No Known Immunizations SOCIAL HISTORY Never Assessed REASON FOR VISIT Medication refill request PLAN OF CARE VITAL SIGNS MEDICATIONS Unknown [...]
--- OUTSIDE RECORDS SUMMARY | 2018-06-16 19:52 | XMS REPORT ---
Author Author INGRID CHOUDHARY Organization [facility] Address [address] [place] [address] Care Team Providers Care Review Rn Name Role Phone INGRID CHOUDHARY Unavailable PROBLEMS Type Condition ICD9-CM Code [id number] Code Onset Dates Condition Status SNOMED Code Problem Diabetes type 2, uncontrolled E11.65 Active 752431941 Problem Chronic kidney disease, stage 4 (severe) N18.4 Active 442462201 Problem Hypertension I10 Active 66140542 Problem Controlled type 2 diabetes mellitus without complication, without long -term current use of insulin E11.9 Active 746157863 Problem 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, unspecified supervisor intermediates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 status E11.42 Active 644788364 Problem Type 2 diabetes mellitus with diabetic chronic kidney disease E11.22 Active 42713460 Problem Type 2 diabetes mellitus with hyperglycemia E11.65 Active 281554115589273 Problem Constipation, unspecified constipation type K59.00 Active 93936127 Problem intermediate frame tender current use of insulin Z79.4 Active 471448179 Problem Need for prophylactic vaccination and inoculation against pertussis alone V03.6 Active 80190371 Problem Edema 782.3 Active 987960382 Problem Diabetes with neurological manifestations, type II or unspecified type , not stated as uncontrolled 250.60 Active 959359795 Problem Renal failure N19 Active 85027544 Problem Other and unspecified noninfectious gastroenteritis and colitis 558.9 Active 11262588 Problem HTN (hypertension) 401.9 Active 93466400 Problem Diabetes mellitus without mention of complication, type II or unspecified type, not stated as uncontrolled 250.00 Active 724385680 Problem Diabetes E11.9 Active 05154465 ALLERGIES No Information ENCOUNTERS Encounter Location Date Diagnosis [facility] [address] [facility] [id number] [address] Jan, [facility] [address] [facility] [id number], [place] [address] Nov, Controlled type 2 diabetes mellitus without complication, without long-term current use of insulin E11.9 [facility] [address] [place] [address] [id number] Nov, [facility] [id number] [place] [address] 73753- 0244 Oct, [facility] [id number] [place] [address] 05209- 6098 Oct, [facility] [id number] [place] [address] 27208- 7137 Oct, [facility] [id number] [place] [address] 77330- 2433 Oct, [facility] [id number] [place] [address] 11426- 5089 Oct, [facility] [id number] [place] [address] 55399- 3552 Sep, [facility] [id number] [place] [address] 31655 -0036 Aug, Acute bronchitis, unspecified organism J20.9 [facility] [id number] [place] [address] 34906- 2855 Aug, [facility] [id number] [place] [address] 85092 -2859 Aug, Diarrhea of infectious origin A09 [facility] [id number] [place] [address] 12414- 9700 Aug, [facility] [id number] [place] [address] 69021- 8987 Jul, 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, unspecified fci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 status E11.42 [facility] [id number] [place] [address] [id number] Jul, Encounter for dental examination Z01.20 [facility] [id number] [place] [address] 53539- 6953 Jul, 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, unspecified supervisor intermediates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 status E11.42 [facility] [address] [place] [address] 370327 -1296 Jun, Acute frontal sinusitis J01.10 [facility] [id number] [place] [address] [id number] Jun, Dental examination Z01.20 [facility] [id number] [place] [address] 30880 2546 May, [facility] [id number] [place] [address] 49456- 1486 May, [facility] [id number] [place] [address] 96965 2546 May, Open wound of toe, initial encounter S91.109A [facility] [id number] [place] [address] [id number] Apr, Dental examination Z01.20 [facility] [id number] [place] [address] 56892- 0166 Apr, Diabetes E11.9 and Stage 4 chronic kidney disease N18.4 [facility] [id number] [place] [address] [id number]- 6926 March, [facility] [id number] [place] [address] 973722- 6136 Feb, [facility] [id number] [place] [address] 97406- 1296 Feb, [facility] [address] [place] [address] 395755- 8516 Feb, [facility] [id number] [place] [address] 318456- 7196 13 Dec, 2016 [facility] [address] [address] [address] Dec, Constipation, unspecified constipation type K59.00 [facility] [id number] [place] [address] 82963- 9259 Dec, [facility] [id number] [place] [address] 41479- 3276 Dec, [facility] [id number] [place] [address] 15939- 6997 Dec, Renal failure N19 and Hypokalemia E87.6 [facility] [id number] [place] [address] 85690- 6039 Nov, Renal failure N19 and Hypokalemia E87.6 [facility] [id number] [place] [address] 96881- 2320 Nov, Chronic kidney disease, stage 4 (severe) N18.4 [facility] [id number] [place] [address] 63356- 4813 Nov, Chronic kidney disease, stage 4 (severe) N18.4 [facility] [id number] [place] [address] 81164- 5484 Nov, [facility] [id number] [place] [address] 55981- 1608 Nov, [facility] [id number] [place] [address] 86914- 2956 Nov, Dysthymia F34.1 [facility] [id number] [place] [address] 83193- 5629 Nov, [facility] [address] [place] [address] 67944 -3249 Oct, Bronchitis J40 [facility] [id number] [place] [address] 50205- 5697 Oct, Localized edema R60.0 [facility] [id number] [place] [address] 03124- 6256 Sep, Renal failure N19 ; Type 2 diabetes mellitus with diabetic chronic kidney disease E11.22 and Chronic kidney disease, stage 4 (severe) N18.4 [facility] [address] [place] [address] 50834- 8697 Aug, Renal failure N19 ; Diabetes E11.9 ; Type 2 diabetes mellitus with diabetic chronic kidney disease E11.22 ; Type 2 diabetes mellitus with hyperglycemia E11.65 ; Chronic kidney disease, stage 4 (severe) N18.4 and [facility] current use of insulin Z79.4 [facility] [id number] [place] [address] 76267- 1304 Aug, Bronchitis J40 [facility] [id number] [place] [address] 33627- 0311 Aug, [facility] [id number] [place] [address] 00507 -2256 Aug, Bronchitis J40 [facility] [id number] [place] [address] 18675- 3494 Aug, Displaced fracture of greater trochanter of left femur, initial encounter for closed fracture S72.112A [facility] [id number] [place] [address] 22598- 0662 Jul, Hip fracture, left, closed, with routine healing, subsequent encounter S72.002D ; Renal failure N19 and Uncontrolled type 2 diabetes mellitus without complication, without long-term current use of insulin E11.65 [facility] [address] [place] [address] 11698- 0196 Jul, [facility] [id number] [place] [address] 78983- 1678 Jul, [facility] [id number] [place] [address] 86609- 8663 Jul, [facility] [id number] [place] [address] 45155- 8838 Jul, [facility] [id number] [place] [address] 96613- 4911 May, [facility] [address] [place] [address] 82784- 1899 May, Orthostatic hypotension I95.1 and Renal insufficiency N28.9 [facility] [address] [place] [address] 04060- 2214 May, Renal failure N19 [facility] [id number] [place] [address] 32529- 1493 May, [facility] [id number] [place] [address] 59572- 9802 Apr, Renal failure N19 [place] [facility] [id number] [place] [address] 59481- 0028 Apr, [facility] [id number] [place] [address] 89664- 4469 Apr, [facility] [id number] [place] [address] 39644 -1551 Apr, Orthostatic hypotension I95.1 and 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, unspecified supervisor intermediates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 status E11.42 [facility] [id number] [place] [address] 81839- 6044 March, Left rotator cuff tear M75.102 [facility] [id number] [place] [address] 97716 -9617 March, Allergic reaction to drug T78.40XA [facility] [address] [place] [address] 89902- 7023 March, Diabetes type 2, controlled E11.9 [facility] [id number] [place] [address] 01632- 6142 Feb, Left rotator cuff tear M75.102 [facility] [id number] [place] [address] 54202- 7072 Feb, Left rotator cuff tear M75.102 [facility] [id number] [place] [address] 05101 -9389 Feb, Diabetes type 2, uncontrolled E11.65 ; Hypertension I10 ; Edema 782.3 and Cellulitis L03.90 [facility] [id number] [place] [address] 01364- 5879 Feb, [facility] [id number] [place] [address] 25496- 3497 Feb, [facility] [address] 73656- 0286 Feb, Left rotator cuff tear M75.102 [facility] [id number] [place] [address] 54592- 8170 Feb, [facility] [id number] [place] [address] 21909- 7694 Feb, Diabetes type 2, uncontrolled E11.65 and Edema R60.9 [facility] [address] 86049- 2290 Jan, Hypertension, essential I10 [facility] [id number] [place] [address] 04790- 6145 Dec, Hypertension I10 [facility] [id number] [place] [address] 42005- 7385 Dec, [facility] [id number] [place] [address] 47634- 9209 Dec, Renal insufficiency N28.9 and Edema R60.9 [facility] [id number] [place] [address] 19168- 8324 Dec, [facility] [id number] [place] [address] 55509- 3337 Dec, [facility] [id number] [place] [address] 53473- 1942 Dec, [facility] [id number] [place] [address] 84200 -4542 Nov, Pedal edema R60.0 and Benign essential hypertension I10 [facility] [address] [address]- 0641 Nov, Benign essential hypertension I10 and Renal insufficiency N28.9 [facility] [address] [address] Nov, Acute laryngopharyngitis J06.0 ; Benign essential hypertension I10 and Strep pharyngitis J02.0 [facility] [address] [place] [address] 95145- 2298 Nov, Diabetes type 2, uncontrolled E11.65 ; Renal insufficiency N28.9 and Localized edema R60.0 [facility] [id number] [place] [address] 82175- 3783 Oct, [facility] [id number] [place] [address] 30904- 0446 Oct, Diabetes E11.9 [facility] [id number] [place] [address] 14213- 0642 Sep, [facility] [id number] [place] [address] 96149- 7812 May, [facility] [id number] [place] [address] 29299- 4623 May, Diabetes with neurological manifestations, type II or unspecified type, not stated as uncontrolled 250.60 [facility] [address] [address]- 5341 May, [facility] [address] [place] [address] 25943- 7796 May, [facility] [id number] [place] [address] 33666- 0549 May, Diabetes with neurological manifestations, type II or unspecified type, not stated as uncontrolled 250.60 and HTN (hypertension) 401.9 [facility] [id number] [place] [address] 61820- 8386 Apr, [facility] [place] [facility] [address] [id number] [place] [address]- 0296 Feb, [facility] [place] [facility] [address] [id number] [place] [address]- 1293 Feb, [facility] [place] [facility] [address] [id number] [place] [address]- 3662 Jan, [facility] [place] [facility] [address] [id number] [place] [address]- 7955 Jan, [facility] [place] [facility] [address] [id number] [place] [address]- 7337 Dec, [facility] [place] [facility] [address] [id number] [place] [address]- 1944 Dec, [facility] [place] [facility] [address] [id number] [place] [address]- 6540 Dec, [facility] [place] [facility] [address] [id number] [place] [address]- 0192 Nov, [facility] [place] [facility] [address] [id number] [place] [address]- 4705 Nov, [facility] [place] [facility] [address] [id number] [place] [address]- 8742 Sep, [facility] [place] [facility] [address] [id number] [place] [address]- 3063 Sep, [facility] [place] [facility] [address] [id number], [place] [address]- 4692 Jul, [facility] [place] [facility] [address] [id number] [place] [address]- 3363 Jul, [facility] [place] [facility] [address] [id number] [place] [address]- 9857 16 Jul, 2014 [facility] [place] [facility] [address] [id number] [place] [address]- 1952 16 Jul, 2014 [facility] [place] [facility] [address] [id number] [place] [address]- 8615 Jun, [facility] [place] [facility] [address] [id number] [place] [address]- 1826 Jun, [facility] [place] [facility] [address] [id number] [place] [address]- 7556 May, [facility] [place] [facility] [address] [id number] [place] [address]- 6957 May, [facility] [place] [facility] [address] [id number] [place] [address]- 2777 May, [facility] [place] [facility] [address] [id number] [place] [address]- 5107 May, [facility] [place] [facility] [address] [id number] [place] [address]- 2331 Apr, [facility] [place] [facility] [address] [id number] [place] [address]- 5364 Apr, [facility] [place] [facility] [address] [id number] [place] [address]- 6970 Apr, [facility] [place] [facility] [address] [id number] [place] [address]- 3158 Apr, [facility] [place] [facility] [address] [id number] [place] [address]- 9488 March, [facility] [place] [facility] [address] [id number] [place] [address]- 1094 March, [facility] [place] [facility] [address] [id number] [place] [address]- 7118 Feb, [facility] [place] [facility] [address] [id number] [place] [address]- 8411 Feb, [facility] [place] [facility] [address] [id number] [place] [address]- 9919 Feb, [facility] [place] [facility] [address] [id number] [place] [address]- 5134 Feb, [facility] [address] [id number] [place] [address]- 4379 Jan, [facility] [place] [facility] [address] [id number] [place] [address]- 7346 Jan, [facility] [place] [facility] [address] [id number] [place] [address]- 6553 Nov, [facility] [place] [facility] [address] [id number] [place] [address]- 5083 Nov, [facility] [place] [facility] [address] [id number] [place] [address]- 0171 Oct, [facility] [place] [facility] [address] [id number] [place] 7677 Oct, [facility] [place] [facility] [address] [id number] [place] [address]- 8731 Oct, [facility] [place] [facility] [address] [id number] [place] 5265 Oct, [facility] [place] [facility] [address] [id number] [place] 6310 Oct, [facility] [place] [facility] [address] [id number] 4581 Oct, [facility] [place] [facility] [address] [id number], [place] [address]- 1347 Oct, [facility] [place] [facility] [address] [id number], [place] [address]- 5948 Oct, [facility] [place] [facility] [address] [id number] [place] [address]- 1294 Sep, [facility] [place] [facility] [address] [id number] [place] [address]- 1956 Sep, [facility] [place] [facility] [address] [id number], [place] [address]- 5716 Aug, [facility] [place] [facility] [address] [id number], [place] [address]- 2075 17 Aug, 2012 [facility] [place] [facility] [address] [id number] [place] [address]- 7689 17 Aug, 2012 [facility] [place] [facility] [address] [id number] [place] [address]- 0680 17 Aug, 2012 [facility] [place] [facility] [address] [id number] [place] [address]- 1716 16 Aug, 2012 [facility] [place] [facility] [address] [id number] [place] [address]- 7929 11 Aug, 2012 [facility] [place] [facility] [address] [id number] [place] [address]- 3930 11 Aug, 2013 [facility] [place] [facility] [address] [id number] [place] [address]- 9624 10 Aug, 2013 [facility] [place] [facility] [address] [id number] [place] [address]- 2578 Aug, [facility] [place] [facility] [address] [id number] [place] [address]- 6573 Aug, [facility] [place] [facility] [address] [facility] [id number] [place] [address]- 3500 Aug, [facility] [place] [facility] [address] [id number] [place] [address]- 2292 24 Jul, 2013 [facility] [place] [facility] [address] [id number] [place] [address]- 5887 Jun, [facility] [place] [facility] [address] [id number], [place] [address] Jun, [facility] [place] [facility] [address] [id number] [place] [address] May, [facility] [place] [facility] [address] [id number] [place] [address] May, [facility] [place] [facility] [address] [facility] [id number] [place] [address] Apr, [facility] [place] [facility] [address] [id number] [place] [address] March, [facility] [address] [id number] [place] [address] Feb, [facility] [place] [facility] [address] [id number] [place] [address] Jan, [facility] [place] [facility] [address] [id number] [place] [address] Dec, [facility] [place] [facility] [address] [id number] [place] [address] Dec, [facility] [place] [facility] [address] [id number] [place] [address] Dec, [facility] [place] [facility] [address] [id number] [place] [address] Nov, [facility] [address] [id number] [place] [address] Nov, [facility] [place] [facility] [address] [id number] [place] [address] Nov, [facility] [place] [facility] [address] [id number] [place] [address] Oct, [facility] [place] [facility] [address] [id number] [place] [address] Oct, [facility] [place] [facility] [address] [id number] [place] [address] Oct, [facility] [place] [facility] [address] [id number] [place] [address] Oct, [facility] [place] [facility] [address] [id number] [place] [address] Sep, [facility] [place] [facility] [address] [id number] [place] [address] Sep, [facility] [place] [facility] [address] [id number] [place] [address] Sep, [facility] [place] [facility] [address] [id number] [place] [address] Sep, [facility] [place] [facility] [address] [id number] [place] [address] Aug, [facility] [place] [facility] [address] [id number] [place] [address] Aug, [facility] [place] [facility] [address] [id number] [place] [address] Aug, [facility] [place] [facility] [address] [id number] [place] [address] Aug, [facility] [place] [facility] [address] [id number] [place] [address] Aug, [facility] [place] [facility] [address] [id number] [place] [address] Aug, [facility] [place] [facility] [address] [id number] [place] [address] Jul, [facility] [place] [facility] [address] [id number] [place] [address] Jun, [facility] [place] [facility] [address] [id number] [place] [address] Jun, [facility] [place] [facility] [address] [id number] [place] [address] Jun, [facility] [place] [facility] [address] [id number] [place] [address] May, [facility] [place] [facility] [address] [id number] [place] [address] May, [facility] [place] [facility] [address] [id number] [place] [address] March, [facility] [place] [facility] [address] [id number] [place] [address] March, [facility] [place] [facility] [address] [id number] [place] [address] March, [facility] [address] [id number] [place] [address] Feb, [facility] [place] [facility] [address] [id number] [place] [address] Feb, [facility] [address] [id number] [place] [address] Feb, [facility] [place] [facility] [address] [id number] [place] [address] Jan, [facility] [address] [id number] [place] [address] Jan, [facility] [place] [facility] [address] [id number] [place] [address] Dec, [facility] [place] [facility] [address] [id number] [place] [address] Dec, [facility] [address] [id number] [place] [address] Dec, [facility] [place] [facility] [address] [id number] [address] Dec, [facility] [address] [id number] [address] Dec, [facility] [place] [facility] [address] [facility] [id number] [place] [address] Dec, [facility] [place] [facility] [address] [id number] [place] [address] Dec, [facility] [place] [facility] [address] [id number] [place] [address] Nov, [facility] [place] [facility] [address] [id number] [place] [address] Nov, [facility] [place] [facility] [address] [id number] [place] [address] Nov, [facility] [address] [id number] [address] Nov, [facility] [id number] [address] Nov, [facility] [id number] [address] Nov, [facility] [id number] [address] Oct, [facility] [id number] [address] Oct, [facility] [address], [place] [address] Oct, [facility] [id number], [place] [address] Oct, [facility] [id number], [place] [address] Oct, [facility] [address], [place] [address] Oct, [facility] [id number], [place] [address] Oct, [facility] [id number] [address] [address] Oct, [facility] [address] [id number], [place] [address] Aug, [facility] [address], [place] [address] Jan, [facility] [address], [place] [address] Jan, IMMUNIZATIONS No Known Immunizations SOCIAL HISTORY Never Assessed REASON FOR VISIT Requests return call PLAN OF CARE VITAL SIGNS MEDICATIONS Unknown [...]
--- OUTSIDE RECORDS SUMMARY | 2018-06-16 19:55 | XMS REPORT ---
Author Author INGRID CHOUDHARY Organization [facility] Address [address] [place] [address] Care Team Providers Care Radiology Physician Name Role Phone INGRID CHOUDHARY Unavailable PROBLEMS Type Condition ICD9-CM Code FBL79-JC Code Onset Dates Condition Status SNOMED Code Problem Diabetes type 2, uncontrolled E11.65 Active 306366842 Problem Chronic kidney disease, stage 4 (severe) N18.4 Active 438312798 Problem Hypertension I10 Active 77639066 Problem Controlled type 2 diabetes mellitus without complication, without long -term current use of insulin E11.9 Active 184116029 Problem 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, 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 Active 595771967 Problem Type 2 diabetes mellitus with diabetic chronic kidney disease E11.22 Active 37323943 Problem Type 2 diabetes mellitus with hyperglycemia E11.65 Active 939952460046828 Problem Constipation, unspecified constipation type K59.00 Active 29252566 Problem 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 Active 262637428 Problem Need for prophylactic vaccination and inoculation against pertussis alone V03.6 Active 20759184 Problem Edema 782.3 Active 636408746 Problem Diabetes with neurological manifestations, type II or unspecified type , not stated as uncontrolled 250.60 Active 892728492 Problem Renal failure N19 Active 51928300 Problem Other and unspecified noninfectious gastroenteritis and colitis 558.9 Active 24903245 Problem HTN (hypertension) 401.9 Active 75949819 Problem Diabetes mellitus without mention of complication, type II or unspecified type, not stated as uncontrolled 250.00 Active 920698478 Problem Diabetes E11.9 Active 39842375 ALLERGIES Substance Reaction Event Type Date Status Doxycycline Unknown Drug Allergy Jul, Active Clindamycin HCl hives Drug Allergy Jul, Active Amoxicillin extreme diarrhea Drug Allergy Jul, Active ENCOUNTERS Encounter Location Date Diagnosis [facility] [address] [facility] [id number] [address] Jan, [facility] [address] [address] Nov, Controlled type 2 diabetes mellitus without complication, without long-term current use of insulin E11.9 [facility] [address] [id number] Nov, [facility] [id number] [place] [address] 68446- 6195 Oct, [facility] [id number] [place] [address] 13185- 0608 Oct, [facility] [id number] [place] [address] 076012- 3697 Oct, [facility] [id number] [place] [address] 241115- 1876 Oct, [facility] [id number] [place] [address] 103856- 2413 Oct, [facility] [id number] [place] [address] 273413- 4181 Sep, [facility] [id number] [place] [address] 99504 -7572 Aug, Acute bronchitis, unspecified organism J20.9 [facility] [address] [place] [address] 96739- 9328 Aug, [facility] [address] [place] [address] 88612 -3959 Aug, Diarrhea of infectious origin A09 [facility] [address], [place] [address] 2836 Aug, [facility] [id number] [place] [address] 743909- 3606 Jul, 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, unspecified retirement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 status E11.42 [facility] [address] [id number] Jul, Encounter for dental examination Z01.20 [facility] [address], [place] [address] 4826 Jul, 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, 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 [facility] [address], [place] [address] Jun, Acute frontal sinusitis J01.10 [facility] [id number] [place] [address] [id number] Jun, Dental examination Z01.20 [facility] [id number] [place] [address] 75843 2546 May, [facility] [id number] [place] [address] 99462 2546 May, [facility] [id number] [place] [address] 15925- 1026 May, Open wound of toe, initial encounter S91.109A [facility] [id number] [place] [address] [id number] Apr, Dental examination Z01.20 [facility] [id number] [place] [address] 11774- 5056 Apr, Diabetes E11.9 and Stage 4 chronic kidney disease N18.4 [facility] [address] [place] [address] 25218- 8256 March, [facility] [id number] [place] [address] [id number]- 9216 Feb, [facility] [id number] [place] [address] 90129- 5026 Feb, [facility] [id number] [place] [address] 97203- 5866 Feb, [facility] [address], [place] [address] 3386 Dec, [facility] [id number] [place] [address] 38099 -1404 10 Dec, 2016 Constipation, unspecified constipation type K59.00 [facility] [address] 76261- 8710 10 Dec, 2016 [facility] [address] 48254- 9301 Dec, [facility] [address] 61074- 2947 Dec, Renal failure N19 and Hypokalemia E87.6 [place] [address] 54533- 3297 Nov, Renal failure N19 and Hypokalemia E87.6 [facility] [address] 05119- 1172 Nov, Chronic kidney disease, stage 4 (severe) N18.4 [facility] [id number] [place] [address] 81262- 1797 Nov, Chronic kidney disease, stage 4 (severe) N18.4 [facility] [address] 91093- 6006 Nov, [facility] [id number] [place] [address] 88790- 8228 Nov, [facility] [id number] [place] [address] 48940- 5924 Nov, Dysthymia F34.1 [facility] [id number] [place] [address] 95974- 8590 Nov, [facility] [id number] [place] [address] 55781 -2925 Oct, Bronchitis J40 [facility] [id number] [place] [address] 29601- 6657 Oct, Localized edema R60.0 [facility] [address], [place] [address] 7808 Sep, Renal failure N19 ; Type 2 diabetes mellitus with diabetic chronic kidney disease E11.22 and Chronic kidney disease, stage 4 (severe) N18.4 [facility] [address], [place] [address] 2638 Aug, Renal failure N19 ; Diabetes E11.9 ; Type 2 diabetes mellitus with diabetic chronic kidney disease E11.22 ; Type 2 diabetes mellitus with hyperglycemia E11.65 ; Chronic kidney disease, stage 4 (severe) N18.4 and 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 [place] [id number] [place] [address] 81696- 8773 Aug, Bronchitis J40 [facility] [id number] [place] [address] 24362- 8254 Aug, [facility] [id number] [place] [address] 27404 -6188 Aug, Bronchitis J40 [facility] [id number] [place] [address] 29815- 1631 05 Aug, 2016 Displaced fracture of greater trochanter of left femur, initial encounter for closed fracture S72.112A [place] [address] [place] [address] 05464- 5929 26 Jul, 2016 Hip fracture, left, closed, with routine healing, subsequent encounter S72.002D ; Renal failure N19 and Uncontrolled type 2 diabetes mellitus without complication, without long-term current use of insulin E11.65 [place] [address], [place] [address]- 9179 Jul, [place] [id number] [place] [address] 40825- 0260 16 Jul, 2016 [place] [address] [place] [address] 55045- 6503 14 Jul, 2016 [place] [id number] [place] [address] 35991- 6074 Jul, [facility] [address], [place] [address]- 5510 May, [facility] [id number] [place] [address] 59603- 7580 May, Orthostatic hypotension I95.1 and Renal insufficiency N28.9 [facility] [id number] [place] [address] 98682- 2461 May, Renal failure N19 [facility] [id number] [place] [address] 40700- 7105 May, [facility] [id number] [place] [address] 69067- 8295 Apr, Renal failure N19 [facility] [id number] [place] [address] 45240- 6781 Apr, [facility] [id number] [place] [address] 98656- 1200 Apr, [facility] [id number] [place] [address] 55742 -4925 Apr, Orthostatic hypotension I95.1 and 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, unspecified retirement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 status E11.42 [place] [address] [place] [address] 80731- 8734 March, Left rotator cuff tear M75.102 [facility] [id number] [place] [address] 59691 -7837 March, Allergic reaction to drug T78.40XA [facility] [id number] [place] [address] 63469- 5097 March, Diabetes type 2, controlled E11.9 [facility] [address] [place] [address] 86402- 4540 Feb, Left rotator cuff tear M75.102 [facility] [id number] [place] [address] 23886- 5197 Feb, Left rotator cuff tear M75.102 [facility] [id number] [place] [address] 32089 -3618 Feb, Diabetes type 2, uncontrolled E11.65 ; Hypertension I10 ; Edema 782.3 and Cellulitis L03.90 [facility] [id number] [place] [address] 87920- 0197 Feb, [facility] [address] 83142- 1571 Feb, [facility] [address] 11533- 0749 Feb, Left rotator cuff tear M75.102 [facility] [address] 54046- 3451 Feb, [facility] [address] 85894- 5384 Feb, Diabetes type 2, uncontrolled E11.65 and Edema R60.9 [facility] [address] 32233- 7018 Jan, Hypertension, essential I10 [facility] [address] 70098- 2753 Dec, Hypertension I10 [facility] [id number] [place] [address] 06024- 3746 Dec, [facility] [id number] [place] [address] 63962- 2293 Dec, Renal insufficiency N28.9 and Edema R60.9 [facility] [address] 19932- 7688 Dec, [facility] [address] 63136- 5367 Dec, [facility] [address] 66957- 7334 Dec, [facility] [address], [place] [address]31 Nov, Pedal edema R60.0 and Benign essential hypertension I10 [facility] [id number] [place] [address] 90336- 4703 Nov, Benign essential hypertension I10 and Renal insufficiency N28.9 [facility] [id number] [place] [address] 65176 -3312 Nov, Acute laryngopharyngitis J06.0 ; Benign essential hypertension I10 and Strep pharyngitis J02.0 [facility] [id number] [place] [address] 36105- 4913 Nov, Diabetes type 2, uncontrolled E11.65 ; Renal insufficiency N28.9 and Localized edema R60.0 [facility] [id number] [place] [address] 32720- 3852 Oct, [facility] [id number] [place] [address] 92674- 4313 Oct, Diabetes E11.9 [facility] [id number] [place] [address] 75208- 5562 Sep, [facility] [id number] [place] [address] 58272- 5458 May, [facility] [id number] [place] [address] 17304- 5696 May, Diabetes with neurological manifestations, type II or unspecified type, not stated as uncontrolled 250.60 [facility] [id number] [place] [address] 98058- 0896 May, [facility] [id number] [place] [address] 58150- 0672 May, [facility] [id number] [place] [address] 95499- 3240 May, Diabetes with neurological manifestations, type II or unspecified type, not stated as uncontrolled 250.60 and HTN (hypertension) 401.9 [facility] [address] [facility] [id number] [place] [address]- 6428 Apr, [facility] [address] [facility] [id number] [address]- 0400 Feb, [facility] [address] [facility] [id number] [place] [address]- 2866 Feb, [facility] [address] [facility] [id number], [place] [address]- 4045 Jan, [facility] [address] [facility] [id number] [place] [address]- 7222 Jan, [facility] [address] [facility] [id number], [place] [address]- 2954 Dec, [facility] [address], [place] [address]- 3688 Dec, [facility] [address] [address]- 8114 Dec, [facility] [address], [place] [address]- 5307 Nov, [facility] [address] [place] [address]- 9111 Nov, [facility] [address], [place] [address]- 7682 Sep, [facility] [address] [facility] [id number], [place] [address]- 0250 Sep, [facility] [id number] [address]- 9294 Jul, [facility] [address] [facility] [id number] [place] [address]- 9370 Jul, [facility] [id number] [address]- 3948 Jul, [facility] [place] [facility] [address] [id number] [place] [address]- 6953 Jul, [facility] [place] [facility] [address] [id number] [place] [address]- 7406 Jun, [facility] [place] [facility] [address] [id number] [place] [address]- 4007 Jun, [facility] [place] [facility] [address] [id number] [place] [address]- 2175 May, [facility] [place] [facility] [address] [id number] [place] [address]- 4925 May, [facility] [place] [facility] [address] [id number] [place] [address]- 1492 May, [facility] [place] [facility] [address] [id number] [place] [address]- 6549 May, [facility] [place] [facility] [address] [id number] [place] [address]- 4855 Apr, [facility] [place] [facility] [address] [id number] [place] [address]- 7233 Apr, [facility] [place] [facility] [address] [id number] [place] [address]- 7067 Apr, [facility] [place] [facility] [address] [id number] [place] 9278 Apr, [facility] [place] [facility] [address] [id number] [place] [address]- 5171 March, [facility] [place] [facility] [address] [id number] [place] [address]- 7250 March, [facility] [place] [facility] [address] [id number] [place] [address]- 3980 Feb, [facility] [place] [facility] [address] [id number] [place] [address]- 5020 Feb, [facility] [place] [facility] [address] [id number] [place] [address]- 2721 16 Feb, 2014 [facility] [place] [facility] [address] [id number] [place] [address]- 2513 16 Feb, 2014 [facility] [place] [facility] [address] [id number] [place] [address]- 5360 Jan, [facility] [place] [facility] [address] [id number] [place] [address]- 6800 Jan, [facility] [place] [facility] [address] [id number] [place] [address]- 0481 Nov, [facility] [place] [facility] [address] [id number] [place] [address]- 4205 Nov, [facility] [place] [facility] [address] [id number] [place] [address]- 4340 Oct, [facility] [place] [facility] [address] [id number] [place] [address]- 9956 Oct, [facility] [place] [facility] [address] [id number] [place] [address]- 9048 Oct, [facility] [place] [facility] [address] [id number] [place] [address]- 1049 Oct, [facility] [place] [facility] [address] [id number] [place] [address]- 1833 Oct, [facility] [place] [facility] [address] [id number] [place] [address]- 3758 Oct, [facility] [place] [facility] [address] [id number], [place] [address]- 7679 Oct, [facility] [place] [facility] [address] [id number] [place] [address]- 8579 Oct, [facility] [place] [facility] [address] [id number] [place] [address]- 0763 Sep, [facility] [place] [facility] [address] [id number] [place] [address]- 2546 Sep, [facility] [place] [facility] [address] [id number] [place] [address]- 4439 17 Aug, 2012 [facility] [place] [facility] [address] [id number] [place] [address]- 1072 17 Aug, 2012 [facility] [place] [facility] [address] [id number] [place] [address]- 1738 17 Aug, 2012 [facility] [place] [facility] [address] [id number] [place] [address]- 3247 17 Aug, 2012 [facility] [place] [facility] [address] [id number] [place] [address]- 1847 16 Aug, 2012 [facility] [place] [facility] [address] [id number] [place] [address]- 2755 Aug, 2012 [facility] [place] [facility] [address] [id number] [place] [address]- 1216 11 Aug, 2012 [facility] [place] [facility] [address] [id number] [place] [address]- 7674 10 Aug, 2012 [facility] [place] [facility] [address] [id number] [place] [address]- 9868 Aug, [facility] [place] [facility] [address] [id number] [place] [address]- 0199 Aug, [facility] [place] [facility] [address] [id number] [place] [address]- 7601 08 Aug, 2013 [facility] [place] [facility] [address] [id number] [place] [address]- 0018 24 Jul, 2013 [facility] [place] [facility] [address] [id number] [place] [address]- 2549 Jun, [facility] [place] [facility] [address] [id number] [place] [address]- 6328 Jun, [facility] [place] [facility] [address] [id number] [place] [address]- 2542 May, [facility] [place] [facility] [address] [id number] [place] [address]- 4927 May, [facility] [place] [facility] [address] [id number] [place] [address]- 0729 Apr, [facility] [address] [id number] [place] [address]- 6332 March, [facility] [place] [facility] [address] [id number] [place] [address]- 8470 Feb, [facility] [place] [facility] [address] [id number] [place] [address]- 6444 Jan, [facility] [address] [id number] [place] [address] Dec, [facility] [place] [facility] [address] [id number] [place] [address] Dec, [facility] [address] [id number] [place] [address] Dec, [facility] [address] [id number] [place] [address] Nov, [facility] [address] [id number] [place] [address] Nov, [facility] [address] [id number] [place] [address] Nov, [facility] [address] [id number] [place] [address] Oct, [facility] [place] [facility] [address] [id number] [address] Oct, [facility] [place] [facility] [address] [id number] [place] [address] Oct, [facility] [place] [facility] [address] [id number] [place] [address] Oct, [facility] [place] [facility] [address] [id number] [place] [address] Sep, [facility] [place] [facility] [address] [id number] [place] [address] Sep, [facility] [place] [facility] [address] [id number] [place] [address] Sep, [facility] [place] [facility] [address] [id number] [place] [address] Sep, [facility] [place] [facility] [address] [id number] [place] [address] Aug, [facility] [place] [facility] [address] [id number] [place] [address] Aug, [facility] [place] [facility] [address] [id number] [place] [address] Aug, [facility] [place] [facility] [address] [id number] [place] [address] Aug, [facility] [place] [facility] [address] [facility] [id number] [place] [address] Aug, [facility] [place] [facility] [address] [id number] [place] [address] Aug, [facility] [place] [facility] [address] [facility] [id number] [place] [address] Jul, [facility] [place] [facility] [address] [facility] [id number] [place] [address] Jun, [facility] [place] [facility] [address] [id number] [place] [address] Jun, [facility] [place] [facility] [address] [id number] [place] [address] Jun, [facility] [place] [facility] [address] [id number] [place] [address] May, [facility] [place] [facility] [address] [facility] [id number] [place] [address] May, [facility] [place] [facility] [address] [facility] [id number] [place] [address] March, [facility] [place] [facility] [address] [id number] [place] [address] March, [facility] [place] [facility] [address] [id number] [place] [address] March, [facility] [place] [facility] [address] [id number] [place] [address] Feb, [facility] [place] [facility] [address] [id number] [place] [address] Feb, [facility] [place] [facility] [address] [id number] [place] [address] Feb, [facility] [place] [facility] [address] [id number] [place] [address] Jan, [facility] [place] [facility] [address] [facility] [id number] [place] [address] Jan, [facility] [place] [facility] [address] [id number] [place] [address] Dec, [facility] [place] [facility] [address] [id number] [place] [address] Dec, [facility] [place] [facility] [address] [id number] [place] [address] Dec, [facility] [place] [facility] [address] [id number] [place] [address] Dec, [facility] [place] [facility] [address] [id number], [place] [address] Dec, [facility] [place] [facility] [address] [facility] [id number] [place] [address] Dec, [facility] [place] [facility] [address] [id number] [place] [address] Dec, [facility] [place] [facility] [address] [facility] [id number] [place] [address] Nov, [facility] [place] [facility] [id number] [address] Nov, [facility] [address] [facility] [id number], [place] [address] Nov, [facility] [address] [facility] [id number], [place] [address] Nov, [facility] [address] [facility] [id number], [place] [address] Nov, [facility] [address] [facility] [id number], [place] [address] Nov, [facility] [address] [facility] [id number] [place] [address] Oct, [facility] [address] [facility] [id number] Oct, [facility] [id number] [address] Oct, [facility] [address] [facility] [id number], [place] [address] Oct, [facility] [address] [facility] [id number], [place] [address] Oct, [facility] [address] [facility] [id number], [place] [address] Oct, [facility] [address] [facility] [id number], [place] [address] Oct, [facility] [address] [facility] [id number], [place] [address] Oct, [facility] [address] [facility] [id number], [place] [address] Aug, [facility] [address] [facility] [id number], [place] [address] Jan, [facility] [address] [facility] [id number], [place] [address] Jan, IMMUNIZATIONS No Known Immunizations SOCIAL HISTORY Never Assessed REASON FOR VISIT med refill PLAN OF CARE VITAL SIGNS MEDICATIONS Unknown [...]
--- OUTSIDE RECORDS SUMMARY | 2018-06-16 19:57 | XMS REPORT | Continuity of Care Document ---
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 12/01/2016 MICHELE JAVIER MD Ot E11.21 TYPE 2 DIABETES MELLITUS WITH DIABETIC N 12/01/2016 MICHELE JAVIER MD Ot E55.9 VITAMIN D DEFICIENCY, UNSPECIFIED 12/01/2016 APARNA JAVIER MDINE Ot I12.9 HYPERTENSIVE CHRONIC KIDNEY DISEASE W ST 12/01/2016 MICHELE JAVIER MD Ot N18.4 CHRONIC KIDNEY DISEASE, STAGE 4 (SEVERE) 12/01/2016 MICHELE JAVIER MD Ot N20.0 CALCULUS OF KIDNEY 12/01/2016 MICHELE JAVIER MD Ot N25.0 RENAL OSTEODYSTROPHY 12/01/2016 MICHELE JAVIER MD Ot R60.9 EDEMA, UNSPECIFIED 12/19/2016 MICHELE JAVIER MD Ot D64.9 ANEMIA, UNSPECIFIED 12/19/2016 MICHELE JAVIER MD Ot E11.21 TYPE 2 DIABETES MELLITUS WITH DIABETIC N 12/19/2016 MICHELE JAVIER MD Ot E11.22 TYPE 2 DIABETES MELLITUS W DIABETIC TRY OUT PERSON 12/19/2016 MICHELE JAVIER MD Ot E55.9 VITAMIN D DEFICIENCY, UNSPECIFIED 12/19/2016 MICHELE JAVIER MD Ot I12.9 HYPERTENSIVE CHRONIC KIDNEY DISEASE W ST 12/19/2016 MICHELE JAVIER MD Ot N18.4 CHRONIC KIDNEY DISEASE, STAGE 4 (SEVERE) 12/19/2016 MICHELE JAVIER MD Ot N20.0 CALCULUS OF KIDNEY 12/19/2016 MICHELE JAVIER MD Ot N25.0 RENAL OSTEODYSTROPHY 12/19/2016 MICHELE JAVIER MD Ot R60.9 EDEMA, UNSPECIFIED 12/22/2016 IRA BRUCE APRN Ot E11.9 TYPE 2 DIABETES MELLITUS WITHOUT COMPLIC 12/22/2016 IRA BRUCE APRN Ot E87.6 HYPOKALEMIA 12/22/2016 IRA BRUCE APRN Ot I12.0 HYP CHR KIDNEY DISEASE W STAGE 5 CHR KID 12/22/2016 IRA BRUCE APRN Ot N18.6 END STAGE RENAL DISEASE 12/22/2016 IRA BRUCE APRN Ot R41.0 DISORIENTATION, UNSPECIFIED 12/22/2016 IRA BRUCE APRN Ot R53.1 WEAKNESS 12/22/2016 IRA BRUCE APRN Ot Z79.4 ALF (CURRENT) USE OF INSULIN 12/22/2016 IRA BRUCE APRN Ot Z79.899 OTHER [employer]OVING [place] (CURRENT) DRUG THERAPY 12/22/2016 IRA BRUCE APRN Ot 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 ON RENAL DIALYSIS 01/13/2017 Ot 250.40 DIAB W RENAL MANIFEST, TYPE II OR UNSPEC 01/13/2017 Ot 401.9 HYPERTENSION NOS 01/13/2017 Ot 593.2 CYST OF KIDNEY, ACQUIRED 01/13/2017 Ot 719.40 JOINT PAIN- UNSPEC 01/13/2017 Ot 719.06 JOINT EFFUSION-L/LEG 01/13/2017 Ot 719.46 JOINT PAIN-L /LEG 01/13/2017 LAURY KILPATRICK PHYSIOTHERAPY ASSISTANT Ot M75.102 UNSP ROTATR-CUFF TEAR/RUPTR OF LEFT SHOU 01/13/2017 MICHELE JAVIER MD Ot D64.9 ANEMIA, UNSPECIFIED 01/13/2017 MICHELE JAVIER MD Ot E11.21 TYPE 2 DIABETES MELLITUS WITH DIABETIC N 01/13/2017 MICHELE JAVIER MD Ot E11.22 TYPE 2 DIABETES MELLITUS W DIABETIC TRY OUT PERSON 01/13/2017 MICHELE JAVIER MD Ot E55.9 VITAMIN D DEFICIENCY, UNSPECIFIED 01/13/2017 MICHELE JAVIER MD Ot I12.9 HYPERTENSIVE CHRONIC KIDNEY DISEASE W ST 01/13/2017 MICHELE JAVIER MD Ot N18.4 CHRONIC KIDNEY DISEASE, STAGE 4 (SEVERE) 01/13/2017 MICHELE JAVIER MD Ot N20.0 CALCULUS OF KIDNEY 01/13/2017 MICHELE JAVIER MD Ot N25.0 RENAL OSTEODYSTROPHY 01/13/2017 MICHELE JAVIER MD Ot R60.9 EDEMA, UNSPECIFIED 01/30/2017 Ot 250.40 DIAB W RENAL MANIFEST, TYPE II OR UNSPEC 01/30/2017 Ot 401.9 HYPERTENSION NOS 01/30/2017 Ot 593.2 CYST OF KIDNEY, ACQUIRED 01/30/2017 Ot 719.40 JOINT PAIN- UNSPEC 01/30/2017 Ot 719.06 JOINT EFFUSION-L/LEG 01/30/2017 Ot 719.46 JOINT PAIN-L /LEG 01/30/2017 LAURY KILPATRICK Ot M75.102 UNSP ROTATR-CUFF TEAR/RUPTR OF LEFT SHOU 01/30/2017 MICHELE JAVIER MD Ot D64.9 ANEMIA, UNSPECIFIED 01/30/2017 MICHELE JAVIER MD Ot E11.21 TYPE 2 DIABETES MELLITUS WITH DIABETIC N 01/30/2017 MICHELE JAVIER MD Ot E11.22 TYPE 2 DIABETES MELLITUS W DIABETIC TRY OUT PERSON 01/30/2017 MICHELE JAVIER MD Ot E55.9 VITAMIN D DEFICIENCY, UNSPECIFIED 01/30/2017 MICHELE JAVIER MD Ot I12.9 HYPERTENSIVE CHRONIC KIDNEY DISEASE W ST 01/30/2017 MICHELE JAVIER MD Ot N18.4 CHRONIC KIDNEY DISEASE, STAGE 4 (SEVERE) 01/30/2017 MICHELE JAVIER MD Ot N20.0 CALCULUS OF KIDNEY 01/30/2017 MICHELE JAVIER MD Ot N25.0 RENAL OSTEODYSTROPHY 01/30/2017 MICHELE JAVIER MD Ot R60.9 EDEMA, UNSPECIFIED 05/01/2017 Ot 719.06 JOINT EFFUSION-L/LEG 05/01/2017 Ot 719.46 JOINT PAIN-L /LEG 05/01/2017 LAURY KILPATRICK Ot M75.102 UNSP ROTATR-CUFF TEAR/RUPTR OF LEFT SHOU 05/01/2017 MICHELE JAVIER MD Ot D64.9 ANEMIA, UNSPECIFIED 05/01/2017 MICHELE JAVIER MD Ot E11.21 TYPE 2 DIABETES MELLITUS WITH DIABETIC N 05/01/2017 MICHELE JAVIER MD Ot E11.22 TYPE 2 DIABETES MELLITUS W DIABETIC TRY OUT PERSON 05/01/2017 MICHELE JAVIER MD Ot E55.9 VITAMIN D DEFICIENCY, UNSPECIFIED 05/01/2017 MICHELE JAVIER MD Ot I12.9 HYPERTENSIVE CHRONIC KIDNEY DISEASE W ST 05/01/2017 MICHELE JAVIER MD Ot N18.4 CHRONIC KIDNEY DISEASE, STAGE 4 (SEVERE) 05/01/2017 MICHELE JAVIER MD Ot N20.0 CALCULUS OF KIDNEY 05/01/2017 MICHELE JAVIER MD Ot N25.0 RENAL OSTEODYSTROPHY 05/01/2017 MICHELE JAVIER MD Ot R60.9 EDEMA, UNSPECIFIED 05/02/2017 GREGORY BACA MD Ot E11.69 TYPE 2 DIABETES MELLITUS WITH OTHER SPEC 05/02/2017 GREGORY BACA MD Ot I12.0 HYP CHR KIDNEY DISEASE W STAGE 5 CHR KID 05/02/2017 GREGORY BACA MD Ot N18.6 END STAGE RENAL DISEASE 05/02/2017 GREGORY BACA MD Ot Z01.818 ENCOUNTER FOR OTHER PREPROCEDURAL EXAMIN 05/02/2017 GREGORY BACA MD Ot Z79.4 R[employer]ING [place]ER (CURRENT) USE OF INSULIN 05/02/2017 GREGORY BACA MD Ot 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 ON RENAL DIALYSIS 05/10/2017 GREGORY BACA MD Ot E11.69 TYPE 2 DIABETES MELLITUS WITH OTHER SPEC 05/10/2017 GREGORY BACA MD Ot I12.0 HYP CHR KIDNEY DISEASE W STAGE 5 CHR KID 05/10/2017 GREGORY BACA MD Ot N18.6 END STAGE RENAL DISEASE 05/10/2017 GREGORY BACA MD Ot Z01.818 ENCOUNTER FOR OTHER PREPROCEDURAL EXAMIN 05/10/2017 GREGORY BACA MD Ot Z79.4 ALF (CURRENT) USE OF INSULIN 05/10/2017 GREGORY BACA MD Ot 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 ON RENAL DIALYSIS 08/24/2017 REANNA QUINTANILLA DO Ot Z01.818 ENCOUNTER FOR OTHER PREPROCEDURAL EXAMIN 08/24/2017 REANNA QUINTANILLA DO Ot Z12.11 ENCOUNTER FOR SCREENING FOR MALIGNANT NE 08/24/2017 LAURY KILPATRICK Ot M75.102 UNSP ROTATR-CUFF TEAR/RUPTR OF LEFT SHOU 08/24/2017 MICHELE JAVIER MD Ot D64.9 ANEMIA, UNSPECIFIED 08/24/2017 MICHELE JAVIER MD Ot E11.21 TYPE 2 DIABETES MELLITUS WITH DIABETIC N 08/24/2017 MICHELE JAVIER MD Ot E11.22 TYPE 2 DIABETES MELLITUS W DIABETIC TRY OUT PERSON 08/24/2017 MICHELE JAVIER MD, Ot E55.9 VITAMIN D DEFICIENCY, UNSPECIFIED 08/24/2017 MICHELE JAVIER MD Ot I12.9 HYPERTENSIVE CHRONIC KIDNEY DISEASE W ST 08/24/2017 MICHELE JAVIER MD Ot N18.4 CHRONIC KIDNEY DISEASE, STAGE 4 (SEVERE) 08/24/2017 MICHELE JAVIER MD Ot N20.0 CALCULUS OF KIDNEY 08/24/2017 MICHELE JAVIER MD Ot N25.0 RENAL OSTEODYSTROPHY 08/24/2017 MICHELE JAVIER MD Ot R60.9 EDEMA, UNSPECIFIED 08/24/2017 GREGORY BACA MD Ot E11.69 TYPE 2 DIABETES MELLITUS WITH OTHER SPEC 08/24/2017 GREGORY BACA MD Ot I12.0 HYP CHR KIDNEY DISEASE W STAGE 5 CHR KID 08/24/2017 GREGORY BACA MD Ot N18.6 END STAGE RENAL DISEASE 08/24/2017 GREGORY BACA MD Ot Z01.818 ENCOUNTER FOR OTHER PREPROCEDURAL EXAMIN 08/24/2017 GREGORY BACA MD Ot Z79.4 ALF (CURRENT) USE OF INSULIN 08/24/2017 GREGROY BACA MD Ot 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 ON RENAL DIALYSIS 08/24/2017 REANNA QUINTANILLA DO Ot Z01.818 ENCOUNTER FOR OTHER PREPROCEDURAL EXAMIN 08/24/2017 REANNA QUINTANILLA DO Ot Z12.11 ENCOUNTER FOR SCREENING FOR MALIGNANT NE 08/24/2017 REANNA QUINTANILLA DO Ot E11.22 TYPE 2 DIABETES MELLITUS W DIABETIC TRY OUT PERSON 08/24/2017 QUINTANILLA DO, REANNA D Ot E66.9 OBESITY, UNSPECIFIED 08/24/2017 QUINTANILLA DO, REANNA D Ot I12.0 HYP CHR KIDNEY DISEASE W STAGE 5 CHR KID 08/24/2017 QUINTANILLA DO, REANNA D Ot N18.6 END STAGE RENAL DISEASE 08/24/2017 QUINTANILLA DO, REANNA D Ot Z12.11 ENCOUNTER FOR SCREENING FOR MALIGNANT NE 08/24/2017 QUINTANILLA DO, REANNA D Ot Z68.33 BODY MASS INDEX (BMI) 33.0-33.9, ADULT 08/24/2017 QUINTANILLA DO, REANNA D Ot 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 ON RENAL DIALYSIS 08/25/2017 QUINTANILLA DO, REANNA D Ot E11.22 TYPE 2 DIABETES MELLITUS W DIABETIC TRY OUT PERSON 08/25/2017 QUINTANILLA DO, REANNA D Ot E66.9 OBESITY, UNSPECIFIED 08/25/2017 QUINTANILLA DO, REANNA D Ot I12.0 HYP CHR KIDNEY DISEASE W STAGE 5 CHR KID 08/25/2017 QUINTANILLA DO, REANNA D Ot N18.6 END STAGE RENAL DISEASE 08/25/2017 QUINTANILLA DO, REANNA D Ot Z12.11 ENCOUNTER FOR SCREENING FOR MALIGNANT NE 08/25/2017 QUINTANILLA DO, REANNA D Ot Z68.33 BODY MASS INDEX (BMI) 33.0-33.9, ADULT 08/25/2017 QUINTANILLA DO, REANNA D Ot 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 ON RENAL DIALYSIS 08/30/2017 QUINTANILLA DO, REANNA D Ot E11.22 TYPE 2 DIABETES MELLITUS W DIABETIC TRY OUT PERSON 08/30/2017 QUINTANILLA DO, REANNA D Ot E66.9 OBESITY, UNSPECIFIED 08/30/2017 QUINTANILLA DO, REANNA D Ot I12.0 HYP CHR KIDNEY DISEASE W STAGE 5 CHR KID 08/30/2017 QUINTANILLA DO, REANNA D Ot N18.6 END STAGE RENAL DISEASE 08/30/2017 QUINTANILLA DO, REANNA D Ot Z12.11 ENCOUNTER FOR SCREENING FOR MALIGNANT NE 08/30/2017 QUINTANILLA DO, REANNA D Ot Z68.33 BODY MASS INDEX (BMI) 33.0-33.9, ADULT 08/30/2017 QUINTANILLA DO, REANNA D Ot 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 ON RENAL DIALYSIS 10/18/2017 LAURY KILPATRICK Ot M75.102 UNSP ROTATR-CUFF TEAR/RUPTR OF LEFT SHOU 10/18/2017 MICHELE JAVIER MD, Ot D64.9 ANEMIA, UNSPECIFIED 10/18/2017 MICHELE JAVIER MD, Ot E11.21 TYPE 2 DIABETES MELLITUS WITH DIABETIC N 10/18/2017 MICHELE JAVIER MD, Ot E11.22 TYPE 2 DIABETES MELLITUS W DIABETIC TRY OUT PERSON 10/18/2017 MICHELE JAVIER MD, Ot E55.9 VITAMIN D DEFICIENCY, UNSPECIFIED 10/18/2017 MICHELE JAVIER MD Ot I12.9 HYPERTENSIVE CHRONIC KIDNEY DISEASE W ST 10/18/2017 MICHELE JAVIER MD, Ot N18.4 CHRONIC KIDNEY DISEASE, STAGE 4 (SEVERE) 10/18/2017 MICHELE JAVIER MD, Ot N20.0 CALCULUS OF KIDNEY 10/18/2017 MICHELE JAVIER MD, Ot N25.0 RENAL OSTEODYSTROPHY 10/18/2017 MICHELE JAVIER MD, Ot R60.9 EDEMA, UNSPECIFIED 10/18/2017 GREGORY BACA MD Ot E11.69 TYPE 2 DIABETES MELLITUS WITH OTHER SPEC 10/18/2017 GREGORY BACA MD Ot I12.0 HYP CHR KIDNEY DISEASE W STAGE 5 CHR KID 10/18/2017 GREGORY BACA MD Ot N18.6 END STAGE RENAL DISEASE 10/18/2017 GREGORY BACA MD Ot Z01.818 ENCOUNTER FOR OTHER PREPROCEDURAL EXAMIN 10/18/2017 GREGORY BACA MD Ot Z79.4 ALF (CURRENT) USE OF INSULIN 10/18/2017 GREGORY BACA MD Ot 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 ON RENAL DIALYSIS 10/18/2017 REANNA QUINTANILLA DO Ot Z01.818 ENCOUNTER FOR OTHER PREPROCEDURAL EXAMIN 10/18/2017 REANNA QUINTANILLA DO Ot Z12.11 ENCOUNTER FOR SCREENING FOR MALIGNANT NE 10/18/2017 HÉCTOR COY MD, Ot M75.102 UNSP ROTATR-CUFF TEAR/RUPTR OF LEFT SHOU 10/18/2017 HÉCTOR COY MD Ot S43.402A UNSPECIFIED SPRAIN OF LEFT SHOULDER JOIN 10/18/2017 ZAFUTA MD, HÉCTOR P Ot X58.XXXA EXPOSURE TO OTHER SPECIFIED FACTORS, INI 10/18/2017 HÉCTOR COY MD, Ot Y99.8 OTHER EXTERNAL CAUSE STATUS 10/18/2017 HÉCTOR COY MD, Ot Z01.818 ENCOUNTER FOR OTHER PREPROCEDURAL EXAMIN 10/20/2017 HÉCTOR COY MD, Ot M75.102 UNSP ROTATR-CUFF TEAR/RUPTR OF LEFT SHOU 10/20/2017 HÉCTOR COY MD, Ot S43.402A UNSPECIFIED SPRAIN OF LEFT SHOULDER JOIN 10/20/2017 HÉCTOR COY MD, Ot X58.XXXA EXPOSURE TO OTHER SPECIFIED FACTORS, INI 10/20/2017 HÉCTOR COY MD, Ot Y99.8 OTHER EXTERNAL CAUSE STATUS 10/20/2017 HÉCTOR COY MD, Ot Z01.818 ENCOUNTER FOR OTHER PREPROCEDURAL EXAMIN 10/25/2017 HÉCTOR COY MD, Ot E11.40 TYPE 2 DIABETES MELLITUS WITH DIABETIC N 10/25/2017 HÉCTOR COY MD, Ot E78.5 HYPERLIPIDEMIA, UNSPECIFIED 10/25/2017 HÉCTOR COY MD Ot I10 ESSENTIAL (PRIMARY) HYPERTENSION 10/25/2017 HÉCTOR COY MD Ot M94.212 CHONDROMALACIA, LEFT SHOULDER 10/25/2017 HÉCTOR COY MD, Ot S43.432A SUPERIOR GLENOID LABRUM LESION OF LEFT S 10/25/2017 HÉCTOR COY MD Ot Z79.4 [employer]ING [employer] (CURRENT) USE OF INSULIN 10/25/2017 HÉCTOR COY MD, Ot Z79.899 OTHER [employer] [place] (CURRENT) DRUG THERAPY 10/25/2017 HÉCTOR COY MD, Ot Z88.1 ALLERGY STATUS TO OTHER ANTIBIOTIC AGENT 10/25/2017 HÉCTOR COY MD Ot 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 ON RENAL DIALYSIS 10/26/2017 HÉCTOR COY MD Ot E11.40 TYPE 2 DIABETES MELLITUS WITH DIABETIC N 10/26/2017 HÉCTOR COY MD Ot E78.5 HYPERLIPIDEMIA, UNSPECIFIED 10/26/2017 HÉCTOR COY MD Ot I10 ESSENTIAL (PRIMARY) HYPERTENSION 10/26/2017 HÉCTOR COY MD Ot M94.212 CHONDROMALACIA, LEFT SHOULDER 10/26/2017 HÉCTOR COY MD Ot S43.432A SUPERIOR GLENOID LABRUM LESION OF LEFT S 10/26/2017 HÉCTOR COY MD Ot Z79.4 ALF (CURRENT) USE OF INSULIN 10/26/2017 HÉCTOR COY MD Ot Z79.899 OTHER [employer] [place] (CURRENT) DRUG THERAPY 10/26/2017 HÉCTOR COY MD Ot Z88.1 ALLERGY STATUS TO OTHER ANTIBIOTIC AGENT 10/26/2017 HÉCTOR COY MD Ot 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 ON RENAL DIALYSIS 10/31/2017 HÉCTOR COY MD Ot E11.40 TYPE 2 DIABETES MELLITUS WITH DIABETIC N 10/31/2017 HÉCTOR COY MD Ot E78.5 HYPERLIPIDEMIA, UNSPECIFIED 10/31/2017 HÉCTOR COY MD Ot I10 ESSENTIAL (PRIMARY) HYPERTENSION 10/31/2017 HÉCTOR COY MD Ot M94.212 CHONDROMALACIA, LEFT SHOULDER 10/31/2017 HÉCTOR COY MD Ot S43.432A SUPERIOR GLENOID LABRUM LESION OF LEFT S 10/31/2017 HÉCTOR COY MD Ot Z79.4 ALF (CURRENT) USE OF INSULIN 10/31/2017 HÉCTOR COY MD Ot Z79.899 OTHER ALF (CURRENT) DRUG THERAPY 10/31/2017 HÉCTOR COY MD Ot Z88.1 ALLERGY STATUS TO OTHER ANTIBIOTIC AGENT 10/31/2017 HÉCTOR COY MD Ot 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 ON RENAL DIALYSIS 11/01/2017 HÉCTOR COY MD Ot M75.112 INCOMPLETE ROTATR-CUFF TEAR/RUPTR OF L S 11/08/2017 HÉCTOR COY MD Ot E11.40 TYPE 2 DIABETES MELLITUS WITH DIABETIC N 11/08/2017 HÉCTOR COY MD Ot E78.5 HYPERLIPIDEMIA, UNSPECIFIED 11/08/2017 HÉCTOR COY MD Ot I10 ESSENTIAL (PRIMARY) HYPERTENSION 11/08/2017 HÉCTOR COY MD Ot M94.212 CHONDROMALACIA, LEFT SHOULDER 11/08/2017 HÉCTOR COY MD Ot S43.432A SUPERIOR GLENOID LABRUM LESION OF LEFT S 11/08/2017 HÉCTOR COY MD Ot Z79.4 ALF (CURRENT) USE OF INSULIN 11/08/2017 HÉCTOR COY MD Ot Z79.899 OTHER [employer] [place] (CURRENT) DRUG THERAPY 11/08/2017 HÉCTOR COY MD, Ot Z88.1 ALLERGY STATUS TO OTHER ANTIBIOTIC AGENT 11/08/2017 HÉCTOR COY MD Ot 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 ON RENAL DIALYSIS 12/19/2017 HÉCTOR COY MD Ot M75.112 INCOMPLETE ROTATR-CUFF TEAR/RUPTR OF L S 01/23/2018 SHONNA LAURY Asim RAMEY Ot M75.102 UNSP ROTATR-CUFF TEAR/RUPTR OF LEFT SHOU 01/23/2018 MICHELE JAVIER MD Ot D64.9 ANEMIA, UNSPECIFIED 01/23/2018 MICHELE JAVIER MD Ot E11.21 TYPE 2 DIABETES MELLITUS WITH DIABETIC N 01/23/2018 MICHELE JAVIER MD Ot E11.22 TYPE 2 DIABETES MELLITUS W DIABETIC TRY OUT PERSON 01/23/2018 MICHELE JAVIER MD Ot E55.9 VITAMIN D DEFICIENCY, UNSPECIFIED 01/23/2018 MICHELE JAVIER MD Ot I12.9 HYPERTENSIVE CHRONIC KIDNEY DISEASE W ST 01/23/2018 MICHELE JAVIER MD Ot N18.4 CHRONIC KIDNEY DISEASE, STAGE 4 (SEVERE) 01/23/2018 MICHELE JAVIER MD Ot N20.0 CALCULUS OF KIDNEY 01/23/2018 MICHELE JAVIER MD Ot N25.0 RENAL OSTEODYSTROPHY 01/23/2018 MICHELE JAVIER MD Ot R60.9 EDEMA, UNSPECIFIED 01/23/2018 GREGORY BACA MD Ot E11.69 TYPE 2 DIABETES MELLITUS WITH OTHER SPEC 01/23/2018 GREGORY BACA MD Ot I12.0 HYP CHR KIDNEY DISEASE W STAGE 5 CHR KID 01/23/2018 GREGORY BACA MD Ot N18.6 END STAGE RENAL DISEASE 01/23/2018 GREGORY BACA MD Ot Z01.818 ENCOUNTER FOR OTHER PREPROCEDURAL EXAMIN 01/23/2018 GREGORY BACA MD Ot Z79.4 ALF (CURRENT) USE OF INSULIN 01/23/2018 GREGORY BACA MD Ot 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 ON RENAL DIALYSIS 01/23/2018 REANNA QUINTANILLA DO Ot Z01.818 ENCOUNTER FOR OTHER PREPROCEDURAL EXAMIN 01/23/2018 REANNA QUINTANILLA DO Ot Z12.11 ENCOUNTER FOR SCREENING FOR MALIGNANT NE 05/16/2018 REANNA QUINTANILLA DO Ot E11.22 TYPE 2 DIABETES MELLITUS W DIABETIC TRY OUT PERSON 05/16/2018 REANNA QUINTANILLA DO Ot E66.9 OBESITY, UNSPECIFIED 05/16/2018 REANNA QUINTANILLA DO Ot I12.0 HYP CHR KIDNEY DISEASE W STAGE 5 CHR KID 05/16/2018 REANNA QUINTANILLA DO Ot N18.6 END STAGE RENAL DISEASE 05/16/2018 REANNA QUINTANILLA DO Ot Z12.11 ENCOUNTER FOR SCREENING FOR MALIGNANT NE 05/16/2018 REANNA QUINTANILLA DO Ot Z68.33 BODY MASS INDEX (BMI) 33.0-33.9, ADULT 05/16/2018 REANNA QUINTANILLA DO Ot 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 ON RENAL DIALYSIS Procedures Code Description [place] [address] ROUTINE VENIPUNCTURE 09/25/2012 82162 A1C (IN-HOUSE) 09/25/2012 90496 UA LONG DIP 09/25/2012 40546 CMP 09/25/2012 [id number] GFR CALC (RESULT ONLY) 09/25/2012 41108 BIOPSY SKIN LESION (SINGLE) 10/30/2012 20475 ROUTINE VENIPUNCTURE 12/03/2012 27562 MICRO ALBUMIN-IN HOUSE 12/03/2012 59244 A1C (IN-HOUSE) 12/03/2012 51111 BMP 12/03/2012 [id number] GFR CALC (RESULT ONLY) 12/03/2012 42872 CPK 12/04/2012 74261 MICROALBUMIN 12/04/2012 13047 A1C (IN-HOUSE) 05/10/2013 63347 ROUTINE VENIPUNCTURE 09/04/2013 69348 XRAY CHEST 2 VIEW 09/04/2013 31860 A1C (IN-HOUSE) 09/04/2013 60782 CBC 09/04/2013 32571 CMP 09/04/2013 [id number] GFR CALC (RESULT ONLY) 09/04/2013 56250 MYCOPLASMA ANTIBODY 09/05/2013 72653 A1C (IN-HOUSE) 01/23/2014 10410 ROUTINE VENIPUNCTURE 05/20/2014 46085 A1C (IN-HOUSE) 05/20/2014 [id number] GFR CALC (RESULT ONLY) 05/20/2014 96739 CMP 05/20/2014 99385 ROUTINE VENIPUNCTURE 08/22/2014 68020 A1C (IN-HOUSE) 08/22/2014 79065 LIPID PANEL 08/22/2014 [id number] GFR CALC (RESULT ONLY) 08/22/2014 70821 [facility] 08/22/2014 Results Test Result Range Automated blood complete blood count (hemogram) panel - 07/11/16 18:50 Blood leukocytes automated count (number/volume) 6.9 10*3/uL 4.3-11.0 Blood erythrocytes automated count (number/volume) 3.67 10*6/uL 4.35-5.85 Venous blood hemoglobin measurement (mass/volume) 10.9 g/dL 13.3-17.7 Blood hematocrit (volume fraction) 32 % 40-54 Automated erythrocyte mean corpuscular volume 87 [foz_us] 80-99 Automated erythrocyte mean corpuscular hemoglobin (mass per erythrocyte) 30 pg 25-34 Automated erythrocyte mean corpuscular hemoglobin concentration measurement ( mass/volume) 34 g/dL 32-36 Automated erythrocyte distribution width ratio 12.7 % 10.0-14.5 Automated blood platelet count (count/volume) 167 10*3/uL 130-400 Automated blood platelet mean volume measurement 9.5 [foz_us] 7.4-10.4 Serum or plasma renal function panel (Na, K, Cl, CO2, BUN, Cr, glucose,Ca, phos , alb) - 07/11/16 18:50 Serum or plasma sodium measurement (moles/volume) 140 mmol/L 135-145 Serum or plasma potassium measurement (moles/volume) 3.6 mmol/L 3.6-5.0 Serum or plasma chloride measurement (moles/volume) 107 mmol/L 98-107 Carbon dioxide 22 mmol/L 21-32 Serum or plasma anion gap determination (moles/volume) 11 mmol/L 5-14 Serum or plasma urea nitrogen measurement (mass/volume) 47 mg/dL 7-18 Serum or plasma creatinine measurement (mass/volume) 3.28 mg/dL 0.60-1.30 Serum or plasma urea nitrogen/creatinine mass ratio 14 NRG Serum or plasma creatinine measurement with calculation of estimated glomerular filtration rate 20 NRG Serum or plasma glucose measurement (mass/volume) 178 mg/dL 70-105 Serum or plasma calcium measurement (mass/volume) 9.0 mg/dL 8.5-10.1 Serum or plasma albumin measurement (mass/volume) 3.7 g/dL 3.2-4.5 Serum or plasma phosphate measurement (mass/volume) 4.1 mg/dL 2.3-4.7 Serum iron and total iron binding capacity panel - 07/11/16 18:50 Serum or plasma iron measurement (mass/volume) 78 % 40- 180 Total iron binding capacity and transferrin saturation measurement 31 % 15-50 Iron binding capacity [mass/volume] in serum or plasma 250 % 280-380 UIBC (unsaturated iron binding capacity) 172 % 55-450 Serum or plasma ferritin measurement (mass/volume) 265 % 25-300 Serum or plasma intact pararthyroid hormone measurement (mass/volume) - 18:50 Serum or plasma intact parathyroid hormone measurement (mass/volume) 221 pg/mL 10-65 Bio-intact parathyroid hormone (PTH) measurement with calcium 9.0 % 8.5-10.5 25-hydroxyvitamin D measurement - 07/11/16 18:50 25-hydroxy vitamin D measurement 10 % 30-100 Complete urinalysis with reflex to culture - 07/11/16 18:56 Urine color determination YELLOW NRG Urine clarity determination CLEAR NRG Urine pH measurement by test strip 5 5-9 Specific gravity of urine by test strip 1.015 1.016- 1.022 Urine protein assay by test strip, semi-quantitative 4+ NEGATIVE Urine glucose detection by automated test strip 2+ NEGATIVE Erythrocytes detection in urine sediment by light microscopy 2+ NEGATIVE Urine ketones detection by automated test strip NEGATIVE NEGATIVE Urine nitrite detection by test strip NEGATIVE NEGATIVE Urine total bilirubin detection by test strip NEGATIVE NEGATIVE Urine urobilinogen measurement by automated test strip (mass/volume) NORMAL NORMAL Urine leukocyte esterase detection by dipstick NEGATIVE NEGATIVE Automated urine sediment erythrocyte count by microscopy (number/high power field) [HPF] NRG Automated urine sediment leukocyte count by microscopy (number/high power field ) NONE NRG Bacteria detection in urine sediment by light microscopy NEGATIVE NRG Squamous epithelial cells detection in urine sediment by light microscopy RARE NRG Crystals detection in urine sediment by light microscopy NONE NRG Casts detection in urine sediment by light microscopy NONE NRG Mucus detection in urine sediment by light microscopy NEGATIVE NRG Complete urinalysis with reflex to culture NO NRG Urine protein/creatinine mass ratio - 07/11/16 18:56 Urine protein measurement (mass/volume) 530 mg/dL 6-12 Urine creatinine measurement (mass/volume) 91 mg/dL 30- 125 Urine protein/creatinine mass ratio 5.82 NRG Complete blood count (CBC) with automated white blood cell (WBC) differential - 08/10/16 10:27 Blood leukocytes automated count (number/volume) 7.8 10*3/uL 4.3-11.0 Blood erythrocytes automated count (number/volume) 3.66 10*6/uL 4.35-5.85 Venous blood hemoglobin measurement (mass/volume) 11.0 g/dL 13.3-17.7 Blood hematocrit (volume fraction) 32 % 40-54 Automated erythrocyte mean corpuscular volume 88 [foz_us] 80-99 Automated erythrocyte mean corpuscular hemoglobin (mass per erythrocyte) 30 pg 25-34 Automated erythrocyte mean corpuscular hemoglobin concentration measurement ( mass/volume) 34 g/dL 32-36 Automated erythrocyte distribution width ratio 12.7 % 10.0-14.5 Automated blood platelet count (count/volume) 141 10*3/uL 130-400 Automated blood platelet mean volume measurement 9.9 [foz_us] 7.4-10.4 Automated blood neutrophils/100 leukocytes 69 % 42-75 Automated blood lymphocytes/100 leukocytes 20 % 12-44 Blood monocytes/100 leukocytes 8 % 0-12 Automated blood eosinophils/100 leukocytes 2 % 0-10 Automated blood basophils/100 leukocytes 1 % 0-10 Blood neutrophils automated count (number/volume) 5.4 10*3 1.8-7.8 Blood lymphocytes automated count (number/volume) 1.5 10*3 1.0-4.0 Blood monocytes automated count (number/volume) 0.6 10*3 0.0-1.0 Automated eosinophil count 0.2 10*3/uL 0.0-0.3 Automated blood basophil count (count/volume) 0.0 10*3/uL 0.0-0.1 PT panel in platelet poor plasma by coagulation assay - 08/10/16 10:27 Prothrombin time (PT) in platelet poor plasma by coagulation assay 12.9 s 12.2-14.7 INR in platelet poor plasma or blood by coagulation assay 1.0 0.8-1.4 Activated partial thromboplastin time (aPTT) in platelet poor plasma bycoagulation assay - 08/10/16 10:27 Activated partial thromboplastin time (aPTT) in platelet poor plasma bycoagulation assay 30 s 24-35 Comprehensive metabolic panel - 08/10/16 10:27 Serum or plasma sodium measurement (moles/volume) 140 mmol/L 135-145 Serum or plasma potassium measurement (moles/volume) 4.4 mmol/L 3.6-5.0 Serum or plasma chloride measurement (moles/volume) 111 mmol/L 98-107 Carbon dioxide 20 mmol/L 21-32 Serum or plasma anion gap determination (moles/volume) 9 mmol/L 5-14 Serum or plasma urea nitrogen measurement (mass/volume) 58 mg/dL 7-18 Serum or plasma creatinine measurement (mass/volume) 3.77 mg/dL 0.60-1.30 Serum or plasma urea nitrogen/creatinine mass ratio 15 NRG Serum or plasma creatinine measurement with calculation of estimated glomerular filtration rate 17 NRG Serum or plasma glucose measurement (mass/volume) 137 mg/dL 70-105 Serum or plasma calcium measurement (mass/volume) 9.0 mg/dL 8.5-10.1 Serum or plasma total bilirubin measurement (mass/volume) 0.7 mg/dL 0.1-1.0 Serum or plasma alkaline phosphatase measurement (enzymatic activity/volume) 87 U/L 40-136 Serum or plasma aspartate aminotransferase measurement (enzymatic activity/ volume) 17 U/L 5-34 Serum or plasma alanine aminotransferase measurement (enzymatic activity/volume ) 21 U/L 0-55 Serum or plasma protein measurement (mass/volume) 6.8 g/dL 6.4-8.2 Serum or plasma albumin measurement (mass/volume) 3.8 g/dL 3.2-4.5 Capillary blood glucose measurement by glucometer (mass/volume) - 08/10/16 16: 43 Capillary blood glucose measurement by glucometer (mass/volume) 139 mg/dL 70-110 Capillary blood glucose measurement by glucometer (mass/volume) - 08/10/16 20: 53 Capillary blood glucose measurement by glucometer (mass/volume) 149 mg/dL 70-110 Capillary blood glucose measurement by glucometer (mass/volume) - 08/11/16 05: 45 Capillary blood glucose measurement by glucometer (mass/volume) 143 mg/dL 70-110 Capillary blood glucose measurement by glucometer (mass/volume) - 08/11/16 11: 25 Capillary blood glucose measurement by glucometer (mass/volume) 163 mg/dL 70-110 Serum or plasma renal function panel (Na, K, Cl, CO2, BUN, Cr, glucose,Ca, phos , alb) - 08/22/16 12:51 Serum or plasma sodium measurement (moles/volume) 141 mmol/L 135-145 Serum or plasma potassium measurement (moles/volume) 4.1 mmol/L 3.6-5.0 Serum or plasma chloride measurement (moles/volume) 110 mmol/L 98-107 Carbon dioxide 20 mmol/L 21-32 Serum or plasma anion gap determination (moles/volume) 11 mmol/L 5-14 Serum or plasma urea nitrogen measurement (mass/volume) 52 mg/dL 7-18 Serum or plasma creatinine measurement (mass/volume) 3.40 mg/dL 0.60-1.30 Serum or plasma urea nitrogen/creatinine mass ratio 15 NRG Serum or plasma creatinine measurement with calculation of estimated glomerular filtration rate 19 NRG Serum or plasma glucose measurement (mass/volume) 88 mg/dL 70-105 Serum or plasma calcium measurement (mass/volume) 9.7 mg/dL 8.5-10.1 Serum or plasma albumin measurement (mass/volume) 3.9 g/dL 3.2-4.5 Serum or plasma phosphate measurement (mass/volume) 4.5 mg/dL 2.3-4.7 Serum or plasma uric acid measurement (mass/volume) - 08/22/16 12:51 Serum or plasma uric acid measurement (mass/volume) 7.6 mg/dL 2.6-7.2 Automated blood complete blood count (hemogram) panel - 08/22/16 12:51 Blood leukocytes automated count (number/volume) 8.0 10*3/uL 4.3-11.0 Blood erythrocytes automated count (number/volume) 3.57 10*6/uL 4.35-5.85 Venous blood hemoglobin measurement (mass/volume) 10.4 g/dL 13.3-17.7 Blood hematocrit (volume fraction) 31 % 40-54 Automated erythrocyte mean corpuscular volume 87 [foz_us] 80-99 Automated erythrocyte mean corpuscular hemoglobin (mass per erythrocyte) 29 pg 25-34 Automated erythrocyte mean corpuscular hemoglobin concentration measurement ( mass/volume) 34 g/dL 32-36 Automated erythrocyte distribution width ratio 13.1 % 10.0-14.5 Automated blood platelet count (count/volume) 219 10*3/uL 130-400 Automated blood platelet mean volume measurement 9.5 [foz_us] 7.4-10.4 Automated blood complete blood count (hemogram) panel - 10/27/16 14:25 Blood leukocytes automated count (number/volume) 5.8 10*3/uL 4.3-11.0 Blood erythrocytes automated count (number/volume) 3.20 10*6/uL 4.35-5.85 Venous blood hemoglobin measurement (mass/volume) 9.6 g/dL 13.3-17.7 Blood hematocrit (volume fraction) 29 % 40-54 Automated erythrocyte mean corpuscular volume 90 [foz_us] 80-99 Automated erythrocyte mean corpuscular hemoglobin (mass per erythrocyte) 30 pg 25-34 Automated erythrocyte mean corpuscular hemoglobin concentration measurement ( mass/volume) 33 g/dL 32-36 Automated erythrocyte distribution width ratio 13.1 % 10.0-14.5 Automated blood platelet count (count/volume) 130 10*3/uL 130-400 Automated blood platelet mean volume measurement 9.1 [foz_us] 7.4-10.4 Serum or plasma renal function panel (Na, K, Cl, CO2, BUN, Cr, glucose,Ca, phos , alb) - 10/27/16 14:25 Serum or plasma sodium measurement (moles/volume) 141 mmol/L 135-145 Serum or plasma potassium measurement (moles/volume) 4.2 mmol/L 3.6-5.0 Serum or plasma chloride measurement (moles/volume) 110 mmol/L 98-107 Carbon dioxide 21 mmol/L 21-32 Serum or plasma anion gap determination (moles/volume) 10 mmol/L 5-14 Serum or plasma urea nitrogen measurement (mass/volume) 61 mg/dL 7-18 Serum or plasma creatinine measurement (mass/volume) 3.66 mg/dL 0.60-1.30 Serum or plasma urea nitrogen/creatinine mass ratio 17 NRG Serum or plasma creatinine measurement with calculation of estimated glomerular filtration rate 17 NRG Serum or plasma glucose measurement (mass/volume) 145 mg/dL 70-105 Serum or plasma calcium measurement (mass/volume) 8.8 mg/dL 8.5-10.1 Serum or plasma albumin measurement (mass/volume) 3.8 g/dL 3.2-4.5 Serum or plasma phosphate measurement (mass/volume) 5.3 mg/dL 2.3-4.7 Serum or plasma intact pararthyroid hormone measurement (mass/volume) - 14:25 Serum or plasma intact parathyroid hormone measurement (mass/volume) 276 pg/mL 10-65 Bio-intact parathyroid hormone (PTH) measurement with calcium 8.7 % 8.5-10.5 25-hydroxyvitamin D measurement - 10/27/16 14:25 25-hydroxy vitamin D measurement 15 % 30-100 Automated blood complete blood count (hemogram) panel - 11/03/16 13:29 Blood leukocytes automated count (number/volume) 8.6 10*3/uL 4.3-11.0 Blood erythrocytes automated count (number/volume) 3.44 10*6/uL 4.35-5.85 Venous blood hemoglobin measurement (mass/volume) 10.4 g/dL 13.3-17.7 Blood hematocrit (volume fraction) 31 % 40-54 Automated erythrocyte mean corpuscular volume 91 [foz_us] 80-99 Automated erythrocyte mean corpuscular hemoglobin (mass per erythrocyte) 30 pg 25-34 Automated erythrocyte mean corpuscular hemoglobin concentration measurement ( mass/volume) 33 g/dL 32-36 Automated erythrocyte distribution width ratio 13.6 % 10.0-14.5 Automated blood platelet count (count/volume) 158 10*3/uL 130-400 Automated blood platelet mean volume measurement 9.5 [foz_us] 7.4-10.4 Serum or plasma renal function panel (Na, K, Cl, CO2, BUN, Cr, glucose,Ca, phos , alb) - 11/03/16 13:29 Serum or plasma sodium measurement (moles/volume) 144 mmol/L 135-145 Serum or plasma potassium measurement (moles/volume) 4.0 mmol/L 3.6-5.0 Serum or plasma chloride measurement (moles/volume) 111 mmol/L 98-107 Carbon dioxide 20 mmol/L 21-32 Serum or plasma anion gap determination (moles/volume) 13 mmol/L 5-14 Serum or plasma urea nitrogen measurement (mass/volume) 60 mg/dL 7-18 Serum or plasma creatinine measurement (mass/volume) 3.45 mg/dL 0.60-1.30 Serum or plasma urea nitrogen/creatinine mass ratio 17 NRG Serum or plasma creatinine measurement with calculation of estimated glomerular filtration rate 18 NRG Serum or plasma glucose measurement (mass/volume) 129 mg/dL 70-105 Serum or plasma calcium measurement (mass/volume) 9.2 mg/dL 8.5-10.1 Serum or plasma albumin measurement (mass/volume) 4.1 g/dL 3.2-4.5 Serum or plasma phosphate measurement (mass/volume) 4.8 mg/dL 2.3-4.7 Serum or plasma intact pararthyroid hormone measurement (mass/volume) - 13:29 Serum or plasma intact parathyroid hormone measurement (mass/volume) 332 pg/mL 10-65 Bio-intact parathyroid hormone (PTH) measurement with calcium 9.2 % 8.5-10.5 25-hydroxyvitamin D measurement - 11/03/16 13:29 25-hydroxy vitamin D measurement 40 % 30-100 Automated blood complete blood count (hemogram) panel - 11/30/16 11:32 Blood leukocytes automated count (number/volume) 7.6 10*3/uL 4.3-11.0 Blood erythrocytes automated count (number/volume) 3.23 10*6/uL 4.35-5.85 Venous blood hemoglobin measurement (mass/volume) 9.7 g/dL 13.3-17.7 Blood hematocrit (volume fraction) 29 % 40-54 Automated erythrocyte mean corpuscular volume 91 [foz_us] 80-99 Automated erythrocyte mean corpuscular hemoglobin (mass per erythrocyte) 30 pg 25-34 Automated erythrocyte mean corpuscular hemoglobin concentration measurement ( mass/volume) 33 g/dL 32-36 Automated erythrocyte distribution width ratio 12.8 % 10.0-14.5 Automated blood platelet count (count/volume) 123 10*3/uL 130-400 Automated blood platelet mean volume measurement 11.2 [foz_us] 7.4-10.4 Serum or plasma renal function panel (Na, K, Cl, CO2, BUN, Cr, glucose,Ca, phos , alb) - 11/30/16 11:32 Serum or plasma sodium measurement (moles/volume) 142 mmol/L 135-145 Serum or plasma potassium measurement (moles/volume) 3.5 mmol/L 3.6-5.0 Serum or plasma chloride measurement (moles/volume) 102 mmol/L 98-107 Carbon dioxide 26 mmol/L 21-32 Serum or plasma anion gap determination (moles/volume) 14 mmol/L 5-14 Serum or plasma urea nitrogen measurement (mass/volume) 106 mg/dL 7-18 Serum or plasma creatinine measurement (mass/volume) 4.45 mg/dL 0.60-1.30 Serum or plasma urea nitrogen/creatinine mass ratio 24 NRG Serum or plasma creatinine measurement with calculation of estimated glomerular filtration rate 14 NRG Serum or plasma glucose measurement (mass/volume) 136 mg/dL 70-105 Serum or plasma calcium measurement (mass/volume) 9.2 mg/dL 8.5-10.1 Serum or plasma albumin measurement (mass/volume) 4.0 g/dL 3.2-4.5 Serum or plasma phosphate measurement (mass/volume) 5.8 mg/dL 2.3-4.7 Serum or plasma intact pararthyroid hormone measurement (mass/volume) - 11:32 Serum or plasma intact parathyroid hormone measurement (mass/volume) 379 pg/mL 10-65 Bio-intact parathyroid hormone (PTH) measurement with calcium 9.2 % 8.5-10.5 25-hydroxyvitamin D measurement - 11/30/16 11:32 25-hydroxy vitamin D measurement 31 % 30-100 Complete blood count (CBC) with automated white blood cell (WBC) differential - 12/22/16 11:55 Blood leukocytes automated count (number/volume) 6.7 10*3/uL 4.3-11.0 Blood erythrocytes automated count (number/volume) 3.04 10*6/uL 4.35-5.85 Venous blood hemoglobin measurement (mass/volume) 9.4 g/dL 13.3-17.7 Blood hematocrit (volume fraction) 29 % 40-54 Automated erythrocyte mean corpuscular volume 96 [foz_us] 80-99 Automated erythrocyte mean corpuscular hemoglobin (mass per erythrocyte) 31 pg 25-34 Automated erythrocyte mean corpuscular hemoglobin concentration measurement ( mass/volume) 32 g/dL 32-36 Automated erythrocyte distribution width ratio 14.3 % 10.0-14.5 Automated blood platelet count (count/volume) 133 10*3/uL 130-400 Automated blood platelet mean volume measurement 9.6 [foz_us] 7.4-10.4 Automated blood neutrophils/100 leukocytes 68 % 42-75 Automated blood lymphocytes/100 leukocytes 17 % 12-44 Blood monocytes/100 leukocytes 11 % 0-12 Automated blood eosinophils/100 leukocytes 3 % 0-10 Automated blood basophils/100 leukocytes 1 % 0-10 Blood neutrophils automated count (number/volume) 4.6 10*3 1.8-7.8 Blood lymphocytes automated count (number/volume) 1.1 10*3 1.0-4.0 Blood monocytes automated count (number/volume) 0.7 10*3 0.0-1.0 Automated eosinophil count 0.2 10*3/uL 0.0-0.3 Automated blood basophil count (count/volume) 0.0 10*3/uL 0.0-0.1 PT panel in platelet poor plasma by coagulation assay - 12/22/16 11:55 Prothrombin time (PT) in platelet poor plasma by coagulation assay 13.4 s 12.2-14.7 INR in platelet poor plasma or blood by coagulation assay 1.1 0.8-1.4 Comprehensive metabolic panel - 12/22/16 11:55 Serum or plasma sodium measurement (moles/volume) 138 mmol/L 135-145 Serum or plasma potassium measurement (moles/volume) 2.7 mmol/L 3.6-5.0 Serum or plasma chloride measurement (moles/volume) 95 mmol/L 98-107 Carbon dioxide 35 mmol/L 21-32 Serum or plasma anion gap determination (moles/volume) 8 mmol/L 5-14 Serum or plasma urea nitrogen measurement (mass/volume) 12 mg/dL 7-18 Serum or plasma creatinine measurement (mass/volume) 1.74 mg/dL 0.60-1.30 Serum or plasma urea nitrogen/creatinine mass ratio 7 NRG Serum or plasma creatinine measurement with calculation of estimated glomerular filtration rate 41 NRG Serum or plasma glucose measurement (mass/volume) 137 mg/dL 70-105 Serum or plasma calcium measurement (mass/volume) 8.8 mg/dL 8.5-10.1 Serum or plasma total bilirubin measurement (mass/volume) 0.8 mg/dL 0.1-1.0 Serum or plasma alkaline phosphatase measurement (enzymatic activity/volume) 129 U/L 40-136 Serum or plasma aspartate aminotransferase measurement (enzymatic activity/ volume) 21 U/L 5-34 Serum or plasma alanine aminotransferase measurement (enzymatic activity/volume ) 29 U/L 0-55 Serum or plasma protein measurement (mass/volume) 7.1 g/dL 6.4-8.2 Serum or plasma albumin measurement (mass/volume) 3.8 g/dL 3.2-4.5 Serum or plasma ethanol measurement (mass/volume) - 12/22/16 11:55 Serum or plasma ethanol measurement (mass/volume) < mg/dL <10 Capillary blood glucose measurement by glucometer (mass/volume) - 12/22/16 12: 04 Capillary blood glucose measurement by glucometer (mass/volume) 157 mg/dL 70-110 Comp. Metabolic Panel (14) - 12/26/16 10:58 Glucose, Serum 169 mg/dL 65-99 BUN 28 mg/dL 6-24 Creatinine, Serum 3.03 mg/dL 0.76-1.27 eGFR If NonAfricn Am 22 mL/min/1.73 >59 eGFR If Africn Am 25 mL/min/1.73 >59 BUN/Creatinine Ratio 9 9-20 Sodium, Serum 146 mmol/L 134-144 Potassium, Serum 3.3 mmol/L 3.5-5.2 Chloride, Serum 100 mmol/L 96-106 Carbon Dioxide, Total 29 mmol/L 18-29 Calcium, Serum 8.9 mg/dL 8.7-10.2 Protein, Total, Serum 6.6 g/dL 6.0-8.5 Albumin, Serum 3.7 g/dL 3.5-5.5 Globulin, Total 2.9 g/dL 1.5-4.5 A/G Ratio 1.3 1.1-2.5 Bilirubin, Total 0.4 mg/dL 0.0-1.2 Alkaline Phosphatase, S 126 IU/L 39-117 AST (SGOT) 19 IU/L 0-40 ALT (SGPT) 24 IU/L 0-44 Basic Metabolic Panel (8) - 01/02/17 17:05 Glucose, Serum 134 mg/dL 65-99 BUN 38 mg/dL 6-24 Creatinine, Serum 3.69 mg/dL 0.76-1.27 eGFR If NonAfricn Am 17 mL/min/1.73 >59 eGFR If Africn Am 20 mL/min/1.73 >59 BUN/Creatinine Ratio 10 9-20 Sodium, Serum 144 mmol/L 134-144 Potassium, Serum 2.9 mmol/L 3.5-5.2 Chloride, Serum 93 mmol/L 96-106 Carbon Dioxide, Total 27 mmol/L 18-29 Calcium, Serum 9.2 mg/dL 8.7-10.2 Lipid 1996 panel - 05/01/17 09:28 Serum or plasma triglyceride measurement (mass/volume) 359 mg/dL <150 Serum or plasma cholesterol measurement (mass/volume) 201 mg/dL < 200 Serum or plasma cholesterol in HDL measurement (mass/volume) 29 mg/ dL 40-60 Cholesterol in LDL [mass/volume] in serum or plasma by direct assay 92 mg/dL 1-129 Serum or plasma cholesterol in VLDL measurement (mass/volume) 72 mg/ dL 5-40 Capillary blood glucose measurement by glucometer (mass/volume) - 08/24/17 09: 36 Capillary blood glucose measurement by glucometer (mass/volume) 259 mg/dL 70-110 Capillary blood glucose measurement by glucometer (mass/volume) - 08/24/17 10: 49 Capillary blood glucose measurement by glucometer (mass/volume) 255 mg/dL 70-110 Methicillin resistant Staphylococcus aureus (MRSA) screening culture - 13:46 Methicillin resistant Staphylococcus aureus (MRSA) screening culture NEG NRG Capillary blood glucose measurement by glucometer (mass/volume) - 10/25/17 11: 39 Capillary blood glucose measurement by glucometer (mass/volume) 121 mg/dL 70-110 Encounters ACCT No. Visit Date/Time Discharge Status Pt. Type Provider Facility Loc./Unit Complaint [id number] 02/23/2015 11:12:00 02/23/2015 23:59:59 CLS Outpatient INGRID CHOUDHARY APRN [id number] 08/22/2014 09:47:00 08/22/2014 23:59:59 CLS Outpatient WARREN BRODERICK MD [id number] 05/20/2014 14:27:00 05/20/2014 23:59:59 CLS Outpatient WARREN BRODERICK MD [id number] 03/22/2014 09:10:00 03/22/2014 23:59:59 CLS Outpatient INGRID CHOUDHARY APRN [id number] 10/28/2013 17:41:00 10/28/2013 23:59:59 CLS Outpatient KARLEE ERAZO DO [id number] 09/12/2013 16:36:00 09/12/2013 23:59:59 CLS Outpatient WARREN BRODERICK MD [id number] 09/04/2013 08:03:00 09/04/2013 23:59:59 CLS Outpatient KARLEE ERAZO DO [id number] 01/07/2013 16:55:00 01/07/2013 23:59:59 CLS Outpatient KARLEE ERAZO DO [id number] 12/03/2012 13:30:00 12/03/2012 23:59:59 CLS Outpatient WARREN BRODERICK MD [id number] 10/30/2012 15:59:00 10/30/2012 23:59:59 CLS Outpatient INGRID CHOUDHARY APRN [id number] 09/25/2012 13:36:00 09/25/2012 23:59:59 CLS Outpatient INGRID CHOUDHARY APRN [id number] 05/10/2013 11:27:00 Document Registration [id number] 04/17/2014 15:07:00 04/17/2014 23:59:59 [place] [id number] 01/30/2014 16:34:00 01/30/2014 23:59:59 [place] [id number] 01/23/2014 16:40:00 01/23/2014 23:59:59 [place] [id number] 12/26/2013 16:43:00 12/26/2013 23:59:59 [place] [id number] 12/12/2013 16:40:00 12/12/2013 23:59:59 [place] [id number] 12/05/2013 16:36:00 12/05/2013 23:59:59 [place] [id number] 11/28/2013 15:19:00 11/28/2013 23:59:59 CLS Outpatient INGRID CHOUDHARY MD [id number] 12/05/2017 14:28:00 12/19/2017 16:18:00 DIS Outpatient HÉCTOR COY MD [facility] REHAB PARTIAL ROTATOR CUFF TEAR L SHOULDER;S/P BICEP TEN [id number] 10/25/2017 11:10:00 10/25/2017 16:05:00 DIS Outpatient HÉCTOR COY MD [facility] SDC LEFT SHOULDER TORN GLENOID LABRUM [id number] 10/18/2017 13:25:00 10/18/2017 13:50:00 DIS Outpatient HÉCTOR COY MD [facility] PREOP LEFT SHOULDER TORN GLENOID LABRUM [id number] 08/24/2017 05:29:00 08/24/2017 23:59:59 CLS Outpatient REANNA QUINTANILLA DO [facility] PREOP COLONOSCOPY [id number] 08/24/2017 08:24:00 08/24/2017 11:30:00 DIS Outpatient REANNA QUINTANILLA DO [facility] ENDO SCREENING [id number] 05/01/2017 09:16:00 05/01/2017 23:59:59 CLS Outpatient GREGORY BACA MD [facility] LAB CKD,I10 [id number] 12/22/2016 11:36:00 12/22/2016 14:33:00 DIS 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 [id number] 11/30/2016 11:18:00 11/30/2016 23:59:59 CLS Outpatient MICHELE JAVIER MD [facility] LAB CHRONIC KIDNEY DISEASE STAGE 4,ANEMIA,KIDNEY STONE [id number] 11/03/2016 13:13:00 11/03/2016 23:59:59 CLS Outpatient MICHELE JAVIER MD [facility] LAB CHRONIC KIDNEY DISEASE [id number] 10/27/2016 14:15:00 10/27/2016 23:59:59 CLS Outpatient MICHELE JAVIER MD [facility] LAB VIT D DEF,EDEMA, ANEMIA,CHRONIC KIDNEY DIS STAGE 4 [id number] 08/22/2016 12:49:00 08/22/2016 23:59:59 CLS Outpatient MICHELE JAVIER MD [facility] LAB CKD ST 4, HTN, ANEMIA [id number] 08/10/2016 10:11:00 08/11/2016 14:05:00 DIS Inpatient SINAI TAVERA MD [facility] 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 [id number] 07/11/2016 18:27:00 07/11/2016 23:59:59 CLS Outpatient MICHELE JAVIER MD [facility] LAB RENAL PANEL,COMPLETE BLOOD COUNT,FERRITIN,IRON [id number] 03/14/2016 09:04:00 03/14/2016 23:59:59 CLS Outpatient LAURY KILPATRICK [facility] RAD LEFT RTC TEAR [id number] 11/22/2011 14:18:00 Document Registration [id number] 11/09/2011 16:15:00 Document Registration [id number] 11/08/2011 09:23:00 Document Registration [id number] 11/04/2011 21:03:00 Document Registration [id number] 12/27/2016 09:11:00 Document Registration [id number] 01/03/2017 08:38:00 Document Registration [id number] 11/24/2017 13:40:00 11/24/2017 23:59:59 CLS Outpatient INGRID CHOUDHARY APRN [facility]
[2018-06-16] MEDS ORDERED: RX-HYDROCODONE/APAP 5/325 MG #4 TAB PK PO ONE (20:07)
[2018-06-16 20:17] VITALS: BP 153/86
== END 2018-06-16 20:17 | disposition home or self-care (01) ==
LOC: EDUNIT# 18:24 → ER 18:25
DX: S52.502A Unspecified fracture of the lower end of left radius, initial encounter for closed fracture (principal); S52.602A Unspecified fracture of lower end of left ulna, initial encounter for closed fracture; E78.00 Pure hypercholesterolemia, unspecified; I12.0 Hypertensive chronic kidney disease with stage 5 chronic kidney disease or end stage renal disease; N18.6 End stage renal disease; E11.22 Type 2 diabetes mellitus with diabetic chronic kidney disease; Z85.828 Personal history of other malignant neoplasm of skin; Z99.2 Dependence on renal dialysis; Z79.4 Long term (current) use of insulin; Z87.442 Personal history of urinary calculi; Z87.19 Personal history of other diseases of the digestive system; W23.0XXA Caught, crushed, jammed, or pinched between moving objects, initial encounter
CPT/HCPCS: 29125; 73080; 73090; 73110

== ENCOUNTER 2018-12-31 06:51 | Outpatient (CLI) | payer BC, MEDICARE ==
[~2018-12-31] VITALS: Ht 175.3 cm; Wt 99.8 kg
[~2018-12-31 06:51] MED LIST changes: -AMLO10TA2 PO; +AMLO10TA7 PO; +HYDR-34 PO; +HYDR-4226 PO; -HYDR-757 PO; -LOSA100T28 PO; +LOSA100T57 PO
[2018-12-31] MEDS ORDERED: POTA10TA36 PO (15:25)
== END 2018-12-31 15:46 | disposition home or self-care (01) ==
LOC: PREOP 06:51
PROVIDERS: ATTEND Surgery
DX: Z01.818 Encounter for other preprocedural examination (principal)

== ENCOUNTER 2019-01-01 12:59 | Day surgery (SDC) | payer BC, MEDICARE ==
[~2019-01-01] VITALS: Ht 175.3 cm; Wt 99.8 kg
[~2019-01-01 12:59] MED LIST changes: +POTA10TA36 PO
--- OUTSIDE RECORDS SUMMARY | 2019-01-01 13:03 | XMS REPORT | Clinical Summary ---
Author Author [facility] Organization [facility] Address Unknown Phone Unavailable Care Team Providers Care Business Analysis Professional Name Role Phone Radha Gómez MA Unavailable Unavailable Dayanara Pacheco MA Unavailable Unavailable Issa Ellison RN 2 Unavailable Andrew Morales Unavailable Unavailable Romie Baker APRN PCP Lucas Boone MD Unavailable Source Comments Some departments are not documenting in the electronic medical record. If you do not see the information that you expected, contact Release of Information in the Health Information Management department at [phone] for further assistance in locating additional records.[facility] Allergies Comments Active Allergy Reactions Severity Noted Date Amoxicillin-Pot UNKNOWN Low 07/22/2016 Clavulanate Medications End Date Status Medication Sig Dispensed Refills Start Date Active amLODIPine (NORVASC) 10 Take 10 mg by 0 mg tablet mouth daily. Active losartan(+) (COZAAR) 100 Take 100 mg 0 mg tablet by mouth daily. Active diphenoxylate/atropine Take 1 Tab by 0 (LOMOTIL) 2.5/0.025 mg mouth four tablet times daily as needed for Diarrhea. Active hydrochlorothiazide Take 50 mg by 0 (HYDRODIURIL) 50 mg mouth every tablet morning. Active furosemide (LASIX) 40 mg Take 40 mg by 0 tablet mouth every morning. Active insulin detemir(+) Inject under 0 (LEVEMIR) 100 unit/mL the skin. soln Active metoprolol XL (TOPROL XL) Take 50 mg by 0 50 mg extended release mouth daily. tablet Active insulin aspart (NOVOLOG Inject 5 0 FLEXPEN) 100 unit/mL Units under injection PEN the skin three times daily with meals. Active Problems Not on file Social History Date Tobacco Use Types Packs/Day Years Used Never Assessed Sex Assigned at Date Recorded Not on file Industry Job Start Date Occupation Not on file Not on file Not on file Travel End Travel History Travel Start No recent travel history available. Last Filed Vital Signs Not on file Plan of Treatment Health Maintenance Due Date Last Done Comments HEPATITIS C SCREENING 1959 PHYSICAL (COMPREHENSIVE) 1966 EXAM HIV SCREENING 1974 DTAP/TDAP VACCINES (1 - 1977 Tdap) COLORECTAL CANCER 2009 SCREENING SHINGLES RECOMBINANT 2009 VACCINE (1 of 2) INFLUENZA VACCINE 06/27/2018 Results Not on filefrom Last 3 Months
--- OUTSIDE RECORDS SUMMARY | 2019-01-01 13:04 | XMS REPORT | Clinical Summary ---
Author Author [facility] Address Unknown Phone Unavailable Care Team Providers Care Eyelet Maker Name Role Phone Charanjit Gardner MD PCP Allergies Active Allergy Reactions Severity Noted Date Comments Amoxicillin-Pot Nausea And Vomiting Low 07/22/2016 Other reaction(s): Clavulanate UNKNOWN Doxycycline Nausea And Vomiting 10/05/2016 Current Medications Prescription Sig. Disp. Refills Start End Date Status Date insulin lispro (HUMALOG) Inject under the skin 3 Active 100 unit/mL injection (three) times a day before meals. insulin detemir (LEVEMIR) Inject under the skin Active 100 unit/mL injection nightly. diphenoxylate-atropine Take 1 tablet by mouth as Active (LOMOTIL) 2.5-0.025 mg needed. per tablet losartan (COZAAR) 100 MG Take 100 mg by mouth Active tablet daily. potassium chloride Take 10 mEq by mouth 2 Active (KLOR-CON) 10 MEQ CR (two) times a day. tablet sodium bicarbonate 650 MG Take 650 mg by mouth 2 Active tablet (two) times a day. calcium acetate (PHOSLO) Take 2,001 mg by mouth 3 Active 667 mg capsule (three) times a day with meals. metoprolol tartrate Take 1 tablet (50 mg 180 tablet 3 04/28/20 Active (LOPRESSOR) 50 MG tablet total) by mouth 2 (two) 17 times a day. atorvastatin (LIPITOR) 40 Take 1 tablet (40 mg 90 tablet 3 06/21/20 Active MG tablet total) by mouth daily. 17 Active Problems Problem Noted Date Arteriovenous fistula (HCC) 11/10/2016 Benign hypertension 10/05/2016 Chronic kidney disease (CKD), stage IV (severe) (HCC) 10/05/2016 Combined fat and carbohydrate induced hyperlipemia 10/05/2016 Type 2 diabetes mellitus ([facility]) 10/05/2016 Diabetic retinopathy associated with type 2 diabetes mellitus ([facility]) 2014 Encounters Date Type Specialty Care Team Description 11/29/2018 Hospital Cardiology Angelina Oswald MD Pre-transplant evaluation Encounter for kidney transplant; ESRD (end stage renal disease) on dialysis ([facility]); Type 2 diabetes mellitus with diabetic nephropathy, 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 snf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 ([facility]); Hypertension, unspecified type; Anemia in chronic kidney disease, on chronic dialysis ([facility]); Mixed hyperlipidemia; History of Crohn's disease 10/30/2018 Lab Lab Angelina Oswald MD Pre-transplant evaluation for kidney transplant; ESRD (end stage renal disease) on dialysis ([facility]); Type 2 diabetes mellitus with diabetic nephropathy, 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 bed bug exterminator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 ([facility]); Hypertension, unspecified type; Anemia in chronic kidney disease, on chronic dialysis ([facility]); Mixed hyperlipidemia; History of Crohn's disease 10/30/2018 Imaging Radiology Angelina Oswald MD Pre-transplant evaluation Appointment for kidney transplant; ESRD (end stage renal disease) on dialysis ([facility]); Type 2 diabetes mellitus with diabetic nephropathy, 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 snf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 ([facility]); Hypertension, unspecified type; Anemia in chronic kidney disease, on chronic dialysis ([facility]); Mixed hyperlipidemia; History of Crohn's disease 10/30/2018 Evaluation Transplant Angelina Oswald MD Pre- transplant evaluation Ranulfo Gutiérrez RN for kidney transplant Maggie Juarez RD LD (Primary Dx); ESRD (end stage renal disease) on dialysis ([facility]); Type 2 diabetes mellitus with diabetic nephropathy, 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 snf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 ([facility]); Hypertension, unspecified type; Anemia in chronic kidney disease, on chronic dialysis ([facility]); Mixed hyperlipidemia; History of Crohn's disease 10/30/2018 Procedure Pass Cardiology from Last 3 Months Family History Medical History Relation Name Comments No Known Problems Daughter No Known Problems Daughter No Known Problems Daughter COPD Father Other Father Heart attack Maternal Grandfather Hypertension Maternal Grandfather Pneumonia Maternal Grandmother Uterine cancer Mother Kidney disease Paternal Grandmother Heart disease Sister Heart failure Sister Hypertension Sister Relation Name Status Comments Daughter Alive Daughter Alive Daughter Alive Father Mesothelioma Maternal Grandfather Maternal Grandmother Mother Paternal Grandfather Paternal Grandmother Sister Social History Tobacco Use Types Packs/Day Years Used Date Never Smoker Smokeless Tobacco: Never Used Tobacco Cessation: Counseling Given: No Alcohol Use Drinks/Week oz/Week Comments No Sex Assigned at Date Recorded Not on file Last Filed Vital Signs Vital Sign Reading Time Taken Blood Pressure 111/65 10/30/2018 11:19 AM DEFENSE ANALYST Pulse 66 10/30/2018 11:19 AM DEFENSE ANALYST Temperature 36.6 C (97.9 F) 10/30/2018 11:19 AM DEFENSE ANALYST Respiratory Rate 18 10/30/2018 11:19 AM DEFENSE ANALYST Oxygen Saturation 91% 10/30/2018 11:19 AM DEFENSE ANALYST Inhaled Oxygen - - Concentration Weight 105.7 kg (233 lb) 10/30/2018 11:19 AM DEFENSE ANALYST Height 174 cm (5' 8.5") 10/30/2018 11:19 AM DEFENSE ANALYST Body Mass Index 34.91 10/30/2018 11:19 AM DEFENSE ANALYST Plan of Treatment Health Maintenance Due Date Last Done Comments Diabetes Mellitus 1960 Ophthalmology Exam Medicare Annual Wellness 1960 Diabetes Mellitus Foot 1969 Exam Pneumococcal Immunization 1978 19-64 Highest Risk# (1 of 3 - PCV13) Colorectal Screening via 2009 Colonoscopy Zoster Vaccine# (1 of 2) 2009 Influenza Vaccine (#1) 2018 09/16/2004 Diabetes Mellitus 04/30/2019 10/30/2018, 06/12/2017 Hemoglobin A1C Lipid Screening 10/30/2019 10/30/2018, 06/12/2017, 04/28/2017 Td # 10/28/2023 10/28/2013 Hepatitis C Screen Completed 10/30/2018, 06/12/2017 Procedures Procedure Name Priority Date/Time Associated Diagnosis Comments ECHO COMPLETE W DOPPLER Routine 11/29/2018 Pre-transplant evaluation Results for this AND COLOR FLOW 3:04 PM DEFENSE ANALYST for kidney transplant 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 BILIRUBIN TOTAL Routine 10/30/2018 Results for this 2:33 PM DEFENSE ANALYST procedure are in the results section. BILIRUBIN DIRECT Routine 10/30/2018 Results for this 2:33 PM DEFENSE ANALYST procedure are in the results section. ALANINE AMINOTRANSFERASE Routine 10/30/2018 Results for this 2:33 PM DEFENSE ANALYST procedure are in the results section. ASPARTATE Routine 10/30/2018 Results for this AMINOTRANSFERASE 2:33 PM DEFENSE ANALYST procedure are in the results section. ALKALINE PHOSPHATASE Routine 10/30/2018 Results for this 2:33 PM DEFENSE ANALYST procedure are in the results section. LIPID PANEL Routine 10/30/2018 Pre-transplant evaluation Results for this 2:33 PM DEFENSE ANALYST for kidney transplant 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 disease) on dialysis (HCC) Type 2 diabetes mellitus with diabetic nephropathy, 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 bed bug exterminator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 (HCC) Hypertension, unspecified type Anemia in chronic kidney disease, on chronic dialysis (HCC) Mixed hyperlipidemia History of Crohn's disease 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 due to underlying condition, macular edema presence unspecified, unspecified retinopathy severity (HCC) EBV ACUTE INFECTION Routine 10/30/2018 Pre-transplant evaluation Results for this ANTIBODIES 2:33 PM DEFENSE ANALYST for kidney transplant 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 disease) on dialysis ([facility]) Type 2 diabetes mellitus with diabetic nephropathy, 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 snf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 ([facility]) Hypertension, unspecified type Anemia in chronic kidney disease, on chronic dialysis ([facility]) Mixed hyperlipidemia History of Crohn's disease 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 due to underlying condition, macular edema presence unspecified, unspecified retinopathy severity ([facility]) RAPID PLASMA REAGIN Routine 10/30/2018 Pre-transplant evaluation Results for this 2:33 PM DEFENSE ANALYST for kidney transplant 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 disease) on dialysis ([facility]) Type 2 diabetes mellitus with diabetic nephropathy, 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 snf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 ([facility]) Hypertension, unspecified type Anemia in chronic kidney disease, on chronic dialysis ([facility]) Mixed hyperlipidemia History of Crohn's disease 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 due to underlying condition, macular edema presence unspecified, unspecified retinopathy severity (HCC) T4 FREE Routine 10/30/2018 Pre-transplant evaluation Results for this 2:33 PM DEFENSE ANALYST for kidney transplant 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 2.Normal right ventricular size and systolic function. 3.No significant functional valvular abnormalities. 4.Small circumferential pericardial effusion 5.Compared to the previous study dated 06/12/2017, there were no significant changes. Tahmina Browning (Electronically Signed) Final Date:29 November 2018 15:37 Narrative Performed At [facility] ECHOCARDIO[facility] Name:JUDD BARKER Date:11/29/2018 14:45 Chart #:[id number] : 1960 Location:[facility] OPSono: [facility] Age: 58 Gender:MReferring: ANGELINA OSWALD Room #: OP Fellow: Dmitriy Romero Indication:Encounter for other preprocedural examination, Essential (primary) hypertension, Mixed hyperlipidemia, 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 due to underlying condition, macular edema presence unspecified, unspecified retinopathy severity, Anemia in chronic kidney disease, on chronic dialysis Procedure: [id number] Complete Echo 2D/Colorflow/Doppler BP: 138 / 84HR:Ht: 69 Wt:233BSA 2.3 : 2D ECHO MEASUREMENTS LV Diastolic Diameter Bas5.6 cm3.6-5.4IVS Diastolic Thickness1.1 cm0.6-1.1 LV Systolic Diameter Base3.6 cm2.3-4.0LVPW Diastolic Thickness 1.1 cm0.6-1.1 LA Systolic Diameter LX4.6 cm2.3-3.8Ascending Aorta Diameter 3.2 cm2.1-3.4 AORTIC VALVE DOPPLER AV Peak Velocity 148 cm/s LVOT AV David Ratio0.69 AV Peak Gradient 8.8 mmHg MITRAL VALVE DOPPLER Mitral E Point [id number] cm/s Mitral E to A Ratio1 MitralA Point Velocity 106 cm/s MV Deceleration Time 204 ms WALL SEGMENT ANALYSIS: ROUTINE LVSI : 1%FM :100 LAD: 1LCX : 1RCA : 1 FINDINGS LV Ejection Fraction: 60 Normal left ventricular systolic function, with an estimated ejection fraction of 60%. Mild concentric left ventricular hypertrophy. Normal wall motion. Normal left ventricular dimensions. Normal right ventricular size and systolic function. Mild right and left atrial dilatation. LA volume index=40 ml/m2. Moderate diastolic dysfunction - elevated mean LA pressure with reduced LV relaxation. Sclerotic aortic valve without regurgitation. Mild mitral annular calcification with normal mitral valve with trivial regurgitation. Normal pulmonic valve with trivial regurgitation. Normal tricuspid valve with mild regurgitation.Estimated PA pressure= 35 mmHg. Small circumferential pericardial effusion. No echocardiographic evidence of tamponade. IVC is responsive to inspiration indicating normal RA pressure. Normal dimensions of the ascending aorta. No intracardiac masses or thrombi. Procedure Note Interface, External Ris In - 11/29/2018 3:37 PM DEFENSE ANALYST ECHOCARDIOGRAM REPORT [facility] Name: JUDD BARKER Date: 11/29/2018 14:45 Chart #: [id number] : 1960 Location: [facility] OP Sono: nae Age: 58 Gender: M Referring: ANGELINA OSWALD Room #: OP Fellow: Dmitriy Romero Indication:Encounter for other preprocedural examination, Essential (primary) hypertension, Mixed hyperlipidemia, 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 due to underlying condition, macular edema presence unspecified, unspecified retinopathy severity, Anemia in chronic kidney disease, on chronic dialysis Procedure: [id number] Complete Echo 2D/Colorflow/Doppler BP: 138 / 84 HR: Ht: 69 Wt: 233 BSA 2.3 : 2D ECHO MEASUREMENTS LV Diastolic Diameter Bas 5.6 cm 3.6-5.4 IVS Diastolic Thickness 1.1 cm 0.6-1.1 LV Systolic Diameter Base 3.6 cm 2.3-4.0 LVPW Diastolic Thickness 1.1 cm 0.6-1.1 LA Systolic Diameter LX 4.6 cm 2.3-3.8 Ascending Aorta Diameter 3.2 cm 2.1-3.4 AORTIC VALVE DOPPLER AV Peak Velocity 148 cm/s LVOT AV David Ratio 0.69 AV Peak Gradient 8.8 mmHg MITRAL VALVE DOPPLER Mitral E Point Velocity 111 cm/s Mitral E to A Ratio 1 Mitral A Point Velocity 106 cm/s MV Deceleration Time 204 ms WALL SEGMENT ANALYSIS: ROUTINE LVSI : 1 %FM : 100 LAD : 1 LCX : 1 RCA : 1 FINDINGS LV Ejection Fraction: 60 Normal left ventricular systolic function, with an estimated ejection fraction of 60%. Mild concentric left ventricular hypertrophy. Normal wall motion. Normal left ventricular dimensions. Normal right ventricular size and systolic function. Mild right and left atrial dilatation. LA volume index=40 ml/m2. Moderate diastolic dysfunction - elevated mean LA pressure with reduced LV relaxation. Sclerotic aortic valve without regurgitation. Mild mitral annular calcification with normal mitral valve with trivial regurgitation. Normal pulmonic valve with trivial regurgitation. Normal tricuspid valve with mild regurgitation. Estimated PA pressure=35 mmHg. Small circumferential pericardial effusion. No echocardiographic evidence of tamponade. IVC is responsive to inspiration indicating normal RA pressure. Normal dimensions of the ascending aorta. No intracardiac masses or thrombi. IMPRESSION 1. Normal left ventricular systolic function, with an estimated ejection fraction of 60%. 2. Normal right ventricular size and systolic function. 3. No significant functional valvular abnormalities. 4. Small circumferential pericardial effusion 5. Compared to the previous study dated 06/12/2017, there were no significant changes. Ramsey Guzman M.D. (Electronically Signed) Final Date: 29 November 2018 15:37 Performing Organization Address City/State/Zipcode Phone Number [facility] * XR Chest 2 views (PA and lateral) (10/30/2018 3:10 PM) Impressions Performed At Mild cardiomegaly without other evidence of acute disease in the chest. JD READING SITE: [facility] Narrative Performed At Patient: JUDD BARKER Sex#:M # [id number] Consuelo#:[id number] Location:[facility] XRAY Procedure Requested:[id number] XR CHEST 2 VIEWS (PA AND LATERAL) Reason for Exam:Pre-transplant evaluation for kidney transplant Exam Ordered: Exam Date/Time: Begin exam date/time: XR CHEST 2 VIEWS (PA AND LATERAL) INDICATION: Pre-transplant evaluation for kidney transplant ESRD (end stage renal disease) on dialysis (HCC) ESRD (end stage renal disease) on dialysis (HCC) Type 2 diabetes mellitus with diabetic nephropathy, 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 COMPARISON STUDY: None. FINDINGS: Lungs: Low lung volume. No focal airspace disease. Indistinct pulmonary vasculature. Pleura: No pleural effusion or pneumothorax. Heart and Mediastinum: There is mild cardiomegaly. Ectasia and tortuosity are seen within the thoracic aorta. Atheromatous change is also present. Bones and Soft Tissues: Stable regional skeleton and soft tissues. Procedure Note Interface, Rad Results In - 10/30/2018 3:22 PM DEFENSE ANALYST Patient: JUDD BARKER Sex#: Killian # [id number] Consuelo#: [id number] Location: [facility] XRAY Procedure Requested: [id number] XR CHEST 2 VIEWS (PA AND LATERAL) Reason for Exam: Pre-transplant evaluation for kidney transplant Exam Ordered: 10/30/2018 1456 Exam Date/Time: 10/30/2018 1510 Begin exam date/time: 10/30/2018 1456 XR CHEST 2 VIEWS (PA AND LATERAL) INDICATION: Pre-transplant evaluation for kidney transplant ESRD (end stage renal disease) on dialysis (HCC) ESRD (end stage renal disease) on dialysis (HCC) Type 2 diabetes mellitus with diabetic nephropathy, 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 COMPARISON STUDY: None. FINDINGS: Lungs: Low lung volume. No focal airspace disease. Indistinct pulmonary vasculature. Pleura: No pleural effusion or pneumothorax. Heart and Mediastinum: There is mild cardiomegaly. Ectasia and tortuosity are seen within the thoracic aorta. Atheromatous change is also present. Bones and Soft Tissues: Stable regional skeleton and soft tissues. IMPRESSION Mild cardiomegaly without other evidence of acute disease in the chest. READING SITE: [facility] Performing Organization Address [facility]/Zipcode Phone Number [place] * HIV AG/BRENDA (10/30/2018 2:33 PM) HIV AG/BRENDA Non-reactive Non-reactive [facility] LABORATORIES Specimen Blood Performing Organization Address City/[facility]/Zipcode Phone Number [address] [address] LABORATORIES * Quantiferon TB Gold Plus (10/30/2018 2:33 PM) QFT Interpretation NegativeComment: M. Negative [facility] tuberculosis infection is not REGIONAL likely. LABORATORIES Specimen Blood Performing Organization Address [facility] Phone Number [facility] [address] [place] [address] LABORATORIES * EBV Acute Infection Antibodies (10/30/2018 2:33 PM) EBV Ab VCA IgM <36.0 0.0 - 35.9 U/mL [facility] Comment: Negative<36.0 Equivocal 36.0 - 43.9 Positive>43.9 EBV Early Antigen Ab IgG 18.0 (H) 0.0 - 8.9 U/mL [facility] Comment: Negative< 9.0 Equivocal9.0 - 10.9 Positive>10.9 EBV Ab VCA IgG >600.0 (H) 0.0 - 17.9 U/mL [facility] Comment: Negative<18.0 Equivocal 18.0 - 21.9 Positive>21.9 EBV Nuclear Antigen Ag <18.0 0.0 - 17.9 U/mL [facility] IgG Comment: Negative<18.0 Equivocal 18.0 - 21.9 Positive>21.9 Interpretation: Comment [facility] Comment: EBV Interpretation Chart Interpretation EBV-IgMEA(D)-IgGVCA-Ig GEBNA-IgG EBV Seronegative- - -- Early Phase +- -- Acute Primary + +or- +- Infection Convalescence/Past- +or- ++ Infection Reactivated+or -+ ++ Infection + Antibody Present- Antibody Absent Performed at:[place] [id number] Operations Technician: Hayes Stern MD, Phone:[phone] Performing Organization Address [facility] Centercode Phone Number [facility] [address] [place] [address] * Thyroid Stimulating Hormone (10/30/2018 2:33 PM) Thyroid Stimulating 1.67 0.47 - 4.68 uIU/mL [facility] LABORATORIES Specimen Blood Performing Organization Address [facility] Centercode Phone Number [facility] [address] [place] [address] LABORATORIES * T4 Free (10/30/2018 2:33 PM) T4 Free 1.4 0.8 - 2.2 ng/dL [facility] Ampulse Specimen Blood Performing Organization Address City/[facility]/Zipcode Phone Number [facility] [address] [place], [place] [phone] LABORATORIES * Renal Panel (10/30/2018 2:33 PM) Sodium 141 133 - 147 MEQ/L [facility] Potassium 3.6 3.5 - 5.3 MEQ/L [facility] Chloride 90 (L) 96 - 112 MEQ/L [facility] Carbon Dioxide 39 (H) 20 - 32 MEQ/L [facility] Anion Gap 13 5 - 17 [facility] Calcium 10.4 8.4 - 10.5 mg/dL [facility] Glucose 147 (H) 70 - 100 mg/dL [facility] Albumin 4.6 3.5 - 5.0 g/dL [facility] Blood Urea Nitrogen 37 (H) 7 - 26 mg/dL [facility] Creatinine 5.6 (H) 0.6 - 1.3 mg/dL [facility] Ampulse GFR Male AA 13 (L) 60 - 200 [facility] Comment: REGIONAL Chronic Kidney Disease less LABORATORIES than 60 mL/min/1.73 sq.m Kidney failure less than 15 mL/min/1.73 sq.m GFR Male Non-AA 10 (L) 60 - 200 [facility] [place] Comment: REGIONAL Chronic Kidney Disease less LABORATORIES than 60 mL/min/1.73 sq.m Kidney failure less than 15 mL/min/1.73 sq.m Phosphorus 4.4 2.5 - 4.5 mg/dL [facility] Ampulse Specimen Blood Performing Organization Address City/[facility]/Zipcode Phone Number [facility] [address] [place] [address] [phone] LABORATORIES * Rapid Plasma Reagin (10/30/2018 2:33 PM) RPR Non-reactive Non-reactive [facility] LABORATORIES Specimen Blood Performing Organization Address City/[facility]/Zipcode Phone Number [facility] [address] [place] [address] [phone] LABORATORIES * PSA Screen (10/30/2018 2:33 PM) PSA Screen 0.1Comment: Method for Saint 0.0 - 4.0 ng/mL [facility] is Ortho REGIONAL [place] [address]. LABORATORIES Specimen Blood Performing Organization Address City/[facility]/Zipcode Phone Number [address] [address] LABORATORIES * Protein Total Serum (10/30/2018 2:33 PM) Protein Total Serum 8.3 (H) 6.0 - 8.2 g/dL [facility] LABORATORIES Specimen Blood Performing Organization Address City/[facility]/Zipcode Phone Number [address] [address] [phone] LABORATORIES * Lipid Panel (10/30/2018 2:33 PM) Cholesterol 120 100 - 200 mg/dL [facility] HDL Cholesterol 33 (L) 40 - 110 mg/dL [facility] Non-HDL Cholesterol 87 0 - 130 mg/dL [facility] Triglycerides 266 (H) 0 - 150 mg/dL [facility] LDL Cholesterol 34 0 - 99 mg/dL [facility] Cholesterol/HDL Ratio 3.6 0.0 - 4.5 [facility] Specimen Blood Performing Organization Address City/[facility] Centercond Phone Number [address] [address] LABORATORIES * Hepatitis C Antibody (10/30/2018 2:33 PM) Hepatitis C Ab Non-reactive Non-reactive [facility]IES Specimen Blood Performing Organization Address City/[facility]/Zipcode Phone Number [address] [address] LABORATORIES * Hepatitis B Surface Antigen (10/30/2018 2:33 PM) Hepatitis B Surface Ag Non-reactive Non-reactive [facility]IES Specimen Blood Performing Organization Address City/[facility] Centercode Phone Number [address] [place] [address] LABORATORIES * Hepatitis B Surface Antibody (10/30/2018 2:33 PM) Hepatitis B Surface Ab Reactive (A) Non-reactive [facility] Specimen Blood Performing Organization Address [facility] Centercode Phone Number [facility] [address] [place], [place] [id number] [phone] LABORATORIES * Hemoglobin A1C (10/30/2018 2:33 PM) Hemoglobin A1C 8.6 (H) 4.0 - 5.6 % [facility] Comment: REGIONAL Non-diabetic LABORATORIES 4.0 - 5.6 % Prediabetes 5.7 - 6.4 % Diabetes >=6.5 % Specimen Blood Performing Organization Address City/[facility] Centercode Phone Number [facility] [address] [place] [address] [phone] LABORATORIES * CBC and Diff (manual diff if necessary) (10/30/2018 2:33 PM) WBC 5.93 4.00 - 11.00 TH/uL [facility] RBC 3.15 (L) 4.31 - 5.84 MIL/uL [facility] Hemoglobin 10.8 (L) 13.0 - 17.0 g/dL [facility] Hematocrit 31 (L) 40 - 50 % [facility] MCV 99 80 - 99 fL [facility] MCH 34 27 - 34 pg [facility] MCHC 35 32 - 36 % [facility] RDW 14.9 (H) 9.0 - 14.5 % [facility] Platelet Count 177 140 - 400 TH/uL [facility] MPV 10.2 9.4 - 12.3 fL [facility] Nucleated RBCs 0 0 - 0 /100 [facility] % Neutrophils 57 45 - 78 % [facility] %Lymphocytes 32 15 - 47 % [facility] %Monocytes 7 0 - 12 % [facility] %Eosinophils 3 0 - 7 % [facility] %Basophils 1 0 - 2 % [facility]IES % Imm Grans 0 0 - 1 % [facility] LAB[facility]IES # Granulocytes 3.37 1.70 - 6.80 TH/uL [facility] LABORATORIES # Lymphocytes 1.92 1.00 - 3.30 TH/uL [facility] LABORATORIES # Monocytes 0.42 0.20 - 0.90 TH/uL [facility] LABORATORIES # Eosinophils 0.16 0.00 - 0.40 TH/uL [facility] LABORATORIES # Basophils 0.06 0.00 - 0.10 TH/uL [facility] LABORATORIES Specimen Blood Performing Organization Address [facility]cond Phone Number [address] [address] LABORATORIES * CMV IgG (10/30/2018 2:33 PM) Cytomegalovirus IgG <4 0 - 3 UA/ml [facility] Antibody [facility] Cytomegalovirus IgG Negative Negative [facility]ody [facility] Specimen Blood Performing Organization Address [facility] Phone Number [address] [address] [phone] LABORATORIES * Bilirubin Total (10/30/2018 2:33 PM) Bilirubin Total 1.2 0.2 - 1.3 mg/dL [facility] Specimen Blood Performing Organization Address [facility] Number [address] [address] [phone] LABORATORIES * Bilirubin Direct (10/30/2018 2:33 PM) Bilirubin Direct 0.0 0.0 - 0.4 mg/dL [facility] Specimen Blood Performing Organization Address [facility]cond Phone Number [address] [address] [phone] LABORATORIES * Aspartate Aminotransferase (10/30/2018 2:33 PM) Aspartate 23 15 - 46 IU/L [facility] Aminotransferase [facility] LABORATORIES Specimen Blood Performing Organization Address City/[facility]cond Phone Number [address] [address] LABORATORIES * Alkaline Phosphatase (10/30/2018 2:33 PM) Alkaline Phosphatase 112 42 - 140 IU/L [facility] Specimen Blood Performing Organization Address [facility]cond Phone Number [address] [address] LABORATORIES * Alanine Aminotransferase (10/30/2018 2:33 PM) Alanine Aminotransferase 24Comment: ALT reference range 0 - 49 IU/L [facility] on 06-05-2018 REGIONAL LABORATORIES Specimen Blood Performing Organization Address City/[facility] Centercond Phone Number [address] [address] LABORATORIES from Last 3 Months
--- OUTSIDE RECORDS SUMMARY | 2019-01-01 13:04 | XMS REPORT | Encounter Summary ---
Author Author [facility] Organization [facility] Address Unknown Phone Unavailable Care Team Providers Care Art Museum Aide Name Role Phone Charanjit Gardner MD PCP Reason for Referral * Diagnostic Imaging (Routine) Status Reason Specialty Diagnoses / Referred By Referred To Procedures Contact Contact Closed Cardiology Diagnoses Angelina Oswald [facility] Cv Ultrasound Pre-transplant MD Iain [address] evaluation for [address] [place], [place] kidney [address]i [phone] transplant [place], [place] Phone: ESRD (end stage [address]18[address] renal disease) Phone: on dialysis [phone] ([facility]) Fax: Type 2 diabetes [phone] mellitus with diabetic nephropathy, 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 penitentiary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 ([facility]) Hypertension, unspecified type Anemia in chronic kidney disease, on chronic dialysis ([facility]) Mixed hyperlipidemia History of Crohn's disease 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 P rocedures Echo Complete with Doppler and Color Flow * Diagnostic Imaging (Routine) Status Reason Specialty Diagnoses / Referred By Referred To Procedures Contact Contact Closed Cardiology Diagnoses Angelina Oswald Cv Ultrasound Pre-transplant MD Iain [address] evaluation for [address] [place], [place] kidney Fredi [phone] transplant [place], [place] Phone: ESRD (end stage [address] renal disease) Phone: on dialysis [phone] ([facility]) Fax: Type 2 diabetes [phone] mellitus with diabetic nephropathy, 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) Hypertension, unspecified type Anemia in chronic kidney disease, on chronic dialysis (HCC) Mixed hyperlipidemia History of Crohn's disease 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 due to underlying condition, macular edema presence unspecified, unspecified retinopathy severity (HCC) P rocedures Echo Complete with Doppler and Color Flow Reason for Visit * Diagnostic Imaging (Routine) Status Reason Specialty Diagnoses / Referred By Referred To Procedures Contact Contact Closed Cardiology Diagnoses Angelina Oswald [facility] Cv Ultrasound Pre-transplant MD Iain [address] evaluation for [address] [place], [place] kidney Fredi [phone] transplant [place], [place] Phone: ESRD (end stage [address] renal disease) Phone: on dialysis [phone] (HCC) Fax: Type 2 diabetes [phone] mellitus with diabetic nephropathy, 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) Hypertension, unspecified type Anemia in chronic kidney disease, on chronic dialysis (HCC) Mixed hyperlipidemia History of Crohn's disease 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 due to underlying condition, macular edema presence unspecified, unspecified retinopathy severity (HCC) P rocedures Echo Complete with Doppler and Color Flow Encounter Details Date Type Department Care Team Description 11/29/2018 [facility] Angelina Oswald MD Pre- transplant evaluation Encounter [address] for kidney transplant; [place] [address] [address]i [address] ESRD (end stage renal [phone] [place] [address] disease) on dialysis [phone] (HCC); Type 2 diabetes mellitus with diabetic nephropathy, 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 penitentiary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 (HCC); Hypertension, unspecified type; Anemia in chronic kidney disease, on chronic dialysis (HCC); Mixed hyperlipidemia; History of Crohn's disease Social History Tobacco Use Types Packs/Day Years Used Date Never Smoker Smokeless Tobacco: Never Used Alcohol Use Drinks/Week oz/Week Comments No Sex Assigned at Date Recorded Not on file as of this encounter Medications at Time of Discharge Medication Sig. Disp. Refills Start Date End Date calcium acetate (PHOSLO) Take 2,001 mg by mouth 3 667 mg capsule (three) times a day with meals. diphenoxylate-atropine Take 1 tablet by mouth as (LOMOTIL) 2.5-0.025 mg needed. per tablet insulin detemir (LEVEMIR) Inject under the skin 100 unit/mL injection nightly. insulin lispro (HUMALOG) Inject under the skin 3 100 unit/mL injection (three) times a day before meals. losartan (COZAAR) 100 MG Take 100 mg by mouth tablet daily. potassium chloride Take 10 mEq by mouth 2 (KLOR-CON) 10 MEQ CR (two) times a day. tablet sodium bicarbonate 650 MG Take 650 mg by mouth 2 tablet (two) times a day. as of this encounter Plan of Treatment Not on fileas of this encounter Procedures Procedure Name Priority Date/Time Associated Diagnosis Comments ECHO COMPLETE W DOPPLER Routine 11/29/2018 Pre-transplant evaluation Results for this AND COLOR FLOW 3:04 PM MANAGER RESPIRATORY CARE for kidney transplant 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 in this encounter Results * Echo Complete with Doppler and [...] At [facility] ECHOCARDIOGRAM REPORT [facility] Name:MIHAI BARKER Date:11/29/2018 14:45 Chart #:[id number] : 1960 Location:[facility] OPSono: [email or web address] Age: 58 Gender:MReferring: ANGELINA OSWALD Room #: OP Fellow: Dmitriy Romero Indication:Encounter for other preprocedural examination, Essential (primary) hypertension, Mixed hyperlipidemia, 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 due to underlying condition, macular edema presence unspecified, unspecified retinopathy severity, Anemia in chronic kidney disease, on chronic dialysis Procedure: [id number] Complete Echo 2D/Colorflow/Doppler BP: 138 / 84HR:Ht: 69 Wt:233BSA 2.3 : 2D ECHO MEASUREMENTS LV Diastolic Diameter Bas5.6 cm3.6-5.4IVS Diastolic Thickness1.1 cm0.6-1.1 LV Systolic Diameter Base3.6 cm2.3-4.0LVPW Diastolic Thickness 1.1 cm0.6-1.1 LA Systolic Diameter LX4.6 cm2.3-3.8Ascending Aorta Diameter 3.2 cm2.1-3.4 AORTIC VALVE DOPPLER AV Peak Velocity 148 cm/s LVOT AV David Ratio0.69 AV Peak Gradient 8.8 mmHg MITRAL VALVE DOPPLER Mitral E Point [id number] cm/s Mitral E to A Ratio1 MitralA [...] External Ris In - 11/29/2018 3:37 PM MANAGER RESPIRATORY CARE ECHOCARDIOGRAM REPORT [facility] Name: MIHAI BARKER Date: 11/29/2018 14:45 Chart #: [id number] : 1960 Location: [facility] OP Sono: [email or web address] Age: 58 Gender: M Referring: ANGELINA OSWALD Room #: OP Fellow: Dmitriy Romero Indication:Encounter for other preprocedural examination, Essential (primary) hypertension, Mixed hyperlipidemia, 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 due to underlying condition, macular edema presence unspecified, unspecified retinopathy severity, Anemia in chronic kidney disease, on chronic dialysis Procedure: [id number] Complete Echo 2D/Colorflow/Doppler BP: 138 / 84 [...] Performing Organization Address City/State/Zipcode Phone Number [facility] in this encounter Visit Diagnoses Diagnosis Pre-transplant evaluation for kidney transplant ESRD (end stage renal disease) on dialysis (HCC) End stage renal disease Type 2 diabetes mellitus with diabetic nephropathy, 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
--- OUTSIDE RECORDS SUMMARY | 2019-01-01 13:04 | XMS REPORT | Encounter Summary ---
Author Author [facility] Organization [facility] Address Unknown Phone Unavailable Care Team Providers Care Manager Shift Name Role Phone Charanjit Gardner MD PCP Encounter Details Date Type Department Care Team Description 10/30/2018 Procedure Pass [address] [address] Social History Tobacco Use Types Packs/Day Years Used Date Never Smoker Smokeless Tobacco: Never Used Alcohol Use Drinks/Week oz/Week Comments No Sex Assigned at Date Recorded Not on file as of this encounter Plan of Treatment Not on fileas of this encounter Visit Diagnoses Not on filein this encounter
--- OUTSIDE RECORDS SUMMARY | 2019-01-01 13:04 | XMS REPORT | Encounter Summary ---
Author Author [facility] Organization [facility] Address Unknown Phone Unavailable Care Team Providers Care Communications Department Chair Name Role Phone Charanjit Gardner MD PCP Encounter Details Date Type Department Care Team Description 10/30/2018 Lab [facility] Kamran Camargo MD Pre- transplant evaluation [address] for kidney transplant; [address] ESRD ([place] [address] [place] [address] disease) on dialysis [phone] ([facility]); Type 2 diabetes mellitus with diabetic nephropathy, 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 penitentiary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 ([facility]); Hypertension, unspecified type; Anemia in chronic kidney disease, on chronic dialysis ([facility]); Mixed hyperlipidemia; History of Crohn's disease Social History Tobacco Use Types Packs/Day Years Used Date Never Smoker Smokeless Tobacco: Never Used Alcohol Use Drinks/Week oz/Week Comments No Sex Assigned at Date Recorded Not on file as of this encounter Plan of Treatment Not on fileas of this encounter Procedures Procedure Name Priority Date/Time Associated Diagnosis Comments HIV AG/BRENDA Routine 10/30/2018 Pre-transplant evaluation Results for this 2:33 PM 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 disease) on dialysis (HCC) Type 2 diabetes mellitus with diabetic nephropathy, 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 termite treater helper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 ([facility]) Hypertension, unspecified type Anemia in chronic kidney disease, on chronic dialysis ([facility]) Mixed hyperlipidemia History of Crohn's disease 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 due to underlying condition, macular edema presence unspecified, unspecified retinopathy severity (HCC) QUANTIFERON TB GOLD PLUS Routine 10/30/2018 Pre-transplant evaluation Results for this 2:33 PM 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 disease) on dialysis ([facility]) Type 2 diabetes mellitus with diabetic nephropathy, 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 penitentiary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 ([facility]) Hypertension, unspecified type Anemia in chronic kidney disease, on chronic dialysis ([facility]) Mixed hyperlipidemia History of Crohn's disease 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 due to underlying condition, macular edema presence unspecified, unspecified retinopathy severity (HCC) EBV ACUTE INFECTION Routine 10/30/2018 Pre-transplant evaluation Results for this ANTIBODIES 2:33 PM 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 disease) on dialysis ([facility]) Type 2 diabetes mellitus with diabetic nephropathy, 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 termite treater helper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 ([facility]) Hypertension, unspecified type Anemia in chronic kidney disease, on chronic dialysis ([facility]) Mixed hyperlipidemia History of Crohn's disease 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 due to underlying condition, macular edema presence unspecified, unspecified retinopathy severity ([facility]) THYROID STIMULATING Routine 10/30/2018 Pre-transplant evaluation Results for this HORMONE 2:33 PM 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 disease) on dialysis ([facility]) Type 2 diabetes mellitus with diabetic nephropathy, 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 penitentiary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 ([facility]) Hypertension, unspecified type Anemia in chronic kidney disease, on chronic dialysis ([facility]) Mixed hyperlipidemia History of Crohn's disease 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 due to underlying condition, macular edema presence unspecified, unspecified retinopathy severity (HCC) T4 FREE Routine 10/30/2018 Pre-transplant evaluation Results for this 2:33 PM 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 disease) on dialysis ([facility]) Type 2 diabetes mellitus with diabetic nephropathy, 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 termite treater helper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 ([facility]) Hypertension, unspecified type Anemia in chronic kidney disease, on chronic dialysis ([facility]) Mixed hyperlipidemia History of Crohn's disease 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 due to underlying condition, macular edema presence unspecified, unspecified retinopathy severity (HCC) RENAL PANEL Routine 10/30/2018 Pre-transplant evaluation Results for this 2:33 PM 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 disease) on dialysis ([facility]) Type 2 diabetes mellitus with diabetic nephropathy, 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 penitentiary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 (HCC) Hypertension, unspecified type Anemia in chronic kidney disease, on chronic dialysis ([facility]) Mixed hyperlipidemia History of Crohn's disease 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 due to underlying condition, macular edema presence unspecified, unspecified retinopathy severity ([facility]) PROTEIN TOTAL SERUM Routine 10/30/2018 Results for this 2:33 PM COSMETOLOGIST APPRENTICE procedure are in the results section. 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 disease) on dialysis (HCC) Type 2 diabetes mellitus with diabetic nephropathy, 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 penitentiary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 (HCC) Hypertension, unspecified type Anemia in chronic kidney disease, on chronic dialysis (HCC) Mixed hyperlipidemia History of Crohn's disease 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 due to underlying condition, macular edema presence unspecified, unspecified retinopathy severity (HCC) CMV IGG Routine 10/30/2018 Pre-transplant evaluation Results for this 2:33 PM 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 disease) on dialysis (HCC) Type 2 diabetes mellitus with diabetic nephropathy, 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 penitentiary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 (HCC) Hypertension, unspecified type Anemia in chronic kidney disease, on chronic dialysis (HCC) Mixed hyperlipidemia History of Crohn's disease 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 due to underlying condition, macular edema presence unspecified, unspecified retinopathy severity (HCC) BILIRUBIN TOTAL Routine 10/30/2018 Results for this 2:33 PM COSMETOLOGIST APPRENTICE procedure are in the results section. BILIRUBIN DIRECT Routine 10/30/2018 Results for this 2:33 PM COSMETOLOGIST APPRENTICE procedure are in the results section. ASPARTATE Routine 10/30/2018 Results for this AMINOTRANSFERASE 2:33 PM COSMETOLOGIST APPRENTICE procedure are in the results section. ALKALINE PHOSPHATASE Routine 10/30/2018 Results for this 2:33 PM COSMETOLOGIST APPRENTICE procedure are in the results section. ALANINE AMINOTRANSFERASE Routine 10/30/2018 Results for this 2:33 PM COSMETOLOGIST APPRENTICE procedure are in the results section. in this encounter Results * Protein Total Serum (10/30/2018 2:33 PM) Protein Total Serum 8.3 (H) 6.0 - 8.2 g/dL [facility] Specimen Blood Performing Organization Address [facility] Phone Number [address] [phone] LABORATORIES * Bilirubin Total (10/30/2018 2:33 PM) Bilirubin Total 1.2 0.2 - 1.3 mg/dL [facility] Specimen Blood Performing Organization Address [facility] Phone Number [address] [address] [phone] LABORATORIES * Bilirubin Direct (10/30/2018 2:33 PM) Bilirubin Direct 0.0 0.0 - 0.4 mg/dL [facility] Specimen Blood Performing Organization Address [facility] Phone Number [address] [address] [phone] LABORATORIES * Alanine Aminotransferase (10/30/2018 2:33 PM) Alanine Aminotransferase 24Comment: ALT reference range 0 - 49 IU/L [employer] on 06-05-2018 [facility] Specimen Blood Performing Organization Address [facility] Phone Number [address] [address] LABORATORIES * Aspartate Aminotransferase (10/30/2018 2:33 PM) Aspartate 23 15 - 46 IU/L [facility] Aminotransferase [facility] Specimen Blood Performing Organization Address [facility] Phone Number [address] [phone] LABORATORIES * Alkaline Phosphatase (10/30/2018 2:33 PM) Alkaline Phosphatase 112 42 - 140 IU/L [facility] Specimen Blood Performing Organization Address [facility] Phone Number [address] [phone] LABORATORIES * Lipid Panel (10/30/2018 2:33 PM) Cholesterol 120 100 - 200 mg/dL [facility] HDL Cholesterol 33 (L) 40 - 110 mg/dL [facility] Non-HDL Cholesterol 87 0 - 130 mg/dL [facility] Triglycerides 266 (H) 0 - 150 mg/dL [facility] LDL Cholesterol 34 0 - 99 mg/dL [facility] Cholesterol/HDL Ratio 3.6 0.0 - 4.5 [facility] Specimen Blood Performing Organization Address [facility] Phone Number [address] [phone] LABORATORIES * PSA Screen (10/30/2018 2:33 PM) PSA Screen 0.1Comment: Method for [facility] 0.0 - 4.0 ng/mL [facility] is Orth[facility] REGIONAL [address] [address]. LABORATORIES Specimen Blood Performing Organization Address [facility] Phone Number [address] [address] LABORATORIES * Quantiferon TB Gold Plus (10/30/2018 2:33 PM) QFT Interpretation NegativeComment: M. Negative [facility] tuberculosis infection is not REGIONAL likely. LABORATORIES Specimen Blood Performing Organization Address [facility] Phone Number [facility] [address] [place], [place] [phone] LABORATORIES * EBV Acute Infection Antibodies (10/30/2018 [...] Infection + Antibody Present- Antibody Absent Performed at: - [id number] Air Quality Technician: Hayes Stern MD, Phone:[phone] Performing Organization Address [facility]/Zipcode Phone Number [facility] [address] [place] [address] * Hepatitis C Antibody (10/30/2018 2:33 PM) Hepatitis C Ab Non-reactive Non-reactive [facility] Specimen Blood Performing Organization Address City/[facility]/Zipcode Phone Number [facility] [address] [place] [address] LABORATORIES * CMV IgG (10/30/2018 2:33 PM) Cytomegalovirus IgG <4 0 - 3 UA/ml [facility] Antibody [facility] Cytomegalovirus IgG Negative Negative [facility] Antibody Interp [facility] Specimen Blood Performing Organization Address City/[facility] Phone Number [facility] [address] [place] [address] LABORATORIES * Hepatitis B Surface Antibody (10/30/2018 2:33 PM) Hepatitis B Surface Ab Reactive (A) Non-reactive [facility] Specimen Blood Performing Organization Address [facility] Phone Number [place] [phone] [place] [address] LABORATORIES * Hepatitis B Surface Antigen (10/30/2018 2:33 PM) Hepatitis B Surface Ag Non-reactive Non-reactive [facility] Specimen Blood Performing Organization Address City/[facility] Phone Number [facility] [address] [place] [address] LABORATORIES * HIV AG/BRENDA (10/30/2018 2:33 PM) HIV AG/BRENDA Non-reactive Non-reactive [facility] Specimen Blood Performing Organization Address [facility] Phone Number [facility] [address] [place] [address] [phone] LABORATORIES * Rapid Plasma Reagin (10/30/2018 2:33 PM) RPR Non-reactive Non-reactive [facility] Specimen Blood Performing Organization Address [facility] Phone Number [place] [phone] [place] [address] [phone] LABORATORIES * Hemoglobin A1C (10/30/2018 2:33 PM) Hemoglobin A1C 8.6 (H) 4.0 - 5.6 % [facility] Comment: REGIONAL Non-diabetic LABORATORIES 4.0 - 5.6 % Prediabetes 5.7 - 6.4 % Diabetes >=6.5 % Specimen Blood Performing Organization Address City/[facility] Phone Number [facility] [address] [place], [place] [phone] LABORATORIES * T4 Free (10/30/2018 2:33 PM) T4 Free 1.4 0.8 - 2.2 ng/dL [facility] Specimen Blood Performing Organization Address City/[facility] Phone Number [place] [phone] [place], [place] [phone] LABORATORIES * Thyroid Stimulating Hormone (10/30/2018 2:33 PM) Thyroid Stimulating 1.67 0.47 - 4.68 uIU/mL [facility] Hormone [facility] Specimen Blood Performing Organization Address [facility] Phone Number [facility] [address] [place] [address] [phone] LABORATORIES * Renal Panel (10/30/2018 2:33 PM) Sodium 141 133 - 147 MEQ/L [facility] Potassium 3.6 3.5 - 5.3 MEQ/L [facility] Chloride 90 (L) 96 - 112 MEQ/L [facility] Carbon Dioxide 39 (H) 20 - 32 MEQ/L [facility] Anion Gap 13 5 - 17 [facility] Calcium 10.4 8.4 - 10.5 mg/dL [facility] Glucose 147 (H) 70 - 100 mg/dL [facility] Albumin 4.6 3.5 - 5.0 g/dL [facility] Blood Urea Nitrogen 37 (H) 7 - 26 mg/dL [facility] Creatinine 5.6 (H) 0.6 - 1.3 mg/dL [facility] GFR Male AA 13 (L) 60 - 200 [employer] Comment: REGIONAL Chronic Kidney Disease less LABORATORIES than 60 mL/min/1.73 sq.m Kidney failure less than 15 mL/min/1.73 sq.m GFR Male Non-AA 10 (L) 60 - 200 [employer] Comment: REGIONAL Chronic Kidney Disease less LABORATORIES than 60 mL/min/1.73 sq.m Kidney failure less than 15 mL/min/1.73 sq.m Phosphorus 4.4 2.5 - 4.5 mg/dL [facility] Specimen Blood Performing Organization Address City/State/Zipcode Phone Number [facility] [address] [place] [address] LABORATORIES * CBC and Diff (manual diff if necessary) (10/30/2018 2:33 PM) WBC 5.93 4.00 - 11.00 TH/uL [facility] RBC 3.15 (L) 4.31 - 5.84 MIL/uL [facility] Hemoglobin 10.8 (L) 13.0 - 17.0 g/dL [facility] Hematocrit 31 (L) 40 - 50 % [facility] MCV 99 80 - 99 fL [facility] MCH 34 27 - 34 pg [facility] MCHC 35 32 - 36 % [facility] RDW 14.9 (H) 9.0 - 14.5 % [facility] Platelet Count 177 140 - 400 TH/uL [facility] MPV 10.2 9.4 - 12.3 fL [facility] Nucleated RBCs 0 0 - 0 /100 [facility] % Neutrophils 57 45 - 78 % [facility] %Lymphocytes 32 15 - 47 % [facility] %Monocytes 7 0 - 12 % [facility] %Eosinophils 3 0 - 7 % [facility] %Basophils 1 0 - 2 % [facility] % Imm Grans 0 0 - 1 % [facility] # Granulocytes 3.37 1.70 - 6.80 TH/uL [facility] # Lymphocytes 1.92 1.00 - 3.30 TH/uL [facility] # Monocytes 0.42 0.20 - 0.90 TH/uL [facility] # Eosinophils 0.16 0.00 - 0.40 TH/uL [facility] # Basophils 0.06 0.00 - 0.10 TH/uL [facility] Specimen Blood Performing Organization Address City/State/Zipcode Phone Number [facility] [address] [place] [address] LABORATORIES in this encounter Visit Diagnoses Diagnosis Pre-transplant evaluation for kidney transplant ESRD (end stage renal disease) on dialysis (HCC) End stage renal disease Type 2 diabetes mellitus with diabetic nephropathy, 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 penitentiary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 ([facility]) Hypertension, unspecified type Anemia in chronic kidney disease, on chronic dialysis ([facility]) Mixed hyperlipidemia History of Crohn's disease 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 due to underlying condition, macular edema presence unspecified, unspecified retinopathy severity ([facility])
--- OUTSIDE RECORDS SUMMARY | 2019-01-01 13:04 | XMS REPORT | Encounter Summary ---
Author Author [facility] Organization [facility] Address Unknown Phone Unavailable Care Team Providers Care Legal Records Manager Name Role Phone Charanjit Gardner MD PCP Encounter Details Date Type Department Care Team Description 10/30/2018 [facility] Kamran Camargo MD Pre- transplant evaluation [facility], [facility] [address] [facility] for kidney transplant; [address] [facility] [address] ESRD (end stage renal [address] [place] [address] disease) [place] [address] ([facility]); [phone] Type 2 diabetes mellitus with diabetic nephropathy, 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 computer 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 operator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 ([facility]); Hypertension, unspecified type; Anemia in chronic kidney disease, on chronic dialysis ([facility]); Mixed hyperlipidemia; History of Crohn's disease Social History Tobacco Use Types Packs/Day Years Used Date Never Smoker Smokeless Tobacco: Never Used Alcohol Use Drinks/Week oz/Week Comments No Sex Assigned at Date Recorded Not on file as of this encounter Plan of Treatment Not on fileas of this encounter Procedures Procedure Name Priority Date/Time Associated Diagnosis Comments XR CHEST 2 VIEWS (PA AND Routine 10/30/2018 Pre-transplant evaluation Results for this LATERAL) 3:10 PM [employer] 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 disease) on dialysis (HCC) Type 2 diabetes mellitus with diabetic nephropathy, 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 computer terminal operator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 ([facility]) Hypertension, unspecified type Anemia in chronic kidney disease, on chronic dialysis (HCC) Mixed hyperlipidemia History of Crohn's disease 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 due to underlying condition, macular edema presence unspecified, unspecified retinopathy severity ([facility]) in this encounter Results * XR Chest 2 views (PA and lateral) (10/30/2018 3:10 PM) Impressions Performed At Mild cardiomegaly without other evidence of acute disease in the chest. JD READING SITE: [facility] Narrative Performed At Patient: MIHAI BARKER Sex#:M # [id number] Consuelo#:[id number] Location:[facility] XRAY Procedure Requested:[id number] XR CHEST 2 VIEWS (PA AND LATERAL) Reason for Exam:Pre-transplant evaluation for kidney transplant Exam Ordered: Exam Date/Time:10/30/20181510 Begin exam date/time: XR CHEST 2 VIEWS (PA AND LATERAL) INDICATION: Pre-transplant evaluation for kidney transplant ESRD (end stage renal disease) on dialysis (HCC) ESRD (end stage renal disease) on dialysis (HCC) Type 2 diabetes mellitus with diabetic nephropathy, 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 computer terminal operator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 (HCC) Hypertension, unspecified type Anemia [...] Rad Results In - 10/30/2018 3:22 PM [employer]OUND [employer] SUPERINTENDENT Patient: MIHAI BARKER Sex#: M # [id number] Consuelo#: [id number] Location: [facility] XRAY Procedure Requested: [id number] XR CHEST 2 VIEWS (PA AND LATERAL) Reason for Exam: Pre-transplant evaluation for kidney transplant Exam Ordered: 10/30/20186 Exam Date/Time: 10/30/2018 1510 Begin exam date/time: 10/30/2018 1456 XR CHEST 2 VIEWS (PA AND LATERAL) INDICATION: Pre-transplant evaluation for kidney transplant ESRD (end stage renal disease) on dialysis (HCC) ESRD (end stage renal disease) on dialysis (HCC) Type 2 diabetes mellitus with diabetic nephropathy, 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 computer terminal operator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 (HCC) Hypertension, unspecified type Anemia [...] acute disease in the chest. READING SITE: [facility] Address City/State/Zipcode Phone Number [place] in this encounter Visit Diagnoses Diagnosis Pre-transplant evaluation for kidney transplant ESRD (end stage renal disease) on dialysis (HCC) End stage renal disease Type 2 diabetes mellitus with diabetic nephropathy, 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 computer terminal operator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 (HCC) Hypertension, unspecified type Anemia in chronic kidney disease, on chronic dialysis (HCC) Mixed hyperlipidemia History of Crohn's disease 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 due to underlying condition, macular edema presence unspecified, unspecified retinopathy severity (HCC)
--- OUTSIDE RECORDS SUMMARY | 2019-01-01 13:05 | XMS REPORT | Encounter Summary ---
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 when eating out. Meal / Snack Pattern: Breakfast - kylee breakfast burrito MWF. Lunch - diabetic meal from [employer]. Dinner - pot roast, carrots, potatoes. Usually has protein at dinner. Micronutrient Intake Vitamin Intake: D (at dialysis) Diet Experience: Knowledge/Beliefs/Attitudes and Behavior: Area(s) and Level of Knowledge/Skill: Denies questions regarding the renal diet. Physical Activity: Type of Physical Activity: Walks around his house, around the block, or around [employer]. Spouse reports pt having new diabetic shoes that help him c balance. Also walks c a cane for balance. Pt had a membership to the [employer] but needs to renew. States he has a friend that walk c him. Anthropometrics: Height: 174 cm (5' 8.5") Weight: 105.7 kg (233 lb) BMI (Calculated): 34.9 [place] Body Weight: 71.2 kg (157 lb) % [place] Body Weight: 148 % % Weight Loss In Weeks: Pt states his weight has been steady. Noted weight of 229 lb on 06/12/17. Nutrition Focused Physical Findings: Body Language: Cooperative. Spouse and dtr present who appear very involved; contributing to conversation often. Digestive System (Mouth to Rectum): Good appetite. No n/v. Meds and Labs Reviewed: Pertinent Labs: 10/08/18 - Alb 4.2, PO4 5.5, K+ 3.9, HbA1c 8.4, PTH 829, vitamin D 19.8, BUN 68, Cr 6.74 New labs today: Na+ 141, K+ 3.6, BUN 37, Cr 5.6, PO4 4.4, Glu 147, Alb 4.6. No new HbA1c. Pertinent Meds: Levemir, Humalog, KCl, Phoslo. Takes binders and insulin c him if goes out to eat. Monitoring/Evaluation: 1. Food & Nutrition Related Hx: Diet adherence, physical activity 2. Anthropometrics: Weight change 3. Biochemical: Nutrition related labs Electronically signed by Maggie Juarez 10/30/2018 4:45 PM in this encounter Plan of Treatment Name Priority Associated Diagnoses Order Schedule Electrocardiogram (ECG) Routine Pre-transplant evaluation 1 Occurrences starting for kidney transplant 10/30/2018 until ESRD (end stage renal 10/30/2019 disease) on dialysis (HCC) Type 2 Diabetes Mellitus With Diabetic Nephropathy, Unspecified Whether [employer] And Planning Insulin Use (Hcc) Hypertension, Unspecified Type Anemia In Chronic Kidney Disease, On Chronic Dialysis (Hcc) Mixed hyperlipidemia History of Crohn's disease 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, Macular Edema Presence Unspecified, Unspecified Retinopathy Severity (Hcc) as of this encounter Results * Echo Complete with [...] Imaging Center Name:JUDD BARKER Date:11/29/2018 14:45 Chart #:[id number] : 1960 Location:[facility] OPSono: jjaylon Age: 58 Gender:MReferring: ANGELINA OSWALD Room #: OP Fellow: Dmitriy Romero Indication:Encounter for other preprocedural examination, Essential (primary) hypertension, Mixed hyperlipidemia, 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 due to underlying condition, macular edema presence unspecified, unspecified retinopathy severity, Anemia in chronic kidney disease, on chronic dialysis Procedure: 53455 Complete Echo 2D/Colorflow/Doppler BP: 138 / 84HR:Ht: 69 Wt:233BSA 2.3 : 2D ECHO MEASUREMENTS LV Diastolic Diameter Bas5.6 cm3.6-5.4IVS Diastolic Thickness1.1 cm0.6-1.1 LV Systolic Diameter Base3.6 cm2.3-4.0LVPW Diastolic Thickness 1.1 cm0.6-1.1 LA Systolic Diameter LX4.6 cm2.3-3.8Ascending Aorta Diameter 3.2 cm2.1-3.4 AORTIC VALVE DOPPLER AV Peak Velocity 148 cm/s LVOT AV David Ratio0.69 AV Peak Gradient 8.8 mmHg MITRAL VALVE DOPPLER Mitral E [id number] cm/s Mitral E to A Ratio1 MitralA [...] External Ris In - 11/29/2018 3:37 PM 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 ECHOCARDIOGRAM REPORT [facility] Center Name: JUDD BARKER Date: 11/29/2018 14:45 Chart #: [id number] : 1960 Location: [facility] OP Sono: nae Age: 58 Gender: M Referring: ANGELINA OSWALD Room #: OP Fellow: Dmitriy Romero Indication:Encounter for other preprocedural examination, Essential (primary) hypertension, Mixed hyperlipidemia, 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 due to underlying condition, macular edema presence unspecified, unspecified retinopathy severity, Anemia in chronic kidney disease, on chronic dialysis Procedure: 79614 Complete Echo 2D/Colorflow/Doppler BP: 138 / 84 [...] disease in the chest. JD READING SITE: [facility] Narrative Performed At Patient: JUDD BARKER Sex#:M # [id number] Consuelo#:[id number] Location:[facility] XRAY Procedure Requested:[id number] XR CHEST 2 VIEWS (PA AND LATERAL) Reason for Exam:Pre-transplant evaluation for kidney transplant Exam Ordered: Exam Date/Time:10/30/20181510 Begin exam date/time: XR CHEST 2 VIEWS (PA AND LATERAL) INDICATION: Pre-transplant evaluation for kidney transplant ESRD (end stage renal disease) on dialysis (HCC) ESRD (end stage renal disease) on dialysis (HCC) Type 2 diabetes mellitus with diabetic nephropathy, 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 (HCC) Hypertension, unspecified type Anemia [...] Rad Results In - 10/30/2018 3:22 PM 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 Patient: JUDD BARKER Sex#: Killian # [id number] Consuelo#: [id number] Location: [facility] XRAY Procedure Requested: [id number] XR CHEST 2 VIEWS (PA AND LATERAL) Reason for Exam: Pre-transplant evaluation for kidney transplant Exam Ordered: 10/30/20181455 Exam Date/Time: 10/30/2018 1510 Begin exam date/time: 10/30/2018 145 XR CHEST 2 VIEWS (PA AND LATERAL) INDICATION: Pre-transplant evaluation for kidney transplant ESRD (end stage renal disease) on dialysis (HCC) ESRD (end stage renal disease) on dialysis (HCC) Type 2 diabetes mellitus with diabetic nephropathy, 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 READING SITE: [facility] Performing Organization Address [facility] Phone Number MCKESSON * Lipid Panel (10/30/2018 2:33 PM) Cholesterol 120 100 - 200 mg/dL [facility] HDL Cholesterol 33 (L) 40 - 110 mg/dL [facility] Non-HDL Cholesterol 87 0 - 130 mg/dL [facility] Triglycerides 266 (H) 0 - 150 mg/dL [facility] LDL Cholesterol 34 0 - 99 mg/dL [facility] Cholesterol/HDL Ratio 3.6 0.0 - 4.5 [facility] Specimen Blood Performing Organization Address [facility] Phone Number [address] [phone] LABORATORIES * PSA Screen (10/30/2018 2:33 PM) PSA Screen 0.1Comment: Method for Saint 0.0 - 4.0 ng/mL [facility] is [facility]AL [place] [address]. LABORATORIES Specimen Blood Performing Organization Address [facility] Number [address] [address] [phone] LABORATORIES * Quantiferon TB Gold Plus (10/30/2018 2:33 PM) QFT Interpretation NegativeComment: M. Negative [facility] tuberculosis infection is not REGIONAL likely. LABORATORIES Specimen Blood Performing Organization Address [facility] Phone Number [address] [address] LABORATORIES * EBV Acute Infection Antibodies (10/30/2018 2:33 PM) EBV Ab VCA IgM <36.0 0.0 - 35.9 U/mL RL Comment: Negative<36.0 Equivocal 36.0 - 43.9 Positive>43.9 [...] Antibody Present- Antibody Absent Performed at: - [id number] [place]: Hayes Stern MD, Phone:[phone] Performing Organization Address [facility] Phone Number [facility] [address] [place] [address] * Hepatitis C Antibody (10/30/2018 2:33 PM) Hepatitis C Ab Non-reactive Non-reactive [facility] Specimen Blood Performing Organization Address City/[facility] Phone Number [place] [phone] [place] [address] LABORATORIES * CMV IgG (10/30/2018 2:33 PM) Cytomegalovirus IgG <4 0 - 3 UA/ml [facility] Antibody [facility] Cytomegalovirus IgG Negative Negative [facility] Antibody Inter [facility]IES Specimen Blood Performing Organization Address [facility] Phone Number [address] [address] LABORATORIES * Hepatitis B Surface Antibody (10/30/2018 2:33 PM) Hepatitis B Surface Ab Reactive (A) Non-reactive [facility] Specimen Blood Performing Organization Address [facility] Phone Number [address] [address] [phone] LABORATORIES * Hepatitis B Surface Antigen (10/30/2018 2:33 PM) Hepatitis B Surface Ag Non-reactive Non-reactive [facility] Specimen Blood Performing Organization Address [facility] Number [address] [address] [phone] LABORATORIES * HIV AG/BRENDA (10/30/2018 2:33 PM) HIV AG/BRENDA Non-reactive Non-reactive [facility] Specimen Blood Performing Organization Address [facility] Number [address] [phone] LABORATORIES * Rapid Plasma Reagin (10/30/2018 2:33 PM) RPR Non-reactive Non-reactive [facility] Specimen Blood Performing Organization Address [facility] Number [address] [phone] LABORATORIES * Hemoglobin A1C (10/30/2018 2:33 PM) Hemoglobin A1C 8.6 (H) 4.0 - 5.6 % [facility] Comment: REGIONAL Non-diabetic LABORATORIES 4.0 - 5.6 % Prediabetes 5.7 - 6.4 % Diabetes >=6.5 % Specimen Blood Performing Organization Address [facility] Number [address] [phone] LABORATORIES * T4 Free (10/30/2018 2:33 PM) T4 Free 1.4 0.8 - 2.2 ng/dL [facility] Specimen Blood Performing Organization Address [facility] Phone Number [address] [address] [phone] LABORATORIES * Thyroid Stimulating Hormone (10/30/2018 2:33 PM) Thyroid Stimulating 1.67 0.47 - 4.68 uIU/mL [facility] Hormone [facility] Specimen Blood Performing Organization Address City/[facility]/Zipcode Phone Number [facility] [address] [place] [address] LABORATORIES * Renal Panel (10/30/2018 2:33 PM) Sodium 141 133 - 147 MEQ/L [facility] Potassium 3.6 3.5 - 5.3 MEQ/L [facility] Chloride 90 (L) 96 - 112 MEQ/L [facility] Carbon Dioxide 39 (H) 20 - 32 MEQ/L [facility] Anion Gap 13 5 - 17 [facility] Calcium 10.4 8.4 - 10.5 mg/dL [facility] Glucose 147 (H) 70 - 100 mg/dL [facility] Albumin 4.6 3.5 - 5.0 g/dL [facility] Blood Urea Nitrogen 37 (H) 7 - 26 mg/dL [facility] Creatinine 5.6 (H) 0.6 - 1.3 mg/dL [facility] GFR Male AA 13 (L) 60 - 200 [facility] Comment: [facility] Chronic Kidney Disease less LABORATORIES than 60 mL/min/1.73 sq.m Kidney failure less than 15 mL/min/1.73 sq.m GFR Male Non-AA 10 (L) 60 - 200 [facility] Comment: [facility] Chronic Kidney Disease less LABORATORIES than 60 mL/min/1.73 sq.m Kidney failure less than 15 mL/min/1.73 sq.m Phosphorus 4.4 2.5 - 4.5 mg/dL [facility] [employer] Specimen Blood Performing Organization Address City/State/Zipcode Phone Number [facility] [address] [place], [place] [phone] LABORATORIES * CBC and Diff (manual diff if necessary) (10/30/2018 2:33 PM) WBC 5.93 4.00 - 11.00 TH/uL [facility] RBC 3.15 (L) 4.31 - 5.84 MIL/uL [facility] Hemoglobin 10.8 (L) 13.0 - 17.0 g/dL [facility] Hematocrit 31 (L) 40 - 50 % [facility] MCV 99 80 - 99 fL [facility] MCH 34 27 - 34 pg [facility] MCHC 35 32 - 36 % [facility] RDW 14.9 (H) 9.0 - 14.5 % [facility] Platelet Count 177 140 - 400 TH/uL [facility] MPV 10.2 9.4 - 12.3 fL [facility] Nucleated RBCs 0 0 - 0 /100 [facility] % Neutrophils 57 45 - 78 % [facility] %Lymphocytes 32 15 - 47 % [facility] %Monocytes 7 0 - 12 % [facility] %Eosinophils 3 0 - 7 % [facility] %Basophils 1 0 - 2 % [facility] % Imm Grans 0 0 - 1 % [facility] # Granulocytes 3.37 1.70 - 6.80 TH/uL [facility] # Lymphocytes 1.92 1.00 - 3.30 TH/uL [facility] # Monocytes 0.42 0.20 - 0.90 TH/uL [facility] # Eosinophils 0.16 0.00 - 0.40 TH/uL [facility] # Basophils 0.06 0.00 - 0.10 TH/uL [facility] Specimen Blood Performing Organization Address City/State/Zipcode Phone Number [facility] [address] [place] [address] LABORATORIES in this encounter Visit Diagnoses Diagnosis Pre-transplant evaluation for kidney transplant - Primary ESRD (end stage renal disease) on dialysis (HCC) End stage renal disease Type 2 diabetes mellitus with diabetic nephropathy, 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
--- OUTSIDE RECORDS SUMMARY | 2019-01-01 13:05 | XMS REPORT ---
Author Author INGRID CHOUDHARY Organization [facility] Address [address] [place] [address] Care Team Providers Care Skiver Uppers Or Linings Name Role Phone INGRID CHOUDHARY Unavailable PROBLEMS Type Condition ICD9-CM Code UFI56-JP Code Onset Dates Condition Status SNOMED Code Problem Hypertension I10 Active 03399677 Problem Type 2 diabetes mellitus with hyperglycemia E11.65 Active 363947353327323 Problem Chronic kidney disease, stage 4 (severe) N18.4 Active 689330776 Problem Renal failure N19 Active 33099357 Problem Diabetes E11.9 Active 28224850 Problem Diabetes type 2, uncontrolled E11.65 Active 143400241 Problem Diabetes mellitus due to underlying condition with foot ulcer E08.621 Active 649774284 Problem Controlled type 2 diabetes mellitus without complication, without long -term current use of insulin E11.9 Active 186186872 Problem 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.4 Active 104518296 Problem Type 2 diabetes mellitus with diabetic chronic kidney disease E11.22 Active 38178459 Problem 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, unspecified longwall foreman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 status E11.42 Active 748946501 Problem Constipation, unspecified constipation type K59.00 Active 70208383 ALLERGIES Substance Reaction Event Type Date Status Doxycycline Unknown Drug Allergy Oct, Active Clindamycin HCl hives Drug Allergy Oct, Active Amoxicillin extreme diarrhea Drug Allergy Oct, Active ENCOUNTERS Encounter Location Date Diagnosis [facility] [address] [facility] [id number] [address] Oct, [facility] [address], [place] [address] Oct, Diarrhea, unspecified type R19.7 [facility] [id number] [address] 9[address] Oct, Itching L29.9 [place] [address] [place] [address] 33137- 8037 Oct, [facility] [id number] [place] [address] 47529- 3662 Oct, Diarrhea, unspecified type R19.7 [facility] [id number] [place] [address] 52443- 9592 Jul, Uncontrolled type 2 diabetes mellitus with hyperglycemia E11.65 ; Callus of foot L84 ; Diabetes mellitus due to underlying condition with foot ulcer E08.621 and Non-pressure chronic ulcer of other part of left foot with bone involvement without evidence of necrosis L97.526 [facility] [id number] [place] [address] 170651- 1286 Jun, Cellulitis of right lower extremity L03.115 [facility] [id number] [place] [address] 55529 -8668 Jun, Toe infection L08.9 [facility] [id number] [place] [address] 67084- 2901 May, [facility] [id number] [place] [address] 55694- 3045 Jan, [facility] [id number] [place] [address] 01027- 3437 Nov, Controlled type 2 diabetes mellitus without complication, without long-term current use of insulin E11.9 [facility] [address] [address] Nov, [facility] [address] [place] [address] 66521- 4904 Oct, [facility] [id number] [place] [address] 733152- 0410 Oct, [facility] [id number] [place] [address] 479068- 6946 Oct, [facility] [id number] [place] [address] 887818- 2962 Oct, [facility] [address], [place] [address] 3912 Oct, [facility] [id number] [place] [address] 154400- 3666 Sep, [facility] [id number] [place] [address] 03134 -7973 Aug, Acute bronchitis, unspecified organism J20.9 [facility] [id number] [place] [address] 21748- 6136 Aug, [facility] [id number] [place] [address] 75469 -1563 Aug, Diarrhea of infectious origin A09 [facility] [id number] [place] [address] 47663- 9072 Aug, [facility] [id number] [place] [address] 33633- 0847 Jul, 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, unspecified intermediate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 status E11.42 [facility] [id number] [place] [address] [phone] Jul, Encounter for dental examination Z01.20 [facility] [id number] [place] [address] 74824- 2480 Jul, 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, unspecified intermediate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 status E11.42 [facility] [address] [place] [address] 75512 -0686 Jun, Acute frontal sinusitis J01.10 [facility] [id number] [place] [address] [id number] Jun, Dental examination Z01.20 [facility] [id number] [place] [address] 82497- 1196 May, [facility] [id number] [place] [address] 45999- 0346 May, [facility] [address], [place] [address]- 9194 May, Open wound of toe, initial encounter S91.109A [facility] [address] [address] Apr, Dental examination Z01.20 [facility] [id number] [place] [address] 52200- 2399 Apr, Diabetes E11.9 and Stage 4 chronic kidney disease N18.4 [facility] [id number] [place] [address] 36188- 6179 March, [facility] [id number] [place] [address] 35488- 6344 Feb, [facility] [id number] [place] [address] 57873- 1212 Feb, [facility] [id number] [place] [address] 95415- 8425 Feb, [facility] [id number] [place] [address] 88347- 9397 Dec, [facility] [id number] [place] [address] 44719 -0758 Dec, Constipation, unspecified constipation type K59.00 [facility] [id number] [place] [address] 06612- 0293 Dec, [facility] [id number] [place] [address] 89729- 1323 Dec, [facility] [id number] [place] [address] 16578- 4662 06 Dec, 2016 Renal failure N19 and Hypokalemia E87.6 [facility] [id number] [place] [address] 85696- 2263 Nov, Renal failure N19 and Hypokalemia E87.6 [facility] [id number] [place] [address] 04441- 8192 Nov, Chronic kidney disease, stage 4 (severe) N18.4 [place] [address] 58132- 8155 Nov, Chronic kidney disease, stage 4 (severe) N18.4 [place] [id number] [place] [address] 52423- 7308 Nov, [facility] [address] 05603- 7135 Nov, [place] [address] 23054- 2035 Nov, Dysthymia F34.1 [place] [address] 73716- 2164 Nov, [facility] [address] 67219 -7475 Oct, Bronchitis J40 [place] [id number] [place] [address] 84330- 2916 Oct, Localized edema R60.0 [place] [address] 55146- 3853 Sep, Renal failure N19 ; Type 2 diabetes mellitus with diabetic chronic kidney disease E11.22 and Chronic kidney disease, stage 4 (severe) N18.4 [place] [id number] [place] [address] 95843- 4029 Aug, Renal failure N19 ; Diabetes E11.9 ; Type 2 diabetes mellitus with diabetic chronic kidney disease E11.22 ; Type 2 diabetes mellitus with hyperglycemia E11.65 ; Chronic kidney disease, stage 4 (severe) N18.4 and snf current use of insulin Z79.4 [place] [id number] [place] [address] 39451- 4275 Aug, Bronchitis J40 [place] [address] 20951- 3247 Aug, [facility] [address], [place] [address] -4806 Aug, Bronchitis J40 [facility] [id number] [place] [address] 52431- 7765 Aug, Displaced fracture of greater trochanter of left femur, initial encounter for closed fracture S72.112A [facility] [id number] [place] [address] 48959- 9784 26 Jul, 2016 Hip fracture, left, closed, with routine healing, subsequent encounter S72.002D ; Renal failure N19 and Uncontrolled type 2 diabetes mellitus without complication, without long-term current use of insulin E11.65 [facility] [id number] [place] [address] 88713- 8333 Jul, [facility] [id number] [place] [address] 07494- 2096 16 Jul, 2016 [facility] [id number] [place] [address] 50636- 1003 14 Jul, 2016 [facility] [id number] [place] [address] 19681- 3932 Jul, [facility] [id number] [place] [address] 58854- 6832 May, [facility] [address] [place] [address] 93226- 9927 May, Orthostatic hypotension I95.1 and Renal insufficiency N28.9 [facility] [address], [place] [address]- 8833 May, Renal failure N19 [facility] [id number] [place] [address] 39699- 2250 May, [facility] [address], [place] [address]- 6922 Apr, Renal failure N19 [facility] [id number] [place] [address] 96751- 2187 Apr, [facility] [id number] [place] [address] 35389- 6231 Apr, [facility] [id number] [place] [address] 88725 -4354 Apr, Orthostatic hypotension I95.1 and 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, unspecified longwall foreman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 status E11.42 [place] [id number] [place] [address] 27612- 4469 March, Left rotator cuff tear M75.102 [facility] [id number] [place] [address] 45242 -1085 March, Allergic reaction to drug T78.40XA [place] [address] 12205- 8695 March, Diabetes type 2, controlled E11.9 [place] [address] 70866- 4763 Feb, Left rotator cuff tear M75.102 [place] [id number] [place] [address] 75733- 3226 Feb, Left rotator cuff tear M75.102 [facility] [place] [id number] [place] [address] 22472 -6409 Feb, Diabetes type 2, uncontrolled E11.65 ; Hypertension I10 ; Edema 782.3 and Cellulitis L03.90 [place] [id number] [place] [address] 34188- 5306 Feb, [place] [id number] [place] [address] 28025- 4680 Feb, [place] [id number] [place] [address] 76197- 5264 Feb, Left rotator cuff tear M75.102 [place] [id number] [place] [address] 76977- 3069 Feb, [facility] [id number] [place] [address] 28598- 4484 Feb, Diabetes type 2, uncontrolled E11.65 and Edema R60.9 [place] [id number] [place] [address] 25177- 9391 Jan, Hypertension, essential I10 [place] [id number] [place] [address] 98183- 2055 Dec, Hypertension I10 [place] [address] 94746- 6425 Dec, [place] [address] 04386- 3289 Dec, Renal insufficiency N28.9 and Edema R60.9 [place] [id number] [place] [address] 84534- 4517 Dec, [place] [id number] [place] [address] 55964- 6268 Dec, [place] [id number] [place] [address] 13049- 8881 Dec, [facility] [id number] [place] [address] 32054 -7655 Nov, Pedal edema R60.0 and Benign essential hypertension I10 [place] [id number] [place] [address] 39377- 9421 Nov, Benign essential hypertension I10 and Renal insufficiency N28.9 [facility] [id number] [place] [address] 15838 -8585 Nov, Acute laryngopharyngitis J06.0 ; Benign essential hypertension I10 and Strep pharyngitis J02.0 [place] [id number] [place] [address] 07510- 4301 Nov, Diabetes type 2, uncontrolled E11.65 ; Renal insufficiency N28.9 and Localized edema R60.0 [facility] [address], [place] [address]- 5842 Oct, [facility] [id number] [place] [address] 96990- 7436 Oct, Diabetes E11.9 [facility] [address], [place] [address]- 8329 Sep, [facility] [id number] [place] [address] 10508 2546 May, [facility] [address], [place] [address]- 3657 May, Diabetes with neurological manifestations, type II or unspecified type, not stated as uncontrolled 250.60 [facility] [address], [place] [address]- 3936 May, [facility] [id number] [place] [address] 39505- 6311 May, [facility] [address], [place] [address]- 0979 May, Diabetes with neurological manifestations, type II or unspecified type, not stated as uncontrolled 250.60 and HTN (hypertension) 401.9 [facility] [address], [place] [address]- 0907 Apr, [facility] [address], [place] [address]- 4048 Feb, [facility] [address], [place] [address]- 2545 Feb, [facility] [address], [place] [address]- 4006 Jan, [facility] [address]- 0071 Jan, [facility] [id number], [place] [address]- 2671 Dec, [facility] [place] [facility] [address] [id number] [place] [address]- 5196 Dec, [facility] [place] [facility] [address] [id number] [place] [address]- 1770 Dec, [facility] [place] [facility] [address] [id number] [place] [address]- 2259 Nov, [facility] [place] [facility] [address] [id number] [place] [address]- 8406 Nov, [facility] [place] [facility] [address] [id number] [place] [address]- 1259 Sep, [facility] [place] [facility] [address] [id number] [place] [address]- 9531 Sep, [facility] [place] [facility] [address] [id number] [place] [address]- 3642 Jul, [facility] [place] [facility] [address] [id number] [place] [address]- 7355 Jul, [facility] [place] [facility] [address] [id number] [place] [address]- 1016 Jul, [facility] [place] [facility] [address] [id number] [place] [address]- 7230 Jul, [facility] [place] [facility] [address] [id number] [place] [address]- 7538 Jun, [facility] [place] [facility] [address] [id number] [place] [address]- 1982 Jun, [facility] [place] [facility] [address] [id number] [place] [address]- 2941 May, [facility] [place] [facility] [address] [id number] [place] [address]- 1661 May, [facility] [place] [facility] [address] [id number] [place] [address]- 7176 May, [facility] [place] [facility] [address] [id number] [place] [address]- 1696 May, [facility] [place] [facility] [address] [id number] [place] [address]- 4703 Apr, [facility] [place] [facility] [address] [id number] [place] [address]- 2735 Apr, [facility] [place] [facility] [address] [id number] [place] [address]- 7534 Apr, [facility] [place] [facility] [address] [id number] [place] 9891 Apr, [facility] [place] [facility] [address] [id number] [place] [address]- 7728 March, [facility] [place] [facility] [address] [id number] [place] [address]- 9551 March, [facility] [place] [facility] [address] [id number] [place] [address]- 1393 Feb, [facility] [place] [facility] [address] [id number] [place] [address]- 0369 Feb, [facility] [place] [facility] [address] [id number] [place] [address]- 0955 Feb, [facility] [place] [facility] [address] [id number] [place] [address]- 3202 Feb, [facility] [place] [facility] [address] [id number] [place] [address]- 1585 Jan, [facility] [place] [facility] [address] [id number] [place] [address]- 0622 Jan, [facility] [place] [facility] [address] [id number] [place] [address]- 5358 Nov, [facility] [place] [facility] [address] [id number] [place] [address]- 7013 Nov, [facility] [place] [facility] [address] [id number] [place] [address]- 0311 Oct, [facility] [place] [facility] [address] [id number] [place] [address]- 6880 16 Oct, 2012 [facility] [address] [id number] [place] [address]- 5805 16 Oct, 2012 [facility] [place] [facility] [address] [id number] [place] [address]- 0846 16 Oct, 2012 [facility] [address] [id number] [place] [address]- 8985 04 Oct, 2012 [facility] [place] [facility] [address] [id number] [place] [address]- 6639 04 Oct, 2012 [facility] [address] [id number] [place] [address]- 6666 02 Oct, 2013 [facility] [address] [id number] [place] [address]- 2642 Oct, [facility] [address] [id number] [place] [address]- 2950 Sep, [facility] [address] [id number] [place] [address]- 1682 Sep, [facility] [address] [id number] [place] [address]- 5791 17 Aug, 2013 [facility] [address] [id number] [place] [address]- 3996 17 Aug, 2013 [facility] [place] [facility] [address] [id number] [place] [address]- 8758 17 Aug, 2013 [facility] [address] [id number] [place] [address]- 0454 17 Aug, 2013 [facility] [place] [facility] [address] [id number] [place] [address]- 0092 16 Aug, 2013 [facility] [place] [facility] [address] [id number] [place] [address]- 0606 11 Aug, 2013 [facility] [place] [facility] [address] [id number] [place] [address]- 1703 Aug, [facility] [address] [id number] [place] [address]- 3809 Aug, [facility] [place] [facility] [address] [id number] [place] [address]- 1802 Aug, [facility] [place] [facility] [address] [id number] [place] [address]- 7478 Aug, [facility] [place] [facility] [address] [id number] [place] [address]- 9828 Aug, [facility] [place] [facility] [address] [id number] [place] [address]- 8601 Jul, [facility] [place] [facility] [address] [id number] [place] [address]- 0876 Jun, [facility] [place] [facility] [address] [id number] [place] [address]- 0611 Jun, [facility] [place] [facility] [address] [id number] [place] [address]- 7813 May, [facility] [place] [facility] [address] [id number] [place] [address] May, [facility] [place] [facility] [address] [id number], [place] [address] Apr, [facility] [place] [facility] [address] [id number] [place] [address] March, [facility] [place] [facility] [address] [id number], [place] [address] Feb, [facility] [place] [facility] [address] [id number] [place] [address] Jan, [facility] [place] [facility] [address] [id number] [place] [address] Dec, [facility] [place] [facility] [address] [id number] [place] [address] Dec, [facility] [place] [facility] [address] [id number] [place] [address] 08 Dec, 2012 [facility] [place] [facility] [address] [id number] [place] [address] Nov, [facility] [place] [facility] [address] [id number] [place] [address] Nov, [facility] [place] [facility] [address] [id number] [place] [address] Nov, [facility] [place] [facility] [address] [id number] [place] [address] Oct, [facility] [place] [facility] [address] [id number] [place] [address] Oct, [facility] [place] [facility] [address] [id number] [place] [address] Oct, [facility] [place] [facility] [address] [id number] [place] [address] Oct, [facility] [place] [facility] [address] [id number] [place] [address] Sep, [facility] [place] [facility] [address] [id number] [place] [address] Sep, [facility] [place] [facility] [address] [facility] [id number] [place] [address] Sep, [facility] [place] [facility] [address] [id number] [place] [address] Sep, [facility] [place] [facility] [address] [id number] [place] [address] Aug, [facility] [place] [facility] [address] [id number] [place] [address] Aug, [facility] [place] [facility] [address] [id number] [place] [address] Aug, [facility] [place] [facility] [address] [id number] [place] [address] Aug, [facility] [place] [facility] [address] [id number] [place] [address] Aug, [facility] [place] [facility] [address] [id number] [place] [address] Aug, [facility] [place] [facility] [address] [id number] [place] [address] Jul, [facility] [place] [facility] [address] [id number] [place] [address] Jun, [facility] [place] [facility] [address] [id number] [place] [address] Jun, [facility] [place] [facility] [address] [id number] [place] [address] Jun, [facility] [place] [facility] [address] [id number] [place] [address] May, [facility] [place] [facility] [address] [id number] [place] [address] May, [facility] [place] [facility] [address] [id number] [place] [address] March, [facility] [place] [facility] [address] [id number] [place] [address] March, [facility] [place] [facility] [address] [id number] [place] [address] March, [facility] [place] [facility] [address] [id number] [place] [address] Feb, [facility] [place] [facility] [address] [id number] [place] [address] Feb, [facility] [place] [facility] [address] [id number] [place] [address] Feb, [facility] [place] [facility] [address] [id number] [place] [address] Jan, [facility] [place] [facility] [address] [id number] [place] [address] Jan, [facility] [address] [id number] [place] [address] Dec, [facility] [place] [facility] [address] [id number] [place] [address] Dec, [facility] [address] [id number] [place] [address] Dec, [facility] [place] [facility] [address] [id number] [place] [address] Dec, [facility] [address] [id number] [place] [address] Dec, [facility] [address] [id number] [place] [address] Dec, [facility] [address] [facility] [id number] [place] [address] Dec, [facility] [address] [id number] [place] [address] Nov, [facility] [address] [id number] [place] [address] Nov, [facility] [address] [facility] [id number] [place] [address] Nov, [facility] [address] [facility] [id number] [place] [address] Nov, [facility] [place] [facility] [address] [id number] [place] [address] Nov, [facility] [place] [facility] [address] [id number] [place] [address] Nov, [facility] [place] [facility] [address] [facility] [id number] [place] [address] Oct, [facility] [place] [facility] [address] [facility] [id number] [place] [address] Oct, [facility] [place] [facility] [address] [id number] [address] Oct, [facility] [id number] [address] Oct, [facility] [id number], [place] [address] Oct, [facility] [id number] [place] [address] Oct, [facility] [id number], [place] [address] Oct, [facility] [id number] [place] [address] Oct, [facility] [id number] [address] Aug, [facility] [id number], [place] [address] Jan, [facility] [address] [id number] [address] Jan, IMMUNIZATIONS Vaccine Route Administration Date Status PHENERGAN 50MG/ML IM Intramuscular Nov 05, 2018 Administered SOCIAL HISTORY Never Assessed REASON FOR VISIT Rash, PT was seen Friday 11/02 at walk in due to diarrhea. The itching started Monday and PT has not urinated since Monday except a little drop this morning. . -Jayden BLAIR, PT felt loss of appetite Monday, ended up getting sick with a lot of green bile. Notes has not been sick since then but has had diarrhea. - Jayden BLAIR PLAN OF CARE VITAL SIGNS Height 69 in 2018-11-05 Weight 230 lbs 2018-11-05 Temperature 99.0 degrees Fahrenheit 2018-11-05 Heart Rate 88 bpm 2018-11-05 Respiratory Rate 20 2018-11-05 BMI 33.96 kg/m2 2018-11-05 Blood pressure systolic 100 mmHg 2018-11-05 Blood pressure diastolic 60 mmHg 2018-11-05 MEDICATIONS Medication Instructions Dosage Frequency Start Date End Date Duration Status HydrOXYzine HCl 25 MG Orally every 6 hrs 1 tablet as needed 6h Oct, 30 day(s) Active Klor-Con 10 10 MEQ Orally Twice a day 1 tablet with food 12h 30 Active Glucocard Expression Test - DX- E11.9 3 times a day test 3 times per day 8h Oct, Active Calcium Acetate (Phos Binder) 667 MG Orally Three times a day 2 tablets with meals 8h Active Viberzi 100 mg Orally Twice a day 1 tablet with food 12h 20 Aug, 2017 Active NovoLog Flexpen 100 UNIT/ML Subcutaneous 3 times a day 16 units 8h 18 Aug, 2017 Active Lomotil 2.5-0.025 MG 1 tablet as needed 6h 26 Dec, 2014 Active Glucocard Expression Monitor w/Device DX- E11.9 3 times a day test 3 times per day 8h Oct, Active Albuterol Sulfate (2.5 MG/3ML) 0.083% Inhalation 4 times a day as directed 6h 28 Aug, 2017 Not-Taking Atorvastatin Calcium 40 mg Orally Once a day 1 tablet 24h 90 Not- Taking Blood Pressure Monitor - monitor BP as directed by nephrology May, Active Sodium Bicarbonate 10 mg Orally 2 times a day 1 tablet 12h Active Levemir Flexpen 100 unit/mL (3 mL) subcutaneously at bedtime 25 units daily Active Metoprolol Tartrate 25 MG Orally Twice a day 1 tablet with food 12h Aug Active RESULTS No Results PROCEDURES Procedure Date Ordered Result Body Site PHENERGAN 50MG/ML Nov 05, 2018 THER/PROPH/DIAG INJ, SC/IM Nov 05, 2018 INSTRUCTIONS MEDICATIONS ADMINISTERED No Known Medications MEDICAL [...] 02/02/16 Surgical History Left forearm fistula 08/2017 Surgical History Left bycep fistula 2016 Surgical History left shoulder 2018 Hospitalization History surgeries Hospitalization History left greater trochanter fracture 08/10/16 Hospitalization History fistula 08/2017
--- OUTSIDE RECORDS SUMMARY | 2019-01-01 13:06 | XMS REPORT ---
Author Author INGRID CHOUDHARY Organization [facility] Address [address] [place] [address] Care Team Providers Care Money Manager Name Role Phone INGRID CHOUDHARY Unavailable PROBLEMS Type Condition ICD9-CM Code UMP45-KT Code Onset Dates Condition Status SNOMED Code Problem Hypertension I10 Active 27764212 Problem Type 2 diabetes mellitus with hyperglycemia E11.65 Active [id number] Problem Chronic kidney disease, stage 4 (severe) N18.4 Active 741266326 Problem Renal failure N19 Active 68668890 Problem Diabetes E11.9 Active 44257907 Problem Diabetes type 2, uncontrolled E11.65 Active 180888472 Problem Diabetes mellitus due to underlying condition with foot ulcer E08.621 Active 489876306 Problem Controlled type 2 diabetes mellitus without complication, without long -term current use of insulin E11.9 Active 235619612 Problem 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 131860122 Problem Type 2 diabetes mellitus with diabetic chronic kidney disease E11.22 Active 97402142 Problem 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, unspecified watermaster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 status E11.42 Active 115960873 Problem Constipation, unspecified constipation type K59.00 Active 65553044 ALLERGIES No Information ENCOUNTERS Encounter Location Date Diagnosis [place] [id number] [place] [address] 29295- 8806 Oct, Diarrhea, unspecified type R19.7 [place] [address] [place] [id number] [place] [address] 50698- 3382 Oct, Itching L29.9 [place] [id number] [place] [address] 20734- 0079 Oct, [place] [id number] [place] [address] 67159- 8395 Oct, Diarrhea, unspecified type R19.7 [place] [address], [place] [address] 0716 Jul, Uncontrolled type 2 diabetes mellitus with hyperglycemia E11.65 ; Callus of foot L84 ; Diabetes mellitus due to underlying condition with foot ulcer E08.621 and Non-pressure chronic ulcer of other part of left foot with bone involvement without evidence of necrosis L97.526 [facility] [address] [address] Jun, Cellulitis of right lower extremity L03.115 [facility] [address] [address] Jun, Toe infection L08.9 [facility] [address] [place] [id number] [place] [address] 08840- 3846 May, [facility] [id number] [place] [address] 385639- 4538 Jan, [facility] [address] [id number] [place] [address] 38927- 5356 Nov, Controlled type 2 diabetes mellitus without complication, without long-term current use of insulin E11.9 [facility] [id number] [place] [address] [id number] Nov, [facility] [address] 9[address] Oct, [facility] [address] [address]- 9826 Oct, [facility] [address] [address]- 3036 Oct, [facility] [id number] [place] [address] 06585- 8326 Oct, [facility] [address] [address] 2546 Oct, [facility] [id number] [place] [address] 72030- 6026 Sep, [facility] [address] [address] Aug, Acute bronchitis, unspecified organism J20.9 [facility] [id number] [place] [address] 26589- 3868 Aug, [facility] [address] [id number] [place] [address] 88040 -4488 Aug, Diarrhea of infectious origin A09 [facility] [address] [id number] [place] [address] 25617- 9998 Aug, [facility] [id number] [place] [address] 89476- 0725 Jul, 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, unspecified correction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 status E11.42 [facility] [id number] [place] [address] [id number] Jul, Encounter for dental examination Z01.20 [facility] [id number] [place] [address] 92662- 8969 Jul, 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, unspecified watermaster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 status E11.42 [facility] [id number] [place] [address] 00987 -0421 Jun, Acute frontal sinusitis J01.10 [facility] [address] [place] [address] [id number] Jun, Dental examination Z01.20 [facility] [address] [address]- 7935 May, [facility] [address] [id number] [place] [address] 17643- 0728 May, [facility] [id number] [place] [address] 02784684- 8285 May, Open wound of toe, initial encounter S91.109A [facility] [id number] [place] [address] [id number] Apr, Dental examination Z01.20 [facility] [id number] [place] [address] 00970- 3020 Apr, Diabetes E11.9 and Stage 4 chronic kidney disease N18.4 [facility] [address] [id number] [place] [address] 06052- 4163 March, [facility] [address] [place] [id number] [place] [address] 89918- 2536 Feb, [facility] [address] [place] [id number] [place] [address] 65827- 1330 Feb, [facility] [address] [place] [address] [id number] [place] [address] 12557- 7690 Feb, [facility] [address] [id number] [place] [address] 23769- 0758 13 Dec, 2016 [facility] [address] [id number] [place] [address] 63372 -0177 10 Dec, 2016 Constipation, unspecified constipation type K59.00 [facility] [address] [id number] [place] [address] 79162- 6495 10 Dec, 2016 [facility] [address] [id number] [place] [address] 43576- 5630 Dec, [facility] [id number] [place] [address] 98235- 2927 06 Dec, 2016 Renal failure N19 and Hypokalemia E87.6 [facility] [address] [id number] [place] [address] 04182- 6311 Nov, Renal failure N19 and Hypokalemia E87.6 [facility] [address] [id number] [place] [address] 44132- 0243 Nov, Chronic kidney disease, stage 4 (severe) N18.4 [facility] [address] [id number] [place] [address] 60890- 7952 Nov, Chronic kidney disease, stage 4 (severe) N18.4 [facility] [address] [id number] [place] [address] 64818- 4269 Nov, [facility] [address] [place] [id number] [place] [address] 92967- 6254 Nov, [facility] [address] [place] [id number] [place] [address] 46465- 1405 Nov, Dysthymia F34.1 [facility] [address] [id number] [place] [address] 58701- 8599 Nov, [facility] [address] [id number] [place] [address] 73633 -9637 Oct, Bronchitis J40 [facility] [address] [place] [address] [id number] [place] [address] 94522- 3966 Oct, Localized edema R60.0 [place] [address] 16377- 7139 Sep, Renal failure N19 ; Type 2 diabetes mellitus with diabetic chronic kidney disease E11.22 and Chronic kidney disease, stage 4 (severe) N18.4 [place] [address] [place] [address] [id number] [place] [address] 05545- 5692 Aug, Renal failure N19 ; Diabetes E11.9 ; Type 2 diabetes mellitus with diabetic chronic kidney disease E11.22 ; Type 2 diabetes mellitus with hyperglycemia E11.65 ; Chronic kidney disease, stage 4 (severe) N18.4 and alf current use of insulin Z79.4 [facility] [address] [place] [address] [id number] [place] [address] 62234- 3604 Aug, Bronchitis J40 [facility] [address] [place] [address] [id number] [place] [address] 29943- 0588 Aug, [facility] [address] [place] [id number] [place] [address] 87936 -9776 Aug, Bronchitis J40 [facility] [address] [place] [id number] [place] [address] 71990- 3943 Aug, Displaced fracture of greater trochanter of left femur, initial encounter for closed fracture S72.112A [facility] [address] [place] [id number] [place] [address] 47559- 1561 26 Jul, 2016 Hip fracture, left, closed, with routine healing, subsequent encounter S72.002D ; Renal failure N19 and Uncontrolled type 2 diabetes mellitus without complication, without long-term current use of insulin E11.65 [facility] [address] [id number] [place] [address] 10931- 0040 Jul, [facility] [address] [place] [id number] [place] [address] 92521- 8957 Jul, [facility] [address] [place] [id number] [place] [address] 20795- 1421 14 Jul, 2016 [facility] [address] [place] [id number] [place] [address] 74105- 6817 Jul, [facility] [id number] [place] [address] 85954- 8029 May, [facility] [address] [id number] [place] [address] 68342- 1598 May, Orthostatic hypotension I95.1 and Renal insufficiency N28.9 [facility] [address] [place] [id number] [place] [address] 28937- 7021 May, Renal failure N19 [facility] [address] [place] [id number] [place] [address] 55930- 9928 May, [facility] [address] [address]- 9748 Apr, Renal failure N19 [facility] [address] [id number] [place] [address] 51200- 5195 Apr, [facility] [address], [place] [address]- 6773 Apr, [facility] [address] [id number] [place] [address] 65627 -3614 Apr, Orthostatic hypotension I95.1 and 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, unspecified correction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 status E11.42 [place] [address] [place] [address] [id number] [place] [address] 04206- 3963 March, Left rotator cuff tear M75.102 [facility] [address] 87575 -2354 March, Allergic reaction to drug T78.40XA [place] [address] 95677- 6907 March, Diabetes type 2, controlled E11.9 [place] [address] 31038- 1560 Feb, Left rotator cuff tear M75.102 [place] [address] 18785- 9908 Feb, Left rotator cuff tear M75.102 [facility] [address] [place] [id number] [place] [address] 19733 -7972 Feb, Diabetes type 2, uncontrolled E11.65 ; Hypertension I10 ; Edema 782.3 and Cellulitis L03.90 [place] [address] [place] [id number] [place] [address] 89504- 8744 Feb, [place] [address] [place] [id number] [place] [address] 71345- 6132 Feb, [place] [address] 56711- 5502 Feb, Left rotator cuff tear M75.102 [place] [address] 04837- 6063 Feb, [place] [address] 06542- 2125 Feb, Diabetes type 2, uncontrolled E11.65 and Edema R60.9 [place] [address] 30987- 1131 14 Jan, 2016 Hypertension, essential I10 [facility] [address] [place] [address] 49981- 4368 Dec, Hypertension I10 [facility] [address] [place] [id number] [place] [address] 75040- 9648 Dec, [facility] [address] [place] [id number] [place] [address] 03668- 1325 Dec, Renal insufficiency N28.9 and Edema R60.9 [facility] [address] [place] [id number] [place] [address] 26766- 0909 Dec, [facility] [address] [place] [id number] [place] [address] 54634- 8422 Dec, [facility] [address] [place] [id number] [place] [address] 18431- 5277 Dec, [facility] [address] [id number] [place] [address] 76191 -9484 Nov, Pedal edema R60.0 and Benign essential hypertension I10 [facility] [address] [place] [id number] [place] [address] 73086- 7168 Nov, Benign essential hypertension I10 and Renal insufficiency N28.9 [facility] [address] [place] [id number] [place] [address] 62662 -7895 Nov, Acute laryngopharyngitis J06.0 ; Benign essential hypertension I10 and Strep pharyngitis J02.0 [facility] [address] [place] [address] 37108- 1283 Nov, Diabetes type 2, uncontrolled E11.65 ; Renal insufficiency N28.9 and Localized edema R60.0 [facility] [address] [place] [id number] [place] [address] 78738- 3981 Oct, [facility] [address] [place] [id number] [place] [address] 55406- 5417 Oct, Diabetes E11.9 [facility] [address], [place] [address]- 1107 Sep, [facility] [address] [address]- 7746 May, [facility] [address], [place] [address]- 8137 May, Diabetes with neurological manifestations, type II or unspecified type, not stated as uncontrolled 250.60 [facility] [address], [place] [address]- 5656 May, [facility] [address] [place] [address] 04380- 0694 May, [facility] [address] [address]- 1855 May, Diabetes with neurological manifestations, type II or unspecified type, not stated as uncontrolled 250.60 and HTN (hypertension) 401.9 [facility] [address] [address]- 3181 Apr, [facility] [address], [place] [address]- 0385 Feb, [facility] [address] [address]- 9291 Feb, [facility] [address], [place] [address]- 6910 Jan, [facility] [address], [place] [address]- 2921 Jan, [facility] [address] [address]- 7254 Dec, [facility] [address] [address]- 3831 Dec, [facility] [address] [address]- 9892 Dec, [facility] [place] [facility] [address] [id number] [place] [address]- 8523 Nov, [facility] [place] [facility] [address] [id number] [place] [address]- 7576 Nov, [facility] [place] [facility] [address] [id number] [place] [address]- 2413 Sep, [facility] [place] [facility] [address] [id number] [place] [address]- 7822 Sep, [facility] [place] [facility] [address] [id number] [place] [address]- 8603 Jul, [facility] [place] [facility] [address] [id number] [place] [address]- 1797 Jul, [facility] [place] [facility] [address] [id number] [place] [address]- 9126 Jul, [facility] [place] [facility] [address] [id number] [place] [address]- 2853 Jul, [facility] [place] [facility] [address] [id number] [place] [address]- 0670 Jun, [facility] [place] [facility] [address] [id number] [place] [address]- 5025 Jun, [facility] [place] [facility] [address] [id number] [place] [address]- 4304 May, [facility] [place] [facility] [address] [id number] [place] [address]- 2225 May, [facility] [place] [facility] [address] [id number] [place] [address]- 9864 May, [facility] [place] [facility] [address] [id number] [place] [address]- 5739 May, [facility] [place] [facility] [address] [id number] [place] [address]- 2936 Apr, [facility] [place] [facility] [address] [id number] [place] [address]- 4582 Apr, [facility] [place] [facility] [address] [id number] [place] [address]- 4236 Apr, [facility] [place] [facility] [address] [id number] [place] [address]- 8409 Apr, [facility] [place] [facility] [address] [id number] [place] [address]- 2129 March, [facility] [place] [facility] [address] [id number] [place] [address]- 4488 March, [facility] [place] [facility] [address] [id number] [place] [address]- 0960 Feb, [facility] [place] [facility] [address] [id number] [place] [address]- 0856 Feb, [facility] [place] [facility] [address] [id number] [place] [address]- 2268 Feb, [facility] [place] [facility] [address] [id number] [place] [address]- 5989 Feb, [facility] [place] [facility] [address] [id number] [place] [address]- 4269 Jan, [facility] [place] [facility] [address] [id number] [place] [address]- 6564 Jan, [facility] [place] [facility] [address] [id number] [address]- 1594 Nov, [facility] [place] [facility] [address] [id number], [place] [address]- 6608 Nov, [facility] [place] [facility] [address] [id number] [place] [address]- 9042 Oct, [facility] [place] [facility] [address] [id number] [place] [address]- 8507 Oct, [facility] [place] [facility] [address] [id number] [place] [address]- 7220 Oct, [facility] [place] [facility] [address] [id number] [place] [address]- 1157 16 Oct, 2012 [facility] [place] [facility] [address] [id number] [place] [address]- 5983 04 Oct, 2012 [facility] [place] [facility] [address] [id number] [place] [address]- 2714 04 Oct, 2012 [facility] [place] [facility] [address] [id number] [place] [address]- 3131 02 Oct, 2012 [facility] [place] [facility] [address] [id number] [place] [address]- 4978 Oct, 2012 [facility] [place] [facility] [address] [id number] [place] [address]- 0400 Sep, [facility] [place] [facility] [address] [id number] [place] [address]- 7038 Sep, [facility] [place] [facility] [address] [id number] [place] [address]- 7235 17 Aug, 2013 [facility] [place] [facility] [address] [id number] [place] [address]- 9311 17 Aug, 2013 [facility] [place] [facility] [address] [id number] [place] 4116 17 Aug, 2013 [facility] [place] [facility] [address] [facility] [id number] [place] [address]- 2820 17 Aug, 2013 [facility] [place] [facility] [address] [id number] [place] [address]- 2997 16 Aug, 2012 [facility] [place] [facility] [address] [id number], [place] [address]- 5272 11 Aug, 2012 [facility] [place] [facility] [address] [id number] [place] [address]- 5270 11 Aug, 2013 [facility] [place] [facility] [address] [id number] [place] [address]- 3017 10 Aug, 2012 [facility] [place] [facility] [address] [id number], [place] [address]- 2045 Aug, [facility] [place] [facility] [address] [id number] [place] [address]- 2775 Aug, [facility] [address] [id number] [place] [address]- 0466 Aug, [facility] [place] [facility] [address] [id number] [place] [address]- 1334 Jul, [facility] [place] [facility] [address] [id number] [place] [address]- 2591 Jun, [facility] [address] [id number] [place] [address]- 2662 Jun, [facility] [place] [facility] [address] [id number] [place] [address]- 3223 May, [facility] [address] [id number] [place] [address]- 0986 May, [facility] [address] [id number] [place] [address]- 3939 Apr, [facility] [address] [id number] [place] [address]- 1838 March, [facility] [address] [id number] [place] [address]- 3366 Feb, [facility] [place] [facility] [address] [id number] [place] [address]- 4478 Jan, [facility] [place] [facility] [address] [id number], [place] [address]- 4436 Dec, [facility] [place] [facility] [address] [id number] [place] [address]- 0450 Dec, [facility] [place] [facility] [address] [id number] [place] [address] Dec, [facility] [place] [facility] [address] [id number], [place] [address] Nov, [facility] [place] [facility] [address] [id number], [place] [address] Nov, [facility] [place] [facility] [address] [id number] [place] [address] Nov, [facility] [place] [facility] [address] [id number] [place] [address] Oct, [facility] [place] [facility] [address] [facility]NOTE [facility]] [id number] [place] [address] Oct, [facility] [place] [facility] [address] [id number] [place] [address] Oct, [facility] [place] [facility] [address] [id number] [place] [address] Oct, [facility] [place] [facility] [address] [facility][NOTE 3] [id number] [place] [address] Sep, [facility] [place] [facility] [address] [id number] [place] [address] Sep, [facility] [place] [facility] [address] [facility][NOTE 3] [id number] [place] [address] Sep, [facility] [place] [facility] [address] [facility][NOTE 3] [id number] [place] [address] Sep, [facility] [place] [facility] [address] [facility][NOTE 3] [id number] [place] [address] Aug, [facility] [place] [facility] [address] [facility][NOTE 3] [id number], [place] [address] Aug, [facility] [place] [facility] [address] [facility][NOTE 3] [id number], [place] [address] Aug, [facility] [place] [facility] [address] [id number] [place] [address] Aug, [facility] [place] [facility] [address] [facility][NOTE 3] [id number], [place] [address] Aug, [facility] [place] [facility] [address] [facility][NOTE 3] [id number], [place] [address] Aug, [facility] [place] [facility] [address] [id number] [place] [address] Jul, [facility] [place] [facility] [address] [id number] [place] [address] Jun, [facility] [place] [facility] [address] [id number] [place] [address] Jun, [facility] [place] [facility] [address] [id number] [place] [address] Jun, [facility] [place] [facility] [address] [id number] [place] [address] May, [facility] [place] [facility] [address] [id number] [place] [address] May, [facility] [place] [facility] [address] [id number] [place] [address] March, [facility] [place] [facility] [address] [id number] [place] [address] March, [facility] [place] [facility] [address] [id number] [place] [address] March, [facility] [place] [facility] [address] [id number] [place] [address] Feb, [facility] [place] [facility] [address] [id number] [place] [address] Feb, [facility] [place] [facility] [address] [id number] [place] [address] Feb, [facility] [place] [facility] [address] [id number] [place] [address] Jan, [facility] [place] [facility] [address] [id number] [place] [address] Jan, [facility] [place] [facility] [address] [id number] [place] [address]- [address] Dec, [facility] [place] [facility] [address] [id number] [place] [address] Dec, [facility] [address] [id number] [place] [address] Dec, [facility] [place] [facility] [address] [id number] [place] [address] Dec, [facility] [place] [facility] [address] [id number] [place] [address] Dec, [facility] [place] [facility] [address] [id number] [place] [address] Dec, [facility] [place] [facility] [address] [id number] [place] [address] Dec, [facility] [place] [facility] [address] [id number] [place] [address] Nov, [facility] [address] [id number] [place] [address] Nov, [facility] [place] [facility] [address] [id number] [place] [address] Nov, [facility] [address] [id number] [place] [address] Nov, [facility] [place] [facility] [address] [facility]NOTE 3] [id number] [place] [address] Nov, [facility] [address] [id number] [place] [address] Nov, [facility] [place] [facility] [address] [id number] [place] [address] Oct, [facility] [place] [facility] [address] [id number] [place] [address] Oct, [facility] [place] [facility] [address] [id number] [place] [address] 14 Oct, 2011 [facility] [place] [facility] [address] [facility]NOTE 3] [id number] [place] [address] Oct, [facility] [place] [facility] [address] [facility]NOTE 3] [id number], [place] [address] Oct, [facility] [address] [facility]NOTE 3] [id number], [place] [address] Oct, [facility] [address] [id number], [place] [address] Oct, [facility] [address] [facility]NOTE 3] [id number], [place] [address] Oct, [facility] [address] [facility][NOTE 3] [id number], [place] [address] Aug, [facility] [address] [id number], [place] [address] Jan, [facility] [address] [facility][NOTE 3] [id number][place] [address] Jan, IMMUNIZATIONS No Known Immunizations SOCIAL HISTORY Never Assessed REASON FOR VISIT Lab (walk-in) PLAN OF CARE Activity Details Pending Test STOOL (O & P) Pending Test STOOL (WBC) Pending Test CULTURE, STOOL Pending Test STOOL (C-DIFF) VITAL SIGNS MEDICATIONS Unknown Medications RESULTS No Results PROCEDURES Procedure Date Ordered Result Body Site OVA AND PARASITES SMEARS Nov 06, 2018 SMEAR, COMPLEX STAIN Nov 06, 2018 FECES CULTURE, BACTERIA Nov 06, 2018 LEUKOCYTE COUNT, FECAL Nov 06, 2018 C DIFF AMPLIFIED PROBE Nov 06, 2018 INSTRUCTIONS MEDICATIONS ADMINISTERED No Known Medications [...] fistula 08/2017 Surgical History Left bycep fistula 2017 Surgical History left shoulder 2018 Hospitalization History surgeries Hospitalization History left greater trochanter fracture 08/10/16 Hospitalization History fistula 08/2017
--- OUTSIDE RECORDS SUMMARY | 2019-01-01 13:06 | XMS REPORT ---
Author Author INGRID CHOUDHARY Organization [facility] Address [address] [place] [address] Care Team Providers Care Duplicate Maker Name Role Phone INGRID CHOUDHARY Unavailable PROBLEMS Type Condition ICD9-CM Code UYP08-GC Code Onset Dates Condition Status SNOMED Code Problem Hypertension I10 Active 08484589 Problem Type 2 diabetes mellitus with hyperglycemia E11.65 Active 279391352258409 Problem Chronic kidney disease, stage 4 (severe) N18.4 Active 450879602 Problem Renal failure N19 Active 95989458 Problem Diabetes E11.9 Active 80392982 Problem Diabetes type 2, uncontrolled E11.65 Active 983028102 Problem Diabetes mellitus due to underlying condition with foot ulcer E08.621 Active 003658722 Problem Controlled type 2 diabetes mellitus without complication, without long -term current use of insulin E11.9 Active 529586195 Problem 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 [id number] [address] Oct, Diarrhea, unspecified type R19.7 [facility] [address] [id number] [address] 29[address] Oct, Itching L29.9 [facility] [address] [id number] [address] Oct, [facility] [address] [place] [address] 30064- 8156 Oct, Diarrhea, unspecified type R19.7 [facility] [id number] [place] [address] 176119- 4942 Jul, Uncontrolled type 2 diabetes mellitus with hyperglycemia E11.65 ; Callus of foot L84 ; Diabetes mellitus due to underlying condition with foot ulcer E08.621 and Non-pressure chronic ulcer of other part of left foot with bone involvement without evidence of necrosis L97.526 [facility] [id number] [place] [address] 99577- 5949 Jun, Cellulitis of right lower extremity L03.115 [facility] [id number] [place] [address] 88475 -2492 Jun, Toe infection L08.9 [facility] [id number] [place] [address] 87434- 3366 May, [facility] [id number] [place] [address] 71576- 8615 Jan, [facility] [id number] [place] [address] 80388- 7770 Nov, Controlled type 2 diabetes mellitus without complication, without long-term current use of insulin E11.9 [facility] [address] [id number] Nov, [facility] [address] [place] [address] 98697- 3750 Oct, [facility] [address] [place] [address] 56002- 7369 Oct, [facility] [id number] [place] [address] 779190- 8086 Oct, [facility] [address] [place] [address] 56243- 3456 Oct, [facility] [id number] [place] [address] 69992- 6416 Oct, [facility] [address] [place] [address] 13378- 2642 Sep, [facility] [id number] [place] [address] 85690 -4066 Aug, Acute bronchitis, unspecified organism J20.9 [facility] [id number] [place] [address] 59558- 6424 Aug, [facility] [id number] [place] [address] 08716 -7807 Aug, Diarrhea of infectious origin A09 [facility] [address] 470437- 3068 Aug, [facility] [id number] [place] [address] 62201- 2018 Jul, 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, unspecified terminal carman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 status E11.42 [facility] [id number] [place] [address] [phone] Jul, Encounter for dental examination Z01.20 [facility] [id number] [place] [address] 34618- 6598 Jul, 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, unspecified terminal carman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 status E11.[address] [facility] [id number] [place] [address] 41671 -3116 Jun, Acute frontal sinusitis J01.10 [facility] [id number] [place] [address] [id number] Jun, Dental examination Z01.20 [facility] [id number] [place] [address] 24816- 3326 May, [facility] [id number] [place] [address] 04355- 0696 May, [facility] [id number] [place] [address] 44728- 7712 May, Open wound of toe, initial encounter S91.109A [facility] [address] [place] [address] [phone] Apr, Dental examination Z01.20 [place] [id number] [place] [address] 66698- 1250 Apr, Diabetes E11.9 and Stage 4 chronic kidney disease N18.4 [place] [address] 85858- 4226 March, [place] [id number] [place] [address] 56755- 6027 Feb, [place] [address] 19467- 9623 Feb, [place] [id number] [place] [address] 13232- 1870 Feb, [facility] [id number] [place] [address] 31237- 0009 Dec, [facility] [id number] [place] [address] 48317 -1930 Dec, Constipation, unspecified constipation type K59.00 [facility] [id number] [place] [address] 32033- 8753 10 Dec, 2016 [facility] [id number] [place] [address] 24104- 5740 Dec, [facility] [id number] [place] [address] 94540- 3902 Dec, Renal failure N19 and Hypokalemia E87.6 [place] [id number] [place] [address] 48683- 9797 Nov, Renal failure N19 and Hypokalemia E87.6 [facility] [id number] [place] [address] 88020- 8238 Nov, Chronic kidney disease, stage 4 (severe) N18.4 [facility] [address] [place] [address] 86813- 0041 Nov, Chronic kidney disease, stage 4 (severe) N18.4 [facility] [id number] [place] [address] 51972- 1626 Nov, [facility] [id number] [place] [address] 24928- 1513 Nov, [facility] [id number] [place] [address] 39480- 5982 Nov, Dysthymia F34.1 [place] [id number] [place] [address] 27115- 5743 Nov, [facility] [id number] [place] [address] 54464 -9874 Oct, Bronchitis J40 [place] [id number] [place] [address] 69559- 5720 Oct, Localized edema R60.0 [facility] [id number] [place] [address] 08206- 6087 Sep, Renal failure N19 ; Type 2 diabetes mellitus with diabetic chronic kidney disease E11.22 and Chronic kidney disease, stage 4 (severe) N18.4 [place] [address] [place] [address] 36128- 2834 Aug, Renal failure N19 ; Diabetes E11.9 ; Type 2 diabetes mellitus with diabetic chronic kidney disease E11.22 ; Type 2 diabetes mellitus with hyperglycemia E11.65 ; Chronic kidney disease, stage 4 (severe) N18.4 and nursing home current use of insulin Z79.4 [facility] [id number] [place] [address] 13324- 5651 Aug, Bronchitis J40 [facility] [id number] [place] [address] 97996- 6424 Aug, [facility] [id number] [place] [address] 26077 -2346 18 Aug, 2016 Bronchitis J40 [facility] [address], [place] [address]- 9923 05 Aug, 2016 Displaced fracture of greater trochanter of left femur, initial encounter for closed fracture S72.112A [facility] [id number] [place] [address] 52922- 9314 26 Jul, 2016 Hip fracture, left, closed, with routine healing, subsequent encounter S72.002D ; Renal failure N19 and Uncontrolled type 2 diabetes mellitus without complication, without long-term current use of insulin E11.65 [facility] [id number] [place] [address] 05732- 4402 Jul, [facility] [id number] [place] [address] 42873- 0368 16 Jul, 2016 [facility] [id number] [place] [address] 68046- 1336 Jul, [facility] [id number] [place] [address] 06094- 6844 Jul, [facility] [id number] [place] [address] 39613- 8468 May, [facility] [id number] [place] [address] 74406- 5841 May, Orthostatic hypotension I95.1 and Renal insufficiency N28.9 [facility] [id number] [place] [address] 89293- 9009 May, Renal failure N19 [facility] [address] [place] [address] 67372- 8019 May, [facility] [id number] [place] [address] 44394- 9248 Apr, Renal failure N19 [facility] [id number] [place] [address] 49142- 3518 Apr, [facility] [id number] [place] [address] 82090- 7658 Apr, [facility] [id number] [place] [address] 79160 -4004 Apr, Orthostatic hypotension I95.1 and 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, unspecified terminal carman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 status E11.42 [facility] [id number] [place] [address] 71337- 7567 March, Left rotator cuff tear M75.[address] [facility] [id number] [place] [address] 04938 -6223 March, Allergic reaction to drug T78.40XA [place] [address] 02672- 6473 March, Diabetes type 2, controlled E11.9 [place] [id number] [place] [address] 96159- 8452 Feb, Left rotator cuff tear M75.102 [place] [id number] [place] [address] 32840- 9517 Feb, Left rotator cuff tear M75.[address] [facility] [id number] [place] [address] 23079 -6797 Feb, Diabetes type 2, uncontrolled E11.65 ; Hypertension I10 ; Edema 782.3 and Cellulitis L03.90 [place] [id number] [place] [address] 33386- 6371 Feb, [place] [id number] [place] [address] 77213- 2288 Feb, [place] [id number] [place] [address] 47110- 4140 Feb, Left rotator cuff tear M75.102 [facility] [id number] [place] [address] 28130- 4011 Feb, [place] [id number] [place] [address] 44476- 2579 Feb, Diabetes type 2, uncontrolled E11.65 and Edema R60.9 [facility] [id number] [place] [address] 11733- 5068 Jan, Hypertension, essential I10 [facility] [id number] [place] [address] 53857- 1139 Dec, Hypertension I10 [facility] [address] 20253- 3872 Dec, [facility] [address] 02191- 9597 Dec, Renal insufficiency N28.9 and Edema R60.9 [place] [address] 74701- 5354 Dec, [facility] [id number] [place] [address] 41892- 9550 Dec, [facility] [id number] [place] [address] 73370- 0286 Dec, [facility] [id number] [place] [address] 89213 -3941 Nov, Pedal edema R60.0 and Benign essential hypertension I10 [facility] [id number] [place] [address] 35120- 6598 Nov, Benign essential hypertension I10 and Renal insufficiency N28.[address] [facility] [id number] [place] [address] 70540 -7306 Nov, Acute laryngopharyngitis J06.0 ; Benign essential hypertension I10 and Strep pharyngitis J02.0 [facility] [id number] [place] [address] 54636- 4792 Nov, Diabetes type 2, uncontrolled E11.65 ; Renal insufficiency N28.9 and Localized edema R60.0 [facility] [id number] [place] [address] 42156- 6403 Oct, [facility] [address], [place] [address]- 3754 Oct, Diabetes E11.9 [facility] [address]- 7246 Sep, [facility] [address], [place] [address]- 0035 May, [facility] [id number] [place] [address] 54953- 1978 May, Diabetes with neurological manifestations, type II or unspecified type, not stated as uncontrolled 250.60 [facility] [address] [place] [address] 05724- 8148 May, [facility] [id number] [place] [address] 96634- 1589 May, [facility] [address] [place] [address] 49940- 9900 May, Diabetes with neurological manifestations, type II or unspecified type, not stated as uncontrolled 250.60 and HTN (hypertension) 401.9 [facility] [address] [address]- 4369 Apr, [facility] [address], [place] [address]- 9905 Feb, [facility] [address], [place] [address]- 3372 Feb, [facility] [address]- 9330 Jan, [facility] [address]- 4658 Jan, [facility] [address]- 2024 Dec, [facility] [id number], [place] [address]- 9436 Dec, [facility] [place] [facility] [address] [id number] [place] [address]- 2727 Dec, [facility] [place] [facility] [address] [id number] [place] [address]- 0566 Nov, [facility] [place] [facility] [address] [id number] [place] [address]- 1969 Nov, [facility] [place] [facility] [address] [id number] [place] [address]- 0735 Sep, [facility] [place] [facility] [address] [id number] [place] [address]- 1942 Sep, [facility] [place] [facility] [address] [id number] [place] [address]- 2590 Jul, [facility] [place] [facility] [address] [id number] [place] [address]- 5699 Jul, [facility] [place] [facility] [address] [id number] [place] [address]- 2335 Jul, [facility] [place] [facility] [address] [id number] [place] [address]- 8552 Jul, [facility] [place] [facility] [address] [id number] [place] [address]- 3040 Jun, [facility] [place] [facility] [address] [id number] [place] [address]- 4414 Jun, [facility] [place] [facility] [address] [id number] [place] [address]- 1388 May, [facility] [place] [facility] [address] [id number] [place] [address]- 4831 May, [facility] [place] [facility] [address] [id number] [place] [address]- 6099 May, [facility] [place] [facility] [address] [id number] [place] 3283 May, [facility] [place] [facility] [address] [id number] [place] [address]- 7088 Apr, [facility] [place] [facility] [address] [id number] [place] [address]- 5136 Apr, [facility] [place] [facility] [address] [id number] [place] [address]- 2484 Apr, [facility] [place] [facility] [address] [id number] [place] [address]- 5225 Apr, [facility] [place] [facility] [address] [id number] [place] 6803 March, [facility] [place] [facility] [address] [id number] [place] [address]- 6012 March, [facility] [place] [facility] [address] [id number] [place] [address]- 8320 Feb, [facility] [place] [facility] [address] [id number] [place] [address]- 6735 Feb, [facility] [place] [facility] [address] [id number] [place] [address]- 1669 Feb, [facility] [place] [facility] [address] [id number] [place] [address]- 8109 Feb, [facility] [place] [facility] [address] [id number] [place] [address]- 8670 Jan, [facility] [place] [facility] [address] [id number] [place] [address]- 1915 Jan, [facility] [place] [facility] [address] [id number] [place] [address]- 4320 Nov, [facility] [place] [facility] [address] [id number] [place] [address]- 9590 Nov, [facility] [place] [facility] [address] [id number] [place] [address]- 3492 Oct, [facility] [place] [facility] [address] [id number] [place] 3360 Oct, [facility] [place] [facility] [address] [id number] [place] [address]- 7896 16 Oct, 2012 [facility] [address] [id number] [place] [address]- 8001 16 Oct, 2013 [facility] [place] [facility] [address] [id number] [place] [address] 2549 04 Oct, 2013 [facility] [address] [id number] [place] [address]- 0990 04 Oct, 2012 [facility] [place] [facility] [address] [id number] [place] [address]- 1037 Oct, [facility] [address] [id number] [place] [address]- 4777 Oct, [facility] [address] [id number] [place] [address]- 7143 Sep, [facility] [address] [id number] [place] [address]- 3596 Sep, [facility] [address] [id number] [place] [address]- 9811 17 Aug, 2013 [facility] [address] [id number] [place] [address]- 9872 17 Aug, 2013 [facility] [address] [id number] [place] [address]- 2277 17 Aug, 2013 [facility] [place] [facility] [address] [id number] [place] [address]- 6793 17 Aug, 2013 [facility] [address] [id number] [place] [address]- 4020 16 Aug, 2013 [facility] [place] [facility] [address] [id number] [place] [address]- 8037 11 Aug, 2013 [facility] [place] [facility] [address] [id number] [place] [address]- 9447 11 Aug, 2013 [facility] [place] [facility] [address] [id number] [place] [address]- 1511 Aug, [facility] [address] [id number] [place] [address]- 3687 Aug, [facility] [place] [facility] [address] [id number] [place] [address]- 9308 Aug, [facility] [place] [facility] [address] [id number] [place] [address]- 9350 Aug, [facility] [place] [facility] [address] [id number] [place] [address]- 7258 Jul, [facility] [place] [facility] [address] [id number] [place] [address]- 5021 Jun, [facility] [place] [facility] [address] [id number] [place] [address]- 0559 Jun, [facility] [place] [facility] [address] [id number] [place] [address]- 3550 May, [facility] [place] [facility] [address] [id number] [place] [address]- 8301 May, [facility] [place] [facility] [address] [id number] [place] [address]- 5069 Apr, [facility] [place] [facility] [address] [id number] [address]- 2884 March, [facility] [place] [facility] [address] [id number] [place] [address]- 3906 Feb, [facility] [place] [facility] [address] [id number], [place] [address]- 0606 Jan, [facility] [place] [facility] [address] [id number] [place] [address] Dec, [facility] [place] [facility] [address] [id number] [place] [address] Dec, [facility] [place] [facility] [address] [id number] [place] [address] Dec, [facility] [place] [facility] [address] [id number] [place] [address] Nov, [facility] [place] [facility] [address] [id number] [place] [address] Nov, [facility] [place] [facility] [address] [id number] [place] [address] Nov, [facility] [place] [facility] [address] [id number] [place] [address] Oct, [facility] [place] [facility] [address] [id number] [place] [address] Oct, [facility] [place] [facility] [address] [id number] [place] [address] Oct, [facility] [place] [facility] [address] [id number] [place] [address] Oct, [facility] [place] [facility] [address] [id number] [place] [address] Sep, [facility] [place] [facility] [address] [id number] [place] [address] Sep, [facility] [place] [facility] [address] [id number] [place] [address] Sep, [facility] [place] [facility] [address] [id number] [place] [address] Sep, [facility] [place] [facility] [address] [id number] [place] [address] Aug, [facility] [place] [facility] [address] [id number] [place] [address] Aug, [facility] [place] [facility] [address] [id number] [place] [address] Aug, [facility] [place] [facility] [address] [id number] [place] [address] Aug, [facility] [place] [facility] [address] [id number] [place] [address] Aug, [facility] [place] [facility] [address] [id number] [place] [address] Aug, [facility] [place] [facility] [address] [id number] [place] [address] Jul, [facility] [place] [facility] [address] [id number] [place] [address] Jun, [facility] [place] [facility] [address] [id number] [place] [address] Jun, [facility] [place] [facility] [address] [id number] [place] [address] Jun, [facility] [place] [facility] [address] [id number] [place] [address] May, [facility] [place] [facility] [address] [id number] [place] [address] May, [facility] [place] [facility] [address] [id number] [place] [address] March, [facility] [place] [facility] [address] [id number] [place] [address] March, [facility] [place] [facility] [address] [id number] [place] [address] March, [facility] [place] [facility] [address] [id number] [place] [address] Feb, [facility] [place] [facility] [address] [id number] [place] [address] Feb, [facility] [place] [facility] [address] [id number] [place] [address] Feb, [facility] [place] [facility] [address] [id number] [place] [address] Jan, [facility] [place] [facility] [address] [id number] [place] [address] Jan, [facility] [place] [facility] [address] [id number] [place] [address] Dec, [facility] [address] [id number] [place] [address] Dec, [facility] [address] [id number] [place] [address] Dec, [facility] [address] [id number] [place] [address] Dec, [facility] [address] [id number] [place] [address] Dec, [facility] [address] [id number] [place] [address] Dec, [facility] [address] [id number] [place] [address] Dec, [facility] [address] [id number] [place] [address] Nov, [facility] [address] [id number] [place] [address] Nov, [facility] [address] [id number] [place] [address] Nov, [facility] [address] [facility] [id number] [place] [address] Nov, [facility] [address] [id number] [place] [address] Nov, [facility] [place] [facility] [address] [id number] [place] [address] Nov, [facility] [address] [id number] [place] [address] Oct, [facility] [place] [facility] [address] [id number] [place] [address] Oct, [facility] [address] [id number] [place] [address] 2018 Oct, [facility] [place] [facility] [address] [id number] [address] Oct, [facility] [id number] [address] Oct, [facility] [id number] [address] Oct, [facility] [id number] [address] Oct, [facility] [id number] [address] Oct, [facility] [id number] [place] [address] Aug, [facility] [id number] [address] Jan, [facility] [id number] [address] Jan, IMMUNIZATIONS No Known Immunizations SOCIAL HISTORY Never Assessed REASON FOR VISIT Diarrhea-BLANCA morris, PT is complaining of having diarrhea for about about a month now. PLAN OF CARE VITAL SIGNS Height 69 in 2018-11-02 Weight 229.28 lbs 2018-11-02 Temperature 98.0 degrees Fahrenheit 2018-11-02 Heart Rate 67 bpm 2018-11-02 Respiratory Rate 20 2018-11-02 Oximetry on room air:98 % 2018-11-02 BMI 33.86 kg/m2 2018-11-02 Blood pressure systolic 86 mmHg 2018-11-02 Blood pressure diastolic 52 mmHg 2018-11-02 MEDICATIONS Medication Instructions Dosage Frequency Start Date End Date Duration Status NovoLog Flexpen 100 UNIT/ML Subcutaneous 3 times a day 16 units 8h Aug, Active Viberzi 100 mg Orally Twice a day 1 tablet with food 12h Aug, Active Lomotil 2.5-0.025 MG 1 tablet as needed 6h 26 Dec, 2014 Active Blood Pressure Monitor - monitor BP as directed by nephrology May, Active Glucocard Expression Monitor w/Device DX- E11.9 3 times a day test 3 times per day 8h 04 Oct, 2017 Active Glucocard Expression Test - DX- E11.9 3 times a day test 3 times per day 8h Oct, Active Sodium Bicarbonate 10 mg Orally 2 times a day 1 tablet 12h Active Calcium Acetate (Phos Binder) 667 MG Orally Three times a day 2 tablets with meals 8h Active Levemir Flexpen 100 unit/mL (3 mL) subcutaneously at bedtime 25 units daily Active Albuterol Sulfate (2.5 MG/3ML) 0.083% Inhalation 4 times a day as directed 6h 28 Aug, 2017 Not-Taking Metoprolol Tartrate 25 MG Orally Twice a day 1 tablet with food 12h 18 Aug Active Klor-Con 10 10 MEQ Orally Twice a day 1 tablet with food 12h 30 Active Atorvastatin Calcium 40 mg Orally Once a day 1 tablet 24h 90 Not- Taking RESULTS No Results PROCEDURES No Known procedures [...]
--- OUTSIDE RECORDS SUMMARY | 2019-01-01 13:07 | XMS REPORT ---
Author Author FUNMIINGRID Organization [facility] Address [address] [place] [address] Care Team Providers Care Seamer Operator Name Role Phone INGRID CHOUDHARY Unavailable PROBLEMS Type Condition ICD9-CM Code ILP01-UY Code Onset Dates Condition Status SNOMED Code Problem Hypertension I10 Active 78308192 Problem Type 2 diabetes mellitus with hyperglycemia E11.65 Active [id number] Problem Chronic kidney disease, stage 4 (severe) N18.4 Active 744787313 Problem Diabetes mellitus due to underlying condition with foot ulcer E08.621 Active 970072449 Problem Controlled type 2 diabetes mellitus without complication, without long -term current use of insulin E11.9 Active 233995809 Problem FPC current use of insulin Z79.4 Active 310836156 Problem Type 2 diabetes mellitus with diabetic chronic kidney disease E11.22 Active 75397057 Problem 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, unspecified watermaster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 status E11.42 Active 425637216 Problem Constipation, unspecified constipation type K59.00 Active 89790972 Problem Edema 782.3 Active 865601996 Problem Other and unspecified noninfectious gastroenteritis and colitis 558.9 Active 58628978 Problem Need for prophylactic vaccination and inoculation against pertussis alone V03.6 Active 73046575 Problem Renal failure N19 Active 03560042 Problem HTN (hypertension) 401.9 Active 40736407 Problem Diabetes mellitus without mention of complication, type II or unspecified type, not stated as uncontrolled 250.00 Active 962469631 Problem Diabetes E11.9 Active 52505226 Problem Diabetes with neurological manifestations, type II or unspecified type , not stated as uncontrolled 250.60 Active 631750516 Problem Diabetes type 2, uncontrolled E11.65 Active 706259432 ALLERGIES Substance Reaction Event Type Date Status Doxycycline Unknown Drug Allergy Jul, Active Clindamycin HCl hives Drug Allergy Jul, Active Amoxicillin extreme diarrhea Drug Allergy Jul, Active ENCOUNTERS Encounter Location Date Diagnosis [facility] [address] [address] Jul, Uncontrolled type 2 diabetes mellitus with hyperglycemia E11.65 ; Callus of foot L84 ; Diabetes mellitus due to underlying condition with foot ulcer E08.621 and Non-pressure chronic ulcer of other part of left foot with bone involvement without evidence of necrosis L97.526 [facility] [address] [address] Jun, Cellulitis of right lower extremity L03.115 [facility] [id number] [address] Jun, Toe infection L08.9 [facility] [id number] [place] [address] 23904- 1256 May, [facility] [id number] [place] [address] 791522- 8504 Jan, [facility] [id number] [place] [address] 39983- 1858 Nov, Controlled type 2 diabetes mellitus without complication, without long-term current use of insulin E11.9 [facility] [id number] [place] [address] [id number] Nov, [facility] [address] [address] Oct, [facility] [id number] [place] [address] 35365- 5286 Oct, [facility] [address] [address] 9[address] Oct, [facility] [id number] [place] [address] 04689- 6346 Oct, [facility] [id number] [place] [address] 69881- 9966 Oct, [facility] [address] [address] Sep, [facility] [address] [address] Aug, Acute bronchitis, unspecified organism J20.9 [facility] [id number] [place] [address] 79697- 5974 Aug, [facility] [id number] [place] [address] 79310 -1962 Aug, Diarrhea of infectious origin A09 [facility] [id number] [place] [address] 68561- 0328 Aug, [facility] [id number] [place] [address] 20280- 1835 Jul, 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, unspecified prison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 status E11.42 [facility] [id number] [place] [address] [id number] Jul, Encounter for dental examination Z01.20 [facility] [id number] [place] [address] 41605- 1879 Jul, 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, unspecified prison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 status E11.42 [facility] [id number] [place] [address] 94081 -5454 Jun, Acute frontal sinusitis J01.10 [facility] [id number] [place] [address] [id number] Jun, Dental examination Z01.20 [facility] [id number] [place] [address] 80159- 5078 May, [facility] [id number] [place] [address] 12639- 9142 May, [facility] [id number] [place] [address] 11173- 8873 May, Open wound of toe, initial encounter S91.109A [facility] [id number] [place] [address] [id number] Apr, Dental examination Z01.20 [facility] [id number] [place] [address] 28291- 4210 Apr, Diabetes E11.9 and Stage 4 chronic kidney disease N18.4 [facility] [id number] [place] [address] 80310- 1978 March, [facility] [id number] [place] [address] 36998- 5047 Feb, [facility] [id number] [place] [address] 01394- 1224 Feb, [facility] [id number] [place] [address] 71987- 7515 Feb, [facility] [id number] [place] [address] 77276- 6483 13 Dec, 2016 [facility] [id number] [place] [address] 47928 -7793 10 Dec, 2016 Constipation, unspecified constipation type K59.00 [facility] [id number] [place] [address] 11394- 9579 10 Dec, 2016 [facility] [id number] [place] [address] 97253- 1980 Dec, [facility] [id number] [place] [address] 83714- 0049 06 Dec, 2016 Renal failure N19 and Hypokalemia E87.6 [facility] [id number] [place] [address] 16047- 8986 Nov, Renal failure N19 and Hypokalemia E87.6 [facility] [id number] [place] [address] 76974- 2157 Nov, Chronic kidney disease, stage 4 (severe) N18.4 [facility] [id number] [address] Nov, Chronic kidney disease, stage 4 (severe) N18.4 [facility] [id number] [place] [address] 57134- 9774 Nov, [facility] [id number] [place] [address] 96350- 4033 Nov, [facility] [id number] [place] [address] 01842- 9940 Nov, Dysthymia F34.1 [place] [id number] [place] [address] 21597- 9775 Nov, [facility] [id number] [place] [address] 01225 -4518 Oct, Bronchitis J40 [place] [address] 98638- 6806 Oct, Localized edema R60.0 [place] [address] 87348- 5682 Sep, Renal failure N19 ; Type 2 diabetes mellitus with diabetic chronic kidney disease E11.22 and Chronic kidney disease, stage 4 (severe) N18.4 [place] [id number] [place] [address] 91039- 0039 Aug, Renal failure N19 ; Diabetes E11.9 ; Type 2 diabetes mellitus with diabetic chronic kidney disease E11.22 ; Type 2 diabetes mellitus with hyperglycemia E11.65 ; Chronic kidney disease, stage 4 (severe) N18.4 and FPC current use of insulin Z79.4 [facility] [id number] [place] [address] 38541- 7685 Aug, Bronchitis J40 [facility] [id number] [place] [address] 96506- 8536 Aug, [facility] [id number] [place] [address] 40316 -9472 Aug, Bronchitis J40 [facility] [address] 99487- 1309 Aug, Displaced fracture of greater trochanter of left femur, initial encounter for closed fracture S72.112A [facility] [id number] [place] [address] 50761- 4903 26 Jul, 2016 Hip fracture, left, closed, with routine healing, subsequent encounter S72.002D ; Renal failure N19 and Uncontrolled type 2 diabetes mellitus without complication, without long-term current use of insulin E11.65 [facility] [id number] [place] [address] 36180- 4298 21 Jul, 2016 [facility] [id number] [place] [address] 09141- 6520 16 Jul, 2016 [facility] [id number] [place] [address] 44069- 0530 14 Jul, 2016 [facility] [id number] [place] [address] 60779- 7734 Jul, [facility] [id number] [place] [address] 27688- 5381 May, [facility] [id number] [place] [address] 33946- 2628 May, Orthostatic hypotension I95.1 and Renal insufficiency N28.9 [facility] [id number] [place] [address] 94760- 6778 May, Renal failure N19 [facility] [id number] [place] [address] 40903- 9528 May, [facility] [id number] [place] [address] 72619- 9382 30 Apr, 2016 Renal failure N19 [facility] [id number] [place] [address] 98050- 6787 Apr, [facility] [address] [place] [address] 86487- 5688 16 Apr, 2016 [facility] [id number] [place] [address] 21242 -8421 Apr, Orthostatic hypotension I95.1 and 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, unspecified watermaster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 status E11.42 [place] [address] 61191- 8679 March, Left rotator cuff tear M75.102 [facility] [id number] [place] [address] 51636 -5159 March, Allergic reaction to drug T78.40XA [place] [address] 92316- 1281 March, Diabetes type 2, controlled E11.9 [place] [address] 87164- 9141 Feb, Left rotator cuff tear M75.102 [place] [address] 30599- 8773 Feb, Left rotator cuff tear M75.102 [facility] [address] 12295 -4247 Feb, Diabetes type 2, uncontrolled E11.65 ; Hypertension I10 ; Edema 782.3 and Cellulitis L03.90 [place] [id number] [place] [address] 01567- 1205 Feb, [place] [id number] [place] [address] 90897- 8068 Feb, [place] [id number] [place] [address] 87429- 3482 Feb, Left rotator cuff tear M75.102 [place] [address] 96336- 5245 Feb, [place] [address] 35386- 6187 Feb, Diabetes type 2, uncontrolled E11.65 and Edema R60.9 [place] [address] 43840- 5292 Jan, Hypertension, essential I10 [facility] [address] [place] [address] 06265- 8609 Dec, Hypertension I10 [facility] [id number] [place] [address] 81794- 0579 Dec, [facility] [id number] [place] [address] 77717- 8673 Dec, Renal insufficiency N28.9 and Edema R60.9 [facility] [id number] [place] [address] 09573- 4209 Dec, [facility] [address] 96969- 8802 Dec, [facility] [id number] [place] [address] 67166- 4162 Dec, [facility] [id number] [place] [address] 22886 -0113 Nov, Pedal edema R60.0 and Benign essential hypertension I10 [facility] [id number] [place] [address] 95437- 2808 Nov, Benign essential hypertension I10 and Renal insufficiency N28.9 [facility] [id number] [place] [address] 06496 -2217 Nov, Acute laryngopharyngitis J06.0 ; Benign essential hypertension I10 and Strep pharyngitis J02.0 [facility] [id number] [place] [address] 32680- 9989 Nov, Diabetes type 2, uncontrolled E11.65 ; Renal insufficiency N28.9 and Localized edema R60.0 [facility] [id number] [place] [address] 89452- 9423 Oct, [facility] [id number] [place] [address] 20401- 5001 Oct, Diabetes E11.9 [facility] [address] [address]- 3629 Sep, [facility] [address] [address]- 1786 May, [facility] [address] [address]- 4694 May, Diabetes with neurological manifestations, type II or unspecified type, not stated as uncontrolled 250.60 [facility] [address], [place] [address]- 0943 May, [facility] [address] [address]- 2879 May, [facility] [address] [address]- 3121 May, Diabetes with neurological manifestations, type II or unspecified type, not stated as uncontrolled 250.60 and HTN (hypertension) 401.9 [facility] [address] [address]- 8545 Apr, [facility] [address] [address]- 8404 Feb, [facility] [address] [address]- 3873 Feb, [facility] [address] [address]- 3073 Jan, [facility] [address] [address]- 4392 Jan, [facility] [address] [address]- 2352 Dec, [facility] [address] 8207 Dec, [facility] [id number] [address]- 5247 Dec, [facility] [address] [address]- 3776 Nov, [facility] [place] [facility] [address] [id number] [place] [address]- 3428 Nov, [facility] [place] [facility] [address] [id number] [place] [address]- 9319 Sep, [facility] [place] [facility] [address] [id number] [place] [address]- 2944 Sep, [facility] [place] [facility] [address] [id number] [place] [address]- 5057 Jul, [facility] [place] [facility] [address] [id number] [place] [address]- 1988 Jul, [facility] [place] [facility] [address] [id number] [place] [address]- 1588 Jul, [facility] [place] [facility] [address] [id number] [place] [address]- 6834 Jul, [facility] [place] [facility] [address] [id number] [place] [address]- 4197 Jun, [facility] [place] [facility] [address] [id number] [place] [address]- 4778 Jun, [facility] [place] [facility] [address] [id number] [place] [address]- 5107 May, [facility] [place] [facility] [address] [id number] [place] [address]- 0427 May, [facility] [place] [facility] [address] [id number] [place] [address]- 4734 May, [facility] [place] [facility] [address] [id number] [place] 0888 May, [facility] [place] [facility] [address] [id number] [place] [address]- 6636 Apr, [facility] [place] [facility] [address] [id number] [place] [address]- 4384 Apr, [facility] [place] [facility] [address] [id number] [place] [address]- 0614 Apr, [facility] [place] [facility] [address] [id number] [place] [address]- 4552 Apr, [facility] [place] [facility] [address] [id number] [place] 1171 March, [facility] [place] [facility] [address] [id number] [place] [address]- 7915 March, [facility] [place] [facility] [address] [id number] [place] [address]- 2473 Feb, [facility] [place] [facility] [address] [id number] [place] [address]- 1158 Feb, [facility] [place] [facility] [address] [id number] [place] [address]- 3845 Feb, [facility] [place] [facility] [address] [id number] [place] [address]- 4716 Feb, [facility] [place] [facility] [address] [id number] [place] [address]- 6995 Jan, [facility] [place] [facility] [address] [id number] [place] [address]- 7478 Jan, [facility] [place] [facility] [address] [id number] [address]- 4039 Nov, [facility] [place] [facility] [address] [id number] [address]- 1045 Nov, [facility] [place] [facility] [address] [id number] [place] 3852 Oct, [facility] [place] [facility] [address] [id number] [place] [address]- 7916 Oct, [facility] [place] [facility] [address] [id number] [place] [address]- 4141 Oct, [facility] [place] [facility] [address] [id number] [address]- 0211 16 Oct, 2013 [facility] [place] [facility] [address] [id number] [place] [address]- 7466 04 Oct, 2013 [facility] [place] [facility] [address] [id number] [address]- 6216 04 Oct, 2013 [facility] [place] [facility] [address] [facility] [id number] [place] [address]- 8445 Oct, [facility] [place] [facility] [address] [id number] [address]- 4759 Oct, [facility] [place] [facility] [address] [facility] [id number] [place] [address]- 5277 Sep, [facility] [place] [facility] [address] [id number] [place] [address]- 8320 Sep, [facility] [place] [facility] [address] [facility] [id number] [address]- 4587 Aug, [facility] [place] [facility] [address] [id number] [address]- 6455 17 Aug, 2013 [facility] [place] [facility] [address] [facility] [id number] [address]- 3307 17 Aug, 2013 [facility] [place] [facility] [address] [facility] [id number] [address]- 7768 17 Aug, 2013 [facility] [place] [facility] [address] [facility] [id number] [address]- 3909 16 Aug, 2013 [facility] [place] [facility] [address] [id number] [address]- 8319 11 Aug, 2013 [facility] [place] [facility] [address] [id number] [address]- 5939 11 Aug, 2013 [facility] [place] [facility] [address] [facility] [id number] 4416 10 Aug, 2012 [facility] [place] [facility] [address] [facility] [id number] [address]- 2740 09 Aug, 2012 [facility] [place] [facility] [address] [id number] [place] [address]- 2546 Aug, [facility] [place] [facility] [address] [id number] [place] [address]- 7244 Aug, [facility] [place] [facility] [address] [id number] [place] [address]- 2546 Jul, [facility] [place] [facility] [address] [id number] [place] [address]- 5986 Jun, [facility] [place] [facility] [address] [id number] [place] [address]- 4095 Jun, [facility] [place] [facility] [address] [id number] [place] [address]- 0177 May, [facility] [place] [facility] [address] [id number] [place] [address]- 0673 May, [facility] [place] [facility] [address] [id number] [place] [address]- 1616 Apr, [facility] [place] [facility] [address] [id number] [place] [address]- 1367 March, [facility] [place] [facility] [address] [id number] [place] [address]- 2916 Feb, [facility] [place] [facility] [address] [id number] [place] [address]- 5706 Jan, [facility] [place] [facility] [address] [id number] [place] [address] Dec, [facility] [place] [facility] [address] [id number] [place] [address] Dec, [facility] [place] [facility] [address] [id number] [place] [address] Dec, [facility] [place] [facility] [address] [id number] [place] [address] Nov, [facility] [place] [facility] [address] [id number] [address] Nov, [facility] [place] [facility] [address] [id number] [place] [address] Nov, [facility] [place] [facility] [address] [id number] [place] [address] Oct, [facility] [place] [facility] [address] [id number] [place] [address] Oct, [facility] [place] [facility] [address] [id number] [place] [address] Oct, [facility] [place] [facility] [address] [id number] [place] [address] Oct, [facility] [place] [facility] [address] [id number] [place] [address] Sep, [facility] [place] [facility] [address] [id number] [place] [address] Sep, [facility] [place] [facility] [address] [id number] [address] Sep, [facility] [place] [facility] [address] [id number] [place] [address] Sep, [facility] [place] [facility] [address] [id number] [place] [address] Aug, [facility] [place] [facility] [address] [id number] [address] Aug, [facility] [place] [facility] [address] [id number] [address] Aug, [facility] [place] [facility] [address] [id number] [place] [address] Aug, [facility] [place] [facility] [address] [facility] [id number] [address] Aug, [facility] [place] [facility] [address] [facility] [id number] [address] Aug, [facility] [place] [facility] [address] [id number] [place] [address] Jul, [facility] [address] [id number] [place] [address] Jun, [facility] [address] [id number] [place] [address] Jun, [facility] [address] [id number] [place] [address] Jun, [facility] [address] [id number] [place] [address] May, [facility] [address] [id number] [place] [address] May, [facility] [address] [id number] [place] [address] March, [facility] [address] [id number] [place] [address] March, [facility] [address] [id number] [place] [address] March, [facility] [address] [id number] [place] [address] Feb, [facility] [address] [id number] [place] [address] Feb, [facility] [facility] [place] [facility] [address] [id number] [place] [address] Feb, [facility] [address] [id number] [place] [address] Jan, [facility] [place] [facility] [address] [id number] [place] [address] Jan, [facility] [address] [id number] [place] [address] Dec, [facility] [address] [id number] [place] [address] Dec, [facility] [address] [id number] [place] [address] Dec, [facility] [place] [facility] [address] [id number] [place] [address] Dec, [facility] [place] [facility] [address] [id number] [place] [address] Dec, [facility] [place] [facility] [address] [id number] [place] [address] Dec, [facility] [place] [facility] [address] [id number] [place] [address] Dec, [facility] [place] [facility] [address] [id number] [place] [address] Nov, [facility] [place] [facility] [address] [id number] [place] [address] Nov, [facility] [place] [facility] [address] [id number] [place] [address] Nov, [facility] [place] [facility] [address] [id number] [place] [address] Nov, [facility] [place] [facility] [address] [id number] [place] [address] Nov, [facility] [place] [facility] [address] [id number] [place] [address] Nov, [facility] [place] [facility] [address] [id number] [place] [address] Oct, [facility] [place] [facility] [address] [id number] [place] [address] Oct, [facility] [place] [facility] [address] [id number] [place] [address] Oct, [facility] [place] [facility] [address] [id number] [place] [address] Oct, [facility] [place] [facility] [address] [facility] [id number] [address] Oct, [facility] [address] [id number] [address] Oct, [facility] [address] [id number] [address] Oct, [facility] [address] [facility] [id number] [address] [address] Oct, [facility] [address] [id number] [address] Aug, [facility] [id number] [address] Jan, [facility] [address] [id number] [address] Jan, IMMUNIZATIONS No Known Immunizations SOCIAL HISTORY Never Assessed REASON FOR VISIT Blood Sugar/ Infected Toe, Toe is doing well, had a few infusions -Jayden BLARI , A1C done at dialysis on 07/09, it was 10.2 PLAN OF CARE VITAL SIGNS Height 69 in 2018-08-16 Weight 235.2 lbs 2018-08-16 Temperature 98.2 degrees Fahrenheit 2018-08-16 Heart Rate 83 bpm 2018-08-16 Respiratory Rate 20 2018-08-16 BMI 34.73 kg/m2 2018-08-16 Blood pressure systolic 128 mmHg 2018-08-16 Blood pressure diastolic 70 mmHg 2018-08-16 MEDICATIONS Medication Instructions Dosage Frequency Start Date End Date Duration Status NovoLog Flexpen 100 UNIT/ML Subcutaneous 3 times a day 16 units 8h Aug, Active Atorvastatin Calcium 40 mg Orally Once a day 1 tablet 24h May, Active Metoprolol Tartrate 25 MG Orally Twice a day 1 tablet with food 12h Aug Active Calcium Acetate (Phos Binder) 667 MG Orally Three times a day 2 tablets with meals 8h Active Lomotil 2.5-0.025 MG 1 tablet as needed 6h Dec, Active Glucocard Expression Test - DX- E11.9 3 times a day test 3 times per day 8h Oct, Active Albuterol Sulfate (2.5 MG/3ML) 0.083% Inhalation 4 times a day as directed 6h 28 Aug, 2017 Not-Taking Sodium Bicarbonate 10 mg Orally 2 times a day 1 tablet 12h Active Blood Pressure Monitor - monitor BP as directed by nephrology May, Active Viberzi 100 mg Orally Twice a day 1 tablet with food 12h Aug, Active Levemir Flexpen 100 unit/mL (3 mL) subcutaneously at bedtime 25 units daily Active Glucocard Expression Monitor w/Device DX- E11.9 3 times a day test 3 times per day 8h Oct, Active Klor-Con 10 10 MEQ Orally Twice a day 1 tablet with food 12h Active RESULTS No Results PROCEDURES No Known [...]
--- OUTSIDE RECORDS SUMMARY | 2019-01-01 13:07 | XMS REPORT ---
Author Author INGRID CHOUDHARY Organization [facility] Address [address] [place] [address] Care Team Providers Care Background Check Coordinator Name Role Phone INGRID CHOUDHARY Unavailable PROBLEMS Type Condition ICD9-CM Code NCF96-OV Code Onset Dates Condition Status SNOMED Code Problem Hypertension I10 Active 87509327 Problem Type 2 diabetes mellitus with hyperglycemia E11.65 Active [id number] Problem Chronic kidney disease, stage 4 (severe) N18.4 Active 113427072 Problem Renal failure N19 Active 44044489 Problem Diabetes E11.9 Active 31186169 Problem Diabetes type 2, uncontrolled E11.65 Active 340910962 Problem Diabetes mellitus due to underlying condition with foot ulcer E08.621 Active 539648749 Problem Controlled type 2 diabetes mellitus without complication, without long -term current use of insulin E11.9 Active 414895274 Problem inbound call center representative current use of insulin Z79.4 Active 783546005 Problem Type 2 diabetes mellitus with diabetic chronic kidney disease E11.22 Active 52322741 Problem 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, unspecified benefits coordinator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 status E11.42 Active 077705927 Problem Constipation, unspecified constipation type K59.00 Active 06884332 ALLERGIES No Information ENCOUNTERS Encounter Location Date Diagnosis [place] [id number] [place] [address] 87211- 1801 Oct, Itching L29.9 [facility] [address], [place] [address] 4231 Oct, [place] [address] [place] [id number] [place] [address] 69748- 9629 Oct, Diarrhea, unspecified type R19.7 [place] [address] [place] [address] 09899- 7273 Jul, Uncontrolled type 2 diabetes mellitus with hyperglycemia E11.65 ; Callus of foot L84 ; Diabetes mellitus due to underlying condition with foot ulcer E08.621 and Non-pressure chronic ulcer of other part of left foot with bone involvement without evidence of necrosis L97.526 [facility] [address] [place] [address] 854208- 8712 Jun, Cellulitis of right lower extremity L03.115 [facility] [id number] [place] [address] 54124 -6208 Jun, Toe infection L08.9 [facility] [id number] [place] [address] 65718- 1865 May, [facility] [address] [id number] [place] [address] 74370- 9105 Jan, [facility] [address] [id number] [place] [address] 97736- 3640 Nov, Controlled type 2 diabetes mellitus without complication, without long-term current use of insulin E11.9 [facility] [address] [id number] Nov, [facility] [id number] [place] [address] 97114- 8044 Oct, [facility] [id number] [place] [address] 02347- 5499 Oct, [facility] [address], [place] [address]- 2134 Oct, [facility] [id number], [place] [address]- 4357 Oct, [facility] [id number] [place] [address] 431886- 7908 Oct, [facility] [address] [place] [address] 304268- 6901 Sep, [facility] [address], [place] [address] Aug, Acute bronchitis, unspecified organism J20.9 [facility] [address] [place] [id number], [place] [address]- 7950 Aug, [facility] [id number] [place] [address] 64351 -4421 Aug, Diarrhea of infectious origin A09 [facility] [address] [place] [address] 58116- 3231 Aug, [facility] [id number] [place] [address] 48907- 5895 Jul, 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, unspecified nursing home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 status E11.42 [facility] [address] [place] [id number] [place] [address] [id number] Jul, Encounter for dental examination Z01.20 [facility] [id number] [place] [address] 70395- 0851 Jul, 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, unspecified benefits coordinator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 status E11.42 [facility] [id number] [place] [address] 72584 -0992 Jun, Acute frontal sinusitis J01.10 [facility] [address] [place] [id number] [place] [address] [id number] Jun, Dental examination Z01.20 [facility] [address] [place] [address] 86290- 8454 May, [facility] [address] [place] [address] 63698- 2057 May, [facility] [address] [place] [address] 58592- 2160 May, Open wound of toe, initial encounter S91.109A [facility] [address] [place] [address] [id number] [place] [address] [id number] Apr, Dental examination Z01.20 [facility] [address] [place] [address] 44084- 0990 Apr, Diabetes E11.9 and Stage 4 chronic kidney disease N18.4 [facility] [address] [id number] [place] [address] 17235- 1416 March, [facility] [id number] [place] [address] 06465- 5230 Feb, [facility] [address] [id number] [place] [address] 32334- 8402 Feb, [facility] [id number] [place] [address] 96892- 2957 Feb, [facility] [address] [id number] [place] [address] 50212- 7124 Dec, [facility] [id number] [place] [address] 59952 -0737 10 Dec, 2016 Constipation, unspecified constipation type K59.00 [facility] [address] [place] [address] [id number] [place] [address] 12690- 9336 Dec, [facility] [address] [id number] [place] [address] 40539- 3816 Dec, [facility] [address] [place] [id number] [place] [address] 50494- 9830 06 Dec, 2016 Renal failure N19 and Hypokalemia E87.6 [facility] [address] [place] [id number] [place] [address] 44323- 1024 Nov, Renal failure N19 and Hypokalemia E87.6 [facility] [address] [id number] [place] [address] 49790- 0191 Nov, Chronic kidney disease, stage 4 (severe) N18.4 [facility] [address] [place] [id number] [place] [address] 24150- 3842 Nov, Chronic kidney disease, stage 4 (severe) N18.4 [facility] [address] [place] [id number] [place] [address] 55356- 9396 Nov, [place] [address] [place] [address] 31367- 6816 Nov, [place] [address] [place] [id number] [place] [address] 98413- 7817 Nov, Dysthymia F34.1 [place] [address] [place] [id number] [place] [address] 97416- 8547 Nov, [facility] [address] [place] [id number] [place] [address] 75697 -6549 Oct, Bronchitis J40 [place] [address] [place] [id number] [place] [address] 42394- 7615 Oct, Localized edema R60.0 [place] [address] 55613- 0243 Sep, Renal failure N19 ; Type 2 diabetes mellitus with diabetic chronic kidney disease E11.22 and Chronic kidney disease, stage 4 (severe) N18.4 [place] [address] [place] [id number] [place] [address] 04327- 4418 Aug, Renal failure N19 ; Diabetes E11.9 ; Type 2 diabetes mellitus with diabetic chronic kidney disease E11.22 ; Type 2 diabetes mellitus with hyperglycemia E11.65 ; Chronic kidney disease, stage 4 (severe) N18.4 and inbound call center representative current use of insulin Z79.4 [place] [address] [place] [id number] [place] [address] 48164- 7510 Aug, Bronchitis J40 [place] [address] [place] [address] [id number] [place] [address] 62077- 7170 Aug, [facility] [address] [id number] [place] [address] 62859 -4844 Aug, Bronchitis J40 [facility] [address] [place] [id number] [place] [address] 89843- 7720 Aug, Displaced fracture of greater trochanter of left femur, initial encounter for closed fracture S72.112A [place] [address] [place] [address]- 0449 26 Jul, 2016 Hip fracture, left, closed, with routine healing, subsequent encounter S72.002D ; Renal failure N19 and Uncontrolled type 2 diabetes mellitus without complication, without long-term current use of insulin E11.65 [facility] [address], [place] [address]- 8099 Jul, [facility] [address], [place] [address]- 3719 16 Jul, 2016 [facility] [address], [place] [address]- 6243 14 Jul, 2016 [facility] [address], [place] [address]- 1102 Jul, [facility] [address], [place] [address]- 2187 May, [facility] [address], [place] [address]- 8509 May, Orthostatic hypotension I95.1 and Renal insufficiency N28.9 [facility] [address], [place] [address]- 9171 May, Renal failure N19 [facility] [address], [place] [address]- 6939 May, [facility] [address], [place] [address]- 4175 Apr, Renal failure N19 [facility] [address], [place] [address]- 0733 Apr, [facility] [address], [place] [address]- 2209 Apr, [facility] [address], [place] [address] -9560 15 Apr, 2016 Orthostatic hypotension I95.1 and 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, unspecified nursing home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 status E11.42 [place] [address] [place] [address] [id number] [place] [address] 23909- 4099 March, Left rotator cuff tear M75.102 [facility] [address] [place] [address] [id number] [place] [address] 79317 -5381 March, Allergic reaction to drug T78.40XA [place] [address] 38334- 7261 March, Diabetes type 2, controlled E11.9 [place] [address] 63814- 4839 Feb, Left rotator cuff tear M75.102 [place] [address] 16522- 5620 Feb, Left rotator cuff tear M75.102 [facility] [address] 25649 -4444 Feb, Diabetes type 2, uncontrolled E11.65 ; Hypertension I10 ; Edema 782.3 and Cellulitis L03.90 [place] [address] 49847- 4475 Feb, [place] [address] 14038- 9591 Feb, [place] [address] [place] [id number] [place] [address] 54785- 5446 Feb, Left rotator cuff tear M75.102 [place] [address] [place] [id number] [place] [address] 27318- 2482 Feb, [place] [address] [place] [id number] [place] [address] 37853- 4719 Feb, Diabetes type 2, uncontrolled E11.65 and Edema R60.9 [place] [address] [place] [id number] [place] [address] 48279- 2708 Jan, Hypertension, essential I10 [place] [address] 03961- 8024 Dec, Hypertension I10 [facility] [id number] [place] [address] 55542- 5737 Dec, [facility] [address] [place] [id number] [place] [address] 82347- 5197 Dec, Renal insufficiency N28.9 and Edema R60.9 [facility] [address] [place] [id number] [place] [address] 07172- 8545 Dec, [facility] [address] [place] [id number] [place] [address] 41280- 8703 Dec, [facility] [address] [place] [id number] [place] [address] 94643- 6620 Dec, [facility] [address] [place] [address] [id number] [place] [address] 36326 -4609 Nov, Pedal edema R60.0 and Benign essential hypertension I10 [facility] [address] [address] [id number] [place] [address] 55307- 8859 Nov, Benign essential hypertension I10 and Renal insufficiency N28.9 [facility] [address] [place] [address] [id number] [place] [address] 81821 -3924 Nov, Acute laryngopharyngitis J06.0 ; Benign essential hypertension I10 and Strep pharyngitis J02.0 [place] [address] [place] [address] 38109- 7909 Nov, Diabetes type 2, uncontrolled E11.65 ; Renal insufficiency N28.9 and Localized edema R60.0 [facility] [address] [place] [address] 58857- 2049 Oct, [place] [address] [place] [address] [id number] [place] [address] 28840- 2820 Oct, Diabetes E11.9 [facility] [address] [place] [address] 87266- 4244 Sep, [facility] [address] [address], [place] [address]- 7525 May, [facility] [address] [address]- 2550 May, Diabetes with neurological manifestations, type II or unspecified type, not stated as uncontrolled 250.60 [facility] [address]- 7672 May, [facility] [id number] [place] [address] 34179- 4545 May, [facility] [address]- 3096 May, Diabetes with neurological manifestations, type II or unspecified type, not stated as uncontrolled 250.60 and HTN (hypertension) 401.9 [facility] [address], [place] [address]- 0307 Apr, [facility] [address], [place] [address]- 6655 Feb, [facility] [address], [place] [address]- 0756 Feb, [facility] [address], [place] [address]- 1645 Jan, [facility] [address] 2136 Jan, [facility] [address], [place] [address]- 4408 Dec, [facility] [address], [place] [address]- 6173 Dec, [facility] [address], [place] [address]- 1036 Dec, [facility] [address], [place] [address]- 3566 Nov, [facility] [address] [place] [id number] [place] [address]- 2963 Nov, [facility] [place] [facility] [address] [id number] [place] [address]- 9323 Sep, [facility] [place] [facility] [address] [id number] [place] [address]- 3848 Sep, [facility] [place] [facility] [address] [id number] [place] [address]- 8539 Jul, [facility] [place] [facility] [address] [id number] [place] [address]- 6650 Jul, [facility] [place] [facility] [address] [id number] [place] [address]- 6732 Jul, [facility] [place] [facility] [address] [id number] [place] [address]- 5393 Jul, [facility] [place] [facility] [address] [id number] [place] [address]- 5279 Jun, [facility] [place] [facility] [address] [id number] [place] [address]- 0807 Jun, [facility] [place] [facility] [address] [id number] [place] [address]- 7268 May, [facility] [place] [facility] [address] [id number] [place] [address]- 2378 May, [facility] [place] [facility] [address] [id number] [place] [address]- 9022 May, [facility] [place] [facility] [address] [id number] [place] [address]- 9809 May, [facility] [place] [facility] [address] [id number] [place] [address]- 0265 Apr, [facility] [place] [facility] [address] [id number] [place] [address]- 8249 Apr, [facility] [place] [facility] [address] [id number] [place] 7098 Apr, [facility] [place] [facility] [address] [id number] [place] [address]- 4558 Apr, [facility] [place] [facility] [address] [id number] [place] [address]- 4594 March, [facility] [place] [facility] [address] [id number] [place] [address]- 4347 March, [facility] [place] [facility] [address] [id number] [place] [address]- 1730 Feb, [facility] [place] [facility] [address] [id number] [place] [address]- 8000 Feb, [facility] [place] [facility] [address] [id number] [place] [address]- 6022 Feb, [facility] [place] [facility] [address] [id number] [place] [address]- 2810 Feb, [facility] [place] [facility] [address] [id number] [place] [address]- 2760 Jan, [facility] [place] [facility] [address] [id number] [place] [address]- 9596 Jan, [facility] [place] [facility] [address] [id number] [place] [address]- 2037 Nov, [facility] [place] [facility] [address] [id number] [place] [address]- 6120 Nov, [facility] [place] [facility] [address] [id number] [place] [address]- 2427 Oct, [facility] [place] [facility] [address] [id number] [place] [address]- 5387 Oct, [facility] [place] [facility] [address] [id number] [place] [address]- 3416 Oct, [facility] [place] [facility] [address] [id number] [place] [address]- 7576 Oct, [facility] [place] [facility] [address] [id number], [place] [address]- 4366 Oct, [facility] [place] [facility] [address] [id number] [place] [address]- 3331 Oct, [facility] [place] [facility] [address] [id number] [place] [address]- 9437 Oct, [facility] [place] [facility] [address] [id number] [place] [address]- 2545 Oct, [facility] [place] [facility] [address] [id number], [place] [address]- 2296 Sep, [facility] [place] [facility] [address] [id number] [place] [address]- 1781 Sep, [facility] [place] [facility] [address] [id number] [place] [address]- 2375 Aug, [facility] [place] [facility] [address] [id number], [place] [address]- 4439 Aug, [facility] [place] [facility] [address] [id number], [place] [address]- 4244 Aug, [facility] [place] [facility] [address] [id number] 1612 Aug, [facility] [place] [facility] [address] [id number], [place] [address]- 8501 16 Aug, 2013 [facility] [place] [facility] [address] [id number], [place] [address]- 4757 11 Aug, 2013 [facility] [place] [facility] [address] [id number], [place] [address]- 4826 11 Aug, 2013 [facility] [place] [facility] [address] [id number], [place] [address]- 7048 10 Aug, 2013 [facility] [place] [facility] [address] [id number], [place] [address]- 0969 09 Aug, 2013 [facility] [place] [facility] [address] [id number], [place] [address]- 4260 Aug, [facility] [place] [facility] [address] [id number] [place] [address]- 2546 08 Aug, 2013 [facility] [address] [id number] [place] [address]- 5436 Jul, [facility] [address] [id number] [place] [address]- 2546 Jun, [facility] [address] [id number] [place] [address]- 2546 Jun, [facility] [address] [id number] [place] [address]- 2546 May, [facility] [address] [id number] [place] [address]- 7376 May, [facility] [address] [id number] [place] [address] Apr, [facility] [address] [id number] [place] [address] March, [facility] [address] [id number] [place] [address] Feb, [facility] [address] [id number] [place] [address] Jan, [facility] [address] [id number] [place] [address] Dec, [facility] [address] [id number] [place] [address] Dec, [facility] [address] [id number] [place] [address] Dec, [facility] [address] [id number] [place] [address] Nov, [facility] [address] [id number] [place] [address] Nov, [facility] [address] [id number] [place] [address] Nov, [facility] [place] [facility] [address] [id number] [place] [address] Oct, [facility] [place] [facility] [address] [id number] [place] [address] Oct, [facility] [place] [facility] [address] [id number] [place] [address] Oct, [facility] [place] [facility] [address] [id number] [place] [address] Oct, [facility] [place] [facility] [address] [id number] [place] [address] Sep, [facility] [place] [facility] [address] [id number] [place] [address] Sep, [facility] [place] [facility] [address] [id number] [place] [address] Sep, [facility] [place] [facility] [address] [id number] [place] [address] Sep, [facility] [place] [facility] [address] [id number] [place] [address] Aug, [facility] [place] [facility] [address] [id number], [place] [address] Aug, [facility] [place] [facility] [address] [id number], [place] [address] Aug, [facility] [place] [facility] [address] [id number], [place] [address] Aug, [facility] [place] [facility] [address] [id number] [place] [address] Aug, [facility] [place] [facility] [address] [id number] [address] Aug, [facility] [place] [facility] [address] [facility] [id number] [place] [address] Jul, [facility] [place] [facility] [address] [id number] [place] [address] Jun, [facility] [place] [facility] [address] [id number] [place] [address] Jun, [facility] [place] [facility] [address] [id number] [place] [address] Jun, [facility] [place] [facility] [address] [id number] [place] [address] May, [facility] [place] [facility] [address] [id number] [place] [address] May, [facility] [place] [facility] [address] [id number] [place] [address] March, [facility] [place] [facility] [address] [id number] [place] [address] March, [facility] [place] [facility] [address] [id number] [place] [address] March, [facility] [place] [facility] [address] [id number] [place] [address] Feb, [facility] [place] [facility] [address] [id number] [place] [address] Feb, [facility] [place] [facility] [address] [id number] [place] [address] Feb, [facility] [place] [facility] [address] [id number] [place] [address] Jan, [facility] [place] [facility] [address] [id number] [place] [address] Jan, [facility] [place] [facility] [address] [id number] [place] [address] Dec, [facility] [place] [facility] [address] [id number] [place] [address] Dec, [facility] [place] [facility] [address] [id number] [place] [address] Dec, [facility] [place] [facility] [address] [id number] [place] [address] Dec, [facility] [place] [facility] [address] [id number] [place] [address] Dec, [facility] [place] [facility] [address] [id number] [place] [address] Dec, [facility] [place] [facility] [address] [id number] [place] [address] Dec, [facility] [place] [facility] [address] [id number] [place] [address] Nov, [facility] [place] [facility] [address] [id number] [place] [address] Nov, [facility] [place] [facility] [address] [id number] [place] [address] Nov, [facility] [place] [facility] [address] [id number] [place] [address] Nov, [facility] [place] [facility] [address] [id number] [place] [address] Nov, [facility] [place] [facility] [address] [id number] [place] [address] Nov, [facility] [place] [facility] [address] [id number] [place] [address] Oct, [facility] [place] [facility] [address] [id number] [place] [address] Oct, [facility] [place] [facility] [address] [id number] [place] [address] 14 Oct, 2011 [facility] [place] [facility] [address] [id number] [place] [address] Oct, [facility] [place] [facility] [address] [id number] [place] Oct, [facility] [place] [facility] [address] [id number], [place] [address] Oct, [facility] [address] [facility] [id number], [place] [address] Oct, [facility] [address] [facility] [id number], [place] [address] Oct, [facility] [address] [facility] [id number], [place] [address] Aug, [facility] [address] [id number], [place] [address] Jan, [facility] [address] [facility] [id number], [place] [address] Jan, IMMUNIZATIONS No Known Immunizations SOCIAL HISTORY [...]
--- OUTSIDE RECORDS SUMMARY | 2019-01-01 13:08 | XMS REPORT ---
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 Name Role Phone INGRID CHOUDHARY Unavailable PROBLEMS Type Condition ICD9-CM Code MCM36-CY Code Onset Dates Condition Status SNOMED Code Problem Diabetes type 2, uncontrolled E11.65 Active 848364275 Problem Chronic kidney disease, stage 4 (severe) N18.4 Active 589052315 Problem Hypertension I10 Active 54875093 Problem Controlled type 2 diabetes mellitus without complication, without long -term current use of insulin E11.9 Active 961416793 Problem 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, 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 Active 998755588 Problem Type 2 diabetes mellitus with diabetic chronic kidney disease E11.22 Active 86845599 Problem Type 2 diabetes mellitus with hyperglycemia E11.65 Active 044138698901550 Problem Constipation, unspecified constipation type K59.00 Active 21073972 Problem 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 Active 138140256 Problem Need for prophylactic vaccination and inoculation against pertussis alone V03.6 Active 56786603 Problem Edema 782.3 Active 091779176 Problem Diabetes with neurological manifestations, type II or unspecified type , not stated as uncontrolled 250.60 Active 045687681 Problem Renal failure N19 Active 88753473 Problem Other and unspecified noninfectious gastroenteritis and colitis 558.9 Active 86169462 Problem HTN (hypertension) 401.9 Active 18649522 Problem Diabetes mellitus without mention of complication, type II or unspecified type, not stated as uncontrolled 250.00 Active 035803940 Problem Diabetes E11.9 Active 55305411 ALLERGIES No Information ENCOUNTERS Encounter Location Date Diagnosis [facility] [address] [facility] [id number] [address] Jul, [facility] [address] [facility] [id number] [address] Jun, Cellulitis of right lower extremity L03.115 [facility] [address] [place] [address] 61668 -4268 Jun, Toe infection L08.9 [facility] [id number] [place] [address] 82218- 1840 May, [facility] [id number] [place] [address] 33017- 6854 Jan, [facility] [id number] [place] [address] 74901- 3577 Nov, Controlled type 2 diabetes mellitus without complication, without long-term current use of insulin E11.9 [facility] [address] [place] [address] [id number] Nov, [facility] [id number] [place] [address] 84682- 1154 Oct, [facility] [id number] [place] [address] 30138- 0004 Oct, [facility] [id number] [place] [address] 74091- 1666 Oct, [facility] [id number] [place] [address] 07726- 6795 Oct, [facility] [id number] [place] [address] 54134- 6056 Oct, [facility] [id number] [place] [address] 61838- 5092 Sep, [facility] [address] [place] [address] 62123 -6588 Aug, Acute bronchitis, unspecified organism J20.9 [facility] [address] [place] [address] 87103- 2230 Aug, [facility] [address] [place] [address] 64776 -8515 Aug, Diarrhea of infectious origin A09 [facility] [address] [address]- 1445 Aug, [facility] [id number] [place] [address] 388593- 5451 Jul, 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, 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 [facility] [address] [id number] Jul, Encounter for dental examination Z01.20 [facility] [address] [address] [address] 18 Jul, 2017 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, unspecified senior care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 status E11.42 [facility] [address] [address] Jun, Acute frontal sinusitis J01.10 [facility] [id number] [place] [address] [id number] Jun, Dental examination Z01.20 [facility] [address] [place] [address] 47793- 7773 May, [facility] [address] [place] [address] 609770- 1226 May, [facility] [address] [address]- 5354 May, Open wound of toe, initial encounter S91.109A [facility] [id number] [id number] Apr, Dental examination Z01.20 [facility] [address] [place] [address] 88020- 8576 Apr, Diabetes E11.9 and Stage 4 chronic kidney disease N18.4 [facility] [address] [address]- 7406 March, [facility] [id number] [place] [address] 21165- 8214 Feb, [facility] [address] [address]- 7478 Feb, [facility] [id number] [place] [address] 48384- 8144 Feb, [facility] [id number] [place] [address] 35113- 8141 Dec, [facility] [id number] [place] [address] 76531 -2214 Dec, Constipation, unspecified constipation type K59.00 [facility] [id number] [place] [address] 49534- 1650 Dec, [facility] [id number] [place] [address] 77733- 3396 Dec, [facility] [id number] [place] [address] 96459- 6103 Dec, Renal failure N19 and Hypokalemia E87.6 [facility] [id number] [place] [address] 63074- 1552 Nov, Renal failure N19 and Hypokalemia E87.6 [facility] [id number] [place] [address] 81575- 4202 Nov, Chronic kidney disease, stage 4 (severe) N18.4 [facility] [id number] [place] [address] 07328- 9074 Nov, Chronic kidney disease, stage 4 (severe) N18.4 [facility] [address] [place] [address] 36836- 2585 Nov, [facility] [id number] [place] [address] 70443- 9921 Nov, [facility] [address] [address]- 2748 Nov, Dysthymia F34.1 [place] [id number] [place] [address] 49885- 2722 Nov, [facility] [address] 55079 -8107 Oct, Bronchitis J40 [place] [address] 64251- 5885 Oct, Localized edema R60.0 [place] [address] 22071- 0340 Sep, Renal failure N19 ; Type 2 diabetes mellitus with diabetic chronic kidney disease E11.22 and Chronic kidney disease, stage 4 (severe) N18.4 [place] [address] 37610- 5125 Aug, Renal failure N19 ; Diabetes E11.9 ; Type 2 diabetes mellitus with diabetic chronic kidney disease E11.22 ; Type 2 diabetes mellitus with hyperglycemia E11.65 ; Chronic kidney disease, stage 4 (severe) N18.4 and 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 [place] [address] 04459- 0173 Aug, Bronchitis J40 [place] [address] 47921- 4034 Aug, [facility] [id number] [place] [address] 88846 -8395 Aug, Bronchitis J40 [place] [id number] [place] [address] 60223- 1033 05 Aug, 2016 Displaced fracture of greater trochanter of left femur, initial encounter for closed fracture S72.112A [place] [address] 85655- 2451 26 Jul, 2016 Hip fracture, left, closed, with routine healing, subsequent encounter S72.002D ; Renal failure N19 and Uncontrolled type 2 diabetes mellitus without complication, without long-term current use of insulin E11.65 [place] [address] [place] [address]- 4797 21 Jul, 2016 [facility] [address] [address]- 6871 16 Jul, 2016 [facility] [id number] [place] [address] 42836- 1049 14 Jul, 2016 [facility] [id number] [place] [address] 25390- 0901 06 Jul, 2016 [facility] [id number] [place] [address] 67303- 5020 May, [facility] [id number] [place] [address] 56132- 0177 May, Orthostatic hypotension I95.1 and Renal insufficiency N28.9 [facility] [id number] [place] [address] 96800- 7152 May, Renal failure N19 [facility] [id number] [place] [address] 26428- 5988 May, [facility] [id number] [place] [address] 70266- 5756 Apr, Renal failure N19 [facility] [id number] [place] [address] 17281- 3774 Apr, [facility] [address] [place] [address] 57904- 2144 Apr, [facility] [address] [place] [address] 82171 -2500 Apr, Orthostatic hypotension I95.1 and 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, unspecified senior care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 status E11.42 [facility] [address] [place] [address] 77947- 5400 March, Left rotator cuff tear M75.102 [facility] [address] [address] March, Allergic reaction to drug T78.40XA [facility] [id number] [place] [address] 56396- 9538 March, Diabetes type 2, controlled E11.9 [facility] [id number] [place] [address] 90326- 9158 Feb, Left rotator cuff tear M75.102 [facility] [address] 71948- 3189 Feb, Left rotator cuff tear M75.102 [facility] [id number] [place] [address] 80521 -1207 Feb, Diabetes type 2, uncontrolled E11.65 ; Hypertension I10 ; Edema 782.3 and Cellulitis L03.90 [facility] [address] 74776- 0611 Feb, [facility] [address] 15481- 7459 Feb, [facility] [address] 28308- 9962 Feb, Left rotator cuff tear M75.102 [facility] [address] 50922- 2252 Feb, [facility] [address] 43681- 3133 Feb, Diabetes type 2, uncontrolled E11.65 and Edema R60.9 [facility] [address] 47923- 6321 Jan, Hypertension, essential I10 [facility] [address] 11030- 5613 Dec, Hypertension I10 [facility] [id number] [place] [address] 23715- 4240 Dec, [facility] [address] 99913- 6090 Dec, Renal insufficiency N28.9 and Edema R60.9 [facility] [address] [place] [address] 28252- 8321 Dec, [facility] [id number] [place] [address] 40416- 4517 Dec, [facility] [id number] [place] [address] 92143- 0622 Dec, [facility] [id number] [place] [address] 61951 -3383 Nov, Pedal edema R60.0 and Benign essential hypertension I10 [facility] [id number] [place] [address] 38205- 1408 Nov, Benign essential hypertension I10 and Renal insufficiency N28.9 [facility] [id number] [place] [address] 36074 -4936 Nov, Acute laryngopharyngitis J06.0 ; Benign essential hypertension I10 and Strep pharyngitis J02.0 [facility] [id number] [place] [address] 00072- 3105 Nov, Diabetes type 2, uncontrolled E11.65 ; Renal insufficiency N28.9 and Localized edema R60.0 [facility] [id number] [place] [address] 52337- 5830 Oct, [facility] [id number] [place] [address] 60481- 8318 Oct, Diabetes E11.9 [facility] [address] [place] [address] 97949- 6890 Sep, [facility] [id number] [place] [address] 90163- 0153 May, [facility] [id number] [place] [address] 14963- 4817 May, Diabetes with neurological manifestations, type II or unspecified type, not stated as uncontrolled 250.60 [facility] [address] [facility] [id number] [place] [address]- 8558 May, [facility] [address]- 7007 May, [facility] [address] [place] [address]- 1054 May, Diabetes with neurological manifestations, type II or unspecified type, not stated as uncontrolled 250.60 and HTN (hypertension) 401.9 [facility] [address] [place] [address]- 0731 Apr, [facility] [address] [place] [address]- 5098 Feb, [facility] [address] [place] [address]- 1505 Feb, [facility] [address] [place] [address]- 5251 Jan, [facility] [address] [place] [address]- 6078 Jan, [facility] [address] [place] [address]- 1879 Dec, [facility] [address] [place] [address]- 4619 Dec, [facility] [address] [place] [address]- 1720 Dec, [facility] [address] [place] [address]- 9103 Nov, [facility] [address] 7856 Nov, [facility] [address]- 9413 Sep, [facility] [address] [address]- 7290 Sep, [facility] [place] [facility] [address] [id number] [place] [address]- 6855 Jul, [facility] [place] [facility] [address] [id number] [place] [address]- 9680 Jul, [facility] [place] [facility] [address] [id number] [place] 5694 Jul, [facility] [place] [facility] [address] [id number] [place] [address]- 5538 Jul, [facility] [place] [facility] [address] [id number] [place] [address]- 3357 Jun, [facility] [place] [facility] [address] [id number] [place] [address]- 4662 Jun, [facility] [place] [facility] [address] [id number] [place] [address]- 5684 May, [facility] [place] [facility] [address] [id number] [place] [address]- 3534 May, [facility] [place] [facility] [address] [id number] [place] [address]- 6532 May, [facility] [place] [facility] [address] [id number] [place] [address]- 6819 May, [facility] [place] [facility] [address] [id number] [place] [address]- 6861 Apr, [facility] [place] [facility] [address] [id number] [address]- 6748 Apr, [facility] [place] [facility] [address] [id number] [place] [address]- 5779 Apr, [facility] [place] [facility] [address] [id number] [place] [address]- 0831 Apr, [facility] [place] [facility] [address] [id number] [place] [address]- 5894 March, [facility] [place] [facility] [address] [id number] [place] [address]- 4185 March, [facility] [address] [id number] [place] [address]- 9941 Feb, [facility] [place] [facility] [address] [id number] [place] [address]- 5994 Feb, [facility] [address] [id number] [place] [address]- 2942 Feb, [facility] [place] [facility] [address] [id number] [place] [address]- 9355 Feb, [facility] [place] [facility] [address] [id number] [place] [address]- 8808 Jan, [facility] [place] [facility] [address] [id number] [place] [address]- 1635 Jan, [facility] [address] [id number] [place] [address]- 0998 Nov, [facility] [address] [id number] [place] [address]- 5932 Nov, [facility] [place] [facility] [address] [id number] [place] [address]- 4527 Oct, [facility] [address] [id number] [place] 5625 Oct, [facility] [place] [facility] [address] [id number] [place] [address]- 0214 Oct, [facility] [place] [facility] [address] [id number] [place] [address]- 4294 Oct, [facility] [place] [facility] [address] [id number] [place] [address]- 9994 Oct, [facility] [place] [facility] [address] [id number] [place] [address]- 5456 Oct, [facility] [place] [facility] [address] [id number] [place] [address]- 6296 Oct, [facility] [place] [facility] [address] [id number] [place] [address]- 6582 Oct, [facility] [place] [facility] [address] [id number] [place] [address]- 1529 Sep, [facility] [place] [facility] [address] [id number] [place] [address]- 0582 Sep, [facility] [place] [facility] [address] [id number] [place] [address]- 4368 Aug, [facility] [place] [facility] [address] [id number] [place] [address]- 8766 Aug, [facility] [place] [facility] [address] [id number] [place] [address]- 6113 Aug, [facility] [place] [facility] [address] [id number] [place] [address]- 3597 Aug, [facility] [place] [facility] [address] [id number] [place] [address]- 6736 16 Aug, 2013 [facility] [place] [facility] [address] [id number] [place] [address]- 8049 Aug, [facility] [place] [facility] [address] [id number] [place] [address]- 3035 Aug, [facility] [place] [facility] [address] [id number] [place] [address]- 6660 Aug, [facility] [place] [facility] [address] [id number] [address]- 7806 Aug, [facility] [place] [facility] [address] [id number] [place] [address]- 4372 Aug, [facility] [place] [facility] [address] [id number] [place] [address]- 8321 08 Aug, 2013 [facility] [place] [facility] [address] [id number][place] [address]- 0433 24 Jul, 2013 [facility] [place] [facility] [address] [id number][place] [address]- 1180 Jun, [facility] [address] [id number] [place] [address]- 4460 Jun, [facility] [address] [id number] [place] [address]- 4910 May, [facility] [address] [id number] [place] [address]- 3034 May, [facility] [address] [id number] [place] [address]- 8401 Apr, [facility] [address] [id number] [place] [address]- 0363 March, [facility] [address] [id number] [place] [address]- 5069 Feb, [facility] [address] [id number] [place] [address]- 5602 Jan, [facility] [address] [id number] [place] [address]- 9953 Dec, [facility] [address] [id number] [place] [address]- 5968 Dec, [facility] [address] [id number] [place] [address]- 1425 Dec, [facility] [address] [id number] [place] [address]- 0076 Nov, [facility] [place] [facility] [address] [id number] [place] [address]- 0576 Nov, [facility] [place] [facility] [address] [id number] [place] [address]- 1547 Nov, [facility] [place] [facility] [address] [id number] [place] [address]- 2069 Oct, [facility] [place] [facility] [address] [id number] [place] [address]- 5178 Oct, [facility] [place] [facility] [address] [id number] [place] [address]- 2546 Oct, [facility] [place] [facility] [address] [id number] [place] [address]- 3076 Oct, [facility] [place] [facility] [address] [id number] [place] [address]- 2546 Sep, [facility] [place] [facility] [address] [id number] [place] [address]- 2546 Sep, [facility] [place] [facility] [address] [id number] [place] [address]- 2542 Sep, [facility] [place] [facility] [address] [id number] [place] [address]- 4143 Sep, [facility] [place] [facility] [address] [id number] [place] [address] Aug, [facility] [place] [facility] [address] [id number] [place] [address] Aug, [facility] [place] [facility] [address] [id number] [place] [address] Aug, [facility] [place] [facility] [address] [id number] [place] [address] Aug, [facility] [place] [facility] [address] [id number] [place] [address] Aug, [facility] [place] [facility] [address] [id number] [place] [address] Aug, [facility] [place] [facility] [address] [id number] [place] [address] Jul, [facility] [place] [facility] [address] [id number] [place] [address] Jun, [facility] [place] [facility] [address] [id number] [place] [address] Jun, [facility] [place] [facility] [address] [id number] [place] [address] Jun, [facility] [place] [facility] [address] [id number] [place] [address] May, [facility] [place] [facility] [address] [id number] [place] [address] May, [facility] [place] [facility] [address] [id number] [place] [address] March, [facility] [place] [facility] [address] [id number] [place] [address] March, [facility] [place] [facility] [address] [id number] [place] [address] March, [facility] [place] [facility] [address] [id number] [place] [address] Feb, [facility] [place] [facility] [address] [id number] [place] [address] Feb, [facility] [place] [facility] [address] [id number] [place] [address] Feb, [facility] [place] [facility] [address] [id number] [place] [address] Jan, [facility] [place] [facility] [address] [id number] [place] [address] Jan, [facility] [place] [facility] [address] [id number] [place] [address] Dec, [facility] [place] [facility] [address] [id number] [place] [address] Dec, [facility] [place] [facility] [address] [id number] [place] [address] Dec, [facility] [place] [facility] [address] [id number] [place] [address] Dec, [facility] [place] [facility] [address] [id number] [place] [address] Dec, [facility] [place] [facility] [address] [id number] [place] [address] Dec, [facility] [address] [id number] [place] [address] Dec, [facility] [address] [id number] [place] [address] Nov, [facility] [address] [id number] [place] [address] Nov, [facility] [address] [id number] [place] [address] Nov, [facility] [address] [id number] [place] [address] Nov, [facility] [address] [id number] [place] [address] Nov, [facility] [facility] [address] [id number] [place] [address] Nov, [facility] [address] [id number] [place] [address] Oct, [facility] [address] [id number] [place] [address] Oct, [facility] [address] [id number] [place] [address] Oct, [facility] [address] [id number] [place] [address] Oct, [facility] [address] [id number] [place] [address] Oct, [facility] [place] [facility] [address] [id number] [place] [address] Oct, [facility] [place] [facility] [address] [id number] [place] [address] Oct, [facility] [place] [facility] [address] [id number] [place] [address] Oct, [facility] [address] [facility] [id number] [place] [address] Aug, [facility] [address] [facility] [id number] [address] Jan, [facility] [address] [facility] [id number] [place] [address] Jan, IMMUNIZATIONS No Known Immunizations SOCIAL HISTORY Never Assessed REASON FOR VISIT ER follow up call PLAN OF CARE VITAL SIGNS MEDICATIONS [...]
--- OUTSIDE RECORDS SUMMARY | 2019-01-01 13:08 | XMS REPORT ---
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 Name Role Phone SHEREEN SMITH Unavailable Unavailable PROBLEMS Type Condition ICD9-CM Code CTO03-AY Code Onset Dates Condition Status SNOMED Code Problem Hypertension I10 Active 69622323 Problem Type 2 diabetes mellitus with hyperglycemia E11.65 Active [id number] Problem Chronic kidney disease, stage 4 (severe) N18.4 Active 655280016 Problem Diabetes mellitus due to underlying condition with foot ulcer E08.621 Active 706470723 Problem Controlled type 2 diabetes mellitus without complication, without long -term current use of insulin E11.9 Active 187573144 Problem 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.4 Active 369100449 Problem Type 2 diabetes mellitus with diabetic chronic kidney disease E11.22 Active 83079893 Problem 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, unspecified bed bug exterminator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 status E11.42 Active 335402409 Problem Constipation, unspecified constipation type K59.00 Active 92846935 Problem Edema 782.3 Active 355027482 Problem Other and unspecified noninfectious gastroenteritis and colitis 558.9 Active 82844719 Problem Need for prophylactic vaccination and inoculation against pertussis alone V03.6 Active 25466200 Problem Renal failure N19 Active 61213885 Problem HTN (hypertension) 401.9 Active 10615447 Problem Diabetes mellitus without mention of complication, type II or unspecified type, not stated as uncontrolled 250.00 Active 531907370 Problem Diabetes E11.9 Active 43570751 Problem Diabetes with neurological manifestations, type II or unspecified type , not stated as uncontrolled 250.60 Active 185250687 Problem Diabetes type 2, uncontrolled E11.65 Active 117031173 ALLERGIES Substance Reaction Event Type Date Status Doxycycline Unknown Drug Allergy Jun, Active Clindamycin HCl hives Drug Allergy Jun, Active Amoxicillin extreme diarrhea Drug Allergy Jun, Active ENCOUNTERS Encounter Location Date Diagnosis [facility] [place] [address] [address] Jul, Uncontrolled type 2 diabetes mellitus with hyperglycemia E11.65 ; Callus of foot L84 ; Diabetes mellitus due to underlying condition with foot ulcer E08.621 and Non-pressure chronic ulcer of other part of left foot with bone involvement without evidence of necrosis L97.526 [facility] [place] [id number] [place] [address] 52797- 6562 Jun, Cellulitis of right lower extremity L03.115 [facility] [id number] [place] [address] 31254 -1152 Jun, Toe infection L08.9 [facility] [place] [id number] [place] [address] 99046- 2356 May, [facility] [place] [id number] [place] [address] 465155- 0672 Jan, [facility] [place] [id number] [place] [address] 89156- 1760 Nov, Controlled type 2 diabetes mellitus without complication, without long-term current use of insulin E11.9 [facility] [id number] [place] [address] [id number] Nov, [facility] [place] [id number] [place] [address] 98720- 6828 Oct, [facility] [place] [id number] [place] [address] 20399- 2247 Oct, [facility] [place] [id number] [place] [address] 64447- 0199 Oct, [facility] [place] [id number] [place] [address] 426264- 7856 Oct, [facility] [place] [id number] [place] [address] 21154- 3576 Oct, [facility] [place] [id number] [place] [address] 904465- 2179 Sep, [facility] [address], [place] [address] Aug, Acute bronchitis, unspecified organism J20.9 [facility] [place] [id number] [place] [address] 49897- 6197 Aug, [facility] [id number] [place] [address] 07690 -8988 Aug, Diarrhea of infectious origin A09 [facility] [place] [id number] [place] [address] 24209- 0864 Aug, [facility] [place] [id number] [place] [address] 31619- 1582 Jul, 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, unspecified 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 [id number] [place] [address] 92053 -7673 Jun, Acute frontal sinusitis J01.10 [facility] [id number] [place] [address] [id number] Jun, Dental examination Z01.20 [facility] [place] [id number] [place] [address] 54857- 4569 May, [facility] [place] [id number] [place] [address] 28564- 9589 May, [facility] [place] [id number] [place] [address] 17014- 5413 May, Open wound of toe, initial encounter S91.109A [facility] [id number] [place] [address] [id number] Apr, Dental examination Z01.20 [facility] [place] [address], [place] [address] 3[address] Apr, Diabetes E11.9 and Stage 4 chronic kidney disease N18.4 [facility] [place] [id number] [place] [address] 37561- 0895 March, [facility] [place] [id number] [place] [address] 40169- 8034 Feb, [facility] [place] [id number] [place] [address] 77196- 1579 Feb, [facility] [place] [id number] [place] [address] 09440- 2826 Feb, [facility] [place] [id number] [place] [address] 16750- 2524 13 Dec, 2016 [facility] [id number] [place] [address] 04393 -5473 10 Dec, 2016 Constipation, unspecified constipation type K59.00 [facility] [place] [id number] [place] [address] 47124- 4636 10 Dec, 2016 [facility] [place] [id number] [place] [address] 72840- 4905 Dec, [facility] [place] [address], [place] [address]- 3712 06 Dec, 2016 Renal failure N19 and Hypokalemia E87.6 [facility] [place] [id number] [place] [address] 83744- 2336 Nov, Renal failure N19 and Hypokalemia E87.6 [facility] [place] [id number] [place] [address] 56951- 9247 Nov, Chronic kidney disease, stage 4 (severe) N18.4 [facility] [place] [address], [place] [address]- 5355 Nov, Chronic kidney disease, stage 4 (severe) N18.4 [facility] [place] [id number] [place] [address] 97064- 5725 Nov, [facility] [place] [id number] [place] [address] 06547- 0756 Nov, [facility] [place] [id number] [place] [address] 60246- 6798 Nov, Dysthymia F34.1 [facility] [place] [id number] [place] [address] 62389- 9274 Nov, [facility] [id number] [place] [address] 67698 -4481 Oct, Bronchitis [address] [place] [address] 78089- 4442 Oct, Localized edema R60.0 [place] [address] 83386- 3429 Sep, Renal failure N19 ; Type 2 diabetes mellitus with diabetic chronic kidney disease E11.22 and Chronic kidney disease, stage 4 (severe) N18.4 [place] [id number] [place] [address] 18494- 0446 Aug, Renal failure N19 ; Diabetes E11.9 ; Type 2 diabetes mellitus with diabetic chronic kidney disease E11.22 ; Type 2 diabetes mellitus with hyperglycemia E11.65 ; Chronic kidney disease, stage 4 (severe) N18.4 and 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.4 [facility] [place] [id number] [place] [address] 75633- 7211 Aug, Bronchitis J40 [facility] [place] [id number] [place] [address] 93294- 3576 Aug, [facility] [id number] [place] [address] 37402 -9510 Aug, Bronchitis J40 [facility] [place] [id number] [place] [address] 90985- 5251 Aug, Displaced fracture of greater trochanter of left femur, initial encounter for closed fracture S72.112A [facility] [place] [id number] [place] [address] 40878- 9827 26 Jul, 2016 Hip fracture, left, closed, with routine healing, subsequent encounter S72.002D ; Renal failure N19 and Uncontrolled type 2 diabetes mellitus without complication, without long-term current use of insulin E11.65 [facility] [place] [id number] [place] [address] 47740- 4503 Jul, [facility] [place] [id number] [place] [address] 37594- 1384 16 Jul, 2016 [facility] [place] [id number] [place] [address] 89363- 9967 14 Jul, 2016 [facility] [place] [id number] [place] [address] 57297- 9266 Jul, [facility] [place] [id number] [place] [address] 93578- 6229 May, [facility] [place] [id number] [place] [address] 09741- 0239 May, Orthostatic hypotension I95.1 and Renal insufficiency N28.9 [facility] [place] [id number] [place] [address] 01706- 6837 May, Renal failure N19 [facility] [place] [id number] [place] [address] 74839- 8248 May, [facility] [place] [id number] [place] [address] 99149- 3943 Apr, Renal failure N19 [facility] [place] [id number] [place] [address] 55376- 2533 Apr, [facility] [place] [id number] [address]- 0997 Apr, [facility] [id number] [place] [address] 67870 -4307 Apr, Orthostatic hypotension I95.1 and 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, unspecified bed bug exterminator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 status E11.42 [place] [address] 43992- 2091 March, Left rotator cuff tear M75.102 [facility] [address] 53137 -4036 March, Allergic reaction to drug T78.40XA [place] [address] 18183- 1841 March, Diabetes type 2, controlled E11.9 [place] [address] 37439- 9644 Feb, Left rotator cuff tear M75.102 [place] [address] 24226- 5062 Feb, Left rotator cuff tear M75.102 [facility] [address] 96116 -0692 Feb, Diabetes type 2, uncontrolled E11.65 ; Hypertension I10 ; Edema 782.3 and Cellulitis L03.90 [place] [address] 56337- 5051 Feb, [place] [id number] [place] [address] 06426- 4165 Feb, [place] [address] 93839- 4118 Feb, Left rotator cuff tear M75.102 [place] [address] 93335- 1472 Feb, [place] [address] 35251- 3857 Feb, Diabetes type 2, uncontrolled E11.65 and Edema R60.9 [place] [address] 30512- 3812 Jan, Hypertension, essential I10 [facility] [place] [id number] [place] [address] 03345- 9507 Dec, Hypertension I10 [facility] [place] [id number] [place] [address] 38198- 3431 Dec, [facility] [place] [id number] [place] [address] 42610- 1079 Dec, Renal insufficiency N28.9 and Edema R60.9 [facility] [place] [id number] [place] [address] 94085- 0614 Dec, [facility] [place] [address] 77842- 0506 Dec, [facility] [place] [id number] [place] [address] 15696- 8362 Dec, [facility] [id number] [place] [address] 69644 -4913 Nov, Pedal edema R60.0 and Benign essential hypertension I10 [facility] [place] [id number] [place] [address] 51394- 0299 Nov, Benign essential hypertension I10 and Renal insufficiency N28.9 [facility] [id number] [place] [address] 98835 -0840 Nov, Acute laryngopharyngitis J06.0 ; Benign essential hypertension I10 and Strep pharyngitis J02.0 [facility] [place] [id number] [place] [address] 96345- 7930 Nov, Diabetes type 2, uncontrolled E11.65 ; Renal insufficiency N28.9 and Localized edema R60.0 [facility] [place] [id number] [place] [address] 32606- 3552 Oct, [facility] [place] [id number] [place] [address] 57125- 6144 Oct, Diabetes E11.9 [facility] [place] [address], [place] [address]- 6134 Sep, [facility] [place] [address], [place] [address]- 9567 May, [facility] [place] [address], [place] [address]- 5440 May, Diabetes with neurological manifestations, type II or unspecified type, not stated as uncontrolled 250.60 [facility] [place] [address], [place] [address]- 6834 May, [facility] [place] [address], [place] [address]- 6055 May, [facility] [place] [address], [place] [address]- 6237 May, Diabetes with neurological manifestations, type II or unspecified type, not stated as uncontrolled 250.60 and HTN (hypertension) 401.9 [facility] [place] [address], [place] [address]- 7544 Apr, [facility] [place] [address], [place] [address]- 6046 Feb, [facility] [place] [address], [place] [address]- 8525 Feb, [facility] [place] [address], [place] [address]- 8751 Jan, [facility] [place] [id number] [address]- 1115 Jan, [facility] [place] [id number] [address]- 2981 Dec, [facility] [place] [address], [place] [address]- 4682 Dec, [facility] [place] [id number] [address]- 0079 Dec, [facility] [place] [address] [address]- 4539 Nov, [facility] [address] [id number] [place] [address]- 3898 Nov, [facility] [place] [facility] [address] [id number] [place] [address]- 2852 Sep, [facility] [place] [facility] [address] [id number] [place] [address]- 5233 Sep, [facility] [place] [facility] [address] [id number] [place] [address]- 2454 Jul, [facility] [place] [facility] [address] [id number] [place] [address]- 7065 Jul, [facility] [place] [facility] [address] [id number] [place] [address]- 8958 Jul, [facility] [place] [facility] [address] [id number] [place] [address]- 6202 Jul, [facility] [place] [facility] [address] [id number] [place] [address]- 2535 Jun, [facility] [place] [facility] [address] [id number] [place] [address]- 1265 Jun, [facility] [place] [facility] [address] [id number] [place] [address]- 5230 May, [facility] [place] [facility] [address] [id number] [place] [address]- 3728 May, [facility] [place] [facility] [address] [id number] [place] [address]- 7735 May, [facility] [place] [facility] [address] [id number] [place] [address]- 6687 May, [facility] [place] [facility] [address] [id number] [place] [address]- 8538 Apr, [facility] [place] [facility] [address] [id number] [place] [address]- 8501 Apr, [facility] [place] [facility] [address] [id number] [place] [address]- 9851 Apr, [facility] [place] [facility] [address] [id number] [place] 2420 Apr, [facility] [place] [facility] [address] [id number] [place] [address]- 0830 March, [facility] [place] [facility] [address] [id number] [place] [address]- 1725 March, [facility] [place] [facility] [address] [id number] [place]30 Feb, [facility] [place] [facility] [address] [id number] [place] [address]- 8660 Feb, [facility] [place] [facility] [address] [id number] [place] [address]- 3001 Feb, [facility] [place] [facility] [address] [id number] [place] [address]- 4807 Feb, [facility] [place] [facility] [address] [id number] [place] [address]- 0462 Jan, [facility] [place] [facility] [address] [id number] [place] [address]- 4648 Jan, [facility] [place] [facility] [address] [id number] [place] [address]- 2992 Nov, [facility] [place] [facility] [address] [id number], [place] [address]- 4741 Nov, [facility] [place] [facility] [address] [id number] [place] [address]- 7214 Oct, [facility] [place] [facility] [address] [id number] [place] [address]- 2155 Oct, [facility] [place] [facility] [address] [id number] [place] [address]- 6606 Oct, [facility] [place] [facility] [address] [id number], [place] [address]- 5565 16 Oct, 2013 [facility] [place] [facility] [address] [id number] [place] [address]- 8689 Oct, [facility] [place] [facility] [address] [id number] [place] [address]- 2691 04 Oct, 2013 [facility] [place] [facility] [address] [id number] [place] [address]- 1378 Oct, [facility] [place] [facility] [address] [id number] [place] [address]- 7453 Oct, [facility] [place] [facility] [address] [id number] [place] [address]- 8219 Sep, [facility] [place] [facility] [address] [id number] [place] [address]- 4993 Sep, [facility] [place] [facility] [address] [facility] [id number] [place] [address]- 8858 Aug, [facility] [place] [facility] [address] [id number] [place] [address]- 2694 17 Aug, 2013 [facility] [place] [facility] [address] [facility] [id number], [place] [address]- 0163 17 Aug, 2013 [facility] [place] [facility] [address] [facility] [id number] [place] [address]- 4903 17 Aug, 2013 [facility] [place] [facility] [address] [id number], [place] [address]- 2595 16 Aug, 2013 [facility] [place] [facility] [address] [id number], [place] [address]- 6238 11 Aug, 2013 [facility] [place] [facility] [address] [id number][place] 4350 11 Aug, 2013 [facility] [place] [facility] [address] [facility] [id number]- 5374 10 Aug, 2013 [facility] [place] [facility] [address] [facility] [id number][place] 09 Aug, 2013 [facility] [place] [facility] [address] [id number] [place] [address] Aug, [facility] [address] [id number] [place] [address] Aug, [facility] [place] [facility] [address] [id number] [place] [address] Jul, [facility] [place] [facility] [address] [id number] [place] [address] Jun, [facility] [place] [facility] [address] [id number] [place] [address] Jun, [facility] [place] [facility] [address] [id number] [place] [address] May, [facility] [place] [facility] [address] [id number] [place] [address] May, [facility] [place] [facility] [address] [id number] [place] [address] Apr, [facility] [address] [id number] [place] [address] March, [facility] [place] [facility] [address] [id number] [place] [address] Feb, [facility] [place] [facility] [address] [id number] [place] [address] Jan, [facility] [place] [facility] [address] [id number] [place] [address] Dec, [facility] [place] [facility] [address] [id number] [place] [address] Dec, [facility] [place] [facility] [address] [id number] [place] [address] Dec, [facility] [place] [facility] [address] [id number] [place] [address] Nov, [facility] [place] [facility] [address] [id number] [place] [address] Nov, [facility] [place] [facility] [address] [id number] [place] [address] Nov, [facility] [place] [facility] [address] [id number] [place] [address] Oct, [facility] [place] [facility] [address] [facility] [id number] [place] [address] Oct, [facility] [place] [facility] [address] [id number] [place] [address] Oct, [facility] [place] [facility] [address] [id number] [place] [address] Oct, [facility] [place] [facility] [address] [id number] [place] [address] Sep, [facility] [place] [facility] [address] [id number] [place] [address] Sep, [facility] [place] [facility] [address] [id number], [place] [address] Sep, [facility] [place] [facility] [address] [id number] [place] [address] Sep, [facility] [place] [facility] [address] [id number] [place] [address] Aug, [facility] [place] [facility] [address] [id number], [place] [address] Aug, [facility] [place] [facility] [address] [id number], [place] [address] Aug, [facility] [place] [facility] [address] [id number] [place] [address] Aug, [facility] [place] [facility] [address] [facility] [id number], [place] [address] Aug, [facility] [place] [facility] [address] [facility] [id number], [place] [address] Aug, [facility] [place] [facility] [address] [id number] [place] [address] Jul, [facility] [address] [id number] [place] [address] Jun, [facility] [address] [id number] [place] [address] Jun, [facility] [address] [id number] [place] [address] Jun, [facility] [address] [id number] [place] [address] May, [facility] [address] [id number] [place] [address] May, [facility] [address] [id number] [place] [address] March, [facility] [address] [id number] [place] [address] March, [facility] [address] [id number] [place] [address] March, [facility] [address] [id number] [place] [address] Feb, [facility] [address] [id number] [place] [address] Feb, [facility] [place] [facility] [address] [id number] [place] [address] Feb, [facility] [address] [id number] [place] [address] Jan, [facility] [place] [facility] [address] [id number] [place] [address] Jan, [facility] [place] [facility] [address] [id number] [place] [address] Dec, [facility] [address] [id number] [place] [address] Dec, [facility] [address] [id number] [place] [address] Dec, [facility] [place] [facility] [address] [id number] [place] [address] Dec, [facility] [place] [facility] [address] [id number] [place] [address] Dec, [facility] [place] [facility] [address] [id number] [place] [address] Dec, [facility] [place] [facility] [address] [id number] [place] [address] Dec, [facility] [place] [facility] [address] [id number] [place] [address] Nov, [facility] [place] [facility] [address] [id number] [place] [address] Nov, [facility] [place] [facility] [address] [id number] [place] [address] Nov, [facility] [place] [facility] [address] [id number] [place] [address] Nov, [facility] [place] [facility] [address] [id number] [place] [address] Nov, [facility] [address] [id number] [place] [address] Nov, [facility] [place] [facility] [address] [id number] [place] [address] Oct, [facility] [place] [facility] [address] [id number] [place] [address] Oct, [facility] [place] [facility] [address] [id number] [place] [address] Oct, 2011 [facility] [place] [facility] [address] [id number] [place] [address] Oct, [facility] [place] [facility] [address] [facility] [id number], [place] [address] Oct, [facility] [place] [address] [facility] [id number], [place] [address] Oct, [facility] [place] [address] [id number], [place] [address] Oct, [facility] [place] [address] [facility] [id number], [place] [address] Oct, [facility] [place] [address] [facility] [id number], [place] [address] Aug, [facility] [place] [address] [id number] [address] [address] Jan, [facility] [place] [address] [id number] [address] Jan, IMMUNIZATIONS No Known Immunizations SOCIAL HISTORY Never Assessed REASON FOR VISIT right second toe pain et red et swollen. has been this bad since monday. had trouble with this toe for [address] bryan last et he was told to keep neosporin on it et keep it covered. saritha, has fu appt with dr bryan in 2 weeks. PLAN OF CARE Activity Details Follow Up prn Reason: VITAL SIGNS Height 69 in 2018-07-24 Weight 234.8 lbs 2018-07-24 Temperature 98.0 degrees Fahrenheit 2018-07-24 Heart Rate 82 bpm 2018-07-24 Respiratory Rate 20 2018-07-24 BMI 34.67 kg/m2 2018-07-24 Blood pressure systolic 136 mmHg 2018-07-24 Blood pressure diastolic 78 mmHg 2018-07-24 MEDICATIONS Medication Instructions Dosage Frequency Start Date End Date Duration Status Sodium Bicarbonate 10 mg Orally 2 times a day 1 tablet 12h Active Albuterol Sulfate (2.5 MG/3ML) 0.083% Inhalation 4 times a day as directed 6h Aug, Not-Taking Clindamycin HCl 300 MG Orally Three times a day 1 capsule 8h Jun, Jul, 10 day(s) Active Calcium Acetate (Phos Binder) 667 MG Orally Three times a day 2 tablets with meals 8h Active Klor-Con 10 10 MEQ Orally Twice a day 1 tablet with food 12h Active Acidophilus 100 mg Orally 2 times a day 1 capsule 12h Aug, Not-Taking Metoprolol Tartrate 25 MG Orally Twice a day 1 tablet with food 12h Aug Active Lomotil 2.5-0.025 MG 1 tablet as needed 6h 26 Dec, 2014 Active Glucocard Expression Test - DX- E11.9 3 times a day test 3 times per day 8h Oct, Active Glucocard Expression Monitor w/Device DX- E11.9 3 times a day test 3 times per day 8h Oct, Active Atorvastatin Calcium 40 mg Orally Once a day 1 tablet 24h May, Active Viberzi 100 mg Orally Twice a day 1 tablet with food 12h Aug, Active Blood Pressure Monitor - monitor BP as directed by nephrology May, Active NovoLog Flexpen 100 UNIT/ML Subcutaneous 3 times a day 16 units 8h Aug, Active Levemir Flexpen 100 unit/mL (3 mL) subcutaneously at bedtime 25 units daily Active RESULTS No Results PROCEDURES Procedure Date Ordered Result Body Site CULTURE BACTERIA ANAEROBIC Jul 24, 2018 CULTURE, BACTERIA, OTHER Jul 24, 2018 INSTRUCTIONS MEDICATIONS ADMINISTERED No Known Medications [...]
--- OUTSIDE RECORDS SUMMARY | 2019-01-01 13:09 | XMS REPORT ---
Author Author INGRID CHOUDHARY Organization [facility] Address [address] [place] [address] Care Team Providers Care Geoscience Technician Name Role Phone INGRID CHOUDHARY Unavailable PROBLEMS Type Condition ICD9-CM Code XBJ19-CN Code Onset Dates Condition Status SNOMED Code Problem Diabetes type 2, uncontrolled E11.65 Active 799603814 Problem Chronic kidney disease, stage 4 (severe) N18.4 Active 476017299 Problem Hypertension I10 Active 36278697 Problem Controlled type 2 diabetes mellitus without complication, without long -term current use of insulin E11.9 Active 731217545 Problem 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, 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.42 Active 360557240 Problem Type 2 diabetes mellitus with diabetic chronic kidney disease E11.22 Active 74120965 Problem Type 2 diabetes mellitus with hyperglycemia E11.65 Active 325190977975632 Problem Constipation, unspecified constipation type K59.00 Active 17041905 Problem 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 Active 663914050 Problem Need for prophylactic vaccination and inoculation against pertussis alone V03.6 Active 12742977 Problem Edema 782.3 Active 706688203 Problem Diabetes with neurological manifestations, type II or unspecified type , not stated as uncontrolled 250.60 Active 232612316 Problem Renal failure N19 Active 29033289 Problem Other and unspecified noninfectious gastroenteritis and colitis 558.9 Active 01824599 Problem HTN (hypertension) 401.9 Active 46260901 Problem Diabetes mellitus without mention of complication, type II or unspecified type, not stated as uncontrolled 250.00 Active 339812818 Problem Diabetes E11.9 Active 85003063 ALLERGIES No Information ENCOUNTERS Encounter Location Date Diagnosis [facility] [address] [facility] [id number] [address] Jan, [facility] [address] [facility] [id number] [address] Nov, Controlled type 2 diabetes mellitus without complication, without long-term current use of insulin E11.9 [facility] [id number] [place] [id number] Nov, [facility] [id number] [place] [address] 66806- 4593 Oct, [facility] [id number] [place] [address] 78372- 7776 Oct, [facility] [id number] [place] [address] 55448- 3672 Oct, [facility] [id number] [place] [address] 63682- 3084 Oct, [facility] [id number] [place] [address] 75249- 5374 Oct, [facility] [id number] [place] [address] 00059- 0307 Sep, [facility] [id number] [place] [address] 40007 -2710 Aug, Acute bronchitis, unspecified organism J20.9 [facility] [id number] [place] [address] 26862- 1200 Aug, [facility] [id number] [place] [address] 03661 -6430 Aug, Diarrhea of infectious origin A09 [facility] [id number] [place] [address] 65392- 9753 Aug, [facility] [id number] [place] [address] 52772- 9575 Jul, 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, unspecified intermediate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 status E11.42 [facility] [id number] [place] [address] [id number] Jul, Encounter for dental examination Z01.20 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 [id number] [place] [address] [address]9738 2546 May, [facility] [id number] [place] [address] 53995- 9006 May, [facility] [id number] [place] [address] 30703 2546 May, Open wound of toe, initial encounter S91.109A [facility] [id number] [place] [address] [id number] Apr, Dental examination Z01.20 [facility] [id number] [place] [address] 91024- 7436 Apr, Diabetes E11.9 and Stage 4 chronic kidney disease N18.4 [facility] [id number] [place] [address] 381397- 6696 March, [facility] [id number] [place] [address] 586188- 3676 Feb, [facility] [id number] [place] [address] 44527- 5386 Feb, [facility] [address] [place] [address] 207448- 7866 Feb, [facility] [id number] [place] [address] 750027- 6786 13 Dec, 2016 [facility] [address] [address] Dec, Constipation, unspecified constipation type K59.00 [facility] [id number] [place] [address] 23414- 6589 Dec, [facility] [id number] [place] [address] 95602- 9946 Dec, [facility] [id number] [place] [address] 09551- 4568 Dec, Renal failure N[address] [facility] [id number] [place] [address] 29669- 3384 Nov, Renal failure N[address] [facility] [id number] [place] [address] 93939- 1359 Nov, Chronic kidney disease, stage 4 (severe) N18.4 [facility] [id number] [place] [address] 28227- 1158 Nov, Chronic kidney disease, stage 4 (severe) N18.4 [facility] [id number] [place] [address] 04007- 1910 Nov, [facility] [id number] [place] [address] 55242- 9662 Nov, [facility] [id number] [place] [address] 99996- 2129 Nov, Dysthymia F34.1 [facility] [id number] [place] [address] 60486- 4087 Nov, [facility] [address] [place] [address] 37506 -2522 Oct, Bronchitis J40 [facility] [id number] [place] [address] 57718- 3963 Oct, Localized edema R60.0 [facility] [id number] [place] [address] 55285- 0765 Sep, Renal failure N19 ; Type 2 diabetes mellitus with diabetic chronic kidney disease E11.22 and Chronic kidney disease, stage 4 (severe) N18.4 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 [id number] [place] [address] 03525- 0654 Aug, Bronchitis J40 [facility] [id number] [place] [address] 87417- 1311 Aug, [facility] [id number] [place] [address] 37068 -8664 Aug, Bron[address]itis J40 [facility] [id number] [place] [address] 57614- 2223 Aug, Displaced fracture of greater trochanter of left femur, initial encounter for closed fracture S72.112A [facility] [id number] [place] [address] 32949- 3695 Jul, Hip fracture, left, closed, with routine healing, subsequent encounter S72.002D ; Renal failure N19 and Uncontrolled type 2 diabetes mellitus without complication, without long-term current use of insulin E11.65 [facility] [address] [place] [address] 39652- 9489 Jul, [facility] [id number] [place] [address] 91555- 6305 Jul, [facility] [id number] [place] [address] 34855- 3543 Jul, [facility] [id number] [place] [address] 71183- 2716 Jul, [facility] [id number] [place] [address] 68269- 6156 May, [facility] [address] [place] [address] 47351- 3603 May, Orthostatic hypotension I95.1 [address] insufficiency N28.9 [facility] [address] [place] [address] 49462- 2663 May, Renal failure N19 [facility] [id number] [place] [address] 88536- 6879 May, [facility] [id number] [place] [address] 67304- 1395 Apr, Renal failure N19 [place] [id number] [place] [address] 86868- 4558 Apr, [place] [id number] [place] [address] 58763- 2700 Apr, [facility] [id number] [place] [address] 22331 -1067 Apr, Orthostatic hypotension I95.1 and 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, 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.42 [place] [facility] [id number] [place] [address] 90986- 4726 March, Left rotator cuff tear M75.102 [facility] [id number] [place] [address] 41871 -6942 March, Allergic reaction to drug T78.40XA [facility] [address] [place] [address] 14515- 7528 March, Diabetes type 2, controlled E11.9 [facility] [id number] [place] [address] 85939- 3012 Feb, Left rotator cuff tear M75.102 [facility] [id number] [place] [address] 56349- 2709 Feb, Left rotator cuff tear M75.102 [facility] [id number] [place] [address] 08041 -7873 Feb, Diabetes type 2, uncontrolled E11.65 ; Hypertension I10 ; Edema 782.[address] [facility] [id number] [place] [address] 57440- 4831 Feb, [facility] [id number] [place] [address] 00430- 2201 Feb, [facility] [address] 15523- 9909 Feb, Left rotator cuff tear M75.102 [facility] [id number] [place] [address] 77980- 3921 Feb, [facility] [id number] [place] [address] 61863- 4856 Feb, Diabetes type 2, uncontrolled E11.[address] [facility] [address] 29813- 0039 Jan, Hypertension, essential I10 [facility] [id number] [place] [address] 93308- 0246 Dec, Hypertension I10 [facility] [id number] [place] [address] 94488- 2168 Dec, [facility] [id number] [place] [address] 24609- 4921 Dec, Renal insufficiency N28.[address] [facility] [id number] [place] [address] 31517- 0883 Dec, [facility] [id number] [place] [address] 93371- 1312 Dec, [facility] [id number] [place] [address] 65399- 0757 Dec, [facility] [id number] [place] [address] 27720 -0976 Nov, Pedal edema R60.0 and Benign essential hypertension I10 [facility] [address] [address]- 3888 Nov, Benign essential hypertension I10 and Renal insufficiency N28.9 [facility] [address] [address] -6636 Nov, Acute laryngopharyngitis J06.0 ; Benign essential hypertension I10 and Strep pharyngitis J02.0 [facility] [address] [place] [address] 17602- 8994 Nov, Diabetes type 2, uncontrolled E11.65 ; Renal insufficiency N28.9 and Localized edema R60.0 [facility] [id number] [place] [address] 30373- 0805 Oct, [facility] [id number] [place] [address] 66026- 6864 Oct, Diabetes E11.9 [facility] [id number] [place] [address] 25630- 7261 Sep, [facility] [id number] [place] [address] 60351- 3169 May, [facility] [id number] [place] [address] 54787- 6634 May, Diabetes with neurological manifestations, type II or unspecified type, not stated as uncontrolled 250.60 [facility] [address] [address]- 4574 May, [facility] [address] [place] [address] 42913- 8505 May, [facility] [id number] [place] [address] 59714- 2834 May, Diabetes with neurological manifestations, type II or unspecified type, not stated as uncontrolled 250.60 and HTN (hypertension) 401.9 [facility] [id number] [place] [address] 03618- 8127 Apr, [facility] [place] [facility] [address] [id number] [place] [address]- 9942 Feb, [facility] [place] [facility] [address] [id number] [place] [address]- 7946 Feb, [facility] [place] [facility] [address] [id number] [place] [address]- 8752 Jan, [facility] [place] [facility] [address] [id number] [place] [address]- 1387 Jan, [facility] [place] [facility] [address] [id number] [place] [address]- 4653 Dec, [facility] [place] [facility] [address] [id number] [place] [address]- 4626 Dec, [facility] [place] [facility] [address] [id number] [place] [address]- 2271 Dec, [facility] [place] [facility] [address] [id number] [place] [address]- 8888 Nov, [facility] [place] [facility] [address] [id number] [place] [address]- 4726 Nov, [facility] [place] [facility] [address] [id number] [place] [address]- 2472 Sep, [facility] [place] [facility] [address] [id number] [place] [address]- 0153 Sep, [facility] [place] [facility] [address] [id number] [address]- 5412 Jul, [facility] [place] [facility] [address] [id number] [place] [address]- 1997 Jul, [facility] [place] [facility] [address] [id number] [place] [address]- 9827 16 Jul, 2014 [facility] [place] [facility] [address] [id number] [place] [address]- 5926 16 Jul, 2014 [facility] [place] [facility] [address] [id number] [place] [address]- 2436 Jun, [facility] [place] [facility] [address] [id number] [place] [address]- 0458 Jun, [facility] [place] [facility] [address] [id number] [place] [address]- 3011 May, [facility] [place] [facility] [address] [id number] [place] [address]- 2474 May, [facility] [place] [facility] [address] [id number] [place] [address]- 6785 May, [facility] [place] [facility] [address] [id number] [place] [address]- 3841 May, [facility] [place] [facility] [address] [id number] [place] [address]- 6341 Apr, [facility] [place] [facility] [address] [id number] [place] [address]- 0758 Apr, [facility] [place] [facility] [address] [id number] [place] [address]- 9507 Apr, [facility] [place] [facility] [address] [id number] [place] [address]- 4749 Apr, [facility] [place] [facility] [address] [id number] [place] [address]- 6084 March, [facility] [place] [facility] [address] [id number] [place] [address]- 6827 March, [facility] [place] [facility] [address] [id number] [place] [address]- 4802 Feb, [facility] [place] [facility] [address] [id number] [place] [address]- 7016 Feb, [facility] [place] [facility] [address] [id number] [place] [address]- 9987 Feb, [facility] [place] [facility] [address] [id number] [place] [address]- 9966 Feb, [facility] [address] [id number] [place] [address]- 4359 Jan, [facility] [place] [facility] [address] [id number] [place] [address]- 2116 Jan, [facility] [place] [facility] [address] [id number] [place] [address]- 9035 Nov, [facility] [place] [facility] [address] [id number] [place] [address]- 0049 Nov, [facility] [place] [facility] [address] [id number] [place] [address]- 3073 Oct, [facility] [place] [facility] [address] [id number] [place] 3480 Oct, [facility] [place] [facility] [address] [id number] [place] [address]- 1157 Oct, [facility] [place] [facility] [address] [id number] [place] 9053 Oct, [facility] [place] [facility] [address] [id number] [place] 5694 Oct, [facility] [place] [facility] [address] [id number] 0869 Oct, [facility] [place] [facility] [address] [id number][place] [address]- 0068 Oct, [facility] [place] [facility] [address] [id number], [place] [address]- 4280 Oct, [facility] [place] [facility] [address] [id number] [place] [address]- 4763 Sep, [facility] [place] [facility] [address] [id number] [place] [address]- 6156 Sep, [facility] [place] [facility] [address] [id number], [place] [address]- 4516 Aug, [facility] [place] [facility] [address] [id number], [place] [address]- 5806 17 Aug, 2012 [facility] [place] [facility] [address] [id number] [place] [address]- 7507 17 Aug, 2012 [facility] [place] [facility] [address] [id number] [place] [address]- 8885 17 Aug, 2012 [facility] [place] [facility] [address] [id number] [place] [address]- 0810 16 Aug, 2012 [facility] [place] [facility] [address] [id number] [place] [address]- 1771 11 Aug, 2012 [facility] [place] [facility] [address] [id number] [place] [address]- 0904 11 Aug, 2013 [facility] [place] [facility] [address] [id number] [place] [address]- 4091 10 Aug, 2013 [facility] [place] [facility] [address] [id number] [place] [address]- 6775 Aug, [facility] [place] [facility] [address] [id number] [place] [address]- 1951 Aug, [facility] [place] [facility] [address] [facility] [id number] [place] [address]- 3562 Aug, [facility] [place] [facility] [address] [id number] [place] [address]- 6455 24 Jul, 2013 [facility] [place] [facility] [address] [id number] [place] [address]- 3749 Jun, [facility] [place] [facility] [address] [id number], [place] [address]- 7446 Jun, [facility] [place] [facility] [address] [id number] [place] [address]- 2206 May, [facility] [place] [facility] [address] [id number] [place] [address]- 5166 May, [facility] [place] [facility] [address] [facility] [id number] [place] [address]- 0661 Apr, [facility] [place] [facility] [address] [id number] [place] [address]- 9540 March, [facility] [address] [id number] [place] [address]- 7557 Feb, [facility] [place] [facility] [address] [id number] [place] [address]- 0316 Jan, [facility] [place] [facility] [address] [id number] [place] [address]- 9016 Dec, [facility] [place] [facility] [address] [id number] [place] [address]- 1868 Dec, [facility] [place] [facility] [address] [id number] [place] [address] Dec, [facility] [address] [id number] [place] [address] Nov, [facility] [address] [id number] [place] [address] Nov, [facility] [place] [facility] [address] [id number] [place] [address] Nov, [facility] [place] [facility] [address] [id number] [place] [address] Oct[facility] [place] [facility] [address] [id number] [place] [address] Oct, [facility] [place] [facility] [address] [id number] [place] [address] Oct, [facility] [place] [facility] [address] [id number] [place] [address] Oct, [facility] [place] [facility] [address] [id number] [place] [address] Sep, [facility] [place] [facility] [address] [id number] [place] [address] Sep, [facility] [place] [facility] [address] [id number] [place] [address] Sep, [facility] [place] [facility] [address] [id number] [place] [address] Sep, [facility] [place] [facility] [address] [id number] [place] [address] Aug, [facility] [place] [facility] [address] [id number] [place] [address] Aug, [facility] [place] [facility] [address] [id number] [place] [address] Aug, [facility] [place] [facility] [address] [id number] [place] [address] Aug, [facility] [place] [facility] [address] [id number] [place] [address] Aug, [facility] [place] [facility] [address] [id number] [place] [address] Aug, [facility] [place] [facility] [address] [id number] [place] [address] Jul, [facility] [place] [facility] [address] [id number] [place] [address] Jun, [facility] [place] [facility] [address] [id number] [place] [address] Jun, [facility] [place] [facility] [address] [id number] [place] [address] Jun, [facility] [place] [facility] [address] [id number] [place] [address] May, [facility] [place] [facility] [address] [id number] [place] [address] May, [facility] [place] [facility] [address] [id number] [place] [address] March, [facility] [place] [facility] [address] [id number] [place] [address] March, [facility] [place] [facility] [address] [id number] [place] [address] March, [facility] [address] [id number] [place] [address] Feb, [facility] [place] [facility] [address] [id number] [place] [address] Feb, [facility] [address] [id number] [place] [address] Feb, [facility] [place] [facility] [address] [id number] [place] [address] Jan, [facility] [address] [id number] [place] [address] Jan, [facility] [place] [facility] [address] [id number] [place] [address] Dec, [facility] [place] [facility] [address] [id number] [place] [address] Dec, [facility] [address] [id number] [place] [address] Dec, [facility] [place] [facility] [id number] [address] Dec, [facility] [address] [id number] [address] Dec, [facility] [place] [facility] [address] [facility] [id number] [place] [address] Dec, [facility] [place] [facility] [address] [id number] [place] [address] Dec, [facility] [place] [facility] [address] [id number] [place] [address] Nov, [facility] [place] [facility] [address] [id number] [place] [address] Nov, [facility] [place] [facility] [address] [id number] [place] [address] Nov, [facility] [address] [id number] [address] Nov, [facility] [id number] [address] Nov, [facility] [id number] [address] Nov, [facility] [id number] [address] Oct, [facility] [id number] [address] Oct, [facility] [id number] [address] Oct, [facility] [id number] [address] Oct, [facility] [id number] [address] Oct, [facility] [id number] [address] Oct, [facility] [id number] [address] Oct, [facility] [id number] [address] Oct, [facility] [address] [id number] [address] Aug, [facility] [address], [place] [address] Jan, [facility] [address] [address] Jan, IMMUNIZATIONS No Known Immunizations SOCIAL HISTORY Never Assessed REASON FOR VISIT Refill request PLAN OF CARE VITAL SIGNS MEDICATIONS [...]
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
[2019-01-01] MEDS ORDERED: LACTATED RINGERS 1,000 ML IV PRN (13:30)
[2019-01-01] MEDS ORDERED: LACTATED RINGERS 1,000 ML IV ONE (13:43)
[2019-01-01 13:45] VITALS: BP 146/84
--- NOTE | 2019-01-01 16:16 | NUR ---
Pt procedure delayed r/t Dr. Jones having an emergency proc. in surgery. Pt elected to leave after 4-5 hr delay until pt scope could be done. Pt left ambulatory accompanied by . No distress or discomfort noted. will possibly reschedule proc. in the future if primary Dr feels proc. is still necessary.
== END 2019-01-01 16:15 | disposition home or self-care (01) ==
LOC: ENDO 12:59
PROVIDERS: ATTEND Surgery
DX: K52.9 Noninfective gastroenteritis and colitis, unspecified (principal); Z53.29 Procedure and treatment not carried out because of patient's decision for other reasons; E11.9 Type 2 diabetes mellitus without complications; Z79.4 Long term (current) use of insulin; Z79.899 Other long term (current) drug therapy
CPT/HCPCS: 82962

== ENCOUNTER 2019-01-08 08:10 | Emergency (ER) | payer BC, MEDICARE ==
[~2019-01-08] VITALS: Ht 175.3 cm; Wt 99.8 kg
--- NOTE | 2019-01-08 08:44 | NUR ---
TO CT PER CART
[2019-01-08 08:45] LABS: BASOPHILS % (AUTO) 0 % (0-10); EOSINOPHILS % (AUTO) 0 % (0-10); HEMATOCRIT 30 % (40-54); LYMPHOCYTES # (AUTO) 0.6 X 10^3 (1.0-4.0); LYMPHOCYTES % (AUTO) 6 % (12-44); MEAN CORPUSCULAR HEMOGLOBIN 32 PG (25-34); MEAN CORPUSCULAR HGB CONC 33 G/DL (32-36); MEAN CORPUSCULAR VOLUME 97 FL (80-99); MEAN PLATELET VOLUME 9.3 FL (7.4-10.4); MONOCYTES # (AUTO) 0.7 X 10^3 (0.0-1.0); MONOCYTES % (AUTO) 8 % (0-12); NEUTROPHILS % (AUTO) 86 % (42-75); PLATELET COUNT 128 10^3/uL (130-400); RED CELL DISTRIBUTION WIDTH 13.8 % (10.0-14.5); WHITE BLOOD COUNT 9.3 10^3/uL (4.3-11.0)
--- NOTE | 2019-01-08 08:59 | ED General ---
General Chief Complaint: Trauma-Non Activation Stated Complaint: FALL; HEAD INJ; ALTERED MENTAL STATUS Nursing Triage Note: TO ROOM PER W/C ACCOMPIED BY WHO REPORTS HAS HAD INCREASE CONFUSION. FELL LAST NIGHT APX 4AM AND HIT HEAD. IS DIALYSIS PATIENT HAD RECEIVED DIALYSIS YESTERDAY Nursing Sepsis Screen: No Definite Risk Source of Information: Patient, Caregiver Exam Limitations: Other (AMS) (NICK BOCANEGRA STUDENT) History of Present Illness Date Seen by Provider: Jan 08, 2019 Time Seen by Provider: 08:27 Initial Comments 58 y/o M presented with his to the ED for altered mental status and a fall this morning. Patient's notes that he does have baseline mental status changes due to kidney failure and newly diagnosed "leaky gut syndrome"; however , he is worse than usual. This morning at about 4:30am, he fell and landed in a laundry basket and hit his head on a wall. He did complain of head pain and left sided pain. Patient has had diarrhea recently and was diagnosed with leaky gut syndrome by a cabinetmaker maintenance in [place]; his was told that this can cause short term AMS. He did have a blood sugar of >300 this morning, but he did not receive his basal insulin last night due to eating late in the evening. Patient received dialysis yesterday for kidney failure. He has had a slight cough for the past few days but no recorded fevers. Timing/Duration: 4-6 Hours Severity: Severe Associated Systoms: No Chest Pain; Cough; No Fever/Chills; Headaches; No Nausea /Vomiting, No Rash, No Shortness of Air, No Syncope, No Weakness; Other ( Confusion) (NICK BOCANEGRA STUDENT) Timing/Duration: 4-6 Hours, Getting Worse Severity: Moderate Associated Systoms: Fever/Chills; No Nausea/Vomiting, No Shortness of Air; Weakness (LEANA POPE MD) Allergies and Home Medications Allergies Coded Allergies: HARLEYANo Known Allergies (Verified Allergy, Unknown, 12/28/05) Home Medications Atorvastatin Calcium 40 Mg Tablet, 40 MG PO HS, (Reported) Calcium Acetate 667 Mg Capsule, 1,334 MG PO TID, (Reported) Insulin Aspart 300 Units/3 Ml Solution, 15 UNITS SQ TIDAC, (Reported) Insulin Detemir 100 Unit/1 Ml Insuln.pen, 26 UNIT SQ HS, (Reported) Metoprolol Tartrate 25 Mg Tablet, 25 MG PO BID, (Reported) Potassium Chloride 10 Meq Tab.er.prt, 10 MEQ PO BID, (Reported) Sodium Bicarbonate 325 Mg Tablet, 10 GR PO BID, (Reported) Patient Home Medication List Home Medication List Reviewed: Yes (NICK BOCANEGRA) Home Medication List Reviewed: Yes (LEANA POPE MD) Review of Systems Review of Systems Constitutional: No chills, No fever, No weakness EENTM: No nose congestion, No throat pain Respiratory: cough; No phlegm, No short of breath, No wheezing Cardiovascular: No chest pain, No edema, No syncope Gastrointestinal: No constipation; diarrhea; No vomiting Genitourinary: decreased output; No hematuria; other (on dialysis) Musculoskeletal: back pain, other (pain in left side) Skin: No lesions, No lumps, No rash Psychiatric/Neurological: Headache; Denies Weakness; Other (worsening mental status, confusion) (NICK BOCANEGRA) Constitutional: chills, fever, weakness Respiratory: cough; No short of breath Cardiovascular: No chest pain, No edema Gastrointestinal: diarrhea; No vomiting Genitourinary: no symptoms reported, decreased output (chronic related to end- stage renal disease) (LEANA POPE MD) All Other Systems Reviewed Negative Unless Noted: Yes (LEANA POPE MD) Past Jbrrlan-[place] Hx Past Med/Social Hx: Reviewed Nursing Past Med/Soc Hx (LEANA POPE MD) Patient Social History Alcohol Use: Denies Use Recreational Drug Use: No Smoking Status: Never a Smoker 2nd Hand Smoke Exposure: No Recent Foreign Travel: No Contact w/Someone Who Travel: No Recent Infectious Disease Expo: No Recent Hopitalizations: No (NICK BOCANEGRA) Immunizations Up To Date Tetanus Booster (TDap): Less than 5yrs PED Vaccines UTD: No Date of Pneumonia Vaccine: March 27, 2016 Date of Influenza Vaccine: Aug 28, 2018 (NICK BOCANEGRA) Seasonal Allergies Seasonal Allergies: Yes (NICK BOCANEGRA) Past Medical History Surgeries: Yes (several shoulders sx,R finger sx, exp lap) Abdominal, Dialysis, Orthopedic, Vascular Surgery Respiratory: No Currently Using CPAP: No Currently Using BIPAP: No Cardiac: Yes Chronic Edema/Swelling, High Cholesterol, Hypertension Neurological: No Reproductive Disorders: No Sexually Transmitted Disease: No HIV/AIDS: No Genitourinary: Yes (dialysis) Kidney Stones, Renal Failure Gastrointestinal: Yes Crohns Disease Musculoskeletal: Yes Arthritis, Back Injury, Chronic Back Pain, Fractures Endocrine: Yes Diabetes, Insulin dep HEENT: Yes Tinnitis Cancer: Yes (BASAL CELL) Skin Did You Recieve Any Treatments: Yes What Type of Treatment Did You: Surgical Intervention Psychosocial: No Integumentary: No Blood Disorders: No (NICK BOCANEGRA STUDENT) Family Medical History Reviewed Nursing Family Hx (NICK BOCANEGRA STUDENT) Reviewed Nursing Family Hx (LEANA POPE MD) No Pertinent Family Hx (NICK BOCANEGRA) Physical Exam-Suspected Sepsis Physical Exam Vital Signs Vital Signs - First Documented 01/08/19 01/08/19 08:14 08:57 Temp 100.0 Pulse 92 Resp 18 B/P (MAP) 133/69 (90) O2 Delivery Nasal Cannula O2 Flow Rate 2.00 (LEANA POPE MD) Vital Signs Capillary Refill : Less Than 3 Seconds (NICK BOCANEGRA STUDENT) Blood Pressure Mean: 90 Height, Weight, BMI Height: 5'9.00" Weight: 220lbs. 0.0oz. 99.442566uq; 32.5 BMI Method:Stated General Appearance: Chronically ill, Obese, Other (only responds to direct questioning) HEENT: PERRL/EOMI, TMs Normal, Normal ENT Inspection, Pharynx Normal Neck: Normal Inspection, Non Tender, Supple Respiratory: Lungs Clear, Normal Breath Sounds, No Accessory Muscle Use, No Respiratory Distress, Other (tenderness on left lateral ribs) Cardiovascular: Regular Rate, Rhythm, No Edema, No Murmur, Normal Peripheral Pulses Gastrointestinal: Normal Bowel Sounds, No Organomegaly, No Pulsatile Mass, Non Tender, Soft Back: Normal Inspection, No CVA Tenderness Extremity: Normal Inspection, Non Tender, No Calf Tenderness, No Pedal Edema Neurologic/Psychiatric: No Motor/Sensory Deficits, 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 as 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, Abnormal Gait, Depressed Affect, Disoriented (confused) Skin: normal color, warm/dry; No rash (NICK BOCANEGRA STUDENT) General Appearance: WD/WN, Chronically ill, Obese HEENT: PERRL/EOMI, Pharynx Normal, Other (no obvious injury on the head) Neck: Normal Inspection, Non Tender, Supple Respiratory: Lungs Clear, Normal Breath Sounds Cardiovascular: Regular Rate, Rhythm, No Edema, No Murmur Gastrointestinal: Non Tender, Soft Back: Normal Inspection, No CVA Tenderness Extremity: Non Tender, No Calf Tenderness Neurologic/Psychiatric: Alert, Abnormal Gait, Depressed Affect, Disoriented ( confused) Skin: normal color, warm/dry (LEANA POPE MD) Focused Exam Lactate Level 01/08/19 08:32: Lactic Acid Level 1.19 (LEANA POPE MD) Lactic Acid Level Laboratory Tests Test 01/08/19 08:32 Lactic Acid Level 1.19 MMOL/L (0.50-2.00) (LEANA POPE MD) Progress/Results/Core Measures Suspected Sepsis Recent Fever Within 48 Hours: No Infection Criteria Present: Suspected New Infection New/Unexplained Altered Menta: Yes Sepsis Screen: No Definite Risk SIRS Temperature:100.0 Pulse: 92 Respiratory Rate: 18 Laboratory Tests 01/08/19 08:32: White Blood Count 9.3 Blood Pressure 133 /69 Mean: 90 01/08/19 08:32: Lactic Acid Level 1.19 Laboratory Tests 01/08/19 08:32: Creatinine 4.30H, INR Comment 1.1, Platelet Count 128L, Total Bilirubin 0.8 (NICK BOCANEGRA STUDENT) Results/Orders Lab Results Laboratory Tests Test 01/08/19 08:32 Range/Units White Blood Count 9.3 4.3-11.0 10^3/uL Red Blood Count 3.13 L 4.35-5.85 10^6/uL Hemoglobin 10.0 L 13.3-17.7 G/DL Hematocrit 30 L 40-54 % Mean Corpuscular Volume 97 80-99 FL Mean Corpuscular Hemoglobin 32 25-34 PG Mean Corpuscular Hemoglobin Concent 33 32-36 G/DL Red Cell Distribution Width 13.8 10.0-14.5 % Platelet Count 128 L 130-400 10^3/uL Mean Platelet Volume 9.3 7.4-10.4 FL Neutrophils (%) (Auto) 86 H 42-75 % Lymphocytes (%) (Auto) 6 L 12-44 % Monocytes (%) (Auto) 8 0-12 % Eosinophils (%) (Auto) 0 0-10 % Basophils (%) (Auto) 0 0-10 % Neutrophils # (Auto) 8.0 H 1.8-7.8 X 10^3 Lymphocytes # (Auto) 0.6 L 1.0-4.0 X 10^3 Monocytes # (Auto) 0.7 0.0-1.0 X 10^3 Eosinophils # (Auto) 0.0 0.0-0.3 10^3/uL Basophils # (Auto) 0.0 0.0-0.1 10^3/uL Neutrophils % (Manual) 82 % Lymphocytes % (Manual) 3 % Monocytes % (Manual) 5 % Eosinophils % (Manual) 0 % Basophils % (Manual) 0 % Band Neutrophils 10 % Blood Morphology Comment NORMAL Prothrombin Time 13.8 12.2-14.7 SEC INR Comment 1.1 0.8-1.4 Activated Partial Thromboplast Time 37 H 24-35 SEC Sodium Level 139 135-145 MMOL/L Potassium Level 3.5 L 3.6-5.0 MMOL/L Chloride Level 96 L 98-107 MMOL/L Carbon Dioxide Level 31 21-32 MMOL/L Anion Gap 12 5-14 MMOL/L Blood Urea Nitrogen 33 H 7-18 MG/DL Creatinine 4.30 H 0.60-1.30 MG/DL Estimat Glomerular Filtration Rate 14 BUN/Creatinine Ratio 8 Glucose Level 247 H 70-105 MG/DL Lactic Acid Level 1.19 0.50-2.00 MMOL/L Calcium Level 9.6 8.5-10.1 MG/DL Corrected Calcium 9.6 8.5-10.1 MG/DL Total Bilirubin 0.8 0.1-1.0 MG/DL Aspartate Amino Transf (AST/SGOT) 38 H 5-34 U/L Alanine Aminotransferase (ALT/SGPT) 42 0-55 U/L Alkaline Phosphatase 129 40-136 U/L Total Protein 7.7 6.4-8.2 GM/DL Albumin 4.0 3.2-4.5 GM/DL (LEANA POPE MD) Micro Results Microbiology 01/08/19 Influenza Types A,B Antigen (QUIQUE) - Final, Complete (LEANA POPE MD) My Orders Orders - LEANA POPE MD Cbc With Automated Diff (01/08/19 08:30) Comprehensive Metabolic Panel (01/08/19 08:30) Blood Culture (01/08/19 08:30) Sputum Culture (01/08/19 08:30) Urinalysis (01/08/19 08:30) Urine Culture (01/08/19 08:30) Protime With Inr (01/08/19 08:30) Partial Thromboplastin Time (01/08/19 08:30) Chest 1 View, Ap/Pa Only (01/08/19 08:30) Saline Lock/Iv-Start (01/08/19 08:30) Vital Signs Adult Sepsis Patie Q15M (01/08/19 08:30) O2 (01/08/19 08:30) Remove Rings In Anticipation O (01/08/19 08:30) Lactic Acid Analyzer (01/08/19 08:30) Influenza A And B Antigens (01/08/19 08:30) Ct Head/Cervical Spine Wo (01/08/19 08:30) Manual Differential (01/08/19 08:32) Lorazepam Injection (Ativan Injection) (01/08/19 09:45) Piperacillin/Tazobactam (Bulk) (Zosyn In (01/08/19 10:30) Piperacillin Sodium/Tazobactam (Zosyn Vi (01/08/19 10:53) (LEANA POPE MD) Medications Given in ED Current Medications Medications Dose Ordered Sig/Uday Route Start Time Stop Time Status Last Admin Dose Admin Lorazepam 0.5 mg ONCE ONCE IVP 01/08/19 09:45 01/08/19 09:46 DC 01/08/19 09:47 0.5 MG (LEANA POPE MD) Vital Signs/I&O 01/08/19 01/08/19 08:14 08:57 Temp 100.0 Pulse 92 Resp 18 B/P (MAP) 133/69 (90) O2 Delivery Nasal Cannula O2 Flow Rate 2.00 (LEANA POPE MD) Vital Signs/I&O Capillary Refill : Less Than 3 Seconds (BERONICA-BIECHLER,NICK Murray STUDENT) Blood Pressure Mean: 90 Progress Note : Time: 08:32 Progress Note CBC, CMP, blood cultures, UA, sputum culture, coags, CXR, lactic acid, CT head/ neck due to fall, influenza. Monitor patient. (NICK BOCANEGRA STUDENT) Progress Note : Progress Note Have seen and evaluated the patient and agree with above except as indicated. Have directed the plan of care. Patient is here with altered mental status and fall this morning. found him in a laundry basket on his left side. Patient was apparently confused before his fall as she found him with 3 socks on 1 foot in his underwear and confused prior to the fall. Does have end-stage renal disease and is on dialysis. Last dialysis was yesterday. IV, labs, UA, blood cultures and lactic acid, influenza screen and CT head and neck ordered for fall. We will also get chest x-ray. Monitor patient. 1120: Patient found to have right mid lung pneumonia. He is still confused. He will need treatment for his pneumonia in a Center capable of providing dialysis. Zosyn 4.5 g IV has been initiated. I have discussed the case with Dr. Burch at [facility] in [facility] and patient will be transferred emergency department to emergency department. Dr. Burch accepts patient for transfer. Films of CT head and neck as well as chest x-ray clouded to [facility] in [place]. Family informed and agree with plan. (LEANA POPE MD) Diagnostic Imaging Diagonstic Imaging: CT Plain Films/CT/US/NM/MRI: c-spine, head Comments ADMIT DATE: 01/08/19/ER Draft Date of Exam:01/08/19 CT HEAD/CERVICAL SPINE WO PROCEDURE: CT head and CT cervical spine without contrast. TECHNIQUE: Multiple contiguous axial images were obtained through the brain and cervical spine without the use of intravenous contrast. Sagittal and coronal reformations through the cervical spine were then performed. INDICATION: Fall striking the head Exam compared 12/22/2016. HEAD: Atrophy and white matter small vessel sequelae showed mild progression from prior and appeared more advanced than typically encountered in a patient of this age. No focal or generalized edema. There are no abnormal extra-axial fluid collections. There is no hemorrhage. The basilar cisterns patent. There is no sulcal effacement. The calvarium revealed no traumatic deformity. There is no paranasal sinus air-fluid level. Opacification of multiple left-sided ethmoid air cells and membrane disease in the left frontal sinus as well as the left greater than right maxillary sinuses. There is no paranasal sinus air-fluid level. CT CERVICAL SPINE: Incomplete fusion of the posterior ring of C1 is an incidental variant. No acute or chronic fracture. The reconstruction views revealed normal cervical body heights aligned anatomically and there was no substantial canal or foraminal stenosis. No paravertebral hemorrhage. The skull base appeared intact. IMPRESSION: CT HEAD: Progressive and premature cerebral cortical atrophy but no acute or posttraumatic sequelae. CT CERVICAL SPINE: No fracture, stenosis or traumatic malalignment. Dictated on workstation # [id number] Dict: 01/08/19909 Trans: 01/08/1947 [facility] [id number] Interpreted by: JUAN MAYORGA Electronically signed by: Diagonstic Imaging: Xray Plain Films/CT/US/NM/MRI: chest Comments [facility], [place] NAME: JUDD BARKER [facility] REC#: [id number] PT STATUS: REG ER : 1960 PHYSICIAN: LEANA POPE MD ADMIT DATE: 01/08/19/ER Draft Date of Exam:01/08/19 CHEST 1 VIEW, AP/PA ONLY INDICATION: Fall striking the head. No priors for comparison. FINDINGS: The heart is enlarged. There is vascular congestion. There is poor inspiratory expansion. Airspace opacity in the right midlung laterally is suspicious for developing pneumonia or asymmetric edema; correlate clinically. IMPRESSION: Cardiomegaly, vascular congestion, poor lung expansion with suspicion for airspace disease in the mid right lung laterally; developing pneumonia could not be excluded. Dictated on workstation # [id number] Dict: 01/08/19914 Trans: 01/08/1934 [facility] [id number] Interpreted by: JUAN MAYORGA Electronically signed by: (LEANA POPE MD) Departure Impression Primary Impression: Right middle lobe pneumonia Qualified Codes: J18.1 - Lobar pneumonia, unspecified organism Additional Impressions: Confusion End stage renal disease on dialysis Disposition: 02 XFER SHT-TRM HOSP Condition: Stable Transfer Time Spoke to Accepting Phy: 11:20 Transfer Time: 11:20 Transfer Facility: [place], [place], Dr. Burch accepting. Method of Transfer: EMS (LEANA POPE MD) Departure-Patient Inst. Referrals: INGRID CHOUDHARY (PCP/Family) Primary Care Physician NICK BOCANEGRA STUDENT Jan 08, 2019 08:59 LEANA POPE MD Jan 08, 2019 10:01
[2019-01-08 09:02] LABS: INR 1.1 (0.8-1.4); PROTHROMBIN TIME PATIENT 13.8 SEC (12.2-14.7)
[2019-01-08 09:08] LABS: BILIRUBIN,TOTAL 0.8 MG/DL (0.1-1.0); CALCIUM 9.6 MG/DL (8.5-10.1); CREATININE SERUM 4.3 MG/DL (0.60-1.30); POTASSIUM 3.5 MMOL/L (3.6-5.0); TOTAL PROTEIN 7.7 GM/DL (6.4-8.2)
[2019-01-08 09:10] LABS: BAND NEUTROPHILS 10 %; BASOPHILS % (MANUAL) 0 %; EOSINOPHILS % (MANUAL) 0 %; LYMPHOCYTES % (MANUAL) 3 %; MONOCYTES % (MANUAL) 5 %; NEUTROPHILS % (MANUAL) 82 %
[2019-01-08 09:12] LABS: RBC MORPH NORMAL
--- NOTE | 2019-01-08 09:34 | Diagnostic Imaging Report ---
INDICATION: Fall striking the head. No priors for comparison. FINDINGS: The heart is enlarged. There is vascular congestion. There is poor inspiratory expansion. Airspace opacity in the right midlung laterally is suspicious for developing pneumonia or asymmetric edema; correlate clinically. IMPRESSION: Cardiomegaly, vascular congestion, poor lung expansion with suspicion for airspace disease in the mid right lung laterally; developing pneumonia could not be excluded. Dictated by: Dictated on workstation # [id number]
--- NOTE | 2019-01-08 09:38 | NUR ---
TO DESK REQUEST MEDS FOR PATIENT REPORTS PATIENT IS RESTLESS TALKED WITH DR RESENDIZ ORDERD
[2019-01-08] MEDS ORDERED: LORazepam INJ 2 MG/ML (ATIVAN) VIAL IVP ONE (09:45)
--- NOTE | 2019-01-08 09:46 | Diagnostic Imaging Report ---
PROCEDURE: CT head and CT cervical spine without contrast. TECHNIQUE: Multiple contiguous axial images were obtained through the brain and cervical spine without the use of intravenous contrast. Sagittal and coronal reformations through the cervical spine were then performed. INDICATION: Fall striking the head Exam compared 12/22/2016. HEAD: Atrophy and white matter small vessel sequelae showed mild progression from prior and appeared more advanced than typically encountered in a patient of this age. No focal or generalized edema. There are no abnormal extra-axial fluid collections. There is no hemorrhage. The basilar cisterns patent. There is no sulcal effacement. The calvarium revealed no traumatic deformity. There is no paranasal sinus air-fluid level. Opacification of multiple left-sided ethmoid air cells and membrane disease in the left frontal sinus as well as the left greater than right maxillary sinuses. There is no paranasal sinus air-fluid level. CT CERVICAL SPINE: Incomplete fusion of the posterior ring of C1 is an incidental variant. No acute or chronic fracture. The reconstruction views revealed normal cervical body heights aligned anatomically and there was no substantial canal or foraminal stenosis. No paravertebral hemorrhage. The skull base appeared intact. IMPRESSION: CT HEAD: Progressive and premature cerebral cortical atrophy but no acute or posttraumatic sequelae. CT CERVICAL SPINE: No fracture, stenosis or traumatic malalignment. Dictated by: Dictated on workstation # [id number]
[2019-01-08] MEDS ORDERED: PIPERACILLIN/TAZOBACTAM (BULK) 4.5 GM in NS (IVPB) 100 ML IV ONE (10:30)
[2019-01-08] MEDS ORDERED: PIPERACILLIN/TAZO 4.5 GM VIAL (ZOSYN) IV ONE (10:53)
--- NOTE | 2019-01-08 11:37 | NUR ---
REPORT TO LATOSHA RYAN
--- NOTE | 2019-01-08 12:05 | NUR ---
EMS HERE FOR TANSFER TO LATOSHA CRAFT
[2019-01-08 12:06] VITALS: BP 142/78
== END 2019-01-08 12:17 | disposition short-term general hospital (02) ==
LOC: EDUNIT# 08:10 → ER 08:12
DX: J18.1 Lobar pneumonia, unspecified organism (principal); R41.0 Disorientation, unspecified; E11.22 Type 2 diabetes mellitus with diabetic chronic kidney disease; I12.0 Hypertensive chronic kidney disease with stage 5 chronic kidney disease or end stage renal disease; N18.6 End stage renal disease; R51 Headache; E78.00 Pure hypercholesterolemia, unspecified; Z87.442 Personal history of urinary calculi; Z87.19 Personal history of other diseases of the digestive system; Z85.828 Personal history of other malignant neoplasm of skin; Z99.2 Dependence on renal dialysis; Z79.4 Long term (current) use of insulin; Z98.890 Other specified postprocedural states; W01.198A Fall on same level from slipping, tripping and stumbling with subsequent striking against other object, initial encounter
CPT/HCPCS: 36415; 70450; 71045; 72125; 80053; 83605; 85007; 85027; 85610; 85730; 87040; 87804

== ENCOUNTER → 2019-04-15 | Outpatient (CLI) | payer BC, MEDICARE ==
[2019-04-15 17:15] LABS: BASOPHILS % (AUTO) 1 % (0-10); EOSINOPHILS # (AUTO) 0.1 10^3/uL (0.0-0.3); EOSINOPHILS % (AUTO) 2 % (0-10); HEMATOCRIT 30 % (40-54); LYMPHOCYTES # (AUTO) 1.4 X 10^3 (1.0-4.0); LYMPHOCYTES % (AUTO) 27 % (12-44); MEAN CORPUSCULAR HEMOGLOBIN 32 PG (25-34); MEAN CORPUSCULAR HGB CONC 34 G/DL (32-36); MEAN CORPUSCULAR VOLUME 94 FL (80-99); MEAN PLATELET VOLUME 10.2 FL (7.4-10.4); MONOCYTES # (AUTO) 0.4 X 10^3 (0.0-1.0); MONOCYTES % (AUTO) 8 % (0-12); NEUTROPHILS # (AUTO) 3.1 X 10^3 (1.8-7.8); NEUTROPHILS % (AUTO) 62 % (42-75); PLATELET COUNT 116 10^3/uL (130-400); RED CELL DISTRIBUTION WIDTH 13.9 % (10.0-14.5); WHITE BLOOD COUNT 5.1 10^3/uL (4.3-11.0)
[2019-04-15 17:29] LABS: ALBUMIN 4.3 GM/DL (3.2-4.5); BILIRUBIN,TOTAL 0.6 MG/DL (0.1-1.0); CALCIUM 9.2 MG/DL (8.5-10.1); CREATININE SERUM 2.88 MG/DL (0.60-1.30); TOTAL PROTEIN 7.3 GM/DL (6.4-8.2)
[2019-04-15 17:35] LABS: VANCOMYCIN,TROUGH 15.5 UG/ML (10.0-20.0)
[2019-04-15 17:40] LABS: ERYTHROCYTE SEDIMENTATION RATE 48 MM/HR (0-30)
== END ==
LOC: HH 17:07
PROVIDERS: ATTEND Internal Medicine Infectious Disease
DX: Z51.81 Encounter for therapeutic drug level monitoring (principal); B95.62 Methicillin resistant Staphylococcus aureus infection as the cause of diseases classified elsewhere; Z79.2 Long term (current) use of antibiotics
CPT/HCPCS: 80053; 80202; 85025; 85652

== ENCOUNTER → 2019-04-22 | Outpatient (CLI) | payer BC, MEDICARE ==
[2019-04-22 16:24] LABS: BASOPHILS % (AUTO) 1 % (0-10); EOSINOPHILS # (AUTO) 0.1 10^3/uL (0.0-0.3); EOSINOPHILS % (AUTO) 2 % (0-10); HEMATOCRIT 29 % (40-54); LYMPHOCYTES # (AUTO) 1.5 X 10^3 (1.0-4.0); LYMPHOCYTES % (AUTO) 26 % (12-44); MEAN CORPUSCULAR HEMOGLOBIN 32 PG (25-34); MEAN CORPUSCULAR HGB CONC 34 G/DL (32-36); MEAN CORPUSCULAR VOLUME 94 FL (80-99); MEAN PLATELET VOLUME 9.9 FL (7.4-10.4); MONOCYTES # (AUTO) 0.5 X 10^3 (0.0-1.0); MONOCYTES % (AUTO) 9 % (0-12); NEUTROPHILS # (AUTO) 3.6 X 10^3 (1.8-7.8); NEUTROPHILS % (AUTO) 63 % (42-75); PLATELET COUNT 112 10^3/uL (130-400); RED CELL DISTRIBUTION WIDTH 13.4 % (10.0-14.5); WHITE BLOOD COUNT 5.7 10^3/uL (4.3-11.0)
[2019-04-22 16:37] LABS: ALBUMIN 4.3 GM/DL (3.2-4.5); BILIRUBIN,TOTAL 0.8 MG/DL (0.1-1.0); CALCIUM 9.7 MG/DL (8.5-10.1); CREATININE SERUM 3.42 MG/DL (0.60-1.30); POTASSIUM 3.7 MMOL/L (3.6-5.0); TOTAL PROTEIN 7.3 GM/DL (6.4-8.2)
[2019-04-22 16:43] LABS: VANCOMYCIN,TROUGH 16.7 UG/ML (10.0-20.0)
[2019-04-22 16:44] LABS: ERYTHROCYTE SEDIMENTATION RATE 51 MM/HR (0-30)
== END ==
LOC: LABNPT 16:14
PROVIDERS: ATTEND Internal Medicine Infectious Disease
DX: Z51.81 Encounter for therapeutic drug level monitoring (principal); B95.62 Methicillin resistant Staphylococcus aureus infection as the cause of diseases classified elsewhere; Z79.82 Long term (current) use of aspirin
CPT/HCPCS: 80053; 80202; 85025; 85652

== ENCOUNTER → 2019-05-03 | Outpatient (CLI) | payer BC, MEDICARE | LOC: HH 16:10 | PROVIDERS: ATTEND Internal Medicine Infectious Disease | DX: Z51.81 Encounter for therapeutic drug level monitoring (principal); B95.62 Methicillin resistant Staphylococcus aureus infection as the cause of diseases classified elsewhere; Z79.2 Long term (current) use of antibiotics | CPT/HCPCS: 80202 ==

== ENCOUNTER → 2019-05-06 | Outpatient (CLI) | payer BC, MEDICARE ==
[2019-05-06 17:35] LABS: BASOPHILS % (AUTO) 0 % (0-10); EOSINOPHILS # (AUTO) 0.1 10^3/uL (0.0-0.3); EOSINOPHILS % (AUTO) 3 % (0-10); HEMATOCRIT 29 % (40-54); HEMOGLOBIN 9.9 G/DL (13.3-17.7); LYMPHOCYTES # (AUTO) 1.4 X 10^3 (1.0-4.0); LYMPHOCYTES % (AUTO) 31 % (12-44); MEAN CORPUSCULAR HEMOGLOBIN 33 PG (25-34); MEAN CORPUSCULAR HGB CONC 34 G/DL (32-36); MEAN CORPUSCULAR VOLUME 96 FL (80-99); MEAN PLATELET VOLUME 9.2 FL (7.4-10.4); MONOCYTES # (AUTO) 0.4 X 10^3 (0.0-1.0); MONOCYTES % (AUTO) 8 % (0-12); NEUTROPHILS # (AUTO) 2.7 X 10^3 (1.8-7.8); NEUTROPHILS % (AUTO) 59 % (42-75); PLATELET COUNT 112 10^3/uL (130-400); RED CELL DISTRIBUTION WIDTH 15.3 % (10.0-14.5); WHITE BLOOD COUNT 4.6 10^3/uL (4.3-11.0)
[2019-05-06 17:50] LABS: ALANINE AMINOTRANSFERASE 32 U/L (0-55); ALBUMIN 4.6 GM/DL (3.2-4.5); ALKALINE PHOSPHATASE 79 U/L (40-136); BILIRUBIN,TOTAL 1.1 MG/DL (0.1-1.0); BUN/CREATININE RATIO 6; CALCIUM 9.7 MG/DL (8.5-10.1); CARBON DIOXIDE 35 MMOL/L (21-32); CHLORIDE 92 MMOL/L (98-107); CREATININE SERUM 2.64 MG/DL (0.60-1.30); GFR ESTIMATED 25; GLUCOSE 130 MG/DL (70-105); POTASSIUM 3.2 MMOL/L (3.6-5.0); SODIUM 139 MMOL/L (135-145); TOTAL PROTEIN 7.6 GM/DL (6.4-8.2)
[2019-05-06 17:55] LABS: VANCOMYCIN,TROUGH 12.5 UG/ML (10.0-20.0)
[2019-05-06 18:09] LABS: BAND NEUTROPHILS 3 %; LYMPHOCYTES % (MANUAL) 20 %; MONOCYTES % (MANUAL) 7 %; NEUTROPHILS % (MANUAL) 70 %; RBC MORPH NORMAL
[2019-05-06 18:10] LABS: ERYTHROCYTE SEDIMENTATION RATE 34 MM/HR (0-30)
== END ==
LOC: LABNPT 17:28
PROVIDERS: ATTEND Internal Medicine Infectious Disease
DX: Z51.81 Encounter for therapeutic drug level monitoring (principal); Z79.2 Long term (current) use of antibiotics; B95.62 Methicillin resistant Staphylococcus aureus infection as the cause of diseases classified elsewhere
CPT/HCPCS: 80053; 80202; 85007; 85027; 85652

== ENCOUNTER → 2020-07-31 | Outpatient (CLI) | payer BC, MEDICARE | LOC: CARD 13:31 | PROVIDERS: ATTEND Internal Medicine Cardiovascular Disease | DX: I35.8 Other nonrheumatic aortic valve disorders (principal); E11.22 Type 2 diabetes mellitus with diabetic chronic kidney disease; I51.7 Cardiomegaly; I95.9 Hypotension, unspecified; E78.2 Mixed hyperlipidemia; N18.6 End stage renal disease | CPT/HCPCS: 93306 ==